=== PATIENT | female | born 1945 | race Caucasian/White ===

== ENCOUNTER 2018-11-22 18:08 | Emergency (ER) | payer BC, OTHER ==
--- OUTSIDE RECORDS SUMMARY | 2018-11-22 18:10 | XMS REPORT ---
:1945 [facility] Organization [facility] Address [address] [place] [address] [address] [place] [address] Care Team Providers Name Role Phone KIM ESTRADA Unavailable Unavailable RUDI MICHELLE Unavailable Unavailable Problems This patient has no known problems. Allergies, Adverse Reactions, Alerts This patient has no known allergies or adverse reactions. Medications This patient has no known medications. Results Test Description Test Time Test Comments Text Results Atomic Results Result Comments Hematology 2018-06-10 12:19:00 Test Item Value Reference Range Comments Hematology (test code=WBCT) 7.3 thou/uL 4.8-10.8 Hematology (test code=RBCT) 4.77 mill/uL 4.20-5.40 Hematology (test code=HGBT) 14.6 g/dL 12.0-16.0 Hematology (test code=HCTT) 43.2 % 36.0-47.0 Hematology (test code=MCV) 90.5 fL 78.0-98.0 Hematology (test code=MCH) 30.6 pg 27.0-31.0 Hematology (test code=MCHC) 33.8 g/dL 32.0-36.0 Hematology (test code=RDW) 11.5 % 11.5-14.5 Hematology (test code=PLTT) 216 thou/uL 130-400 Hematology (test code=MPV) 8.3 fL 7.4-10.4 Hematology (test code=NE) 75 % 42-75 Hematology (test code=BA) 1 % 5-11 Hematology (test code=LY) 14 % 21-51 Hematology (test code=MO) 8 % 0-10 Hematology (test code=EO) 2 % 0-10 Hematology (test code=PCOMMENT) Appears Adequate [id number] 12:16:00 Test Item Value Reference Range Comments Chemistry (test 2.5 ng/mL 0-6.6 code=CKMBM-T) Chemistry (test 0.028 ng/mL < 0.028 code=TROPI-T) Reference Range 0.00 - 0.028 ng/mL Negative 0.029 - 0.29 ng/mL Indeterminate Greater or Equal to 0.3 ng/mL Strongly suggests CT Chemistry - BNP, HgbA1c, [id number] 12:14:00 Test Item Value Reference Range Comments Chemistry - BNP, HgbA1c, PTHi (test code=BNP) 88.1 pg/mL 0-100 [id number] 12:11:00 Test Item Value Reference Range Comments Chemistry (test code=NA-T) 144 mmol/L 136-145 Chemistry (test code=K-T) 4.2 mmol/L 3.5-5.1 Chemistry (test code=CL) 105 mmol/L 98-107 Chemistry (test code=CO2) 25 mmol/L 23-31 Chemistry (test code=ANGP) 18 mmol/L 10-20 Chemistry (test code=BUN) 15 mg/dL 9.8-20.1 Chemistry (test code=CREATT) 0.95 mg/dL 0.6-1.1 Chemistry (test 58 Reference Range for Estimated code=EGFRMDRD) GFR: Greater than 90 mL/min/1.73 m2NOTE:The MDRD equation has not been validated for use with theelderly (over 70 years of age), women, patientswith serious comorbid condition or persons with extremes ofbody size, muscle mass, or nutritional status. Chemistry (test code=GLU-T) 149 mg/dL 83-110 Chemistry (test code=CA) 9.0 mg/dL 7.8-10.44 ANG, REMOVAL OF TUNNELED CVC [id number] 12:06:00Reason for Exam:->ANAL CAFINAL REPORT Procedure: Removal of right chest port History: Chemotherapy completed Anesthesia: 1% lidocaine Conscious sedation: Versed 2 mg, fentanyl 100 mcg, (Administered after informed consent was obtained ) Vital signs were monitored throughout the procedure by a nurse, and remained stable. Physician intra-service time was 15 minutes. Approach: Right chest Technique: After obtaining written informed consent , the right chest wall were prepped and draped with maximal sterile barrier technique . All elements maximal sterile barrier technique was utilized for this procedure, including utilization of sterile scrub solution for skin prep, a large sterile sheet to cover the areas of the patient that were not prepped, and hand hygiene , mask, head covering, and sterile gown for performing radiologist and scrub technologist. An incision was made over the existing scar. Blunt and sharp dissection were required to remove the chest port and the catheter. The subcutaneous pocket was irrigated with antibiotic solution and closed with resorbable suture. The patient toleratedthe procedure well. Estimated blood loss was less than 5 cc. IMPRESSION: Successful, uncomplicated removal of right- sided chest port. Signed: Quincy Leach MDReport Verified Date/Time: 02/13/2018 12:06:33 Reading Location: [facility] Radiology Reading Room CBC W/PLT COUNT & AUTO [id number] 11:13:00 Test Item Value Reference Range Comments WHITE BLOOD CELL COUNT (BEAKER) (test usdn=043) 7.4 K/ L 4.0-10.0 RED BLOOD CELL COUNT (BEAKER) (test cqhy=002) 4.39 M/ L 4.00-5.00 HEMOGLOBIN (BEAKER) (test knuj=371) 13.7 GM/DL 12.0-15.0 HEMATOCRIT (BEAKER) (test istf=519) 40.7 % 36.0-45.0 MEAN CORPUSCULAR VOLUME (BEAKER) (test imhr=520) 92.7 fL 82.0-99.0 MEAN CORPUSCULAR HEMOGLOBIN (BEAKER) (test 31.2 pg 27.0-33.0 cgyh=353) MEAN CORPUSCULAR HEMOGLOBIN CONC (BEAKER) (test 33.7 GM/DL 32.0-36.0 sqyb=990) RED CELL DISTRIBUTION WIDTH (BEAKER) (test 12.6 % 10.3-14.2 lerm=721) PLATELET COUNT (BEAKER) (test bhpg=841) 222 K/CU MM 150-430 MEAN PLATELET VOLUME (BEAKER) (test dpvs=382) 8.0 fL 6.5-10.5 NUCLEATED RED BLOOD CELLS (BEAKER) (test 0 /100 WBC 0-0 egka=684) NEUTROPHILS RELATIVE PERCENT (BEAKER) (test 83 % kggq=429) LYMPHOCYTES RELATIVE PERCENT (BEAKER) (test 10 % pkxi=339) MONOCYTES RELATIVE PERCENT (BEAKER) (test 5 % rzuh=108) EOSINOPHILS RELATIVE PERCENT (BEAKER) (test 3 % sdtf=627) BASOPHILS RELATIVE PERCENT (BEAKER) (test 0 % uctk=575) NEUTROPHILS ABSOLUTE COUNT (BEAKER) (test 6.10 K/ L 1.80-8.00 glmv=206) LYMPHOCYTES ABSOLUTE COUNT (BEAKER) (test 0.70 K/ L 1.48-4.50 jity=620) MONOCYTES ABSOLUTE COUNT (BEAKER) (test 0.30 K/ L 0.00-1.30 zcle=897) EOSINOPHILS ABSOLUTE COUNT (BEAKER) (test 0.20 K/ L 0.00-0.50 qczg=203) BASOPHILS ABSOLUTE COUNT (BEAKER) (test 0.00 K/ L 0.00-0.20 joxh=455) [id number] 09:32:00 Test Item Value Reference Range Comments PROTIME (BEAKER) (test tkow=444) 9.7 seconds 9.3-12.0 INR (BEAKER) (test wxam=655) 0.9 <=5.9 PARTIAL THROMBOPLASTIN TIME (BEAKER) (test 24.8 seconds 23.0-35.0 hnlh=019) RECOMMENDED COUMADIN/WARFARIN INR THERAPY RANGESSTANDARD DOSE: 2.0 - 3.0 Includes: PROPHYLAXIS forvenous thrombosis, systemic embolization; TREATMENT for venous thrombosis and/or pulmonary embolus.HIGH RISK: Target INR is 2.5-3.5 for patients with mechanical heart valves.[id number] 09:59:00 Test Item Value Reference Range Comments PROTIME (BEAKER) (test dchr=115) 10.0 seconds 9.3-12.0 INR (BEAKER) (test uril=431) 0.9 <=5.9 PARTIAL THROMBOPLASTIN TIME (BEAKER) (test 24.5 seconds 23.0-35.0 gxgk=649) RECOMMENDED COUMADIN/WARFARIN INR THERAPY RANGESSTANDARD DOSE: 2.0 - 3.0 Includes: PROPHYLAXIS forvenous thrombosis, systemic embolization; TREATMENT for venous thrombosis and/or pulmonary embolus.HIGH RISK: Target INR is 2.5-3.5 for patients with mechanical heart valves.
--- OUTSIDE RECORDS SUMMARY | 2018-11-22 18:10 | XMS REPORT | Clinical Summary ---
:1945 Author Organization [facility] Address [address] [place] [id number] Care Team Providers Name Role Phone Unavailable Primary Care Provider Unavailable Allergies Active Allergy Reactions Severity Noted Date Comments Codeine Other (See Comments) 01/28/2017 "weird dreams" Cephalexin Hives, Rash Low 01/28/2017 Medications Medication Sig Dispensed Refills Start Date End Date Status fluticasone-salmeterol Inhale 1 puff by 0 Active (ADVAIR) 100-50 mouth via inhaler mcg/dose diskus as needed . inhaler traMADol (ULTRAM) 50 Take 50 mg by 0 Active mg tablet mouth every 6 (six) hours as needed for Pain. albuterol HFA Inhale 1 puff by 0 Active (VENTOLIN HFA) 90 mouth via inhaler mcg/actuation inhaler every 6 (six) hours as needed for Wheezing. amLODIPine (NORVASC) 5 Take 5 mg by mouth 0 Active MG tablet daily. metoprolol (TOPROL-XL) Take 50 mg by 0 Active 50 MG 24 hr tablet mouth daily. valsartan-hydrochlorot Take 1 tablet by 0 Active hiazide (DIOVAN-HCT) mouth daily. 160-12.5 mg per tablet Active Problems Not on file Encounters Date Type Specialty Care Team Description 02/13/2018 Hospital Encounter [facility] Anal carcinoma (HCC) Quincy Padron II, MD 02/07/2018 Outside Orders Central Scheduling [facility] Anal carcinoma (HCC) (Primary Dx) after 11/21/2017 Social History Tobacco Use Types Packs/Day Years Used Date Current Every Day Smoker 0.5 50 Smokeless Tobacco: Former User Quit: 12/25/2016 Alcohol Use Drinks/Week oz/Week Comments Yes occasional-beer Sex Assigned at Date Recorded Not on file Job Start Date Occupation Industry Not on file Not on file Not on file Travel History Travel Start Travel End No recent travel history available. Last Filed Vital Signs Vital Sign Reading Time Taken Blood Pressure 152/74 02/13/2018 11:00 AM CDT Pulse 72 02/13/2018 11:00 AM CDT Temperature 37 C (98.6 F) 02/13/2018 10:32 AM CDT Respiratory Rate 17 02/13/2018 11:00 AM CDT Oxygen Saturation 99% 02/13/2018 11:00 AM CDT Inhaled Oxygen Concentration - - Weight 52.6 kg (116 lb) 02/13/2018 9:00 AM CDT Height 152.4 cm (5') 02/13/2018 9:00 AM CDT Body Mass Index 22.65 02/13/2018 9:00 AM CDT Plan of Treatment Not on file Procedures Procedure Name Priority Date/Time Associated Comments Diagnosis CARDIAC CATH REPORT - 02/15/2018 1:40 SCAN PM CDT IR PORT REMOVAL Routine 02/13/2018 10:41 Anal carcinoma Results for this AM CDT (HCC) procedure are in the results section. CBC W/PLT COUNT & Routine 02/13/2018 9:05 Results for this AUTO DIFFERENTIAL AM CDT procedure are in the results section. PT/APTT Routine 02/13/2018 9:05 Results for this AM CDT procedure are in the results section. CBC W/PLT COUNT & Routine 02/13/2018 9:05 Results for this AUTO DIFFERENTIAL AM CDT procedure are in the results section. after 11/21/2017 Results CARDIAC CATH REPORT - SCAN (02/15/2018 1:40 PM CDT) Narrative Performed At IR Port Removal (02/13/2018 10:41 AM CDT) Narrative Performed At FINAL REPORT [facility] Procedure: Removal of right chest port History: Chemotherapy completed Anesthesia: 1% lidocaine Conscious sedation: Versed 2 mg, fentanyl 100 mcg, (Administered after informed consent was obtained) Vital signs were monitored throughout the procedure [...] patient that were not prepped, and hand hygiene, mask, head covering, and sterile gown for performing radiologist and scrub technologist. An incision was made over the existing scar. Blunt and sharp dissection were required to remove the chest port and the catheter. The subcutaneous pocket was irrigated with antibiotic solution and closed with resorbable suture. The patient tolerated the procedure well. Estimated blood loss was less than 5 cc. IMPRESSION: Successful, uncomplicated removal of right-sided chest port. Signed: Quincy Mardid MD Report Verified Date/Time:02/13/2018 12:06:33 Reading Location: [facility] Radiology Reading Room Procedure Note Interface, External Ris In - 02/13/2018 12:08 PM CDT FINAL REPORT Procedure: Removal of right chest port History: Chemotherapy completed Anesthesia: 1% lidocaine Conscious sedation: Versed 2 mg, fentanyl 100 mcg, (Administered after informed consent was obtained) Vital signs were monitored throughout the procedure [...] patient that were not prepped, and hand hygiene, mask, head covering, and sterile gown for performing radiologist and scrub technologist. An incision was made over the existing scar. Blunt and sharp dissection were required to remove the chest port and the catheter. The subcutaneous pocket was irrigated with antibiotic solution and closed with resorbable suture. The patient tolerated the procedure well. Estimated blood loss was less than 5 cc. IMPRESSION: Successful, uncomplicated removal of right-sided chest port. Signed: Quincy Madrid MD Report Verified Date/Time: 02/13/2018 12:06:33 Reading Location: [facility] Radiology Reading Room Performing Organization Address City/State/Zipcode Phone Number [facility] PT/aPTT (02/13/2018 9:05 AM CDT) Protime 9.7 9.3 - 12.0 seconds [facility] INR 0.9 <=5.9 [facility] PTT 24.8 23.0 - 35.0 seconds [facility] Specimen Blood - Arm, Right Narrative Performed At [facility] RECOMMENDED COUMADIN/WARFARIN INR THERAPY RANGES STANDARD DOSE: 2.0 - 3.0 Includes: PROPHYLAXIS for venous thrombosis, systemic embolization; TREATMENT for venous thrombosis and/or pulmonary embolus. HIGH RISK: Target INR is 2.5-3.5 for patients with mechanical heart valves. Performing Organization Address City/[facility]/Zipcode Phone Number [facility] [address] [place], [place] [phone] CBC with platelet count + automated diff (02/13/2018 9:05 AM CDT) WBC 7.4 4.0 - 10.0 K/L [facility] RBC 4.39 4.00 - 5.00 M/L [facility] Hemoglobin 13.7 12.0 - 15.0 GM/DL [facility] Hematocrit 40.7 36.0 - 45.0 % [facility] MCV 92.7 82.0 - 99.0 fL [facility] MCH 31.2 27.0 - 33.0 pg [facility] MCHC 33.7 32.0 - 36.0 GM/DL [facility] RDW 12.6 10.3 - 14.2 % [facility] Platelets 222 150 - 430 K/CU MM [facility] MPV 8.0 6.5 - 10.5 fL [facility] nRBC 0 0 - 0 /100 WBC [facility] % Neutros 83 % [facility] % Lymphs 10 % [facility] % Monos 5 % [facility] % Eos 3 % [facility] % Baso 0 % [facility] # Neutros 6.10 1.80 - 8.00 K/L [facility] # Lymphs 0.70 (L) 1.48 - 4.50 K/L [facility] # Monos 0.30 0.00 - 1.30 K/L [facility] # Eos 0.20 0.00 - 0.50 K/L [facility] # Baso 0.00 0.00 - 0.20 K/L [facility] Specimen Blood - Arm, Right Performing Organization Address City/State/Zipcode Phone Number [facility] [address] [place] [address] after 11/21/2017 Insurance Payer Benefit Plan / Subscriber ID Type Phone Address Group BLUE CROSS/BLUE BCBS PPO POS EPO xxxxxxxxxxxx PPO [phone] [address] [place] [address] MEDICARE MEDICARE A B xxxxxxxxxx Medicare
[2018-11-22] MEDS ORDERED: MAGNESIUM SULFATE 1 gm IVPB 1 GM/100 ML BAG IV ONE (19:24)
[2018-11-22] MEDS ORDERED: IPRATROPIUM BROM 0.5MG/2.5ML ONE (19:24)
[2018-11-22] MEDS ORDERED: ALBUTEROL 2.5 MG/3 ML NEB SOL ONE (19:24)
[2018-11-22] MEDS ORDERED: METHYLPREDNISOLONE 125 MG INJ ONE (19:24)
--- NOTE | 2018-11-22 19:32 | RAD REPORT ---
EXAM DESCRIPTION: RAD - Chest Single View - 11/22/2018 7:26 pm CLINICAL HISTORY: Cough;SOB Chest pain. COMPARISON: Chest Pa And Lat (2 Views) dated 12/05/2016; Chest Single View dated 09/26/2016; CHEST PA AND LAT 2 VIEW dated 09/17/2013; CHEST SINGLE VIEW dated 10/29/2012 FINDINGS: Portable technique limits examination quality. The lungs are emphysematous but grossly clear. The heart is normal in size. No displaced fractures.Le ft axillary radha dissection clips. IMPRESSION: Prominent COPD.
[2018-11-22 20:03] LABS: Absolute Lymphocytes (CBC) 0.8 K/uL (0.7-4.9); Absolute Monocytes 0.4 K/uL (0.1-1.3); Absolute Neutrophil 2.7 K/uL (1.8-8.0); Basophils % 0.7 % (0-1.3); Eosinophils % 1.7 % (0-4.4); Hematocrit 42.8 % (36.0-45.0); Lymphocytes % 19.6 % (15.3-44.8); MPV 8.4 fL (7.6-11.3); Monocytes % 10.5 % (3.3-12.3); RBC Red Blood Cell Count 4.66 M/uL (3.86-4.86)
[2018-11-22 20:17] LABS: Potassium 3.7 mmol/L (3.5-5.1)
[2018-11-22 20:18] LABS: Albumin 3.7 g/dL (3.4-5.0); Bilirubin Direct 0.1 mg/dL (0-0.2); Bilirubin Total 0.6 mg/dL (0.2-1.0); Magnesium 1.9 mg/dL (1.8-2.4); Protein, Total 7.4 g/dL (6.4-8.2); Troponin (Emerg Dept Use Only) 0.03 ng/mL (0.0-0.045)
[2018-11-22 20:19] LABS: Protime INR 0.96
--- NOTE | 2018-11-22 21:19 | ER ---
Nurse's Notes [facility] Name: Yamileth Connell Age: 73 yrs Sex: Female : 1945 Arrival Date: 11/22/2018 Time: 18:12 Bed 30 Private MD: Adilson Boothe E Diagnosis: Chronic obstructive pulmonary disease with (acute) exacerbation Presentation: 11/22 18:26 Presenting complaint: Patient states: Shortness of breath since yesterday, worse today. jl7 Transition of care: patient was not received from another setting of care. Onset of symptoms was November 21, 2018. Risk Assessment: Do you want to hurt yourself or someone else? Patient reports no desire to harm self or others. Initial Sepsis Screen: Does the patient meet any 2 criteria? No. Patient's initial sepsis screen is negative. Does the patient have a suspected source of infection? No. Patient's initial sepsis screen is negative. Care prior to arrival: "I've been doing nebulizers all day and they just aren't working.". 18:26 Method Of Arrival: Ambulatory [facility] 18:26 Acuity: KARLA 3 jl7 Triage Assessment: 18:29 General: Appears uncomfortable, Behavior is calm, cooperative, appropriate for age. jl7 Pain: Complains of pain in chest- "Sore from coughing.". Respiratory: Reports shortness of breath at rest Onset: The symptoms/episode began/occurred yesterday, the patient has mild shortness of breath. Historical: - Allergies: 18:29 Keflex; jl7 - Home Meds: 18:49 amlodipine 5 mg tab 1 tab once daily [Active]; capecitabine 500 mg Oral tab 3 in the mg2 morning, 2 at night, M-F [Active]; fentanyl 25 mcg/hr Topical pt72 1 patch every 72 hours [Active]; gabapentin 300 mg Oral cap [Active]; metoprolol tartrate 50 mg Oral tab once daily [Active]; [place] 10-325 mg Oral tab 1 tab every 6 hours [Active]; Promethazine Oral [Active]; Tramadol Oral once daily [Active]; valsartan-hydrochlorothiazide 160-12.5 mg Oral tab 1 tab once daily [Active]; Zofran (as hydrochloride) 8 mg Oral tab 1 tab every 8 hours [Active]; - PMHx: 18:29 Cancer, Breast; Diverticulitis; rectal cancer; Hypertension; jl7 - PSHx: 18:29 Mastectomy, Left; rectal- colostomy bag; left knee; Appendectomy; Tonsillectomy; D \\T\\ C; jl7 partial hysterectomy; ankle-left; rectal; - Immunization history:: Adult Immunizations up to date. - Social history:: Smoking status: Patient uses tobacco products, smokes one-half pack cigarettes per day. - Ebola Screening: : No symptoms or risks identified at this time. Screenin:44 Abuse screen: Denies threats or abuse. Denies injuries from another. Nutritional mg2 screening: No deficits noted. Tuberculosis screening: No symptoms or risk factors identified. Fall Risk None identified. Assessment: 18:44 General: Appears in no apparent distress. comfortable, Behavior is calm, cooperative. mg2 Pain: Denies pain. Neuro: Level of Consciousness is awake, alert, obeys commands, Oriented to person, place, time, situation. Cardiovascular: Capillary refill < 3 seconds Patient's skin is warm and dry. Respiratory: Airway is patent Respiratory effort is even, pursed lip, Respiratory pattern is regular, symmetrical, Breath sounds with wheezes bilaterally. in right upper lobe and left upper lobe. Respiratory: Reports cough that is productive, since last week pain with cough. GI: No signs and/or symptoms were reported involving the gastrointestinal system. : No signs and/or symptoms were reported regarding the genitourinary system. EENT: No signs and/or symptoms were reported regarding the EENT system. Derm: Skin is intact, is healthy with good turgor, Skin is pink, warm \\T\\ dry. normal. Musculoskeletal: No signs and/or symptoms reported regarding the musculoskeletal system. 21:24 Cardiovascular: Rhythm is sinus rhythm. mg2 21:25 Reassessment: Patient appears in no apparent distress at this time. Patient and/or mg2 family updated on plan of care and expected duration. Pain level reassessed. Patient is alert, oriented x 3, equal unlabored respirations, skin warm/dry/pink. Vital Signs: 18:29 BP 179 / 91; Pulse 74; Resp 26 S; Temp 100(O); Pulse Ox 95% on R/A; Weight 57.61 kg jl7 (R); Height 4 ft. 11 in. (149.86 cm) (R); Pain 5/10; 18:51 BP 164 / 74; Pulse 68; Resp 28; Temp 99.1(O); Pulse Ox 96% on R/A; Pain 0/10; mg2 20:39 BP 149 / 71; Pulse 86; Resp 25; Pulse Ox 91% on R/A; Pain 0/10; mg2 21:23 BP 138 / 80; Pulse 78; Resp 18; Pulse Ox 93% on R/A; Pain 0/10; mg2 18:29 Body Mass Index 25.65 (57.61 kg, 149.86 cm) jl7 ED Course: 18:12 Patient arrived in ED. mr 18:12 Adilson Boothe MD is Private Physician. mr 18:27 Triage completed. jl7 18:29 Arm band placed on right wrist. jl7 18:32 Florencio Sears PA is PHCP. cp 18:32 Nick Blilings MD is Attending Physician. cp 18:37 Ceasar Baez, GEORGE is Primary Nurse. mg2 18:51 Patient has correct armband on for positive identification. Pulse ox on. NIBP on. Door mg2 closed. Noise minimized. Warm blanket given. 19:05 Paulina Tucker MD is Attending Physician. cp 19:27 XRAY Chest (1 view) In Process Unspecified. EDMS 19:51 No provider procedures requiring assistance completed. Inserted saline lock: 20 gauge mg2 in right antecubital area, using aseptic technique. Blood collected. 21:36 IV discontinued, intact, bleeding controlled, No redness/swelling at site. Pressure mg2 dressing applied. Administered Medications: 19:33 Drug: Albuterol - atroVENT (3:1) (2.5 mg - 0.5 mg) 3 ml Route: Nebulizer; mg2 21:09 Follow up: Response: No adverse reaction; Wheezing diminished mg2 19:50 Drug: SOLU-Medrol 125 mg Route: IVP; Site: right antecubital; mg2 21:09 Follow up: Response: No adverse reaction; Marked relief of symptoms mg2 19:51 Drug: Magnesium Sulfate 1 grams Route: IVPB; Infused Over: 1 hrs; Site: right mg2 antecubital; 21:23 Follow up: Response: No adverse reaction; IV Status: Completed infusion mg2 Outcome: 21:19 Discharge ordered by . cp 21:36 Discharged to home ambulatory, with family. mg2 21:36 Condition: stable 21:36 Discharge instructions given to patient, family, Instructed on discharge instructions, follow up and referral plans. medication usage, Demonstrated understanding of instructions, follow-up care, medications, Prescriptions given X 4. 21:46 Patient left the ED. mg2 Signatures: Dispatcher [employer] CHINORegina Thomas Florencio Sears PA PA cp Leal, Jahala, RN RN jl7 Ceasar Baez RN RN mg2 Corrections: (The following items were deleted from the chart) 21:45 21:23 Pulse 78bpm; Resp 18bpm; Pulse Ox 93% RA; Pain 0/10; mg2 mg2
--- NOTE | 2018-11-22 21:19 | EDPHYS ---
Physician Documentation [facility] Name: Yamileth Connell Age: 73 yrs Sex: Female : 1945 Arrival Date: 11/22/2018 Time: 18:12 Bed 30 Private MD: Adilson Boothe E ED Physician Paulina Tucker HPI: 11/22 19:05 This 73 yrs old Female presents to ER via Ambulatory with complaints of cp Breathing Difficulty. 19:05 The patient has shortness of breath at rest. cp 19:05 Onset: The symptoms/episode began/occurred yesterday, and became worse today. cp 19:05 Duration: The symptoms are continuous, and are steadily getting worse. Associated signs cp and symptoms: Pertinent positives: non-productive cough, fever, Pertinent negatives: chest pain, diaphoresis, hemoptysis, vomiting. Severity of symptoms: in the emergency department the symptoms are unchanged despite home interventions. Historical: - Allergies: 18:29 Keflex; jl7 - Home Meds: 18:49 amlodipine 5 mg tab 1 tab once daily [Active]; capecitabine 500 mg Oral tab 3 in the mg2 morning, 2 at night, M-F [Active]; fentanyl 25 mcg/hr Topical pt72 1 patch every 72 hours [Active]; gabapentin 300 mg Oral cap [Active]; metoprolol tartrate 50 mg Oral tab once daily [Active]; [place] 10-325 mg Oral tab 1 tab every 6 hours [Active]; Promethazine Oral [Active]; Tramadol Oral once daily [Active]; valsartan-hydrochlorothiazide 160-12.5 mg Oral tab 1 tab once daily [Active]; Zofran (as hydrochloride) 8 mg Oral tab 1 tab every 8 hours [Active]; - PMHx: 18:29 Cancer, Breast; Diverticulitis; rectal cancer; Hypertension; jl7 - PSHx: 18:29 Mastectomy, Left; rectal- colostomy bag; left knee; Appendectomy; Tonsillectomy; D \\T\\ C; jl7 partial hysterectomy; ankle-left; rectal; - Immunization history:: Adult Immunizations up to date. - Social history:: Smoking status: Patient uses tobacco products, smokes one-half pack cigarettes per day. - Ebola Screening: : No symptoms or risks identified at this time. ROS: 19:10 Constitutional: Negative for body aches, chills, fever, poor PO intake. cp 19:10 Eyes: Negative for injury, pain, redness, and discharge. cp 19:10 ENT: Negative for drainage from ear(s), ear pain, difficulty swallowing, difficulty handling secretions. 19:10 Respiratory: Positive for cough, "sounds productive", shortness of breath, Negative for wheezing. 19:10 Abdomen/GI: Negative for abdominal pain, nausea, vomiting, and diarrhea, constipation, black/tarry stool, rectal bleeding. 19:10 Skin: Negative for cellulitis, rash. 19:10 Neuro: Negative for altered mental status, headache, weakness. 19:10 All other systems are negative. Exam: 19:12 Constitutional: The patient appears in no acute distress, alert, awake, cp non-diaphoretic, non-toxic, well developed, well nourished. 19:12 Head/Face: Normocephalic, atraumatic. cp 19:12 Eyes: Periorbital structures: appear normal, Conjunctiva: normal, no exudate, no injection, Sclera: no appreciated abnormality, Lids and lashes: appear normal, bilaterally. 19:12 ENT: External ear(s): are unremarkable, Ear canal(s): are normal, clear, TM's: bulging, is not appreciated, bilaterally, dullness, bilaterally, erythema, is not appreciated, bilaterally, Nose: is normal, Mouth: Lips: moist, Oral mucosa: pink and intact, moist, Posterior pharynx: is normal, airway is patent, no erythema, no exudate, Voice: is normal. 19:12 Neck: ROM/movement: is normal, is supple, without pain, no range of motions limitations, no nuchal rigidity. 19:12 Chest/axilla: Inspection: normal, Palpation: is normal, no crepitus, no tenderness. 19:12 Cardiovascular: Rate: normal, Rhythm: regular, Pulses: Pulses are 2+ in right radial artery and left radial artery. Edema: is not appreciated, JVD: is not appreciated. 19:12 Respiratory: the patient does not display signs of respiratory distress, Respirations: normal, no use of accessory muscles, no retractions, no splinting, no tachypnea, labored breathing, is not present, Breath sounds: are clear throughout, no decreased breath sounds, no stridor, no wheezing. 19:12 Abdomen/GI: Inspection: abdomen appears normal, Bowel sounds: active, all quadrants, Palpation: abdomen is soft and non-tender, in all quadrants, rebound tenderness, is not appreciated, voluntary guarding, is not appreciated, involuntary guarding, is not appreciated. 19:12 Back: pain, is absent, ROM is normal. 19:12 Musculoskeletal/extremity: Exam is negative for calf tenderness, decreased range of motion, edema. 19:12 Skin: cellulitis, is not appreciated, no rash present. 19:12 Neuro: Orientation: to person, place \\T\\ time. Mentation: is normal, Cerebellar function: is grossly normal, Motor: moves all fours, strength is normal, Sensation: is normal. 19:40 ECG was reviewed by the Attending Physician. cp Vital Signs: 18:29 BP 179 / 91; Pulse 74; Resp 26 S; Temp 100(O); Pulse Ox 95% on R/A; Weight 57.61 kg 7 (R); Height 4 ft. 11 in. (149.86 cm) (R); Pain 5/10; 18:51 BP 164 / 74; Pulse 68; Resp 28; Temp 99.1(O); Pulse Ox 96% on R/A; Pain 0/10; mg2 20:39 BP 149 / 71; Pulse 86; Resp 25; Pulse Ox 91% on R/A; Pain 0/10; mg2 21:23 BP 138 / 80; Pulse 78; Resp 18; Pulse Ox 93% on R/A; Pain 0/10; mg2 18:29 Body Mass Index 25.65 (57.61 kg, 149.86 cm) 7 MDM: 18:32 Patient medically screened. cp 19:30 Differential diagnosis: Bronchitis CHF exacerbation, Chronic Obstructive Pulmonary cp Disease pneumonia, pulmonary edema, Pulmonary Embolism Sepsis. 21:17 Special discussion: offered admission for continued treatment, but patient requesting cp discharge to home and will return if symptoms worsen. 21:18 Data reviewed: vital signs, nurses notes, lab test result(s), EKG, radiologic studies, cp plain films. 21:18 Test interpretation: by ED physician or midlevel provider: ECG, plain radiologic cp studies. Counseling: I had a detailed discussion with the patient and/or guardian regarding: the historical points, exam findings, and any diagnostic results supporting the discharge/admit diagnosis, lab results, radiology results, the need for outpatient follow up, a family practitioner, to return to the emergency department if symptoms worsen or persist or if there are any questions or concerns that arise at home. Response to treatment: the patient's symptoms have markedly improved after treatment, VSS. Symptoms markedly improved, and as a result, I will discharge patient. 11/22 19:03 Order name: Influenza Screen (a \\T\\ B); Complete Time: 21:13 cp 11/22 19:03 Order name: Basic Metabolic Panel; Complete Time: 21:13 cp 11/22 21:13 Interpretation: Normal except: BUN 21; GFR 71. cp 11/22 19:03 Order name: CBC with Diff; Complete Time: 20:16 cp 11/22 20:16 Interpretation: Normal except: WBC 3.9; MCV 91.8; PLT 143. cp 11/22 19:03 Order name: LFT's; Complete Time: 21:13 cp 11/22 21:14 Interpretation: Normal except: GLOB 3.7; A/G 1.0. cp 11/22 19:03 Order name: Magnesium; Complete Time: 21:13 cp 11/22 19:03 Order name: NT PRO-BNP; Complete Time: 21:13 cp 11/22 19:03 Order name: PT-INR; Complete Time: 21:13 cp 11/22 19:03 Order name: Troponin (emerg Dept Use Only); Complete Time: 21:13 cp 11/22 19:03 Order name: XRAY Chest (1 view); Complete Time: 20:16 cp 11/22 19:03 Order name: Blood Culture Adult (2) cp 11/22 19:03 Order name: Procalcitonin; Complete Time: 21:13 cp 11/22 19:03 Order name: Lactate; Complete Time: 21:13 cp 11/22 19:03 Order name: EKG; Complete Time: 19:04 cp 11/22 19:03 Order name: Cardiac monitoring; Complete Time: 19:33 cp 11/22 19:03 Order name: EKG - Nurse/Tech; Complete Time: 19:33 cp 11/22 19:03 Order name: IV Saline Lock; Complete Time: 19:50 cp 11/22 19:03 Order name: Labs collected and sent; Complete Time: 19:50 cp 11/22 19:03 Order name: O2 Per Protocol; Complete Time: 19:50 cp 11/22 19: Order name: O2 Sat Monitoring; Complete Time: 19:50 cp EC:40 Rate is 67 beats/min. Rhythm is regular. ID interval is normal. QRS interval is normal. cp QT interval is normal. T waves are Inverted in lead aVL. Interpreted by me. Reviewed by me. Administered Medications: 19:33 Drug: Albuterol - atroVENT (3:1) (2.5 mg - 0.5 mg) 3 ml Route: Nebulizer; mg2 21:09 Follow up: Response: No adverse reaction; Wheezing diminished mg2 19:50 Drug: SOLU-Medrol 125 mg Route: IVP; Site: right antecubital; mg2 21: Follow up: Response: No adverse reaction; Marked relief of symptoms mg2 19:51 Drug: Magnesium Sulfate 1 grams Route: IVPB; Infused Over: 1 hrs; Site: right mg2 antecubital; 21:23 Follow up: Response: No adverse reaction; IV Status: Completed infusion mg2 Disposition: 11/23 02:52 Co-signature as Attending Physician, Paulina Tucker MD. ma2 Disposition: 11/22/18 21:19 Discharged to Home. Impression: Chronic obstructive pulmonary disease with (acute) exacerbation. - Condition is Stable. - Discharge Instructions: Chronic Obstructive Pulmonary Disease. - Prescriptions for prednisone 50 mg Oral tablet - take 1 tablet by ORAL route once daily for 5 days; 5 tablet. Albuterol Sulfate 2.5 mg /3 mL (0.083 %) Inhalation Solution for Nebulization - inhale 1 unit by NEBULIZATION route every 8 hours As needed; 1 box. Zithromax Z- Raimundo 250 mg Oral Tablet - take 1 tablet by ORAL route as directed for 5 days Day 1 - take two (2) tablets one time. Day 2, 3, 4 , 5 take one (1) tablet once daily.; 6 tablet. Albuterol Sulfate 90 mcg/actuation - inhale 1-2 puff by INHALATION route every 4-6 hours; 1 Inhaler. - Medication Reconciliation Form, Thank You Letter, Antibiotic Education, Prescription Opioid Use form. - Follow up: Private Physician; When: 1 - 2 days; Reason: Recheck today's complaints. - Problem is an acute exacerbation. - Symptoms have improved. Signatures: Dispatcher [employer] EDMS Florencio Sears PA PA cp Leal, Jahala, RN RN jl7 Paulina Tucker MD MD ma2 Ceasar Baez, RN RN mg2 Corrections: (The following items were deleted from the chart) 11/22 21:46 21:19 11/22/2018 21:19 Discharged to Home. Impression: Chronic obstructive pulmonary mg2 disease with (acute) exacerbation. Condition is Stable. Forms are Medication Reconciliation Form, Thank You Letter, Antibiotic Education, Prescription Opioid Use. Follow up: Private Physician; When: 1 - 2 days; Reason: Recheck today's complaints. Problem is an acute exacerbation. Symptoms have improved. cp
[2018-11-22 21:54] VITALS: TEMP 99.1
[2018-11-22 21:57] VITALS: BP 138/80; O2SAT 93
--- NOTE | 2018-11-23 06:57 | EKG ---
Test Date: 2018-11-22 Test Time: 19:32:20 Manager Concrete: BRUCE MEASUREMENT RESULTS: Intervals: Rate: 67 NE: 140 QRSD: 94 QT: 438 QTc: 462 [place]: P: 85 NE: 140 QRS: 66 T: 89 INTERPRETIVE STATEMENTS: Normal sinus rhythm Normal ECG Compared to ECG 12/05/2016 20:45:11 No significant changes Electronically Signed On 11-23-18 06:56:41 ENDOSCOPY SUPPORT SPECIALIST by Issac Barroso
== END 2018-11-22 21:46 | disposition home or self-care (01) ==
LOC: ER 18:08
DX: J44.1 Chronic obstructive pulmonary disease with (acute) exacerbation (principal); I10 Essential (primary) hypertension; Z85.3 Personal history of malignant neoplasm of breast; Z88.1 Allergy status to other antibiotic agents; Z85.048 Personal history of other malignant neoplasm of rectum, rectosigmoid junction, and anus
CPT/HCPCS: 36415; 71045; 80048; 80076; 83605; 83735; 83880; 84145; 84484; 85025; 85610; 87040; 87804; 93005; 94640; 96365; 96366; 96375; 99285; J2930; J3475

== ENCOUNTER 2018-11-29 13:17 | Observation (INO) | payer BC, OTHER ==
--- OUTSIDE RECORDS SUMMARY | 2018-11-29 13:18 | XMS REPORT | Clinical Summary ---
:1945 Author Organization [facility] Address [address] [place] [id number] Care Team Providers Name Role Phone Unavailable [...] Harrison Anal carcinoma (HCC) (Primary Dx) after 11/28/2017 Social History Tobacco Use Types Packs/Day Years [...] procedure are in the results section. after 11/28/2017 Results CARDIAC CATH REPORT - SCAN (02/15/2018 1:40 PM CDT) Narrative Performed At IR Port Removal (02/13/2018 10:41 AM CDT) Narrative Performed At FINAL REPORT [facility] Procedure: Removal of right chest port [...] port. Signed: Quincy Madrid MD Report Verified Date/Time:02/13/2018 12:06:33 Reading Location: [facility] Radiology Reading Room Procedure Note Interface, [...] Report Verified Date/Time: 02/13/2018 12:06:33 Reading Location: [facility] Radiology Reading Room Performing Organization Address City/State/Zipcode Phone Number [facility] PT/aPTT (02/13/2018 9:05 AM CDT) Protime 9.7 9.3 - 12.0 seconds [facility] INR 0.9 <=5.9 [facility] PTT 24.8 23.0 - 35.0 seconds [facility] Specimen Blood - Arm, Right Narrative Performed At [facility] RECOMMENDED COUMADIN/WARFARIN INR THERAPY RANGES STANDARD DOSE: 2.0 - 3.0 Includes: PROPHYLAXIS for venous thrombosis, systemic embolization; TREATMENT for venous thrombosis and/or pulmonary embolus. HIGH RISK: Target INR is 2.5-3.5 for patients with mechanical heart valves. Performing Organization Address City/[facility]/Zipcode Phone Number [facility] [address] [place], [place] [phone] CBC with platelet count + automated diff (02/13/2018 9:05 AM CDT) WBC 7.4 4.0 - 10.0 K/L [facility] RBC 4.39 4.00 - 5.00 M/L [facility] Hemoglobin 13.7 12.0 - 15.0 GM/DL [facility] Hematocrit 40.7 36.0 - 45.0 % [facility] MCV 92.7 82.0 - 99.0 fL [facility] MCH 31.2 27.0 - 33.0 pg [facility] MCHC 33.7 32.0 - 36.0 GM/DL [facility] RDW 12.6 10.3 - 14.2 % [facility] Platelets 222 150 - 430 K/CU MM [facility] MPV 8.0 6.5 - 10.5 fL [facility] nRBC 0 0 - 0 /[address] [facility] % Neutros 83 % [facility] % Lymphs 10 % [facility] % Monos 5 % [facility] % Eos 3 % [facility] % Baso 0 % [facility] # Neutros 6.10 1.80 - 8.00 K/L [facility] # Lymphs 0.70 (L) 1.48 - 4.50 K/L [facility] # Monos 0.30 0.00 - 1.30 K/L [facility] # Eos 0.20 0.00 - 0.50 K/L [facility] # Baso 0.00 0.00 - 0.20 K/L [facility] Specimen Blood - Arm, Right Performing Organization Address City/State/Zipcode Phone Number [facility] [address] [place] [address] after 11/28/2017 Insurance Payer Benefit Plan / Subscriber ID Type Phone Address Group BLUE CROSS/BLUE BCBS PPO POS EPO xxxxxxxxxxxx PPO [phone] [address] [place] [address] MEDICARE MEDICARE A B xxxxxxxxxx Medicare
--- OUTSIDE RECORDS SUMMARY | 2018-11-29 13:19 | XMS REPORT ---
:1945 Author Organization [facility] Address [address] [place] [address] [address]. [address] [place] [address] Care Team Providers Name Role Phone KIM [...] % 0-10 Hematology (test code=PCOMMENT) Appears Adequate [id number] 12:16:00 Test Item Value Reference Range Comments Chemistry (test 2.5 ng/mL 0-6.6 code=CKMBM-T) Chemistry (test 0.028 ng/mL < 0.028 code=TROPI-T) Reference Range 0.00 - 0.028 ng/mL Negative 0.029 - 0.29 ng/mL Indeterminate Greater or Equal to 0.3 ng/mL Strongly suggests IA Chemistry - BNP, HgbA1c, [id number] 12:14:00 Test Item Value Reference Range Comments Chemistry - BNP, HgbA1c, PTHi (test code=BNP) 88.1 pg/mL 0-100 [id number] 12:11:00 Test Item Value Reference Range Comments [...] mg/dL 7.8-10.44 ANG, REMOVAL OF TUNNELED CVC [id number] 12:06:00Reason for Exam:->ANAL CAFINAL REPORT Procedure: Removal [...] MDReport Verified Date/Time: 02/13/2018 12:06:33 Reading Location: [facility] Radiology Reading Room CBC W/PLT COUNT & AUTO [id number] 11:13:00 Test Item Value Reference Range Comments WHITE BLOOD CELL COUNT (BEAKER) (test wctk=512) 7.4 K/ L 4.0-10.0 RED BLOOD CELL COUNT (BEAKER) (test uuvq=352) 4.39 M/ L 4.00-5.00 HEMOGLOBIN (BEAKER) (test ivwl=234) 13.7 GM/DL 12.0-15.0 HEMATOCRIT (BEAKER) (test xqnq=111) 40.7 % 36.0-45.0 MEAN CORPUSCULAR VOLUME (BEAKER) (test syxy=826) 92.7 fL 82.0-99.0 MEAN CORPUSCULAR HEMOGLOBIN (BEAKER) (test 31.2 pg 27.0-33.0 toja=552) MEAN CORPUSCULAR HEMOGLOBIN CONC (BEAKER) (test 33.7 GM/DL 32.0-36.0 jmga=781) RED CELL DISTRIBUTION WIDTH (BEAKER) (test 12.6 % 10.3-14.2 rryg=616) PLATELET COUNT (BEAKER) (test wber=092) 222 K/CU MM 150-430 MEAN PLATELET VOLUME (BEAKER) (test lmop=422) 8.0 fL 6.5-10.5 NUCLEATED RED BLOOD CELLS (BEAKER) (test 0 /100 WBC 0-0 tswp=977) NEUTROPHILS RELATIVE PERCENT (BEAKER) (test 83 % iglz=114) LYMPHOCYTES RELATIVE PERCENT (BEAKER) (test 10 % yfdq=180) MONOCYTES RELATIVE PERCENT (BEAKER) (test 5 % yzfz=759) EOSINOPHILS RELATIVE PERCENT (BEAKER) (test 3 % udfe=949) BASOPHILS RELATIVE PERCENT (BEAKER) (test 0 % ycfk=692) NEUTROPHILS ABSOLUTE COUNT (BEAKER) (test 6.10 K/ L 1.80-8.00 orew=238) LYMPHOCYTES ABSOLUTE COUNT (BEAKER) (test 0.70 K/ L 1.48-4.50 ubqw=570) MONOCYTES ABSOLUTE COUNT (BEAKER) (test 0.30 K/ L 0.00-1.30 slmj=937) EOSINOPHILS ABSOLUTE COUNT (BEAKER) (test 0.20 K/ L 0.00-0.50 hkyi=955) BASOPHILS ABSOLUTE COUNT (BEAKER) (test 0.00 K/ L 0.00-0.20 hzuo=352) [id number] 09:32:00 Test Item Value Reference Range Comments PROTIME (BEAKER) (test qvly=381) 9.7 seconds 9.3-12.0 INR (BEAKER) (test aeil=888) 0.9 <=5.9 PARTIAL THROMBOPLASTIN TIME (BEAKER) (test 24.8 seconds 23.0-35.0 rjlx=093) RECOMMENDED COUMADIN/WARFARIN INR THERAPY RANGESSTANDARD DOSE: 2.0 - 3.0 Includes: PROPHYLAXIS forvenous thrombosis, systemic embolization; TREATMENT for venous thrombosis and/or pulmonary embolus.HIGH RISK: Target INR is 2.5-3.5 for patients with mechanical heart valves.[id number] 09:59:00 Test Item Value Reference Range Comments PROTIME (BEAKER) (test ddbi=105) 10.0 seconds 9.3-12.0 INR (BEAKER) (test oolr=976) 0.9 <=5.9 PARTIAL THROMBOPLASTIN TIME (BEAKER) (test 24.5 seconds 23.0-35.0 hcvp=296) RECOMMENDED COUMADIN/WARFARIN INR THERAPY RANGESSTANDARD DOSE: 2.0 - 3.0 Includes: PROPHYLAXIS forvenous thrombosis, systemic embolization; TREATMENT for venous thrombosis and/or pulmonary embolus.HIGH RISK: Target INR is 2.5-3.5 for patients with mechanical heart valves.
--- NOTE | 2018-11-29 13:59 | EKG ---
Test Date: 2018-11-29 Test Time: 13:50:23 Geotechnical Engineer: BEV MEASUREMENT RESULTS: Intervals: Rate: 84 HI: 122 QRSD: 94 QT: 366 QTc: 432 [place]: P: 91 HI: 122 QRS: 81 T: 98 INTERPRETIVE STATEMENTS: Normal sinus rhythm with sinus arrhythmia Nonspecific ST abnormality Abnormal ECG Compared to ECG 11/22/2018 19:32:20 ST (T wave) deviation now present Electronically Signed On 11-29-18 13:58:41 DITCHER by Issac Barroso
[2018-11-29] MEDS ORDERED: LEVALBUTEROL 1.25 MG/3 ML NEB ONE (14:17)
[2018-11-29] MEDS ORDERED: METHYLPREDNISOLONE 125 MG INJ ONE (14:17)
[2018-11-29] MEDS ORDERED: MAGNESIUM SULFATE 1 gm IVPB 1 GM/100 ML BAG IV ONE (14:18)
[2018-11-29 14:27] LABS: Absolute Lymphocytes (CBC) 1.2 K/uL (0.7-4.9); Absolute Monocytes 0.5 K/uL (0.1-1.3); Absolute Neutrophil 7.2 K/uL (1.8-8.0); Basophils % 0.4 % (0-1.3); Eosinophils % 1.4 % (0-4.4); Hematocrit 43.7 % (36.0-45.0); Lymphocytes % 12.9 % (15.3-44.8); MPV 8.6 fL (7.6-11.3); Monocytes % 5.9 % (3.3-12.3)
[2018-11-29 14:35] LABS: Potassium 3.6 mmol/L (3.5-5.1); Troponin (Emerg Dept Use Only) 0.03 ng/mL (0.0-0.045)
--- NOTE | 2018-11-29 15:08 | RAD REPORT ---
EXAM DESCRIPTION: RAD - Chest Single View - 11/29/2018 2:48 pm CLINICAL HISTORY: COUGH Chest pain. COMPARISON: Chest Single View dated 11/22/2018; Chest Pa And Lat (2 Views) dated 12/05/2016; Chest Sing le View dated 09/26/2016; CHEST PA AND LAT 2 VIEW dated 09/17/2013 FINDINGS: Portable technique limits examination quality. The lungs are emphysematous but grossly clear. The heart is normal in size. No displaced fractures.Le ft axillary radha dissection clips. IMPRESSION: Prominent COPD.
--- NOTE | 2018-11-29 15:09 | EDPHYS ---
Physician Documentation [facility] Name: Yamileth Connell Age: 73 yrs Sex: Female : 1945 Arrival Date: 11/29/2018 Time: 13:19 Bed 2 Private MD: Adilson Boothe E ED Physician Nick Billings HPI: 11/29 13:45 This 73 yrs old Female presents to ER via Ambulatory with complaints of rn Breathing Difficulty. 13:45 The patient has shortness of breath at rest, with light activity. Onset: The rn symptoms/episode began/occurred 1 week(s) ago. Duration: The symptoms are continuous. The patient's shortness of breath is aggravated by exertion. Associated signs and symptoms: Pertinent positives: productive cough, Pertinent negatives: fever, hemoptysis, loss of consciousness. Severity of symptoms: At their worst the symptoms were moderate in the emergency department the symptoms are unchanged. The patient has experienced similar episodes in the past. The patient has been recently seen at the [facility] Emergency Department. Reports worse, finished steroids and still using breathing treatments every hour or 2. No fever. NO hemoptysis. . Historical: - Allergies: 13:27 Keflex; hb - Home Meds: 13:29 amlodipine 5 mg tab 1 tab once daily [Active]; capecitabine 500 mg Oral tab 3 in the hb morning, 2 at night, M-F [Active]; fentanyl 25 mcg/hr Topical pt72 1 patch every 72 hours [Active]; gabapentin 300 mg Oral cap [Active]; metoprolol tartrate 50 mg Oral tab once daily [Active]; [place] 10-325 mg Oral tab 1 tab every 6 hours [Active]; Promethazine Oral [Active]; Tramadol Oral once daily [Active]; valsartan-hydrochlorothiazide 160-12.5 mg Oral tab 1 tab once daily [Active]; Zofran (as hydrochloride) 8 mg Oral tab 1 tab every 8 hours [Active]; - PMHx: 13:29 Cancer, Breast; Diverticulitis; Hypertension; rectal cancer; COPD; hb - PSHx: 13:29 Mastectomy, Left; rectal- colostomy bag; left knee; Appendectomy; Tonsillectomy; D \T\ C; hb partial hysterectomy; ankle-left; rectal; - Immunization history:: Adult Immunizations up to date. - Social history:: Smoking status: Patient/guardian denies using tobacco. - Ebola Screening: : No symptoms or risks identified at this time. - Family history:: not pertinent. - Hospitalizations: : No recent hospitalization is reported. ROS: 13:45 Constitutional: Negative for fever, chills, and weight loss, Eyes: Negative for injury, rn pain, redness, and discharge, Neck: Negative for injury, pain, and swelling, Cardiovascular: Negative for chest pain, palpitations, and edema, Respiratory: + cough and wheezing Abdomen/GI: Negative for abdominal pain, nausea, vomiting, diarrhea, and constipation, MS/Extremity: Negative for injury and deformity, Skin: Negative for injury, rash, and discoloration, Neuro: Negative for headache, weakness, numbness, tingling, and seizure. Exam: 13:45 Constitutional: This is a well developed, well nourished patient who is awake, alert, rn and in no acute distress. Head/Face: Normocephalic, atraumatic. Eyes: Pupils equal round and reactive to light, extra-ocular motions intact. Lids and lashes normal. Conjunctiva and sclera are non-icteric and not injected. Cornea within normal limits. Periorbital areas with no swelling, redness, or edema. ENT: dry MM, no stridor Cardiovascular: Regular rate and rhythm with a normal S1 and S2. No gallops, murmurs, or rubs. Normal PMI, no JVD. No pulse deficits. Respiratory: + moderate tachypnea with coarse bialteral breath sounds and wheezing Abdomen/GI: soft, non-tender MS/ Extremity: Pulses equal, no cyanosis. Neurovascular intact. Full, normal range of motion. Equal circumference. Neuro: Awake and alert, GCS 15, oriented to person, place, time, and situation. Cranial nerves II-XII grossly intact. Motor strength 5/5 in all extremities. Sensory grossly intact. Cerebellar exam normal. Vital Signs: 13:25 BP 180 / 99; Pulse 97; Resp 28; Temp 97.8; Pulse Ox 96% ; Pain 0/10; hb 15:09 BP 164 / 90; Pulse 94; Resp 24; Pulse Ox 93% on R/A; Pain 0/10; sg 17:27 BP 155 / 89; Pulse 89; Resp 22; Temp 97.7; Pulse Ox 96% on R/A; Pain 0/10; sg MDM: 13:36 Patient medically screened. rn 15:05 Differential diagnosis: Chronic Obstructive Pulmonary Disease Myocardial Infarction rn pneumonia, Pneumothorax pulmonary edema. Data reviewed: vital signs, nurses notes, lab test result(s), radiologic studies, plain films. Counseling: I had a detailed discussion with the patient and/or guardian regarding: the historical points, exam findings, and any diagnostic results supporting the discharge/admit diagnosis, lab results, radiology results, the need for further work-up and treatment in the hospital. Response to treatment: the patient's symptoms have mildly improved after treatment, and as a result, I will admit patient. Admission orders: after a detailed discussion of the patient's condition and case, the admit orders are written by me. ED course: Pt with mild improvement, 2nd visit in last week, still tachypneic and wheezing, will admit to [facility] for further care. . 11/29 13:45 Order name: Blood Culture Adult (2) rn 11/29 13:45 Order name: BMP; Complete Time: 14:41 rn 11/29 13:45 Order name: CBC with Diff; Complete Time: 14:41 rn 11/29 13:45 Order name: NT PRO-BNP; Complete Time: 14:41 rn 11/29 13:45 Order name: Troponin (emerg Dept Use Only); Complete Time: 14:41 rn 11/29 15:33 Order name: CBC with Automated Diff EDMS 11/29 15:33 Order name: CBC with Automated Diff EDMS 11/29 15:33 Order name: CBC with Automated Diff EDMS 11/29 15:33 Order name: CBC with Automated Diff EDMS 11/29 15:33 Order name: Comprehensive Metabolic Panel EDMS 11/29 15:33 Order name: Comprehensive Metabolic Panel EDMS 11/29 15:33 Order name: Comprehensive Metabolic Panel EDMS 11/29 15:33 Order name: Comprehensive Metabolic Panel EDMS 11/29 16:29 Order name: Urine Dipstick--Ancillary (enter results) em1 11/29 13:44 Order name: IV Start; Complete Time: 14:00 rn 11/29 13:45 Order name: XRAY CXR (1 view); Complete Time: 15:18 rn 11/29 13:45 Order name: EKG; Complete Time: 13:45 rn 11/29 13:45 Order name: Cardiac monitoring; Complete Time: 14:00 rn 11/29 13:45 Order name: Labs collected and sent; Complete Time: 14:00 rn 11/29 13:45 Order name: O2 Per Protocol; Complete Time: 14:00 rn 11/29 13:45 Order name: O2 Sat Monitoring; Complete Time: 14:00 rn 11/29 15:33 Order name: Heart Healthy EDMS 11/29 15:34 Order name: Chest Pa And Lat (2 Views) EDMS 11/29 15:34 Order name: Chest Pa And Lat (2 Views) EDMS 11/29 17:14 Order name: Urine Dipstick-Ancillary EDMS Administered Medications: 14:10 Drug: Magnesium Sulfate 1 grams Route: IVPB; Infused Over: 1 hrs; Site: right sg antecubital; 15:15 Follow up: Response: No adverse reaction; IV Status: Completed infusion sg 14:15 Drug: SOLU-Medrol 125 mg Route: IVP; Site: right antecubital; sg 14:36 Follow up: Response: No adverse reaction sg 14:15 Drug: Xopenex (3) 1.25 mg Route: Inhalation; sg 14:37 Follow up: Response: No adverse reaction; Marked relief of symptoms sg Disposition: 11/29/18 15:09 Hospitalization ordered by [facility] for Inpatient Admission. Preliminary diagnosis are Chronic obstructive pulmonary disease, unspecified, Dyspnea, unspecified. - Bed requested for Telemetry/MedSurg (Inpatient). - Status is Inpatient Admission. sg - Condition is Stable. - Problem is new. - Symptoms have improved. UTI on Admission? No Signatures: Dispatcher [employer] [facility] Jade Estrella RN RN dw Gay, Steven, RN RN sg Nick Billings MD MD rn Baxter, Heather, RN RN Corrections: (The following items were deleted from the chart) 15:55 15:09 Hospitalization Ordered by [facility] Truong MD for Inpatient Admission. Preliminary diagnosis is Chronic obstructive pulmonary disease, unspecified; Dyspnea, unspecified. Bed requested for Telemetry/MedSurg (Inpatient). Status is Inpatient Admission. Condition is Stable. Problem is new. Symptoms have improved. UTI on Admission? No. rn 17:32 15:55 11/29/2018 15:09 Hospitalization Ordered by [facility]oya Truong MD for Inpatient sg Admission. Preliminary diagnosis is Chronic obstructive pulmonary disease, unspecified; Dyspnea, unspecified. Bed requested for Telemetry/MedSurg (Inpatient). Status is Inpatient Admission. Condition is Stable. Problem is new. Symptoms have improved. UTI on Admission? No. dw 17:35 17:32 11/29/2018 15:09 Hospitalization Ordered by [facility]oya Truong MD for Inpatient sg Admission. Preliminary diagnosis is Chronic obstructive pulmonary disease, unspecified; Dyspnea, unspecified. Bed requested for Telemetry/MedSurg (Inpatient). Status is Inpatient Admission. Condition is Stable. Problem is new. Symptoms have improved. UTI on Admission? No. sg
--- NOTE | 2018-11-29 15:09 | ER ---
Nurse's Notes [facility] Name: Yamileth Connell Age: 73 yrs Sex: Female : 1945 Arrival Date: 11/29/2018 Time: 13:19 Bed 2 Private MD: Adilson Boothe E Diagnosis: Chronic obstructive pulmonary disease, unspecified;Dyspnea, unspecified Presentation: 11/29 13:26 Presenting complaint: Patient states: Worsening SOB x 1 week. Denies pain. Transition hb of care: patient was not received from another setting of care. Onset of symptoms was November 22, 2018. Risk Assessment: Do you want to hurt yourself or someone else? Patient reports no desire to harm self or others. Care prior to arrival: None. 13:26 Method Of Arrival: Ambulatory hb 13:26 Acuity: KARLA 2 hb 13:55 Initial Sepsis Screen: Does the patient meet any 2 criteria? RR > 20 per min. HR > 90 sg bpm. Does the patient have a suspected source of infection? Yes: Productive cough/pneumonia. Triage Assessment: 13:55 General: Behavior is calm, cooperative, appropriate for age. Respiratory: Reports sg shortness of breath cough that is Onset: The symptoms/episode began/occurred gradually, the patient has mild shortness of breath. Historical: - Allergies: 13:27 Keflex; hb - Home Meds: 13:29 amlodipine 5 mg tab 1 tab once daily [Active]; capecitabine 500 mg Oral tab 3 in the hb morning, 2 at night, M-F [Active]; fentanyl 25 mcg/hr Topical pt72 1 patch every 72 hours [Active]; gabapentin 300 mg Oral cap [Active]; metoprolol tartrate 50 mg Oral tab once daily [Active]; [place] 10-325 mg Oral tab 1 tab every 6 hours [Active]; Promethazine Oral [Active]; Tramadol Oral once daily [Active]; valsartan-hydrochlorothiazide 160-12.5 mg Oral tab 1 tab once daily [Active]; Zofran (as hydrochloride) 8 mg Oral tab 1 tab every 8 hours [Active]; - PMHx: 13:29 Cancer, Breast; Diverticulitis; Hypertension; rectal cancer; COPD; hb - PSHx: 13:29 Mastectomy, Left; rectal- colostomy bag; left knee; Appendectomy; Tonsillectomy; D \T\ C; hb partial hysterectomy; ankle-left; rectal; - Immunization history:: Adult Immunizations up to date. - Social history:: Smoking status: Patient/guardian denies using tobacco. - Ebola Screening: : No symptoms or risks identified at this time. - Family history:: not pertinent. - Hospitalizations: : No recent hospitalization is reported. Screenin:50 Abuse screen: Denies threats or abuse. Denies injuries from another. Nutritional sg screening: No deficits noted. Tuberculosis screening: No symptoms or risk factors identified. Never had TB. Fall Risk None identified. Assessment: 13:50 General: Appears in no apparent distress. well groomed, well developed, well nourished, sg Behavior is calm, cooperative, appropriate for age. Pain: Denies pain. Neuro: Level of Consciousness is awake, alert, obeys commands, Oriented to person, place, time, situation, Metal Machine Operator are equal bilaterally Gait is steady, Speech is normal. Cardiovascular: Capillary refill is brisk in bilateral fingers Patient's skin is warm and dry. Chest pain is denied. Respiratory: Airway is patent Respiratory effort is even, labored, shallow, Respiratory pattern is regular, symmetrical, Breath sounds with wheezes. GI: No signs and/or symptoms were reported involving the gastrointestinal system. Colostomy site is clean and dry. Ostomy appliance is intact. : No signs and/or symptoms were reported regarding the genitourinary system. EENT: No signs and/or symptoms were reported regarding the EENT system. Derm: Skin is pink, warm \T\ dry. Musculoskeletal: No signs and/or symptoms reported regarding the musculoskeletal system. 14:53 Reassessment: Patient appears in no apparent distress at this time. Patient and/or sg family updated on plan of care and expected duration. Pain level reassessed. Patient is alert, oriented x 3, equal unlabored respirations, skin warm/dry/pink. at bedside evaluating pt at this time, updated on POC and the need for admission, pt reports understanding, awaiting admission orders at this time. 14:55 Reassessment: EKG at bedside at this time. sg 16:50 Reassessment: Patient appears in no apparent distress at this time. Patient and/or sg family updated on plan of care and expected duration. Pain level reassessed. Patient is alert, oriented x 3, equal unlabored respirations, skin warm/dry/pink. Patient states feeling better. 17:00 Reassessment: Reassessment: attempt to call report, instructed nurse unavailable and to sg please call back, pt updated and stated understanding, will try to call report again to receiving nurse for 425. 17:30 Reassessment: Patient appears in no apparent distress at this time. Patient and/or sg family updated on plan of care and expected duration. Pain level reassessed. Patient is alert, oriented x 3, equal unlabored respirations, skin warm/dry/pink. pt updated report has been called, will be admitted to room 425, pt stated understanding Patient denies pain at this time. Patient states feeling better. Vital Signs: 13:25 BP 180 / 99; Pulse 97; Resp 28; Temp 97.8; Pulse Ox 96% ; Pain 0/10; hb 15:09 BP 164 / 90; Pulse 94; Resp 24; Pulse Ox 93% on R/A; Pain 0/10; sg 17:27 BP 155 / 89; Pulse 89; Resp 22; Temp 97.7; Pulse Ox 96% on R/A; Pain 0/10; sg ED Course: 13:19 Patient arrived in ED. mr 13:20 Adilson Boothe MD is Private Physician. mr 13:27 Triage completed. hb 13:27 Arm band placed on right wrist. hb 13:36 Nick Billings MD is Attending Physician. rn 13:50 First set of blood cultures drawn by co. jb1 13:55 No provider procedures requiring assistance completed. sg 13:59 EKG done, by research instrumentation technician. reviewed by Nick Billings MD. tc 14:05 Second set of blood cultures drawn by co. jb1 14:09 Initial lab(s) drawn, by co, sent to lab. Inserted saline lock: 20 gauge in right jb1 antecubital area, using aseptic technique. Blood collected. 14:10 Patient has correct armband on for positive identification. Bed in low position. Call sg light in reach. Side rails up X2. construction mgr on. Pulse ox on. NIBP on. curtain closed for privacy Warm blanket given. Head of bed elevated. 14:23 Ole Gottlieb, RN is Primary Nurse. sg 14:45 X-ray completed. Portable x-ray completed in exam room. Patient tolerated procedure mh1 well. 14:48 XRAY CXR (1 view) In Process Unspecified. EDMS 15:08 Adilson Boothe MD is Hospitalizing Provider. rn 15:08 Zoya Truong MD is Hospitalizing Provider. rn 17:30 Patient admitted, IV remains in place. intact, No redness/swelling at site. sg Administered Medications: 14:10 Drug: Magnesium Sulfate 1 grams Route: IVPB; Infused Over: 1 hrs; Site: right sg antecubital; 15:15 Follow up: Response: No adverse reaction; IV Status: Completed infusion sg 14:15 Drug: SOLU-Medrol 125 mg Route: IVP; Site: right antecubital; sg 14:36 Follow up: Response: No adverse reaction sg 14:15 Drug: Xopenex (3) 1.25 mg Route: Inhalation; sg 14:37 Follow up: Response: No adverse reaction; Marked relief of symptoms sg Outcome: 15:09 Decision to Hospitalize by Provider. rn 17:25 Admitted to Med/surg accompanied by tech, via wheelchair, room 425, with oxygen, with sg chart, Report called to Bettye VAZQUEZ 17:25 Condition: stable 17:25 Instructed on follow up and referral plans. the need for admit, safety practices, Demonstrated understanding of instructions. 17:35 Patient left the ED. sg Signatures: Dispatcher [employer] Gm Cortes 1 Ole Gottlieb RN RN sg Rivera, Mary mr Pollard Rola 1 Nick Billings MD MD rn Callis, Tiffany, zinc plate cutter EKG [facility] Talisha Olsen RN RN Corrections: (The following items were deleted from the chart) 17:46 17:00 Reassessment: sg sg
[2018-11-29] MEDS ORDERED: ACETAMINOPHEN 500 MG TAB PO PRN (15:31)
[2018-11-29] MEDS ORDERED: ONDANSETRON 4 MG/2 ML VIAL IV PRN (15:31)
[2018-11-29 17:13] LABS: Urine Blood NEGATIVE (NEG); Urine Glucose NEGATIVE (NEG); Urine Protein NEGATIVE (NEG); Urine pH 6.5 (5.0-7.0)
[2018-11-29] MEDS ORDERED: POTASSIUM 25 MEQ EFFERV TAB PO ONE (18:30)
--- NOTE | 2018-11-29 18:31 | P.HP ---
Certification for Inpatient Patient admitted to: Observation With expected LOS: <2 Midnights Patient will require the following post-hospital care: None Practitioner: I am a practitioner with admitting privileges, knowledge of patient current condition, hospital course, and medical plan of care. Services: Services provided to patient in accordance with Admission requirements found in Title 42 Section 412.3 of the Code of Federal Regulations Patient History Date of Service: 11/29/18 Primary Care Provider: MD douglass Reason for admission: COPD exacerbation History of Present Illness: 73 y/o with pmhx of HTN, Rectal CA s/p Resection, Breast CA s/p Mastectomy, COPD presents to the ER with 1 week of SOB and cough. Was seen in the ER on last Tuesday and was DC with abx and steroids. No improvement and thus decided to come back. Using Inhalers regularly at the house, No Oxygen requirement and refused it in the past. Current everyday smoker and has been smoking 2 to 3 cig a day. Denies fever, chills, N/V and CP. No other complains to offer. All her Doctors are in the [facility]. Had PET scan 2 months ago negative for mets and worsening. Allergies cephalexin [From Keflex] Allergy (Intermediate, Verified 02/27/16 02:01) Hives/Rash Home Medications: Amlodipine [Norvasc*] 5 mg PO DAILY 09/27/16 Hydrocodone 10/APAP 325 [[place] 10/325*] 1 tab PO Q6HP PRN 09/27/16 Metoprolol Tartrate [Lopressor*] 50 mg PO DAILY 09/27/16 Valsartan/Hydrochlorothiazide [Valsartan-Hctz 160-12.5 mg Tab] 1 tab PO DAILY Albuterol Sulfate [Albuterol Sulfate 0.083% Neb Soln] 2.5 mg IH Q4H PRN #1 ml Fluticasone/Salmeterol [Advair 100/50 Diskus*] 1 puff IH BID 12/06/16 Tiotropium [place] [Spiriva] 1 puff IH DAILY 12/06/16 Tramadol HCl [Ultram] 1 tab PO DAILYPRN PRN 12/06/16 predniSONE [Deltasone*] 10 mg PO SEECOM #21 tab 12/06/16 - Past Medical/Surgical History Has patient received pneumonia vaccine in the past: No Diabetic: No -: Rectal cancer -: Breast cancer -: Hypertension -: COPD -: L Masectoctomy 06/2015 -: appendectomy -: partial hysteroctomy -: tonsillectomy - Family History Father -: Cancer Mother -: Cancer - Social History Smoking Status: Current some day smoker Counseled patient to stop smoking for: more than 10 minutes Smoking therapy provided: Yes Patient receptive to therapy: Yes Alcohol use: No CD- Drugs: No Caffeine use: Yes Place of Residence: Home Review of Systems 10-point ROS is otherwise unremarkable Physical Examination - Vital Signs Temperature: 97.7 F Blood Pressure: 155/89 Pulse: 89 Respirations: 22 Pulse Ox (%): 97 - Physical Exam General: Alert, Oriented x3, Cachectic, Acute distress HEENT: Atraumatic, PERRLA, Mucous membr. moist/pink, EOMI, Sclerae nonicteric Neck: Supple, 2+ carotid pulse no bruit, No LAD, Without JVD or thyroid abnormality Respiratory: Normal air movement, Expiratory wheezes, Inspiratory wheezes Cardiovascular: Regular rate/rhythm, Normal S1 S2 Gastrointestinal: Normal bowel sounds, No tenderness, Other (Colostomy Bag in place) Musculoskeletal: No tenderness Integumentary: No rashes Neurological: Normal gait, Normal speech, Normal strength at 5/5 x4 extr, Normal tone, Normal affect Lymphatics: No axilla or inguinal lymphadenopathy - Studies Laboratory Data (last 24 hrs) 11/29/18 14:05: WBC 9.0 D, Hgb 15.1 H, Hct 43.7, Plt Count 219 D 11/29/18 14:05: Sodium 140, Potassium 3.6, BUN 26 H, Creatinine 0.92, Glucose 95 Assessment and Plan - Problems (Diagnosis) (1) COPD (chronic obstructive pulmonary disease) Onset Date: 09/27/16 Current Visit: No Status: Acute Plan: COPD with Acute Exacerbation -Layo Reeder and LYNN for now -Will get Chest CT to r.o any acute abnormality -Refused Pulm Consult here Qualifiers: COPD type: COPD with acute exacerbation (2) Breast CA Current Visit: Yes Status: Chronic Plan: s/p mastectomy. -Cancer free for 1 year -F.u with MD [facility] -Recent PET scan negative for METS per patient Qualifiers: Breast location: unspecified site of breast (3) Rectal cancer Onset Date: 09/27/16 Current Visit: No Status: Acute Plan: S/p Colon Resection with Colostomy bag now -Cancer free for 1 year -F/U with [facility] (4) HTN (hypertension) Onset Date: 12/06/16 Current Visit: No Status: Chronic Plan: Restart Home medication Qualifiers: Hypertension type: essential hypertension Discharge Plan: Home - Advance Directives Does patient have a Living Will: Yes Does patient have a Durable POA for Healthcare: Yes - Code Status/Comfort Care Code Status Assessed: Yes Critical Care: No
--- NOTE | 2018-11-29 19:07 | RAD REPORT ---
EXAM DESCRIPTION: CT - Thorax Wo Con CLINICAL HISTORY: Chest pain Worsening COPD COMPARISON: CTANGIO CHEST FOR PE dated 10/21/2012; Chest Single View dated 11/29/2018 FINDINGS: Prominent diffuse COPD is identified. No focal infiltrate typical of pneumonia seen. No pl eural thickening or pleural effusion. No pneumothorax. Left mastectomy noted. No axillary, mediastinal or hilar adenopathy. No concerning bony finding. Prominent cyst is present in the liver, unchanged. Partially imaged fulln ess is seen in the left adrenal gland, incompletely assessed. All CT scans are performed using dose optimization technique as appropriate and may include automated exposure control or mA/KV adjustment according to patient size. IMPRESSION: Prominent COPD is noted.
[2018-11-29] MEDS: NICOTINE 14 MG/PAT TD SCH (19:12)
[2018-11-29] MEDS: IPRATROPIUM BROM 0.5MG/2.5ML NEB SCH (20:00)
[2018-11-29] MEDS: ALBUTEROL 2.5 MG/3 ML NEB SOL NEB SCH (20:00)
[2018-11-29] MEDS: predniSONE 20 MG TAB PO SCH (21:35)
[2018-11-30] MEDS: ALBUTEROL 2.5 MG/3 ML NEB SOL NEB SCH ×2 (01:48→07:55)
[2018-11-30] MEDS: IPRATROPIUM BROM 0.5MG/2.5ML NEB SCH ×2 (01:48→07:55)
[2018-11-30 04:27] LABS: Absolute Lymphocytes (CBC) 0.6 K/uL (0.7-4.9); Absolute Monocytes 0.1 K/uL (0.1-1.3); Absolute Neutrophil 6.8 K/uL (1.8-8.0); Basophils % 0.1 % (0-1.3); Lymphocytes % 8.4 % (15.3-44.8); MPV 8.6 fL (7.6-11.3); Monocytes % 1.8 % (3.3-12.3)
[2018-11-30 04:36] LABS: Albumin 3.1 g/dL (3.4-5.0); Bilirubin Total 0.7 mg/dL (0.2-1.0); Magnesium 2.2 mg/dL (1.8-2.4); Potassium 4.1 mmol/L (3.5-5.1); Protein, Total 6.3 g/dL (6.4-8.2)
[2018-11-30 05:19] LABS: Blood Morphology Comment NOT SEEN (NOT SEEN); Platelet Estimate ADEQ
--- NOTE | 2018-11-30 07:04 | RAD REPORT ---
EXAM DESCRIPTION: RAD - Chest Pa And Lat (2 Views) - 11/30/2018 6:56 am CLINICAL HISTORY: Shortness of breath, COPD exacerbation COMPARISON: November 29 TECHNIQUE: PA and lateral views of the chest were obtained. FINDINGS: The lungs are extensively fibrotic. Hilar fullness remains. No new mass or consolidation i dentifiable. Small granulomas are noted. Heart size is normal and central vasculature is within nor mal limits. No pleural effusion or pneumothorax seen. No acute bony finding noted. No aortic abnor mality. Left mastectomy changes noted. IMPRESSION: Prominent fibrotic lung pattern matching the comparison. No new or progressive finding i dentifiable.
[2018-11-30] MEDS: predniSONE 20 MG TAB PO SCH (08:05)
[2018-11-30] MEDS: NICOTINE 14 MG/PAT TD SCH (08:06)
[2018-11-30] MEDS ORDERED: MONTELUKAST 10 MG TAB PO SCH (09:00)
[2018-11-30 09:23] VITALS: O2SAT 96
[2018-11-30 09:33] VITALS: BP 173/84; TEMP 97.3
--- NOTE | 2018-11-30 12:00 | P.DS ---
Admission Date: 11/29/18 Discharge Date: 11/30/18 Primary Care Provider: MD douglass Disposition: ROUTINE DISCHARGE Discharge Condition: GOOD Reason for Admission: COPD exacerbation - Problems (1) COPD (chronic obstructive pulmonary disease) Onset Date: 09/27/16 Status: Acute Qualifiers: COPD type: COPD with acute exacerbation (2) Breast CA Onset Date: 11/30/18 Status: Chronic Qualifiers: Breast location: unspecified site of breast (3) Rectal cancer Onset Date: 09/27/16 Status: Acute (4) HTN (hypertension) Onset Date: 12/06/16 Status: Chronic Qualifiers: Hypertension type: essential hypertension Brief History of Present Illness: 73 y/o with pmhx of HTN, Rectal CA s/p Resection, Breast CA s/p Mastectomy, COPD presents to the ER with 1 week of SOB and cough. Was seen in the ER on last Tuesday and was DC with abx and steroids. No improvement and thus decided to come back. Using Inhalers regularly at the house, No Oxygen requirement and refused it in the past. Current everyday smoker and has been smoking 2 to 3 cig a day. Denies fever, chills, N/V and CP. No other complains to offer. All her Doctors are in the [facility]. Had PET scan 2 months ago negative for mets and worsening. Hospital Course: Overall during the hospital stay patient remained stable The patient was admitted to the hospital for COPD exacerbation. Was started on duo nebs q.6 hr steroids along with oxygen. Patient was able to be weaned off of oxygen completely. Patient is a very noncompliant patient with her inhalers. Currently does not take any maintenance medication and is a chronic smoker. Patient was educated extensively on the need to stop smoking and start using Symbicort or Advair to help control her COPD. Patient had a CT scan done here in the hospital which was within normal limits. Patient was discharged home when she was saturating well and wheezing had resolved. Patient demonstrated understanding. Initially patient was mad that she was being discharged home as she did not feel safe to go home. However patient was educated extensively on the need to continuing care with her maintenance medication and not smoke at the house along with using nebulizers if she gets short of breath. Patient then demonstrated understanding and was discharged home under stable condition was asked to follow up with primary care provider in about 1-2 days post discharge. Vital Signs/Physical Exam: Temp Pulse Resp BP Pulse Ox 97.3 F 73 20 173/84 H 96 11/30/18 08:00 11/30/18 08:00 11/30/18 08:00 11/30/18 08:00 11/30/18 08:00 General: Alert, In no apparent distress HEENT: Atraumatic, PERRLA, EOMI Neck: Supple, JVD not distended Respiratory: Normal air movement, Expiratory wheezes, Inspiratory wheezes Cardiovascular: Regular rate/rhythm, Normal S1 S2 Gastrointestinal: Normal bowel sounds, No tenderness Musculoskeletal: No tenderness Integumentary: No rashes Neurological: Normal speech, Normal tone, Normal affect Lymphatics: No axilla or inguinal lymphadenopathy Laboratory Data at Discharge: WBC 7.6 K/uL (4.3-10.9) D 11/30/18 03:38 Hgb 13.8 g/dL (12.0-15.0) 11/30/18 03:38 Hct 41.0 % (36.0-45.0) 11/30/18 03:38 Plt Count 194 K/uL (152-406) 11/30/18 03:38 Sodium 141 mmol/L (136-145) 11/30/18 03:38 Potassium 4.1 mmol/L (3.5-5.1) 11/30/18 03:38 BUN 24 mg/dL (7-18) H 11/30/18 03:38 Creatinine 0.88 mg/dL (0.55-1.3) 11/30/18 03:38 Glucose 166 mg/dL (74-106) H 11/30/18 03:38 Magnesium 2.2 mg/dL (1.8-2.4) 11/30/18 03:38 Total Bilirubin 0.7 mg/dL (0.2-1.0) 11/30/18 03:38 AST 9 U/L (15-37) L 11/30/18 03:38 ALT 24 U/L (12-78) 11/30/18 03:38 Alkaline Phosphatase 102 U/L (45-117) 11/30/18 03:38 Home Medications: Amlodipine [Norvasc*] 1 tab PO DAILY 11/29/18 Metoprolol Tartrate 50 mg PO DAILY 11/29/18 Valsartan/Hydrochlorothiazide [Valsartan-Hctz 160-12.5 mg Tab] 1 tab PO DAILY Budesonide/Formoterol Fumarate [Symbicort 80-4.5 Mcg Inhaler] 1 puff IH BID #1 hfa.aer.ad 11/30/18 Tramadol HCl [Ultram] 50 mg PO DAILY 11/30/18 predniSONE [Prednisone*] 20 mg PO BID #20 tab 11/30/18 New Medications: Budesonide/Formoterol Fumarate [Symbicort 80-4.5 Mcg Inhaler] 1 puff IH BID #1 hfa.aer.ad predniSONE [Prednisone*] 20 mg PO BID #20 tab Patient Discharge Instructions: PLease f.u with PCP and Pulmonology in 1 to 2 week post discharge. New medication. Symbicort 1 puff BID. Stop smoking Diet: Regular Activity: Ad lola Followup: Michael Quintanilla MD [ACTIVE - CAN ADMIT] - 1-2 Weeks (call to schedule an appointment)
== END 2018-11-30 11:29 | disposition home or self-care (01) ==
LOC: ER 13:17 → ERHOLD 15:30 → 4TH 17:29
PROVIDERS: ADMIT Family Medicine; ATTEND Family Medicine
DX: J44.1 Chronic obstructive pulmonary disease with (acute) exacerbation (principal); I10 Essential (primary) hypertension; Z85.048 Personal history of other malignant neoplasm of rectum, rectosigmoid junction, and anus; Z85.3 Personal history of malignant neoplasm of breast; F17.210 Nicotine dependence, cigarettes, uncomplicated; Z93.3 Colostomy status; Z91.14 Patient's other noncompliance with medication regimen
CPT/HCPCS: 36415; 71045; 71046; 71250; 80048; 80053; 81003; 83735; 83880; 84484; 85025; 87040; 93005; 94640; 96365; 96375; 99285; G0378; J2930; J3475; J7512

== ENCOUNTER 2020-01-23 00:23 | Inpatient (IN) | payer BC, OTHER ==
--- OUTSIDE RECORDS SUMMARY | 2020-01-23 00:26 | XMS REPORT ---
:1945 [facility] Address [address] [place] [address] [address] [place] [address] Care Team Providers Name Role Phone KIM [...] % 0-10 Hematology (test code=PCOMMENT) Appears Adequate [id number] 12:16:00 Test Item Value Reference Range Comments Chemistry (test 2.5 ng/mL 0-6.6 code=CKMBM-T) Chemistry (test 0.028 ng/mL < 0.028 code=TROPI-T) Reference Range 0.00 - 0.028 ng/mL Negative 0.029 - 0.29 ng/mL Indeterminate Greater or Equal to 0.3 ng/mL Strongly suggests IA Chemistry - BNP, HgbA1c, [id number] 12:14:00 Test Item Value Reference Range Comments Chemistry - BNP, HgbA1c, PTHi (test code=BNP) 88.1 pg/mL 0-100 [id number] 12:11:00 Test Item Value Reference Range Comments [...] mg/dL 7.8-10.44 ANG, REMOVAL OF TUNNELED CVC [id number] 12:06:00Reason for Exam:->ANAL CAFINAL REPORT Procedure: Removal [...] Reading Room CBC W/PLT COUNT & AUTO [id number] 11:13:00 Test Item Value Reference Range Comments WHITE BLOOD CELL COUNT (BEAKER) (test ypps=468) 7.4 K/ L 4.0-10.0 RED BLOOD CELL COUNT (BEAKER) (test gcda=771) 4.39 M/ L 4.00-5.00 HEMOGLOBIN (BEAKER) (test moxs=856) 13.7 GM/DL 12.0-15.0 HEMATOCRIT (BEAKER) (test exxf=011) 40.7 % 36.0-45.0 MEAN CORPUSCULAR VOLUME (BEAKER) (test wjxi=719) 92.7 fL 82.0-99.0 MEAN CORPUSCULAR HEMOGLOBIN (BEAKER) (test 31.2 pg 27.0-33.0 pecj=389) MEAN CORPUSCULAR HEMOGLOBIN CONC (BEAKER) (test 33.7 GM/DL 32.0-36.0 xkiw=265) RED CELL DISTRIBUTION WIDTH (BEAKER) (test 12.6 % 10.3-14.2 gtch=257) PLATELET COUNT (BEAKER) (test tdof=291) 222 K/CU MM 150-430 MEAN PLATELET VOLUME (BEAKER) (test nqja=677) 8.0 fL 6.5-10.5 NUCLEATED RED BLOOD CELLS (BEAKER) (test 0 /100 WBC 0-0 miem=299) NEUTROPHILS RELATIVE PERCENT (BEAKER) (test 83 % tvka=527) LYMPHOCYTES RELATIVE PERCENT (BEAKER) (test 10 % pjdg=449) MONOCYTES RELATIVE PERCENT (BEAKER) (test 5 % sarp=369) EOSINOPHILS RELATIVE PERCENT (BEAKER) (test 3 % laht=800) BASOPHILS RELATIVE PERCENT (BEAKER) (test 0 % tilr=181) NEUTROPHILS ABSOLUTE COUNT (BEAKER) (test 6.10 K/ L 1.80-8.00 cmhp=602) LYMPHOCYTES ABSOLUTE COUNT (BEAKER) (test 0.70 K/ L 1.48-4.50 wpcn=949) MONOCYTES ABSOLUTE COUNT (BEAKER) (test 0.30 K/ L 0.00-1.30 eesm=192) EOSINOPHILS ABSOLUTE COUNT (BEAKER) (test 0.20 K/ L 0.00-0.50 rumb=615) BASOPHILS ABSOLUTE COUNT (BEAKER) (test 0.00 K/ L 0.00-0.20 ikuj=158) [id number] 09:32:00 Test Item Value Reference Range Comments PROTIME (BEAKER) (test ewhz=985) 9.7 seconds 9.3-12.0 INR (BEAKER) (test hxtp=107) 0.9 <=5.9 PARTIAL THROMBOPLASTIN TIME (BEAKER) (test 24.8 seconds 23.0-35.0 nijb=716) RECOMMENDED COUMADIN/WARFARIN INR THERAPY RANGESSTANDARD DOSE: 2.0 - 3.0 Includes: PROPHYLAXIS forvenous thrombosis, systemic embolization; TREATMENT for venous thrombosis and/or pulmonary embolus.HIGH RISK: Target INR is 2.5-3.5 for patients with mechanical heart valves.[id number] 09:59:00 Test Item Value Reference Range Comments PROTIME (BEAKER) (test qxta=413) 10.0 seconds 9.3-12.0 INR (BEAKER) (test gkqu=659) 0.9 <=5.9 PARTIAL THROMBOPLASTIN TIME (BEAKER) (test 24.5 seconds 23.0-35.0 adgw=263) RECOMMENDED COUMADIN/WARFARIN INR THERAPY RANGESSTANDARD DOSE: 2.0 - 3.0 Includes: PROPHYLAXIS forvenous thrombosis, systemic embolization; TREATMENT for venous thrombosis and/or pulmonary embolus.HIGH RISK: Target INR is 2.5-3.5 for patients with mechanical heart valves.
[2020-01-23] MEDS ORDERED: IPRATROPIUM BROM 0.5MG/2.5ML ONE (00:44)
[2020-01-23] MEDS ORDERED: ALBUTEROL 2.5 MG/3 ML NEB SOL ONE (00:45)
[2020-01-23] MEDS ORDERED: METHYLPREDNISOLONE 125 MG INJ ONE (00:48)
[2020-01-23 01:15] LABS: Absolute Lymphocytes (CBC) 0.8 K/uL (0.7-4.9); Basophils % 0.3 % (0-1.3); Hematocrit 43.8 % (36.0-45.0); Lymphocytes % 7.2 % (15.3-44.8); MPV 9.1 fL (7.6-11.3); RBC Red Blood Cell Count 4.86 M/uL (3.86-4.86)
[2020-01-23 01:18] LABS: Protime INR 0.91
[2020-01-23 01:28] LABS: Albumin 3.3 g/dL (3.4-5.0); Bilirubin Direct 0.2 mg/dL (0-0.2); Bilirubin Total 0.7 mg/dL (0.2-1.0); CKMB Creatine Kinase MB 3.3 ng/mL (0.3-3.6); Magnesium 1.7 mg/dL (1.8-2.4); Potassium 3.4 mmol/L (3.5-5.1); Protein, Total 7.6 g/dL (6.4-8.2); Troponin (Emerg Dept Use Only) 0.03 ng/mL (0.0-0.045)
[2020-01-23 01:56] LABS: Blood Morphology Comment NOT SEEN (NOT SEEN); Platelet Estimate ADEQ
--- NOTE | 2020-01-23 02:08 | ER ---
Nurse's Notes [facility] Name: Yamileth Connell Age: 74 yrs Sex: Female : 1945 Arrival Date: 01/23/2020 Time: 00:24 Bed 5 Private MD: Diagnosis: Chronic obstructive pulmonary disease with (acute) exacerbation Presentation: 01/22 00:42 Chief complaint: Patient states: she is having worsening shortness of breath she was bb seen at [place] Tuesday and started on a Zpak but symptoms are getting worse. Coronavirus screen: The patient has NOT traveled to a country currently being monitored by the [facility] within the last 14 days. Proceed with normal triage procedures. Ebola Screen: No symptoms or risks identified at this time. Initial Sepsis Screen: Does the patient meet any 2 criteria? RR > 20 per min. HR > 90 bpm. Yes Does the patient have a suspected source of infection? Yes: Productive cough/pneumonia. Risk Assessment: Do you want to hurt yourself or someone else? Patient reports no desire to harm self or others. Onset of symptoms was January 23, 2020. 00:42 Method Of Arrival: Ambulatory bb 00:42 Acuity: KARLA 2 bb Historical: - Allergies: 00:50 Keflex; bb - Home Meds: 00:50 valsartan-hydrochlorothiazide 160-12.5 mg Oral tab 1 tab once daily [Active]; trelegy bb [Active]; - PMHx: 00:50 Cancer, Breast; COPD; Diverticulitis; Hypertension; rectal cancer; bb - PSHx: 00:50 left mastectomy; Colostomy; Cholecystectomy; Appendectomy; Tonsillectomy; bb - Immunization history:: Adult Immunizations up to date. - Social history:: Smoking status: Patient reports the use of cigarette tobacco products, denies chronic smoking, but will smoke occasionally. Screenin:39 Abuse screen: Denies threats or abuse. Nutritional screening: No deficits noted. ea Tuberculosis screening: No symptoms or risk factors identified. Fall Risk None identified. Assessment: 00:45 General: Appears uncomfortable, Behavior is calm, cooperative, appropriate for age. ea Pain: Denies pain. Neuro: Level of Consciousness is awake, alert, obeys commands, Oriented to person, place, time. Cardiovascular: Patient's skin is warm and dry. Respiratory: Airway is patent Respiratory effort is even, labored, Respiratory pattern is symmetrical, tachypnea Breath sounds are diminished. Derm: Skin is pink, warm \T\ dry. 01:45 Reassessment: Patient and/or family updated on plan of care and expected duration. Pain ea level reassessed. Pt reports symptoms improved after breathing treatment. 03:11 Reassessment: Patient and/or family updated on plan of care and expected duration. Pain ea level reassessed. Pt updated on need for admit, verbalized the understanding of instruction. 04:05 Reassessment: Patient and/or family updated on plan of care and expected duration. Pain ea level reassessed. Pt alert and oriented x 3. Respirations even and unlabored. Pt reports she is feeling better. 04:26 Reassessment: Patient and/or family updated on plan of care and expected duration. Pain ea level reassessed. Pt admitted to second floor, pt left ED via wheelchair per nurse. Pt tolerating well. Vital Signs: 00:42 BP 195 / 103; Pulse 98; Resp 24 S; Temp 99.5(O); Pulse Ox 90% on R/A; Weight 61.69 kg bb (R); Height 5 ft. 0 in. (152.40 cm) (R); Pain 0/10; 03:10 BP 185 / 78; Pulse 85; Resp 18; Pulse Ox 92% on 2 lpm NC; ea 03:58 BP 148 / 69; Pulse 80; Resp 22; Pulse Ox 94% on 2 lpm NC; ea 00:42 Body Mass Index 26.56 (61.69 kg, 152.40 cm) ED Course: 00:24 Patient arrived in ED. ds1 00:26 Florencio Sears PA is PHCP. cp 00:26 Parth Sharp MD is Attending Physician. cp 00:40 Tara Ro RN is Primary Nurse. ea 00:43 Inserted saline lock: 20 gauge in right antecubital area, using aseptic technique. ea Blood collected. 00:44 Triage completed. bb 00:45 Patient has correct armband on for positive identification. Bed in low position. Call ea light in reach. Side rails up X2. 00:45 Initial lab(s) drawn, by me, sent to lab. ea 00:50 Arm band placed on Patient placed in an exam room, on a stretcher, on weir fisherman, bb on pulse oximetry. 01:35 XRAY CXR (1 view) In Process Unspecified. EDMS 02:06 Paulina Zepeda MD is Hospitalizing Provider. tw4 03:11 No provider procedures requiring assistance completed. Patient admitted, IV remains in ea place. Administered Medications: 00:57 Drug: SOLU-Medrol 125 mg Route: IVP; Site: right antecubital; ea 02:08 Follow up: Response: No adverse reaction ea 00:58 Drug: DuoNeb (3:1) (2.5 mg - 0.5 mg) 3 ml Route: Nebulizer; ea 02:08 Follow up: Response: No adverse reaction ea 03:01 Drug: AZITHromycin 500 mg Route: IVPB; Infused Over: 1 hrs; Site: right antecubital; ea Outcome: 02:08 Decision to Hospitalize by Provider. tw4 03:11 Instructed on the need for admit, Demonstrated understanding of instructions. ea 04:25 Admitted to Med/surg accompanied by nurse, room 210, with chart, Report called to john Alberto RN 04:25 Condition: stable 04:28 Patient left the ED. ea Signatures: Dispatcher [employer] EDFL Lissy Blanco ds1 Petra Moore, RN RN Florencio Devi PA PA cp Antunez, Elena RN RN Parth Marinelli MD MD tw4
--- NOTE | 2020-01-23 02:09 | EDPHYS ---
Physician Documentation [facility] Name: Yamileth Connell Age: 74 yrs Sex: Female : 1945 Arrival Date: 01/23/2020 Time: 00:24 Bed 5 Private MD: ED Physician Parth Sharp HPI: 01/22 02:08 This 74 yrs old Female presents to ER via Ambulatory with complaints of tw4 Shortness Of Breath. 02:08 The patient has shortness of breath at rest. Onset: The symptoms/episode began/occurred tw4 today. Duration: The symptoms are continuous, and are steadily getting worse. The patient's shortness of breath is aggravated by exertion, is alleviated by nothing. Associated signs and symptoms: The patient has no apparent associated signs or symptoms. Severity of symptoms: At their worst the symptoms were moderate in the emergency department the symptoms are unchanged. The patient has not experienced similar symptoms in the past. Historical: - Allergies: 00:50 Keflex; bb - Home Meds: 00:50 valsartan-hydrochlorothiazide 160-12.5 mg Oral tab 1 tab once daily [Active]; trelegy bb [Active]; - PMHx: 00:50 Cancer, Breast; COPD; Diverticulitis; Hypertension; rectal cancer; bb - PSHx: 00:50 left mastectomy; Colostomy; Cholecystectomy; Appendectomy; Tonsillectomy; bb - Immunization history:: Adult Immunizations up to date. - Social history:: Smoking status: Patient reports the use of cigarette tobacco products, denies chronic smoking, but will smoke occasionally. ROS: 02:08 Constitutional: Negative for fever, chills, and weight loss, Eyes: Negative for injury, tw4 pain, redness, and discharge, Cardiovascular: Negative for chest pain, palpitations, and edema, Abdomen/GI: Negative for abdominal pain, nausea, vomiting, diarrhea, and constipation, Back: Negative for injury and pain, MS/Extremity: Negative for injury and deformity, Skin: Negative for injury, rash, and discoloration, Neuro: Negative for headache, weakness, numbness, tingling, and seizure. 02:08 Respiratory: Positive for Exam: 02:08 Constitutional: This is a well developed, well nourished patient who is awake, alert, tw4 and in no acute distress. Head/Face: Normocephalic, atraumatic. Chest/axilla: Normal chest wall appearance and motion. Nontender with no deformity. No lesions are appreciated. Cardiovascular: Regular rate and rhythm with a normal S1 and S2. No gallops, murmurs, or rubs. Normal PMI, no JVD. No pulse deficits. Abdomen/GI: Soft, non-tender, with normal bowel sounds. No distension or tympany. No guarding or rebound. No evidence of tenderness throughout. Back: No spinal tenderness. No costovertebral tenderness. Full range of motion. MS/ Extremity: Pulses equal, no cyanosis. Neurovascular intact. Full, normal range of motion. Neuro: Awake and alert, GCS 15, oriented to person, place, time, and situation. Cranial nerves II-XII grossly intact. Motor strength 5/5 in all extremities. Sensory grossly intact. Cerebellar exam normal. Normal gait. 02:08 Respiratory: moderate respiratory distress is noted, Respirations: accessory muscle usage, pursed lip breathing, that is mild, Breath sounds: wheezing: Vital Signs: 00:42 BP 195 / 103; Pulse 98; Resp 24 S; Temp 99.5(O); Pulse Ox 90% on R/A; Weight 61.69 kg bb (R); Height 5 ft. 0 in. (152.40 cm) (R); Pain 0/10; 03:10 BP 185 / 78; Pulse 85; Resp 18; Pulse Ox 92% on 2 lpm NC; ea 03:58 BP 148 / 69; Pulse 80; Resp 22; Pulse Ox 94% on 2 lpm NC; ea 00:42 Body Mass Index 26.56 (61.69 kg, 152.40 cm) bb MDM: 00:39 Patient medically screened. tw4 02:08 Differential diagnosis: pneumonia, reactive airway disease. Antibiotic administration: tw4 Rocephin and Zithromax given. Data reviewed: vital signs, nurses notes. Counseling: I had a detailed discussion with the patient and/or guardian regarding: the historical points, exam findings, and any diagnostic results supporting the discharge/admit diagnosis. 01/22 00:40 Order name: Blood Culture Adult (2) tw4 01/22 00:40 Order name: BMP 4 01/22 00:40 Order name: CBC with Diff 4 01/22 00:40 Order name: Ckmb; Complete Time: 02:01 01/22 00:40 Order name: CPK; Complete Time: 02:01 01/22 00:40 Order name: Hepatic Function; Complete Time: 02:01 01/22 02:01 Interpretation: Normal except: ALK 118; GLOB 4.3; ALB 3.3; A/G 0.8. 01/22 00:40 Order name: Lipase; Complete Time: 02:01 01/22 00:40 Order name: Magnesium; Complete Time: 02:01 01/22 02:01 Interpretation: Within normal limits: MG 1.7. 01/22 00:40 Order name: NT PRO-BNP; Complete Time: 02:01/22 02:01 Interpretation: Abnormal: NT PRO-BNP 319. 01/22 00:40 Order name: PT-INR; Complete Time: 02:01 01/22 00:40 Order name: Ptt, Activated; Complete Time: 02:01 01/22 00:40 Order name: Troponin (emerg Dept Use Only); Complete Time: 02:01 01/22 00:41 Order name: Blood Culture EDTX 01/22 00:41 Order name: Basic Metabolic Panel; Complete Time: 02:01 [facility] 01/22 00:40 Order name: XRAY CXR (1 view) 01/22 00:40 Order name: EKG; Complete Time: 00:41 01/22 00:41 Order name: CBC with Automated Diff; Complete Time: 02:01 [facility] 01/22 01:22 Order name: Manual Differential; Complete Time: 02:01 [facility] 01/22 02:23 Order name: CONS Physician Consult [facility]TX 01/22 02:23 Order name: Basic Metabolic Panel [facility] 01/22 02:24 Order name: CBC with Automated Diff [facility] 01/22 02:24 Order name: Magnesium [facility] 01/22 02:24 Order name: Urinalysis [facility] 01/22 02:24 Order name: NT PRO-BNP [facility]TX 01/22 02:24 Order name: NT PRO-BNP [facility]TX 01/22 02:24 Order name: Troponin I [facility]TX 01/22 02:24 Order name: Troponin I [facility]TX 03/11 00:40 Order name: Cardiac monitoring; Complete Time: 00:55 01/22 00:40 Order name: EKG - Nurse/Tech; Complete Time: 00:55 01/22 00:40 Order name: IV Saline Lock; Complete Time: 00:55 01/22 00:40 Order name: Labs collected and sent; Complete Time: 00:55 01/22 00:40 Order name: O2 Per Protocol; Complete Time: 00:56 01/22 00:40 Order name: O2 Sat Monitoring; Complete Time: 00:56 01/22 02:23 Order name: Heart Healthy EDTX EC:20 Rate is 76 beats/min. Rhythm is regular, Sinus arrythmia. QRS [place] is Normal. IA tw4 interval is normal. QRS interval is normal. QT interval is normal. No Q waves. T waves are Normal. No ST changes noted. Clinical impression: Normal ECG and Sinus arrythmia. Interpreted by me. Reviewed by me. Administered Medications: 00:57 Drug: SOLU-Medrol 125 mg Route: IVP; Site: right antecubital; ea 02:08 Follow up: Response: No adverse reaction ea 00:58 Drug: DuoNeb (3:1) (2.5 mg - 0.5 mg) 3 ml Route: Nebulizer; ea 02:08 Follow up: Response: No adverse reaction ea 03:01 Drug: AZITHromycin 500 mg Route: IVPB; Infused Over: 1 hrs; Site: right antecubital; ea Disposition: 01/23/20 02:08 Hospitalization ordered by Paulina Zepeda for Inpatient Admission. Preliminary diagnosis is Chronic obstructive pulmonary disease with (acute) exacerbation. - Bed requested for Telemetry/MedSurg (Inpatient). - Status is Inpatient Admission. ea - Condition is Stable. - Problem is new. - Symptoms have improved. Signatures: Dispatcher [employer] EDTX Jade Estrella RN RN dw Ballard, Brenda, RN RN bb Antunez, Elena, RN RN ea Wadley, Terrence, MD MD tw4 Corrections: (The following items were deleted from the chart) 02:01 02:01 Within normal limits: NT PRO-BNP 319. tw4 tw4 02:45 02:08 Hospitalization Ordered by Paulina Zepeda MD for Inpatient Admission. Preliminary dw diagnosis is Chronic obstructive pulmonary disease with (acute) exacerbation. Bed requested for Telemetry/MedSurg (Inpatient). Status is Inpatient Admission. Condition is Stable. Problem is new. Symptoms have improved. tw4 04:28 02:45 01/23/2020 02:08 Hospitalization Ordered by Paulina Zepeda MD for Inpatient ea Admission. Preliminary diagnosis is Chronic obstructive pulmonary disease with (acute) exacerbation. Bed requested for Telemetry/MedSurg (Inpatient). Status is Inpatient Admission. Condition is Stable. Problem is new. Symptoms have improved. dw
[2020-01-23] MEDS ORDERED: ONDANSETRON 4 MG/2 ML VIAL IV PRN (02:16)
[2020-01-23] MEDS ORDERED: ACETAMINOPHEN 500 MG TAB PO PRN (02:16)
[2020-01-23] MEDS ORDERED: NA CHLORIDE 0.9% 250 ML ONE (02:43)
[2020-01-23] MEDS ORDERED: AZITHROMYCIN 500 MG INJ IVPB ONE (02:43)
[2020-01-23] MEDS ORDERED: NA CHLORIDE 0.9% 1,000 ML IV SCH ×2 (03:00→07:00)
[2020-01-23] MEDS: Levofloxacin 750mg IV 750 MG/150 ML BAG IV SCH (04:47)
[2020-01-23] MEDS: METHYLPREDNISOLONE 125 MG INJ IV SCH ×4 (05:17→23:14)
[2020-01-23 05:57] VITALS: BMI 26.5
[2020-01-23 06:14] LABS: Absolute Lymphocytes (CBC) 0.3 K/uL (0.7-4.9); Basophils % 0.2 % (0-1.3); Hematocrit 40.9 % (36.0-45.0); MPV 8.8 fL (7.6-11.3); RBC Red Blood Cell Count 4.46 M/uL (3.86-4.86)
[2020-01-23 06:43] LABS: Magnesium 1.6 mg/dL (1.8-2.4); Potassium 3.2 mmol/L (3.5-5.1); Troponin I 0.03 ng/mL (0.0-0.045)
--- NOTE | 2020-01-23 07:06 | P.HP ---
Certification for Inpatient Patient admitted to: Inpatient With expected LOS: >2 Midnights Patient will require the following post-hospital care: None Practitioner: I am a practitioner with admitting privileges, knowledge of patient current condition, hospital course, and medical plan of care. Services: Services provided to patient in accordance with Admission requirements found in Title 42 Section 412.3 of the Code of Federal Regulations Patient History Date of Service: 01/23/20 Reason for admission: Shortness of breath History of Present Illness: Patient is a 74-year-old female came into the hospital with difficulty breathing. Patient has a long history of COPD as well as a history of breast cancer and rectal cancer status post colostomy. She is trying very hard but quit smoking completely, but unfortunately she is not able 2. She is down of 4- 5 cigarettes daily. She does work at [employer] and she does a lot a walking around dated day. Over the last 24 hr she has had more respiratory distress. Her grandson who has stayed with her was not feeling well either and she believe she may have picked up a virus from him. She has been taking numerous breathing treatments as well as using her inhalers but with little success of her breathing improving. So she decided to come into the hospital for further evaluation. She has been in the hospital on prior occasions and she feels that she has been rushed out of the hospital. She has had a pneumonia that occurred before her discharge-she did not want to leave but had been told by the doctor she was okay to go home. She got worse prior to going home and she ended up having a diagnosis of pneumonia. She does state that she has not had the best experiences at our facility. Allergies cephalexin [From Keflex] Allergy (Intermediate, Verified 01/23/20 05:01) Hives/Rash Home Medications: Albuterol Sulfate [Albuterol Sulfate 0.083% Neb Soln] 2.5 mg IH Q6HP PRN Azithromycin Tab [Zithromax*] 250 mg PO DAILY 01/23/20 Budesonide/Formoterol Fumarate [Symbicort 160-4.5 Mcg Inhaler] 1 puff IH BEDTIME 01/23/20 Fluticasone/Umeclidin/Vilanter [Trelegy Ellipta 100-62.5-25] 1 puff IH DAILY 10/03 Tramadol HCl [Ultram] 50 mg PO DAILY PRN 01/23/20 Valsartan/Hydrochlorothiazide [Valsartan-Hctz 320-25 mg Tab] 1 each PO DAILY 10/03 - Past Medical/Surgical History Has patient received pneumonia vaccine in the past: Yes Diabetic: No -: Rectal cancer -: Breast cancer -: COPD -: Hypertension -: COPD -: L Masectoctomy 06/2015 -: appendectomy -: partial hysteroctomy -: tonsillectomy - Family History Father Medical History: Cancer Mother Medical History: Cancer - Social History Smoking Status: Light Tobacco smoker (1-9 cigarettes/day) Alcohol use: No CD- Drugs: Yes Caffeine use: No Place of Residence: Home Review of Systems 10-point ROS is otherwise unremarkable Physical Examination - Vital Signs Temperature: 98.1 F Blood Pressure: 161/74 Pulse: 83 Respirations: 18 Pulse Ox (%): 95 - Physical Exam General: Alert, In no apparent distress, Oriented x3 HEENT: Atraumatic, PERRLA, Mucous membr. moist/pink, EOMI, Sclerae nonicteric Neck: Supple, 2+ carotid pulse no bruit, No LAD, Without JVD or thyroid abnormality Respiratory: Diminished, Expiratory wheezes Cardiovascular: Regular rate/rhythm, Normal S1 S2, Systolic murmur Gastrointestinal: Normal bowel sounds, Soft and benign, Non-distended, No tenderness, Other (History of colostomy placement) Musculoskeletal: No clubbing, No swelling, No tenderness Integumentary: No rashes Neurological: Normal gait, Normal speech, Normal tone, Sensation intact, Cranial nerves 3-12 intact, Normal affect, Abnormal strength Lymphatics: No axilla or inguinal lymphadenopathy - Studies Laboratory Data (last 24 hrs) 01/23/20 00:49: PT 10.8, INR 0.91, APTT 29.4 01/23/20 00:49: WBC 11.8 H, Hgb 14.9, Hct 43.8, Plt Count 188 01/23/20 00:49: Sodium 139, Potassium 3.4 L, BUN 17, Creatinine 0.86, Glucose 111 H, Magnesium 1.7 L D, Total Bilirubin 0.7, AST 19, ALT 27, Alkaline Phosphatase 118 H, Lipase 91 Assessment & Plan - Problems (Diagnosis) (1) Acute exacerbation of chronic obstructive pulmonary disease Current Visit: Yes Status: Acute (2) History of colostomy Current Visit: Yes Status: Acute (3) Rectal cancer Onset Date: 09/27/16 Current Visit: No Status: Acute (4) Breast CA Onset Date: 11/30/18 Current Visit: No Status: Chronic - Plan Plan: 1. Continue with albuterol and Atrovent nebs 2. Continue with IV steroids 3. Continue with IV antibiotic therapy 4. Repeat chest x-ray or may need further imaging with a CT scan 5. Room air O2 sats 6. Repeat chest x-ray in the morning 7. Echocardiogram to assess cardiac functioning as BNP level is elevated 8. GI and DVT prophylaxis Discharge Plan: Home Plan to discharge in: Greater than 2 days - Advance Directives Does patient have a Living Will: Yes Does patient have a Durable POA for Healthcare: Yes - Code Status/Comfort Care Code Status Assessed: Yes Code Status: Full Code Critical Care: No Time Spent Managing PTS Care (In Minutes): 40
[2020-01-23] MEDS ORDERED: POTASSIUM CL SA 10 MEQ TAB PO ONE (07:45)
[2020-01-23] MEDS: ALBUTEROL 2.5 MG/3 ML NEB SOL NEB SCH ×3 (07:52→20:30)
[2020-01-23] MEDS: IPRATROPIUM BROM 0.5MG/2.5ML NEB SCH ×3 (07:52→20:30)
--- NOTE | 2020-01-23 08:31 | RAD REPORT ---
EXAM DESCRIPTION: RAD - Chest Single View - 01/23/2020 1:35 am CLINICAL HISTORY: SOB Chest pain. COMPARISON: Chest Pa And Lat (2 Views) dated 11/30/2018; Chest Single View dated 11/29/2018; Chest Sin gle View dated 11/22/2018; Chest Pa And Lat (2 Views) dated 12/05/2016 FINDINGS: Portable technique limits examination quality. Prominent fibro emphysematous changes are seen. No focal infiltrate detected. The heart is normal in size. No displaced fractures. IMPRESSION: Prominent fibro emphysematous changes.
[2020-01-23] MEDS: ALPRAZOLAM 0.25 MG TABLET PO PRN ×2 (08:40→23:11)
[2020-01-23] MEDS: VALSARTAN 160 MG TAB PO SCH (08:42)
[2020-01-23] MEDS: ENOXAPARIN 40 MG/0.4 ML SQ SCH (08:42)
[2020-01-23] MEDS: hydroCHLOROthiazide 25 MG TAB PO SCH (08:42)
[2020-01-23] MEDS: guaiFENesin 100 MG/5 ML UCUP PO PRN ×2 (08:43→21:27)
[2020-01-23] MEDS ORDERED: HYDROCHLOROTHIAZIDE PO SCH (09:00)
[2020-01-23] MEDS ORDERED: MAGNESIUM SULFATE 1 gm IVPB 1 GM/100 ML BAG IV ONE (09:00)
[2020-01-23] MEDS ORDERED: VALSARTAN PO SCH (09:00)
--- NOTE | 2020-01-23 09:26 | EKG ---
Test Date: 2020-01-23 Test Time: 00:52:12 Optical Instrument Inspector: SWG MEASUREMENT RESULTS: Intervals: Rate: 76 OK: 132 QRSD: 94 QT: 406 QTc: 456 [place]: P: 80 OK: 132 QRS: 75 T: 85 INTERPRETIVE STATEMENTS: Normal sinus rhythm with sinus arrhythmia Normal ECG Compared to ECG 11/29/2018 13:50:23 ST (T wave) deviation no longer present Electronically Signed On 01-23-20 09:25:13 CDT by Issac Barroso
[2020-01-23 10:12] LABS: Urine Blood NEGATIVE (NEG); Urine Glucose NEGATIVE (NEG); Urine Protein NEGATIVE (NEG); Urine pH 5.5 (5.0-7.0)
--- NOTE | 2020-01-23 11:28 | ECHO ---
HEIGHT: 5 ft 0 in WEIGHT: 136 lb 0.051 oz DATE OF STUDY: 01/23/[address]: Paulina Zepeda MD 2-DIMENSIONAL: YES M.MODE: YES DOPPLER: YES COLOR FLOW: YES TDS: PORTABLE: DEFINITY: BUBBLE STUDY: DIAGNOSIS: CONGESTIVE HEART FAILURE CARDIAC HISTORY: CATHERIZATION: SURGERY: PROSTHETIC VALVE: PACEMAKER: MEASUREMENTS (cm) DIASTOLIC (NORMALS) SYSTOLIC (NORMALS) IVSd 1.1 (0.6-1.2) LA Diam 3.1 (1.9-4.0) LVEF 60% LVIDd 3.6 (3.5-5.7) LVIDs 2.5 (2.0-3.5) %FS 31% LVPWd 1.0 (0.6-1.2) Ao Diam 2.4 (2.0-3.7) 2 DIMENSIONAL ASSESSMENT: RIGHT ATRIUM: NORMAL LEFT ATRIUM: NORMAL RIGHT VENTRICLE: NORMAL LEFT VENTRICLE: NORMAL TRICUSPID VALVE: NORMAL MITRAL VALVE: MITRAL ANNULAR CALCIFICATION PULMONIC VALVE: NORMAL AORTIC VALVE: NORMAL PERICARDIAL EFFUSION: NONE AORTIC ROOT: NORMAL LEFT VENTRICULAR WALL MOTION: NORMAL DOPPLER/COLOR FLOW: IMPAIRED LEFT VENTRICULAR RELAXATION. TRACE MITRAL REGURGITATION. COMMENTS: NORMAL LEFT VENTRICULAR EJECTION FRACTION. MITRAL ANNULAR CALCIFICATION. IMPAIRED LEFT VENTRICULAR RELAXATION. MILD MITRAL REGURGITATION. TECHNOLOGIST: HUI MAGALLANES
--- NOTE | 2020-01-23 12:03 | P.PN ---
Subjective Date of Service: 01/23/20 Chief Complaint: Shortness of breath Patient states she feels much better today. She states the shortness of breath have improved and she is coughing minimally. Physical Examination - Vital Signs Temperature: 97.9 F Blood Pressure: 157/77 Pulse: 80 Respirations: 20 Pulse Ox (%): 98 - Physical Exam General: Alert, In no apparent distress, Oriented x3 HEENT: Mucous membr. moist/pink, Sclerae nonicteric Neck: Supple, JVD not distended Respiratory: Clear to auscultation bilaterally, Diminished Cardiovascular: No edema, Regular rate/rhythm, Normal S1 S2 Capillary refill: <2 Seconds Gastrointestinal: Normal bowel sounds, Soft and benign, Non-distended, No tenderness Musculoskeletal: No swelling, No erythema Integumentary: No erythema Neurological: Normal speech, Normal strength at 5/5 x4 extr - Studies Laboratory Data (last 24 hrs) 01/23/20 00:49: PT 10.8, INR 0.91, APTT 29.4 01/23/20 00:49: WBC 11.8 H, Hgb 14.9, Hct 43.8, Plt Count 188 01/23/20 00:49: Sodium 139, Potassium 3.4 L, BUN 17, Creatinine 0.86, Glucose 111 H, Magnesium 1.7 L D, Total Bilirubin 0.7, AST 19, ALT 27, Alkaline Phosphatase 118 H, Lipase 91 Assessment And Plan - Current Problems (Diagnosis) (1) Acute exacerbation of chronic obstructive pulmonary disease Current Visit: Yes Status: Acute Comment: Clinically improved. No evidence of pneumonia on the chest x-ray. (2) History of colostomy Current Visit: Yes Status: Chronic (3) Rectal cancer Onset Date: 09/27/16 Current Visit: No Status: Chronic - Plan Continue bronchodilators Continue antibiotics Obtain chest CT Echocardiogram reviewed and unremarkable.
--- NOTE | 2020-01-23 13:21 | RAD REPORT ---
EXAM DESCRIPTION: CT - Chest Angio - 01/23/2020 1:13 pm CLINICAL HISTORY: Chest pain. Dyspnea, pulm fibrosis, rule out pneumonia. COMPARISON: Thorax Wo Con dated 11/29/2018; CT ABD PELVIS W CONTRAST dated 12/22/2015 TECHNIQUE: CT angiogram of the pulmonary arteries was performed with MIP. All CT scans are performed using dose optimization technique as appropriate and may include automated exposure control or mA/KV adjustment according to patient size. FINDINGS: No evidence of pulmonary thromboembolism. No acute aortic finding demonstrated. Advanced COPD is present. No focal infiltrate to suggest pneumonia. No significant pericardial or pleural fluid. No concerning bony finding. Benign liver cysts are present. 2.6 cm left adrenal mass, unchanged. IMPRESSION: No evidence of pulmonary thromboembolism. Advanced COPD. No focal infiltrate to indicate pneumonia.
[2020-01-23 13:26] LABS: Urine Appearance CLEAR; Urine Bilirubin NEGATIVE (NEG); Urine Blood NEGATIVE (NEG); Urine Color YELLOW; Urine Glucose 1+ (NEG); Urine Protein NEGATIVE (NEG); Urine Specific Gravity 1.015 (1.005-1.030); Urine Urobilinogen 0.2 mg/dL (0.2-1.0)
[2020-01-23 13:30] LABS: Urine Microscopic Reflex NO UMIC
[2020-01-23] MEDS: TRAMADOL HCL 50 MG TAB PO PRN (19:12)
[2020-01-23] MEDS: HYDROCODONE/APAP 10/325 TAB PO PRN (21:26)
[2020-01-24] MEDS: IPRATROPIUM BROM 0.5MG/2.5ML NEB SCH ×4 (02:30→19:55)
[2020-01-24] MEDS: ALBUTEROL 2.5 MG/3 ML NEB SOL NEB SCH ×4 (02:30→19:55)
[2020-01-24 04:42] LABS: Magnesium 1.9 mg/dL (1.8-2.4); Phosphorus 2.6 mg/dL (2.5-4.9); Potassium 3.4 mmol/L (3.5-5.1)
[2020-01-24] MEDS: METHYLPREDNISOLONE 125 MG INJ IV SCH ×4 (06:40→23:54)
[2020-01-24] MEDS: hydroCHLOROthiazide 25 MG TAB PO SCH (08:24)
[2020-01-24] MEDS: VALSARTAN 160 MG TAB PO SCH (08:25)
[2020-01-24] MEDS: ENOXAPARIN 40 MG/0.4 ML SQ SCH (08:26)
[2020-01-24] MEDS ORDERED: POTASSIUM CL SA 10 MEQ TAB PO ONE (09:00)
--- NOTE | 2020-01-24 12:36 | P.PN ---
Subjective Date of Service: 01/24/20 Chief Complaint: Shortness of breath Patient states she is doing much better today. She states the shortness of breath have improved and she is coughing minimally. She does report dyspnea on exertion. She has been afebrile. She reports constipation. Physical Examination - Vital Signs Temperature: 97 F Blood Pressure: 134/70 Pulse: 65 Respirations: 20 Pulse Ox (%): 96 - Physical Exam General: Alert, In no apparent distress, Oriented x3 HEENT: Mucous membr. moist/pink, Sclerae nonicteric Neck: Supple, JVD not distended Respiratory: Clear to auscultation bilaterally, Diminished Cardiovascular: No edema, Regular rate/rhythm, Normal S1 S2 Gastrointestinal: Normal bowel sounds, Soft and benign, Non-distended, No tenderness, Other (Colostomy-no output today.) Musculoskeletal: No swelling, No erythema Integumentary: No rashes Neurological: Normal speech, Normal strength at 5/5 x4 extr Assessment And Plan - Current Problems (Diagnosis) (1) Acute exacerbation of chronic obstructive pulmonary disease Current Visit: Yes Status: Acute Comment: Clinically improved. No evidence of pneumonia on the chest x-ray. (2) History of colostomy Current Visit: Yes Status: Chronic (3) Rectal cancer Onset Date: 09/27/16 Current Visit: No Status: Chronic - Plan Continue bronchodilators. Transitioned IV steroids to p.o. prednisone. Transition to oral antibiotics. CTA thorax was also reviewed and reporting advanced COPD. No PE or infiltrate Echocardiogram reviewed and unremarkable. Home oxygen qualification test today. Senna and MiraLax for constipation.
[2020-01-24] MEDS: SENOSIDES 8.6 MG TAB PO SCH ×2 (13:08→21:12)
[2020-01-24] MEDS: POLYETHYL GLY 3350 17 GM/DOSE PO SCH (13:08)
[2020-01-24] MEDS: HYDROCODONE/APAP 10/325 TAB PO PRN (21:12)
[2020-01-24] MEDS: guaiFENesin 100 MG/5 ML UCUP PO PRN (21:15)
[2020-01-24] MEDS: ALPRAZOLAM 0.25 MG TABLET PO PRN (22:59)
[2020-01-25] MEDS: IPRATROPIUM BROM 0.5MG/2.5ML NEB SCH ×4 (02:00→20:27)
[2020-01-25] MEDS: ALBUTEROL 2.5 MG/3 ML NEB SOL NEB SCH ×4 (02:00→20:27)
[2020-01-25] MEDS: Levofloxacin 750mg IV 750 MG/150 ML BAG IV SCH (02:45)
[2020-01-25] MEDS: METHYLPREDNISOLONE 125 MG INJ IV SCH ×3 (05:48→17:40)
[2020-01-25 07:21] LABS: Potassium 4.3 mmol/L (3.5-5.1)
[2020-01-25] MEDS: SENOSIDES 8.6 MG TAB PO SCH ×2 (09:00→20:38)
[2020-01-25] MEDS: TRAMADOL HCL 50 MG TAB PO PRN (10:01)
[2020-01-25] MEDS: POLYETHYL GLY 3350 17 GM/DOSE PO SCH (10:01)
[2020-01-25] MEDS: hydroCHLOROthiazide 25 MG TAB PO SCH (10:02)
[2020-01-25] MEDS: VALSARTAN 160 MG TAB PO SCH (10:02)
[2020-01-25] MEDS: ENOXAPARIN 40 MG/0.4 ML SQ SCH (10:02)
--- NOTE | 2020-01-25 11:49 | P.PN ---
Subjective Date of Service: 01/25/20 Chief Complaint: Shortness of breath Patient states she continues to feel better. She reports she has been able to ambulate with oxygen. She reports intermittent dyspnea. Physical Examination - Vital Signs Temperature: 98.0 F Blood Pressure: 158/80 Pulse: 93 Respirations: 21 Pulse Ox (%): 93 - Physical Exam General: Alert, In no apparent distress, Oriented x3 HEENT: Mucous membr. moist/pink, Sclerae nonicteric Neck: JVD not distended Respiratory: Clear to auscultation bilaterally, Normal air movement Cardiovascular: No edema Gastrointestinal: Normal bowel sounds, Soft and benign, No tenderness Musculoskeletal: No swelling Neurological: Normal speech, Normal strength at 5/5 x4 extr Assessment And Plan - Current Problems (Diagnosis) (1) Acute exacerbation of chronic obstructive pulmonary disease Current Visit: Yes Status: Acute Comment: Clinically improved. No evidence of pneumonia on the chest x-ray. (2) History of colostomy Current Visit: Yes Status: Chronic (3) Rectal cancer Onset Date: 09/27/16 Current Visit: No Status: Chronic - Plan Continue bronchodilators. On p.o. prednisone and oral antibiotic CTA thorax was also reviewed and reporting advanced COPD. No PE or infiltrate Echocardiogram reviewed and unremarkable. Home oxygen qualification. Senna and MiraLax for constipation. Clinically stable for discharge.
--- NOTE | 2020-01-25 12:04 | P.DS ---
Admission Date: 01/23/20 Discharge Date: 01/26/20 Disposition: ROUTINE DISCHARGE Discharge Condition: GOOD Reason for Admission: Shortness of breath Consultations: None Procedures: None - Problems (1) Acute exacerbation of chronic obstructive pulmonary disease Current Visit: Yes Status: Acute Comment: Clinically improved. No evidence of pneumonia on the chest x-ray. (2) History of colostomy Current Visit: Yes Status: Chronic (3) Rectal cancer Onset Date: 09/27/16 Current Visit: No Status: Chronic Brief History of Present Illness: 74-year-old woman with a history of COPD, breast cancer and rectal cancer status post rectal surgery and colostomy present to the ED with a complaint of progressive shortness of breath. Symptoms peceded by upper respiratory symptoms. Patient stated she used her nebulizers and inhalers without improvement and therefore presented to the ED. Her chest x-ray in the ED did not show any acute disease. Patient was requiring oxygen in the ED and wheezing. She was admitted for further management of COPD exacerbation. Hospital Course: Patient admitted to the medical floor and aggressively treated with IV steroids , scheduled bronchodilators, antibiotics. CTA thorax was performed which was negative for pulmonary embolism and negative for infiltrate. Her respiratory condition gradually improved to baseline with treatment. Patient is considered clinically stable for discharge. Home oxygen quantification was done patient desaturated to 88% with ambulation. She does qualify for home oxygen. Vital Signs/Physical Exam: Temp Pulse Resp BP Pulse Ox 98.0 F 93 H 21 H 158/80 H 93 01/25/20 11:49 01/25/20 11:49 01/25/20 11:49 01/25/20 11:49 01/25/20 11:49 General: Alert, In no apparent distress, Oriented x3 HEENT: Mucous membr. moist/pink, Sclerae nonicteric Neck: Supple, JVD not distended Respiratory: Clear to auscultation bilaterally, Diminished Cardiovascular: No edema, Regular rate/rhythm, Normal S1 S2 Gastrointestinal: Normal bowel sounds, Soft and benign, No tenderness Musculoskeletal: No swelling, No erythema Integumentary: No rashes Neurological: Normal speech, Normal strength at 5/5 x4 extr Laboratory Data at Discharge: WBC 10.6 K/uL (4.3-10.9) 01/23/20 05:57 Hgb 13.8 g/dL (12.0-15.0) 01/23/20 05:57 Hct 40.9 % (36.0-45.0) 01/23/20 05:57 Plt Count 158 K/uL (152-406) 01/23/20 05:57 PT 10.8 SECONDS (9.5-12.5) 03 00:49 INR 0.91 03 00:49 APTT 29.4 SECONDS (24.3-36.9) 01/23/20 00:49 Sodium 139 mmol/L (136-145) 01/25/20 06:54 Potassium 4.3 mmol/L (3.5-5.1) 01/25/20 06:54 BUN 26 mg/dL (7-18) H 01/25/20 06:54 Creatinine 1.00 mg/dL (0.55-1.3) 01/25/20 06:54 Glucose 172 mg/dL (74-106) H 01/25/20 06:54 Phosphorus 2.6 mg/dL (2.5-4.9) 01/24/20 04:11 Magnesium 1.9 mg/dL (1.8-2.4) 01/24/20 04:11 Total Bilirubin 0.7 mg/dL (0.2-1.0) 01/23/20 00:49 AST 19 U/L (15-37) 01/23/20 00:49 ALT 27 U/L (12-78) 01/23/20 00:49 Alkaline Phosphatase 118 U/L (45-117) H 01/23/20 00:49 Troponin I 0.03 ng/mL (0.0-0.045) 01/23/20 05:57 Lipase 91 U/L (73-393) 01/23/20 00:49 Home Medications: Albuterol Sulfate [Albuterol Sulfate 0.083% Neb Soln] 2.5 mg IH Q6HP PRN Fluticasone/Umeclidin/Vilanter [Trelegy Ellipta 100-62.5-25] 1 puff IH DAILY 10/03 Tramadol HCl [Ultram] 50 mg PO DAILY PRN 01/23/20 Valsartan/Hydrochlorothiazide [Valsartan-Hctz 320-25 mg Tab] 1 each PO DAILY 10/03 Polyethyl Gly 3350 [Glycolax*] 17 gm PO DAILY #30 udbot 01/25/20 Senosides [Senokot*] 17.2 mg PO BID #120 tab 01/25/20 guaiFENesin [Robitussin 100MG/5ML*] 5 ml PO Q6H PRN #1 bottle 01/25/20 predniSONE [Deltasone*] 10 mg PO DAILY #30 tab 01/25/20 New Medications: guaiFENesin [Robitussin 100MG/5ML*] 5 ml PO Q6H PRN #1 bottle PRN Reason: Cough Polyethyl Gly 3350 [Glycolax*] 17 gm PO DAILY #30 udbot predniSONE [Deltasone*] 10 mg PO DAILY #30 tab Senosides [Senokot*] 17.2 mg PO BID #120 tab Patient Discharge Instructions: Follow up PCP. Diet: AHA Activity: Ad lola Time spent managing pt's care (in minutes): 43
[2020-01-25] MEDS: HYDROCODONE/APAP 10/325 TAB PO PRN ×2 (13:06→20:39)
[2020-01-25] MEDS: guaiFENesin 100 MG/5 ML UCUP PO PRN (20:40)
[2020-01-25] MEDS: ALPRAZOLAM 0.25 MG TABLET PO PRN (22:28)
[2020-01-26] MEDS: METHYLPREDNISOLONE 125 MG INJ IV SCH ×3 (00:03→12:10)
[2020-01-26] MEDS: IPRATROPIUM BROM 0.5MG/2.5ML NEB SCH ×2 (01:45→07:45)
[2020-01-26] MEDS: ALBUTEROL 2.5 MG/3 ML NEB SOL NEB SCH ×2 (01:45→07:45)
[2020-01-26 03:17] VITALS: O2SAT 94
[2020-01-26] MEDS: VALSARTAN 160 MG TAB PO SCH (09:27)
[2020-01-26] MEDS: hydroCHLOROthiazide 25 MG TAB PO SCH (09:27)
[2020-01-26] MEDS: POLYETHYL GLY 3350 17 GM/DOSE PO SCH (09:28)
[2020-01-26] MEDS: SENOSIDES 8.6 MG TAB PO SCH (09:28)
[2020-01-26] MEDS: ENOXAPARIN 40 MG/0.4 ML SQ SCH (09:28)
[2020-01-26 13:13] VITALS: BP 172/89; TEMP 97.8
== END 2020-01-26 14:59 | disposition home or self-care (01) | DRG 192 ==
LOC: ER 00:23 → ERHOLD 02:26 → 2ND 04:17
PROVIDERS: ADMIT Hospitalist; ATTEND Hospitalist
DX: J44.1 Chronic obstructive pulmonary disease with (acute) exacerbation (principal); I10 Essential (primary) hypertension; F17.210 Nicotine dependence, cigarettes, uncomplicated; Z85.3 Personal history of malignant neoplasm of breast; Z85.048 Personal history of other malignant neoplasm of rectum, rectosigmoid junction, and anus; Z93.3 Colostomy status
CPT/HCPCS: 36415; 71045; 71275; 80048; 80076; 81003; 82550; 82553; 83690; 83735; 83880; 84100; 84132; 84484; 85025; 85610; 85730; 87040; 93005; 93306; 94640; 96374; 96375; 99285; J0456; J1650; J2930; J3475; J7030; Q9967

== ENCOUNTER 2020-06-04 00:51 | Inpatient (IN) | payer BC ==
--- OUTSIDE RECORDS SUMMARY | 2020-06-04 00:54 | XMS REPORT | Clinical Summary ---
:[address] [facility] Address [address] [place] [id number] Care Team Providers Name Role Phone Unavailable [...] per tablet Active Problems Not on file Social History Tobacco Use Types Packs/Day Years Used Date Current Every Day Smoker 0.5 50 Smokeless Tobacco: Former User Q uit: 12/25/2016 Alcohol Use Drinks/Week oz/Week Comments Yes occasional-beer Sex Assigned at Date Recorded Not on file Job Start Date Occupation Industry Not on file Not on file Not on file Travel History Travel Start Travel End No recent travel history available. Last Filed Vital Signs Not on file Plan of Treatment Not on file Results Not on fileafter 06/04/2019 Insurance Payer Benefit Plan / Subscriber ID Type Phone Address Group BLUE [employer]UE [employer]BS PPO POS EPO xxxxxxxxxxxx PPO [phone] [address] [place] [address] MEDICARE MEDICARE A B xxxxxxxxxx Medicare
--- OUTSIDE RECORDS SUMMARY | 2020-06-04 00:56 | XMS REPORT | Continuity of Care Document ---
:1945 Author Organization [facility] t Address [address] [place] [address] Care Team Providers Name Role Phone HUNTER Primary Care Physician Unavailable HARMONY Attending Clinician Unavailable HUNTER Attending Clinician Unavailable Katharine VAZQUEZ, B Attending Clinician Unavailable Stacey VAZQUEZ Attending Clinician Unavailable Jayy VERA Attending Clinician Modesto HOPKINS Attending Clinician Hunter RIDER Attending Clinician Carly VAZQUEZ, L Attending Clinician Unavailable Ovidio Attending Clinician Unavailable Terrence Aden Attending Clinician Hernan RIDER Attending Clinician Alexi VERA Attending Clinician Tommy VAZQUEZ, D Attending Clinician Unavailable Juliane VERA Attending Clinician Gm RODRIGUEZ Attending Clinician Tramaine VAZQUEZ, A Attending Clinician Drake VERA Attending Clinician Ez Attending Clinician Unavailable Harmony RIDER Attending Clinician SEAN Attending Clinician Unavailable ADAN HARRISON Attending Clinician Unavailable MARICRUZ LEACH Admitting Clinician Unavailable ADAN HARRISON Admitting Clinician Unavailable Payers Payer Name Policy Type Policy Number Effective Date Expiration Date [employer] [place] [id number] 2020 00:00:00 Problems Condition Condition Condition Status Onset Resolution Last Treating Co mments Source Name Details Category Date Date Treatment Clinician Date Lymphedema Lymphedema Disease Active M D of upper of upper 5-25 Joe o limb limb 00:00: n 00 Diarrhea Diarrhea Disease Active 7-13 Anderso 00:00: n 00 Dehydratio Dehydratio Disease Active M D n n 7-13 Anderso 00:00: n 00 Parastomal Parastomal Disease Active M D hernia hernia 5-11 Anderso 00:00: n 00 Attention Attention Disease Active MD to to 3-14 Anderso colostomy colostomy 00:00: n 00 Follow up Follow up Disease Active examinatio examinatio 1-23 An derso n after n after 00:00: n combined combined 00 treatment treatment Personal Personal Disease Active history of history of 7-19 An derso tobacco tobacco 00:00: n use use 00 Diverticul Diverticul Disease Active M D ar disease ar disease -26 An derso of colon of colon 00:00: n 00 Nicotine Nicotine Disease Active dependence dependence 4-26 An derso 00:00: n 00 Rectal Rectal Disease Active Overview: cancer cancer 1-14 Excised Anderso 00:00: via n 00 transanal excision Malignant Malignant Disease Active 2014-11 neoplasm neoplasm 2-14 Joe o of of 00:00: n overlappin overlappin 00 g sites of g sites of left left female female breast breast Metastatic Metastatic Disease Active M D cancer to cancer to 1-26 Ganga rso axillary axillary 00:00: n lymph lymph 00 nodes nodes 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 00:00: n cancer cancer 00 Chronic Chronic Disease Active obstructiv obstructiv An derso e e n pulmonary pulmonary disease disease Hypertensi Hypertensi Disease Active M D on on Anderso n Allergies, Adverse Reactions, Alerts Allergy Allergy Status Severity Reaction(s) Onset Inactive Treating Comm ents Source Name Type Date Date Clinician Codeine Drug Active Other (See "[facility]ird [facility]) 01-28 dreams" [facility] Center Cephalex Propensi Active Hives, Rash [facility] reaction [facility] Center s CODEINE DRUG Active Med Other 2015-[address] Anderso 00:00: n 00 CODEINE DRUG Active Med Other 2015-[address] Anderso 00:00: n 00 Family History Family Member Diagnosis Comments Start Date Stop Date Source Natural father Esophageal cancer MD [facility] Maternal aunt Breast cancer All son Social History Social Habit Start Date Stop Date Quantity Comments Source Sex Assigned At F MD Diaz on Exposure to Not sure MD [facility] SARS-CoV-2 (event) Cigarettes smoked 2020-05-27 2020-05-27 MD Ganga medley current (pack per 00:00:00 00:00:00 day) - Reported Cigarette 2020-05-27 2020-05-27 MD [facility] pack-years 00:00:00 00:00:00 Tobacco use and 2020-05-27 2020-05-27 Never used MD Diaz on exposure 00:00:00 00:00:00 Alcohol intake 2020-05-27 2020-05-27 Current drinker of MD [facility] 00:00:00 00:00:00 alcohol (finding) History of tobacco 1959-12-07 2020-04-01 Current smoker MD [facility] use 00:00:00 00:00:00 Alcohol Comment 2016-02-24 2016-02-24 occasional beer MD Eboni mir 00:00:00 00:00:00 Smoking Status Start Date Stop Date Source Former smoker 2020-05-27 00:00:00 2020-05-27 00:00:00 MD Carrizales son Current every day 2018-02-13 00:00:[address] [facility] Medications Ordered Filled Start Stop Current Ordering Indication Dosage Frequency Signature Comments Components Source Medication Medication Date Date Medication? Clinician (SIG) Name Name buPROPion Yes Nicotine 300mg Take 1 M D (WELLBUTRIN 7-15 dependence tablet Anderso XL) 300 mg 00:00: (300 mg) n 24 hr 00 by mouth tablet every morning. NICORETTE 4 2020-0 Yes Nicotine 4mg Chew and MD mg gum -26 dependence park 1 All so cinnamon 00:00: Piece (4 n surge 00 mg) by mouth every 2 (two) hours as needed (smoking). Avoid acidic beverages 5 min before, during & after buPROPion 2020-0 2020- No Nicotine 300mg Take 1 MD (WELLBUTRIN 6-26 07-15 dependence tablet Anderso XL) 300 mg 00:00: 00:00 (300 mg) n 24 hr 00 :00 by mouth tablet every morning. fluticasone 2020-0 Yes 1{puff} Inhale 1 MD -umeclidin- 6-15 puff by All so vilanter 14:36: mouth n (TRELEGY 37 every ELLIPTA) morning. 100-62.5-25 mcg dsdv budesonide- 2020-0 Yes 1{puff} Inhale 1 MD formoterol 6-15 puff by Joe o (SYMBICORT) 14:36: mouth n 160-4.5 37 every mcg/actuati evening. on inhaler polyethylen 2019-0 Yes 17g Take 17 g M D e glycol 6-15 by mouth Anderso (MIRALAX) 14:36: daily. n 17 g packet 37 fluticasone 2020-0 Yes 1{puff} Inhale 1 MD propionate- 6-15 puff by All so salmeterol 14:36: mouth. n (ADVAIR) 37 100 mcg-50 mcg/inhalat ion diskus inhaler buPROPion 2020-0 2020- No Nicotine 300mg Take 1 MD (WELLBUTRIN -04 05-26 dependence tablet Anderso XL) 300 mg 00:00: 20:21 (300 mg) n 24 hr 00 :27 by mouth tablet every morning. NICORETTE 4 2020-0 2020- No Nicotine 4mg Chew and MD mg gum 04-03- dependence park 1 Agnga rso cinnamon 00:00: 20:21 Piece (4 n surge 00 :27 mg) by mouth every 2 (two) hours as needed (smoking). Avoid acidic beverages 5 minutes before, during & after buPROPion 2020-0 2020- No Nicotine 150mg Take 1 MD (WELLBUTRIN 4-30 07-15 dependence tablet Anderso XL) 150 mg 00:00: 00:00 (150 mg) n 24 hr 00 :00 by mouth tablet every morning. buPROPion No Nicotine 300mg Take 1 MD (WELLBUTRIN 30 -21 dependence tablet Anderso XL) 300 mg 00:00: 21:45 (300 mg) n 24 hr 00 :20 by mouth tablet every morning after finishing the first bottle (150 mg bottle) NICORETTE 4 2019- No Nicotine 4mg Chew and MD mg gum 30 -21 dependence park 1 Ganga rso cinnamon 00:00: 21:45 piece (4 n surge 00 :20 mg) by mouth every 2 (two) hours as needed for smoking. Avoid acidic beverages 5 minutes before, during and after. nicotine 2018-11 No 4mg Chew and MD polacrilex 2-17 12-17 park 4 mg And erso (NICORETTE) 19:12: 00:00 by mouth n 4 MG gum 22 :00 every 2 (two) hours as needed. carvedilol 2018- No 12.5mg Take 12.5 MD (COREG) 6-19 12-17 mg by Anderso 12.5 mg 00:00: 00:00 mouth n tablet 00 :00 twice daily. fluticasone Yes 1{puff} Inhale [address] -salmeterol 3-30 puff by [facility] - (ADVAIR) 11:08: mouth via Medi gian 100-50 08 inhaler as Center mcg/dose needed . diskus inhaler albuterol Yes 1{puff} Inhale [address] HFA 3-24 puff by [facility] - (VENTOLIN 14:06: mouth via Med ical HFA) 90 01 inhaler Center mcg/actuati every 6 on inhaler (six) hours as needed for Wheezing. amLODIPine Yes 5mg QD Take [address] (NORVASC) 5 3-24 by mouth Luke s - MG tablet 14:06: daily. Medica l 01 Center metoprolol Yes 50mg QD Take [address] (TOPROL-XL) 3-24 by mouth Luke s - 50 MG 24 hr 14:06: daily. Medi gian tablet 01 Center valsartan-h Yes 1{tbl} QD Take [address] ydrochlorot 3-24 tablet by [facility] - hiazide 14:06: mouth Medical (DIOVAN-HCT 01 daily. Center ) 160-12.5 mg per tablet traMADol Yes 50mg Take [address] (ULTRAM) 50 3-17 by mouth Luke s - mg tablet 09:00: every 6 Medic al 04 (six) Center hours as needed for Pain. traMADol Yes Cancer of 100mg Take 2 M D (ULTRAM) 50 2-23 overlapping tablets Anderso mg tablet 00:00: sites of (100 mg) n 00 anus by mouth every 6 (six) hours as needed for moderate pain. valsartan-h Yes 1{tbl} Take 1 MD ydrochlorot 1-27 tablet by And erso hiazide 00:00: mouth n (DIOVAN-HCT 00 every ) 160 morning. mg-12.5 mg Blood per tablet pressure; last dose 05/26/15 ALBUTEROL 2019- No 1{puff} Inhale 1 MD SULFATE 1-27 12-17 puff by Anderso INHALATION 00:00: 00:00 mouth as n 00 :00 needed. Reported on 03/15/2017 Vital Signs Vital Name Observation Time Observation Value Comments Source Body weight 2020-04-17 17:06:00 61.6 kg MD All dewitt BMI 2020-04-17 17:06:00 26.66 kg/m2 MD All dewitt Systolic blood pressure 2020-04-03 18:30:00 170 mm[Hg] MD [facility] Diastolic blood pressure 2020-04-03 18:30:00 100 mm[Hg] MD [facility] Body temperature 2020-04-03 18:30:00 36.78 Nikki MD Eboni mir Oxygen saturation in 2020-04-03 18:30:00 96 /min MD [facility] Arterial blood by Pulse oximetry Heart rate 2020-04-03 18:00:00 63 /min MD All dewitt Respiratory rate 2020-04-03 18:00:00 16 /min MD Eboni mir Procedures Procedure Date / Time Performed Performing Clinician Sourc e PETCT SUBSEQUENT TREATMENT 2020-04-17 18:35:02 Rudi Harrison STRATEGY IR CHEST XRAY 1 VIEW 2020-04-04 14:04:49 Judy Miramontes MD rson IR CHEST XRAY 1 VIEW 2020-04-03 17:44:37 Judy Miramontes MD rsdigna SURGICAL BIOPSY HISTORIC 2020-04-03 17:00:00 Conversion, Robina [facility] DEEP FNA HISTORIC 2020-04-03 17:00:00 Conversion, Pathology MD Eboni stuartrson IR CHEST XRAY 1 VIEW 2020-04-03 15:32:54 Judy Miramontes MD rson IR CHEST XRAY 1 VIEW 2020-04-03 14:36:48 Judy Miramontes MD IR CT GUIDED BIOPSY 2020-04-03 14:18:48 Bettye Truong MD LUNG/MEDIASTINAL AF[employer] INTERVENTIONAL RADIOLOGY 2020-04-03 14:00:00 Ramirez Becerra MD W/ SMEAR HC CULTURE, ANAEROB 2020-04-03 14:00:00 Ramirez Becerra MD FUNGUS INTERVENTIONAL RAD 2020-04-03 14:00:00 Ramirez Becerra MD CULTURE W/ GRAM STAIN INTERVENTIONAL RADIOLOGY 2020-04-03 14:00:00 Ramirez Becerra MD CULTURE W/GRAM STAIN PATHOLOGY BIOPSY SPECIMEN 2020-04-03 13:24:42 Bettye Truong MD INTERPRETATION PROTHROMBIN TIME 2020-04-03 11:23:00 Cristina Truong MD CYTOPATHOLOGY IMAGE-GUIDED 2020-04-03 00:00:00 Ramirez Becerra FNA INTERPRETATION HC COVID19 AUTOMATED PCR 2020-04-02 14:10:[address] CHEST ABDOMEN PELVIS W 2020-03-24 15:02:00 Jessie Worrell MD CONTRAST COMPLETE BLOOD COUNT W/ 2020-03-24 13:51:00 Jessie Worrell MDon DIFFERENTIAL COMPREHENSIVE METABOLIC PANEL 2020-03-24 13:51:00 Jessie Worrell MD CARCINOEMBRYONIC ANTIGEN 2020-03-24 13:51:00 Jsesie Worrell MD Results CBC 2020-03-24 13:51:00 Jessie Worrell MD MANUAL DIFFERENTIAL 2020-03-24 13:51:00 Jessie Worrell MD GLUCOSE LEVEL 2020-03-24 13:51:00 Jessie Worrell MD BLOOD UREA NITROGEN 2020-03-24 13:51:00 Jessie Worrell MD All son ELECTROLYTE PANEL 2020-03-24 13:51:00 Jessie Worrell MD SERUM CREATININE 2020-03-24 13:51:00 Jessie Worrell MD .GLOMERULAR FILTRATION RATE 2020-03-24 13:51:00 Jessie Worrell MD CALCIUM LEVEL TOTAL 2020-03-24 13:51:00 Jessie Worrell MD All [facility] ALBUMIN LEVEL 2020-03-24 13:51:00 Jessie Worrell MD ALKALINE PHOSPHATASE 2020-03-24 13:51:00 Jessie Worrell MD Ganga rson ALANINE AMINOTRANSFERASE 2020-03-24 13:51:00 Jessie Worrell MD ASPARTATE AMINOTRANSFERASE 2020-03-24 13:51:00 Jessie Worrell TOTAL PROTEIN 2020-03-24 13:51:00 Jessie Worrell MD FRACTIONATED BILIRUBIN 2020-03-24 13:51:00 Jessie Worrell MD An derson POC CREATININE 2020-03-24 13:51:00 Provider, Ariel camilo MAMMO DIGITAL DIAGNOSTIC 2020-03-24 13:30:29 Jessie Worrell MD RIGHT W CHAVA CARCINOEMBRYONIC ANTIGEN 2019-10-30 18:45:23 Bhavna Hope MD COMPLETE BLOOD COUNT W/ 2019-10-30 18:45:23 Hunter, Rudi Lyn nderson DIFFERENTIAL COMPREHENSIVE METABOLIC PANEL 2019-10-30 18:45:23 Rudi Harrison MD MAGNESIUM LEVEL 2019-10-30 18:45:23 Rudi Harrison MD Results CBC 2019-10-30 18:45:23 Rudi Harrison MD MANUAL DIFFERENTIAL 2019-10-30 18:45:23 Hunter, Rudi RIDER All [facility] GLUCOSE LEVEL 2019-10-30 18:45:23 Rudi Harrison MD BLOOD UREA NITROGEN 2019-10-30 18:45:23 Tu, Rudi RIDER All son ELECTROLYTE PANEL 2019-10-30 18:45:23 Rudi Harrison MD SERUM CREATININE 2019-10-30 18:45:23 Rudi Harrison MD .GLOMERULAR FILTRATION RATE 2019-10-30 18:45:23 Rudi Harrison MD CALCIUM LEVEL TOTAL 2019-10-30 18:45:23 , Rudi RIDER All dewitt ALBUMIN LEVEL 2019-10-30 18:45:23 , Rudi [facility] ALKALINE PHOSPHATASE 2019-10-30 18:45:23 , Rudi Bansalmarlena medley ALANINE AMINOTRANSFERASE 2019-10-30 18:45:23 Tu, Rudi [facility] ASPARTATE AMINOTRANSFERASE 2019-10-30 18:45:23 Tu, Rudi [facility] TOTAL PROTEIN 2019-10-30 18:45:23 Tu, Rudi [facility] FRACTIONATED BILIRUBIN 2019-10-30 18:45:23 , Rudi Mackay derson CARCINOEMBRYONIC ANTIGEN 2019-06-12 14:53:00 Bhavna Hope MD Encounters Start End Encounter Admission Attending Care Care Encounter Source Date/Time Date/Time Type Type Clinicians Facility Department ID 2020-05-12 Outpatient MDA MDA [id number] 15:16:18 Anderso n 2020-07-31 2020-07-31 [facility] [id number] 00:00:00 00:00:00 YAZMIN Joe o n 2020-07-31 2020-07-31 Outpatient RUDI DE OLIVEIRA MDA MDA [id number] 00:00:00 00:00:00 Joe o n 2020-05-23 2020-05-23 Outpatient RUDI DE OLIVEIRA MDA MDA [id number] 00:00:00 00:00:00 Joe o n 2020-05-09 2020-05-09 Outpatient RUDI DE OLIVEIRA MDA MDA [id number] 15:29:12 15:29:12 Joe o n Results Test Description Test Time Test Comments Results Result Comments Source AFB Culture IR w/Smr 2020-05-31 02:06:18 Test Item Value Reference Range Interpretation Comme nts Final Report (test code = 8488) No acid fast bacteria isolated at 8 weeks. Path Review - AFB (test code = 8477) Partial antibioti c treatment can render AFB culture negative. AFB culture has sensitivity of 90%.The results have been reviewed and electronically signed by Pathologist:MAME CARVALHO MD #[id number] Acid Fast Stain Divya (test code = No Acid Fast Bacilli seen in di rect smear 39608-6) Acid Fast Stain Felipe (test code = No Acid Fast Bacilli seen i n direct smear 6655-5) NIYAH (test code = NIYAH) on label Lung-R MD StallingsFungus Culture IR w/[id number] 02:09:31 Test Item Value Reference Range Interpretation Comments Final Report (test No fungus isolated at 4 code = 8488) weeks. Path Review - Fungus Culture yield may be (test code = 8479) affected by sample quality, prior treatment, and transportation conditions.The results have been reviewed and electronically signed by Pathologist:MAME CARVALHO MD #[id number] Calcofluor Stain No Fungi seen in direct (test code = 6472-5) smearTest performed by fluorescent stain methodology. NIYAH (test code = NIYAH) on label Lung-RCultures are held for 4 weeks before finalization. MD StallingsPETCVasu Subsequent Treatment [id number] 19:11:53There has been a decrease in size of a mass-like opacity in the right lower lobe and nodular opacities in the left lower lobe most consistent with a resolving infectious- inflammatory etiology. Follow-up CT in 3 months could be useful to confirm complete resolution and the absence of malignancy. There are no radha or distant metastases. Interface, Radiology Results In - 04/17/2020 2:14 PM CDTFULL RE SULT:Examination: FDG PET/CT, 04/17/2020 1:35 PMClinical History: Lung mass [R91.8 (ICD-10-CM)]. History of rectal malignancy.Indication: To determine initial treatment strategy. Staging.Comparison: CT of the chest, abdomen and pelvis 03/24/2020.Technique: Following intravenous administration of 8.9 mCi F-18 fluorodeoxyglucose (FDG), a CT attenuation corrected PET scan was obtained from the upper aspect of the skull to the thighs. Findings: 1. A focal mass-like opacity in the right lower lobe on CT of 03/24/2020 has decreased in size and now has a maximal dimension of 1.5-2 cm (previously 3.5 cm) andis not FDG avid. Biopsy on 04/03/2018 revealed fragments of lung parenchyma with non-specific inflammation change and no tumor present. In addition, previously visualized small focal irregular opacities in the left lower lobe have decreased in size. 2. There are no discrete nodules suspicious for metastases. There is a diffusely calcified benign left lower lobe nodule. The lungs are emphysematous.3. There are no enlarged or FDG avid lymph nodes.4. FDG uptake in the liver and spleen is physiologic. There are small punctate calcifications in the liver and spleen consistent with sequelae of prior infection. There is a low-attenuation hepatic lesion consistent with a cyst.5. 3 cm low attenuation left adrenal nodule is unchanged in size and is not FDG avid and is consistent with an adenoma. The right adrenal is normal.6. There is a left colostomy.7. There is a 2.7 cm left ovarian cyst that is unchanged in size. The uterus has been resected.8. There are postsurgical changes consistent with a left mastectomy. There are no PET/CT findings of local recurrence of malignancy within the chest wall and there are no enlarged or FDG avid axillary lymph nodes. There is a right breast prosthesis.9. There is asmall hiatal hernia and there is increased FDG uptake in the esophagus (SUV max 4.5) consistent withesophagitis.10. There is a 2 cm low- attenuation nodule adjacent to the T10 vertebral body (image 192) patchy areas unchanged in size since 12/04/2016, is not FDG avid and is most consistent with a neurogenic neoplasm such as a neurofibroma.IMPRESSION:There has been a decrease in size of a mass-like opacity in the right lower lobe and nodular opacities in the left lower lobe most consistent with a resolving infectious-inflammatory etiology. Follow-up CT in 3 months could be useful to confirm complete r esolution and the absence of malignancy. There are no radha or distant metastases.MD [facility]An[facility]bic [facility] Interventional [id number] 00:46:50 Test Item Value Reference Range Interpretation Comments Final Report (test No growth code = 8488) Path Review - The results have been Anaerobe (test code reviewed and = 8478) electronically signed by Pathologist:MAME CARVALHO MD #[id number] NIYAH (test code = on label Lung-R NIYAH) MD StallingsInterventional Radiology Culture w/Gram [id number] 20:16:29 Test Item Value Reference Range Interpretation Comments Final Report (test No growth code = 8488) Path Review (test The results have been code = 8492) reviewed and electronically signed by Pathologist:Ange Thapa MD, PhD #[id number] Gram Stain Report No WBC's seen.No organisms (test code = seen. 6664-7) NIYAH (test code = on label Lung-R NIYAH) ChandrakantTRI CHEST XRAY 1 [id number] 19:28:06Date of Procedure: 04/04/20 Attending Physician: Soto Tinajero Process Supervisor: Genet Pre Procedure Diagnosis: Right lung mass with post biopsy small right pneumothorax. Post Procedure Diagnosis: Unchanged Indication: Evaluate stability of post-biopsy pneumothorax. Title of Procedure:Follow-up Chest X-Ray. A single inspiratory chest radiograph was obtained and compared to the prior exam. It demonstrated no change of the previously noted right pneumothorax. The remainder of the chest is stable. Disposition: Home Plan: No further follow-up with IR required. The patient was discharged home in stable condition. Impression: Stable right apical pneumothorax. I certify my physical presence at the time of the procedure. I personally reviewed the image(s) and the resident's /fellow's interpretation and agree with the written report.MD Henning CT GUIDED BIOPSY LUNG/[id number] 19:08:12Date of Procedure: 04/03/20 Attending Physician: Ramirez Becerra Process Supervisor: Judy Miramontes Pre Procedure Diagnosis: Malignant neoplasm of rectum Post Procedure Diagnosis: Unchanged Indication: Evaluate for metastasis Protocol Number: N/A Title of Procedure:Percutaneous CT-Guided Biopsy Operative Findings: 1. Percutaneous image-guided biopsy of 2.6 cm right lower lobe lung lesion.2. Pneumothorax noted on follow-up chest x-rays: Conservative management Consent: The procedure, risks, indications andalternatives were explained. All questions were answered and informed consent was obtained. I have reviewed the history and physical dictated by the mid-level practitioner/fellow. Sedation/Anesthesia: Moderate sedation for pain control and anxiety was administered by a dedicated nurse under my supervision. There was continuous monitoring of oxygen saturation, heart rate and intermittent monitoring of blood pressure during the procedure. Medication given was midazolam and fentanyl. I was present for the administration of the medications indicated above.Procedure Events Event Event Time Sedation Start 04/03/2020 8:20 AM Sedation End 04/03/2020 9:10 AM Procedure in Detail: A time out was performed prior to the start of the procedure and the correct patient, procedure, presence of consent,site, and side were confirmed with all members of the team. With the patient in the prone position, the skin overlying the area of interest was prepped and draped in the usual sterile fashion. Lidocaine 1% was used for local anesthesia. Using a posterior approach under CT image-guidance, a 19 gauge needle was advanced down to the lesion in the right lung. An image was obtained and [facility]. Samples were obtained for evaluation. Sampling: Cytology: A 22 gauge needle was usedto obtain sample(s) for cytologic assessment. Total number of samples: 3 Core Biopsy: A 20 gauge needle used to obtain samples for surgical pathology evaluation. Total number of samples: 3 Biosentry: A Biosentry device was deployed at the conclusion of the procedure. Post-biopsy radiographs:1. The initial follow-up chest radiograph demonstrates: Small pneumothorax.2. A subsequent follow-upchest radiograph was obtained at 1 and 3 hours and demonstrates: Small stable pneumothorax. Specimens Disposition: Diagnostic Biopsy: The biopsy samples were submitted to pathology. Microbiologysamples: Additional samples were obtained and submitted for microbiologic evaluation. Additional Comments: None Estimated Blood Loss: Minimal Immediate Complications: Pneumothorax Disposition: PACU Plan: Follow-up chest radiograph on 04/04/2020. I certify my physical presence at the time of the procedure. I personally reviewed the image(s) and the resident's / fellow's interpretation and agree with the written report.MD StallingsProthrombin Time with [id number] 11:54:54 Test Item Value Reference Range Interpretation Comments PT (test code = 5902-2) 12.1 12.0- 14.3 second(s) INR (test code = 6301-6) 0.92 0.90-1.10 MD StallingsCOVID-19 (SARS-CoV-2) PCR-Asymptomatic [id number] 04:50:11 Test Item Value Reference Range Interpretation Comments COVID19 (SARS Not Detected Not Detected This test is a CoV-2) Result qualitative (test code = reverse-transcr iptase 10968) polymerase mirta n reaction (RT-PC R) developed for t he [employer] KAT 680 0 system and inte nded for the detecti on of SARS CoV-2 RNA in human nasophary ngeal specimens from patients who me et COVID-19 clinic al and/or epidemiological criteria. This assay has been approv ed by the FDA for use only under Emergency Use Authorization ( EUA) in laboratories that have been CLIA-certified to perform moderate-comple xity and high-comple xity tests. The performance characteristics of this assay were verified by the Microbiology Laboratory at [facility]. Results must be interpreted within the context of all relevant clinic al and laboratory find ings and should not form the sole basis for a diagnosis or treatment decision.Rn Oncology al controls are in cluded to assess for possible amplification inhibitors. If inhibition is detected, testi ng is repeated and if inhibition is confirmed the specimen is res ulted as "Invalid". "Inconclusive" results are due to partial amplifi cation of SARS-CoV-2 targets. When t his occurs, results are confirmed by re peat testing before issuing an "Inconclusive" result. When a n "Invalid" or "Inconclusive" results occur, it is recommended to wait a minimum of 3 da ys before submitti ng a new specimen fo r testing if clin ically indicated. COVID19 SARS REBAR WORKER Swab Source (test code = 42441) COVID19 SARS Pre-Out of OR Indication (test Procedure code = 10001) MD StallingsCT Chest Abdomen Pelvis with [id number] 21:17:30 1. New spiculated pulmonary mass in the right lower lobe is suspicious for primary malignancy versus metastasis. New spiculated pulmonary nodules in the left lower lobe are also suspicious. 2. Left ovarian cyst measuring 2.7 cm. Recommend further evaluation with pelvic ultrasound.3. Postsurgical changes related to APR without evidence of tumor recurrence. I personally reviewed these image(s) along with the resident's/fellow's interpretations, certify that if a procedure was performed I was physically present, and agree with the final report.Interface, Radiology Results In - 03/24/2020 4:19 PMCDTFULL RESULT:Examination: CT CHEST ABDOMEN PELVIS W CONTRAST, 03/24/2020 10:02 AMClinical History: 74-year-old female with history of rectal cancer.Indication: to assess for any recurrence or metastatic diseaseComparison: CT chest abdomen pelvis dating back to 12/04/2016.Technique: CT of the chest, abdomen, and pelvis was performed with intravenous contrast.Findings: CHEST: Lines and tubes: None.Lungs/airways: There is a new spiculated mass in the right right lower lobe measuring 4.4 x 2.0 cm (series 8, image 246). There are also couple of new spiculated nodules in the left lower lobe measuring 5 mm and 7 mm, respectively (series 8, image 262, 271). A 1.5 cm subpleural nodule in the left lower lobe is also present (series 8, image 289). Confluent pulmonary emphysema is present. There is stable biapical parenchymal scarring. Linear scarring in the lower lobes is also present. Small bilateral calcified granulomas are unchanged (series 8, image 131, 274).Pleura: No pleural effusion or pneumothorax is identified.Heart/mediastinum: The heart is normal in size. There is no pericardial effusion. Right coronary artery calcifications are present.Vasculature: The main pulmonary artery is normal caliber. There is atherosclerotic calcification involving the major branch vessels and the thoracic aorta.Lymph nodes: There are no enlarged supraclavicular, mediastinal, hilar, or axillary lymph nodes. Calcified left hilar lymph nodes are redemonstrated.Low neck: The thyroid gland is unremarkable.Bones and soft tissues: Left total mastectomy changes are noted. A right breast prosthesis is in place. Surgical clips in the left axilla related to prior radha dissection are present.ABDOMEN AND PELVIS: Liver: Stable benign cystic lesions in the left hepatic lobe. There are no suspicious liver lesions. There isstable mild biliary duct dilatation, likely sequelae of cholecystectomy.Gallbladder: Surgically absent.Spleen: Unremarkable.Pancreas:Unremarkable.Adrenal glands:Relatively stable 2.7 cm left adrenal adenoma. The right adrenal gland is normal.Kidneys:Bilateral chronic renal cortical scarring is noted. A 1.4 cm exophytic cortical cyst in the interpolar region of the left kidney is stable. A proteinaceous/hemorrhagic cyst in the superior pole the left kidney measures 1.2 cm (series 3, image 175). Additional punctate hypodensities in both kidneys are too small to characterize. Punctate renal cortical calcifications are also unchanged. There is no hydronephrosis.Bowel: There are postsurgical changes rel ated to APR with VRAM flap reconstruction. A left-sided colostomy is present. There is no bowel obstruction.A small hiatal hernia is present. The appendix is surgically absent. Peritoneum: No free air or fluid.Bladder: A small bladder diverticulum is again noted in the right anterolateral bladder wall.Reproductive Organs: The uterus is surgically absent. There is a 2.7 cm cyst in the left ovary (series 3, image 246). The right ovary is unremarkable.Lymph nodes: There are no enlarged lymph nodes in the abdomen or pelvis.Vasculature: There is circumferential atherosclerotic calcification of the infrarenal abdominal aorta.Bones and soft tissues: Age-related degenerative changes in the imaged osseous structures are noted. There are no destructive bone lesions. Lateral thoracic meningoceles at the T9-T10 are noted.There is a small fat-containing supraumbilical hernia with defect measuring 1.1 cm (series 3, image 27). Postsurgical changes related to prior ventral hernia repair are noted.IMPRESSION:1. New spiculated pulmonary mass in the right lower lobe is suspicious for primary malignancy versus metastasis. New spiculated pulmonary nodules in the left lower lobe are also suspicious. 2. Left ovarian cyst measuring 2.7 cm. Recommend further evaluation with pelvic ultrasound.3. Postsurgical changes related to APR without evidence of tumor recurrence.I personally reviewed these image(s) along with the resident's/fellow's interpretations, certify that if a procedure was performed I was physically present, and agree with the final report.[facility] Right with [id number] 13:42:13No evidence of malignancy. Routine follow-up mammogram in 1 year is recommended. 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 MAMMO DIGITAL DIAGNOSTIC RIGHT W TOMODigital Mammogram evaluated with Computer Aided Detection (CAD). COMPARISON:Prior [facility] performed at [facility] on12/10/2014, 03/09/2016, 03/15/2017, 03/14/2018 and 03/20/2019 were reviewed. FINDINGS:There are scattered areas of fibroglandular density. There is a retro-pectoral saline implant in the right breast. No dominant mass, distortion, or suspicious calcifications are identified. Tomosynthesis performed in CC and MLO projections. IMPRESSION:No evidence of malignancy. Routine follow-up mammogram in 1 year is recommended. BI-RADS Category 1:NegativeHon[facility] [id number] 12:19:00 Test Item Value Reference Range Interpretation Comments Hematology (test code = 7.3 thou/uL 4.8-10.8 N WBCT) Hematology (test code = 4.77 mill/uL 4.20-5.40 N RBCT) Hematology (test code = 14.6 g/dL 12.0-16.0 N HGBT) Hematology (test code = 43.2 % 36.0-47.0 N HCTT) Hematology (test code = MCV) 90.5 fL 78.0-98.0 N Hematology (test code = MCH) 30.6 pg 27.0-31.0 N Hematology (test code = 33.8 g/dL 32.0-36.0 N MCHC) Hematology (test code = RDW) 11.5 % 11.5-14.5 N Hematology (test code = 216 thou/uL 130-400 N PLTT) Hematology (test code = MPV) 8.3 fL 7.4-10.4 N Hematology (test code = NE) 75 % 42-75 N Hematology (test code = BA) 1 % 5-11 L Hematology (test code = LY) 14 % 21-51 L Hematology (test code = MO) 8 % 0-10 N Hematology (test code = EO) 2 % 0-10 N Hematology (test code = Appears Adequate PCOMMENT) [id number] 12:16:00 Test Item Value Reference Range Interpretation Comments Chemistry (test 2.5 ng/mL 0-6.6 N code = CKMBM-T) Chemistry (test 0.028 ng/mL < 0.028 code = TROPI-T) Reference Ra nge 0.0 0 - 0.028 ng/mL Negative 0.0 29 - 0.29 ng/mL Indeterminate Greater or Equal to 0.3 ng/mL Strongly sugge sts [place] Chemistry - BNP, HgbA1c, [id number] 12:14:00 Test Item Value Reference Range Interpretation Comments Chemistry - BNP, HgbA1c, PTHi 88.1 pg/mL 0-100 N (test code = BNP) [id number] 12:11:00 Test Item Value Reference Range Interpretation Comments Chemistry (test code 144 mmol/L 136-145 N = NA-T) Chemistry (test code 4.2 mmol/L 3.5-5.1 N = K-T) Chemistry (test code 105 mmol/L 98-107 N = CL) Chemistry (test code 25 mmol/L 23-31 N = CO2) Chemistry (test code 18 mmol/L 10-20 N = ANGP) Chemistry (test code 15 mg/dL 9.8-20.1 N = BUN) Chemistry (test code 0.95 mg/dL 0.6-1.1 N = CREATT) Chemistry (test code 58 Referen ce Range for = EGFRMDRD) Estimated GFR: Great er than 90 mL/min/1.73 m2NOTE:The MDRD equation has no t been validated for u se with theelderly (ove r 70 years of age), women, patientswith se rious comorbid condit ion or persons with ex tremes ofbody size, mu scle mass, or nutrit ional status. Chemistry (test code 149 mg/dL 83-110 H = GLU-T) Chemistry (test code 9.0 mg/dL 7.8-10.44 N = CA) ANG, REMOVAL OF TUNNELED CVC [id number] 12:06:00Reason for Exam:->ANAL CAFINAL REPORT Procedure: Removal [...] uncomplicated removal of right-sided chest port. Signed: Dmitriy Leacheport Verified Date/Time: 02/13/2018 12:06:3 3 Reading Location: [facility] Radiology Reading Room CBC W/PLT COUNT & AUTO DIFFERENTIAL 2018-02-13 11:13:00 Test Item Value Reference Range Interpretation Comments WHITE BLOOD CELL COUNT (BEAKER) 7.4 K/ L 4.0-10.0 (test code = 775) RED BLOOD CELL COUNT (BEAKER) 4.39 M/ L 4.00-5.00 (test code = 761) HEMOGLOBIN (BEAKER) (test code = 13.7 GM/DL 12.0-15.0 410) HEMATOCRIT (BEAKER) (test code = 40.7 % 36.0-45.0 411) MEAN CORPUSCULAR VOLUME (BEAKER) 92.7 fL 82.0-99.0 (test code = 753) MEAN CORPUSCULAR HEMOGLOBIN 31.2 pg 27.0-33.0 (BEAKER) (test code = 751) MEAN CORPUSCULAR HEMOGLOBIN CONC 33.7 GM/DL 32.0-36.0 (BEAKER) (test code = 752) RED CELL DISTRIBUTION WIDTH 12.6 % 10.3-14.2 (BEAKER) (test code = 412) PLATELET COUNT (BEAKER) (test 222 K/CU MM 150-430 code = 756) MEAN PLATELET VOLUME (BEAKER) 8.0 fL 6.5-10.5 (test code = 754) NUCLEATED RED BLOOD CELLS 0 /100 WBC 0-0 (BEAKER) (test code = 413) NEUTROPHILS RELATIVE PERCENT 83 % (BEAKER) (test code = 429) LYMPHOCYTES RELATIVE PERCENT 10 % (BEAKER) (test code = 430) MONOCYTES RELATIVE PERCENT 5 % (BEAKER) (test code = 431) EOSINOPHILS RELATIVE PERCENT 3 % (BEAKER) (test code = 432) BASOPHILS RELATIVE PERCENT 0 % (BEAKER) (test code = 437) NEUTROPHILS ABSOLUTE COUNT 6.10 K/ L 1.80-8.00 (BEAKER) (test code = 670) LYMPHOCYTES ABSOLUTE COUNT 0.70 K/ L 1.48-4.50 L (BEAKER) (test code = 414) MONOCYTES ABSOLUTE COUNT (BEAKER) 0.30 K/ L 0.00-1.30 (test code = 415) EOSINOPHILS ABSOLUTE COUNT 0.20 K/ L 0.00-0.50 (BEAKER) (test code = 416) BASOPHILS ABSOLUTE COUNT (BEAKER) 0.00 K/ L 0.00-0.20 (test code = 417) [id number] 09:32:00 Test Item Value Reference Range Interpretation Comments PROTIME (BEAKER) (test code = 9.7 seconds 9.3-12.0 759) INR (BEAKER) (test code = 370) 0.9 <=5.9 PARTIAL THROMBOPLASTIN TIME 24.8 seconds 23.0-35.0 (BEAKER) (test code = 760) RECOMMENDED COUMADIN/WARFARIN INR THERAPY RANGESSTANDARD DOSE: 2.0 - 3.0 Includes: PROPHYLAXIS forvenous thrombosis, systemic embolization; TREATMENT for venous thrombosis and/or pulmonary embolus.HIGH RISK: Target INR is 2.5-3.5 for patients with mechanical heart valves.[id number] 09:59:00 Test Item Value Reference Range Interpretation Comments PROTIME (BEAKER) (test code = 10.0 seconds 9.3-12.0 759) INR (BEAKER) (test code = 370) 0.9 <=5.9 PARTIAL THROMBOPLASTIN TIME 24.5 seconds 23.0-35.0 (BEAKER) (test code = 760) RECOMMENDED COUMADIN/WARFARIN INR THERAPY RANGESSTANDARD DOSE: 2.0 - 3.0 Includes: PROPHYLAXIS forvenous thrombosis, systemic embolization; TREATMENT for venous thrombosis and/or pulmonary embolus.HIGH RISK: Target INR is 2.5-3.5 for patients with mechanical heart valves.
[2020-06-04] MEDS ORDERED: ONDANSETRON 4 MG/2 ML VIAL ONE ×2 (01:33→14:02)
[2020-06-04] MEDS ORDERED: NA CHLORIDE 0.9% 1,000 ML ONE (01:33)
[2020-06-04] MEDS ORDERED: MORPHINE 4 MG/ML SYR ONE (01:33)
[2020-06-04] MEDS ORDERED: MEPERIDINE HCL 50 MG/ML ONE ×2 (02:12→04:06)
--- NOTE | 2020-06-04 05:03 | ER ---
Nurse's Notes [facility] Name: Yamileth Connell Age: 74 yrs Sex: Female : 1945 Arrival Date: 06/04/2020 Time: 00:53 Bed 16 Private MD: Diagnosis: Fracture right distal femoral metadiaphysis. Fracture right lateral femoral condyle Presentation: 06/04 01:15 Chief complaint: Patient states: Patient states she was at work at [employer] and tripped, lp1 falling onto right knee; States pain to right knee, swelling, unable to bear weight. Coronavirus screen: Proceed with normal triage. Ebola Screen: No symptoms or risks identified at this time. Initial Sepsis Screen: Does the patient meet any 2 criteria? No. Patient's initial sepsis screen is negative. Does the patient have a suspected source of infection? No. Patient's initial sepsis screen is negative. Risk Assessment: Do you want to hurt yourself or someone else? Patient reports no desire to harm self or others. Onset of symptoms was June 04, 2020. 01:15 Method Of Arrival: Wheelchair lp1 01:15 Acuity: KARLA 3 lp1 Historical: - Allergies: 01:18 Keflex; lp1 - Home Meds: 01:18 amlodipine 5 mg tab 1 tab once daily [Active]; capecitabine 500 mg Oral tab 3 in the lp1 morning, 2 at night, M-F [Active]; fentanyl 25 mcg/hr Topical pt72 1 patch every 72 hours [Active]; gabapentin 300 mg Oral cap [Active]; metoprolol tartrate 50 mg Oral tab once daily [Active]; Mccormick 10-325 mg Oral tab 1 tab every 6 hours [Active]; Promethazine Oral [Active]; Tramadol Oral once daily [Active]; trelegy [Active]; valsartan-hydrochlorothiazide 160-12.5 mg Oral tab 1 tab once daily [Active]; Zofran (as hydrochloride) 8 mg Oral tab 1 tab every 8 hours [Active]; - PMHx: 01:18 Cancer, Breast; COPD; Diverticulitis; Hypertension; rectal cancer; lp1 - PSHx: 01:18 Colostomy; partial colon removal; Knee surgery; Cholecystectomy; lp1 - Immunization history:: Adult Immunizations up to date. - Social history:: Smoking status: Patient reports the use of cigarette tobacco products, denies chronic smoking, but will smoke occasionally. Screenin:18 Abuse screen: Denies threats or abuse. Denies injuries from another. Nutritional lp1 screening: No deficits noted. Tuberculosis screening: No symptoms or risk factors identified. 01:55 Fall Risk Gait- Impaired (20 pts.). mt2 Assessment: 01:20 Neuro: No deficits noted. Cardiovascular: No deficits noted. Respiratory: No deficits mt2 noted. GI: No deficits noted. : No deficits noted. EENT: No deficits noted. Derm: No deficits noted. Musculoskeletal: Swelling present in right leg Reports pain in right leg. 01:27 Reassessment: Patient and/or family updated on plan of care and expected duration. Pain mt2 level reassessed. General: Appears uncomfortable, Behavior is cooperative. Pain: Complains of pain in lateral aspect of right knee Pain currently is 10 out of 10 on a pain scale. Quality of pain is described as aching. 02:26 Reassessment: Patient and/or family updated on plan of care and expected duration. Pain mt2 level reassessed. Pain: Complains of pain in lateral aspect of right knee and lateral aspect of right calf Pain currently is 8 out of 10 on a pain scale. 03:29 Reassessment: Patient and/or family updated on plan of care and expected duration. Pain mt2 level reassessed. General: Appears uncomfortable, Behavior is cooperative. Pain: Complains of pain in right leg Pain currently is 10 out of 10 on a pain scale. 04:22 Reassessment: Patient and/or family updated on plan of care and expected duration. Pain mt2 level reassessed. General: Appears uncomfortable, Behavior is cooperative. Pain: Complains of pain in right leg Pain currently is 10 out of 10 on a pain scale. Current management is with demerol. 05:00 Reassessment: Patient and/or family updated on plan of care and expected duration. Pain mt2 level reassessed. General: Appears uncomfortable, Behavior is cooperative. Pain: Complains of pain in right leg Pain currently is 10 out of 10 on a pain scale. 06:23 Reassessment: Patient and/or family updated on plan of care and expected duration. Pain mt2 level reassessed. Patient states symptoms have improved. General: Appears comfortable, Behavior is cooperative. Pain: Complains of pain in right leg Pain currently is 4 out of 10 on a pain scale. Vital Signs: 01:15 BP 183 / 89; Pulse 68; Resp 18; Pulse Ox 99% on R/A; Weight 63.5 kg (R); Height 4 ft. lp1 11 in. (149.86 cm); Pain 10/10; 01:55 BP 183 / 89; Pulse 86; Resp 16; Pulse Ox 95% on R/A; Pain 10/10; mt2 02:26 BP 153 / 90; Pulse 91; Pulse Ox 95% on R/A; Pain 8/10; mt2 03:00 BP 152 / 87; Pulse 81; Resp 19; Pulse Ox 92% on R/A; Pain 10/10; mt2 04:23 BP 152 / 88; Pulse 93; Resp 17; Pulse Ox 93% on 2 lpm NC; Pain 10/10; mt2 05:00 BP 152 / 87; Pulse 91; Resp 19; Temp 98.0(O); Pulse Ox 95% on 2 lpm NC; Pain 10/10; mt2 06:25 BP 142 / 79; Pulse 88; Resp 16; Pulse Ox 95% on 2 lpm NC; Pain 4/10; mt2 07:06 BP 160 / 86; Pulse 85; Resp 17; Pulse Ox 97% on 2 lpm NC; jr10 01:15 Body Mass Index 28.28 (63.50 kg, 149.86 cm) lp1 ED Course: 00:53 Patient arrived in ED. cf2 00:58 Rafael Hughes MD is Attending Physician. pkl 01:16 Triage completed. lp1 01:16 Arm band placed on. lp1 01:22 Inserted saline lock: 20 gauge in right antecubital area, using aseptic technique. jd3 01:25 Mariam Eubanks, GEORGE is Primary Nurse. mt2 01:54 Knee Right 2 View XRAY In Process Unspecified. EDMS 01:55 Patient has correct armband on for positive identification. Bed in low position. Call mt2 light in reach. Side rails up X2. 02:44 Knee Right Wo Cont In Process Unspecified. EDMS 04:59 Natan Amaro is Hospitalizing Provider. pkl 05:25 XRAY CXR (1 view) In Process Unspecified. EDMS 06:03 Type And Screen Sent. mt2 06:25 Napoles cath inserted, using sterile technique, 16 Fr., by ut, balloon inflated, to mt2 gravity drainage, urine specimen collected. 08:02 Patient admitted, IV remains in place. intact, No redness/swelling at site. jr10 Administered Medications: 01:28 Drug: NS 0.9% 1000 ml Route: IV; Rate: 125 ml/hr; Site: right antecubital; jd3 05:17 Follow up: IV Status: Completed infusion; IV Intake: 400ml mt2 01:32 Drug: morphine 4 mg Route: IVP; Site: right antecubital; jd3 02:09 Follow up: Response: No adverse reaction; Pain is unchanged, physician notified mt2 01:32 Drug: Zofran (Ondansetron) 4 mg Route: IVP; Site: right antecubital; jd3 02:09 Follow up: Response: No adverse reaction mt2 02:08 Drug: Demerol 50 mg Route: IVP; Site: right antecubital; mt2 02:30 Follow up: Response: No adverse reaction; Pain is decreased mt2 03:57 Drug: Demerol 50 mg Route: IVP; Site: right antecubital; mt2 04:22 Follow up: Response: No adverse reaction; Pain is decreased mt2 05:53 Drug: NS 0.9% 1000 ml Route: IV; Rate: 100 ml/hr; Site: right antecubital; mt2 06:02 Drug: Dilaudid 0.5 mg Route: IVP; Site: right antecubital; mt2 06:21 Follow up: Response: No adverse reaction; Pain is decreased mt2 Intake: 05:17 IV: 400ml; Total: 400ml. mt2 Outcome: 05:02 Decision to Hospitalize by Provider. pkyemi 08:01 Admitted to Med/surg accompanied by tech, via stretcher, room 213, with chart, Report jr10 called to GEORGE Alonso 08:01 Condition: good 08:01 Instructed on the need for admit. 08:03 Patient left the ED. jr10 Signatures: Dispatcher [employer] EDMS Rafael Hughes MD MD pkl Jayne Okeefe RN RN lp1 Terrell Diaz RN RN jd3 Wu Villagomez cf2 Mariam Eubanks RN RN mt2 Joy Loco RN RN jr10 Corrections: (The following items were deleted from the chart) 08:03 08:01 Admitted to Med/surg accompanied by tech, via stretcher, room 216, with iván, 10 Report called to GEORGE Alonso jr10
--- NOTE | 2020-06-04 05:03 | EDPHYS ---
Physician Documentation [facility] Name: Yamileth Connell Age: 74 yrs Sex: Female : 1945 Arrival Date: 06/04/2020 Time: 00:53 Bed 16 Private MD: ED Physician Rafael Hughes HPI: 06/04 01:17 This 74 yrs old Female presents to ER via Wheelchair with complaints of Fall pkl Injury, Knee Pain, Knee Injury. 01:18 The patient presents with an injury. The complaints affect the right knee. Context: pkl resulted from the patient falling. Onset: The symptoms/episode began/occurred just prior to arrival. Associated signs and symptoms: The patient has no apparent associated signs or symptoms. Historical: - Allergies: :18 Keflex; lp1 - Home Meds: 01:18 amlodipine 5 mg tab 1 tab once daily [Active]; capecitabine 500 mg Oral tab 3 in the lp1 morning, 2 at night, M-F [Active]; fentanyl 25 mcg/hr Topical pt72 1 patch every 72 hours [Active]; gabapentin 300 mg Oral cap [Active]; metoprolol tartrate 50 mg Oral tab once daily [Active]; Tribune 10-325 mg Oral tab 1 tab every 6 hours [Active]; Promethazine Oral [Active]; Tramadol Oral once daily [Active]; trelegy [Active]; valsartan-hydrochlorothiazide 160-12.5 mg Oral tab 1 tab once daily [Active]; Zofran (as hydrochloride) 8 mg Oral tab 1 tab every 8 hours [Active]; - PMHx: 01:18 Cancer, Breast; COPD; Diverticulitis; Hypertension; rectal cancer; lp1 - PSHx: 01:18 Colostomy; partial colon removal; Knee surgery; Cholecystectomy; lp1 - Immunization history:: Adult Immunizations up to date. - Social history:: Smoking status: Patient reports the use of cigarette tobacco products, denies chronic smoking, but will smoke occasionally. ROS: 01:18 Eyes: Negative for injury, pain, redness, and discharge, ENT: Negative for injury, pkl pain, and discharge, Neck: Negative for injury, pain, and swelling, Cardiovascular: Negative for chest pain, palpitations, and edema, Respiratory: Negative for shortness of breath, cough, wheezing, and pleuritic chest pain, Abdomen/GI: Negative for abdominal pain, nausea, vomiting, diarrhea, and constipation, Back: Negative for injury and pain, : Negative for injury, bleeding, discharge, and swelling, Skin: Negative for injury, rash, and discoloration, Neuro: Negative for headache, weakness, numbness, tingling, and seizure. 01:18 MS/extremity: Positive for injury or acute deformity, pain, of the right knee. Exam: 01:20 Head/Face: Normocephalic, atraumatic. Eyes: Pupils equal round and reactive to light, pkl extra-ocular motions intact. Lids and lashes normal. Conjunctiva and sclera are non-icteric and not injected. Cornea within normal limits. Periorbital areas with no swelling, redness, or edema. ENT: Nares patent. No nasal discharge, no septal abnormalities noted. Tympanic membranes are normal and external auditory canals are clear. Oropharynx with no redness, swelling, or masses, exudates, or evidence of obstruction, uvula midline. Mucous membranes moist. Neck: Trachea midline, no thyromegaly or masses palpated, and no cervical lymphadenopathy. Supple, full range of motion without nuchal rigidity, or vertebral point tenderness. No Meningismus. Chest/axilla: Normal chest wall appearance and motion. Nontender with no deformity. No lesions are appreciated. Cardiovascular: Regular rate and rhythm with a normal S1 and S2. No gallops, murmurs, or rubs. Normal PMI, no JVD. No pulse deficits. Respiratory: Lungs have equal breath sounds bilaterally, clear to auscultation and percussion. No rales, rhonchi or wheezes noted. No increased work of breathing, no retractions or nasal flaring. Abdomen/GI: Soft, non-tender, with normal bowel sounds. No distension or tympany. No guarding or rebound. No evidence of tenderness throughout. Back: No spinal tenderness. No costovertebral tenderness. Full range of motion. Skin: Warm, dry with normal turgor. Normal color with no rashes, no lesions, and no evidence of cellulitis. Neuro: Awake and alert, GCS 15, oriented to person, place, time, and situation. Cranial nerves II-XII grossly intact. Motor strength 5/5 in all extremities. Sensory grossly intact. Cerebellar exam normal. Normal gait. 01:20 Musculoskeletal/extremity: Extremities: grossly normal except: noted in the right knee: decreased ROM, pain, tenderness. Vital Signs: 01:15 BP 183 / 89; Pulse 68; Resp 18; Pulse Ox 99% on R/A; Weight 63.5 kg (R); Height 4 ft. lp1 11 in. (149.86 cm); Pain 10/10; 01:55 BP 183 / 89; Pulse 86; Resp 16; Pulse Ox 95% on R/A; Pain 10/10; mt2 02:26 BP 153 / 90; Pulse 91; Pulse Ox 95% on R/A; Pain 8/10; mt2 03:00 BP 152 / 87; Pulse 81; Resp 19; Pulse Ox 92% on R/A; Pain 10/10; mt2 04:23 BP 152 / 88; Pulse 93; Resp 17; Pulse Ox 93% on 2 lpm NC; Pain 10/10; mt2 05:00 BP 152 / 87; Pulse 91; Resp 19; Temp 98.0(O); Pulse Ox 95% on 2 lpm NC; Pain 10/10; mt2 06:25 BP 142 / 79; Pulse 88; Resp 16; Pulse Ox 95% on 2 lpm NC; Pain 4/10; mt2 07:06 BP 160 / 86; Pulse 85; Resp 17; Pulse Ox 97% on 2 lpm NC; jr10 01:15 Body Mass Index 28.28 (63.50 kg, 149.86 cm) lp1 MDM: 00:58 Patient medically screened. pkl 04:58 Data reviewed: vital signs, nurses notes, lab test result(s), EKG, radiologic studies, pkl CT scan, plain films. ED course: Talked to Dr. Covarrubias, admit to Hospitalist. 06/04 04:53 Order name: CBC with Diff pkl 06/04 04:53 Order name: Chem 7 pkl 06/04 04:53 Order name: LFT's pkl 06/04 04:53 Order name: Type And Screen pkl 06/04 04:53 Order name: UA pkl 06/04 04:54 Order name: PT-INR pkl 06/04 01:12 Order name: Knee Right 2 View XRAY pkl 06/04 01:47 Order name: Knee Right Wo Cont EDMS 06/04 04:53 Order name: XRAY CXR (1 view) pkl 06/04 01:12 Order name: Saline Lock; Complete Time: 01:22 pkl 06/04 04:53 Order name: EKG; Complete Time: 04:54 pkl 06/04 04:54 Order name: Knee Immobilizer; Complete Time: 05:52 pkl 06/04 06:33 Order name: Napoles; Complete Time: 06:33 mt2 06/04 06:41 Order name: CONS Physician Consult EDMT Administered Medications: 01:28 Drug: NS 0.9% 1000 ml Route: IV; Rate: 125 ml/hr; Site: right antecubital; jd3 05:17 Follow up: IV Status: Completed infusion; IV Intake: 400ml mt2 01:32 Drug: morphine 4 mg Route: IVP; Site: right antecubital; jd3 02:09 Follow up: Response: No adverse reaction; Pain is unchanged, physician notified mt2 01:32 Drug: Zofran (Ondansetron) 4 mg Route: IVP; Site: right antecubital; jd3 02:09 Follow up: Response: No adverse reaction mt2 02:08 Drug: Demerol 50 mg Route: IVP; Site: right antecubital; mt2 02:30 Follow up: Response: No adverse reaction; Pain is decreased mt2 03:57 Drug: Demerol 50 mg Route: IVP; Site: right antecubital; mt2 04:22 Follow up: Response: No adverse reaction; Pain is decreased mt2 05:53 Drug: NS 0.9% 1000 ml Route: IV; Rate: 100 ml/hr; Site: right antecubital; mt2 06:02 Drug: Dilaudid 0.5 mg Route: IVP; Site: right antecubital; mt2 06:21 Follow up: Response: No adverse reaction; Pain is decreased mt2 Disposition: 06/04/20 05:02 Hospitalization ordered by Natan Amaro for Inpatient Admission. Preliminary diagnosis is Fracture right distal femoral metadiaphysis. Fracture right lateral femoral condyle. - Bed requested for Telemetry/MedSurg (Inpatient). - Status is Inpatient Admission. jr10 - Condition is Stable. - Problem is new. - Symptoms are unchanged. Signatures: [facility] Rola Davis RN RN mw Rafael Hughes MD MD pkl Jayne Okeefe RN RN lp1 Terrell Diaz, RN RN jd3 Mariam Eubanks, RN RN mt2 Joy Loco RN RN jr10 Corrections: (The following items were deleted from the chart) 05:40 05:02 Hospitalization Ordered by Natan Amaro for Inpatient Admission. Preliminary mw diagnosis is Fracture right distal femoral metadiaphysis. Fracture right lateral femoral condyle. Bed requested for Telemetry/MedSurg (Inpatient). Status is Inpatient Admission. Condition is Stable. Problem is new. Symptoms are unchanged. pk 08:03 05:40 06/04/2020 05:02 Hospitalization Ordered by Natan Amaro for Inpatient jr10 Admission. Preliminary diagnosis is Fracture right distal femoral metadiaphysis. Fracture right lateral femoral condyle. Bed requested for Telemetry/MedSurg (Inpatient). Status is Inpatient Admission. Condition is Stable. Problem is new. Symptoms are unchanged.
[2020-06-04 05:26] LABS: Absolute Lymphocytes (CBC) 0.9 K/uL (0.7-4.9); Basophils % 0.8 % (0-1.3); Hematocrit 39.8 % (36.0-45.0); Lymphocytes % 14.2 % (15.3-44.8); MPV 8.9 fL (7.6-11.3); RBC Red Blood Cell Count 4.28 M/uL (3.86-4.86)
[2020-06-04 05:30] LABS: Protime INR 0.91
[2020-06-04 05:41] LABS: Albumin 3.5 g/dL (3.4-5.0); Bilirubin Direct 0.1 mg/dL (0-0.2); Bilirubin Total 0.6 mg/dL (0.2-1.0); Potassium 3.7 mmol/L (3.5-5.1); Protein, Total 6.8 g/dL (6.4-8.2)
[2020-06-04] MEDS ORDERED: HYDROMORPHONE HCL 0.5 MG/0.5 ML INJ ONE (06:04)
--- NOTE | 2020-06-04 06:58 | P.HP ---
Certification for Inpatient Patient admitted to: Inpatient With expected LOS: >2 Midnights Practitioner: I am a practitioner with admitting privileges, knowledge of patient current condition, hospital course, and medical plan of care. Services: Services provided to patient in accordance with Admission requirements found in Title 42 Section 412.3 of the Code of Federal Regulations Patient History Date of Service: 06/04/20 Reason for admission: Fall History of Present Illness: 74-year-old woman with a history of COPD, hypertension, breast cancer and colon cancer status post colostomy had a fall at work at [employer]. Patient could not get up and walk. Here in the ED, x-ray anc CT of the right leg reports distal femoral fracture involving the supracondyle. Orthopedic surgeon Dr. Covarrubias was contacted by the ED physician who recommended hospitalization for him to evaluate. Patient denies any dizziness or lightheadedness preceding the fall. Allergies cephalexin [From Keflex] Allergy (Intermediate, Verified 01/23/20 05:01) Hives/Rash Home Medications: Albuterol Sulfate [Albuterol Sulfate 0.083% Neb Soln] 2.5 mg IH Q6HP PRN 01/23/20 Fluticasone/Umeclidin/Vilanter [Trelegy Ellipta 100-62.5-25] 1 puff IH DAILY 01/23/20 Tramadol HCl [Ultram] 50 mg PO DAILY PRN 01/23/20 Valsartan/Hydrochlorothiazide [Valsartan-Hctz 320-25 mg Tab] 1 each PO DAILY 01/23/20 Polyethyl Gly 3350 [Glycolax*] 17 gm PO DAILY #30 udbot 01/25/20 Senosides [Senokot*] 17.2 mg PO BID #120 tab 01/25/20 guaiFENesin [Robitussin 100MG/5ML*] 5 ml PO Q6H PRN #1 bottle 01/25/20 predniSONE [Deltasone*] 10 mg PO DAILY #30 tab 01/25/20 - Past Medical/Surgical History Diabetic: No -: Rectal cancer -: Breast cancer -: COPD -: Hypertension -: COPD -: L Masectoctomy 06/2015 -: appendectomy -: partial hysteroctomy -: tonsillectomy - Family History Father -: Cancer Mother -: Cancer - Social History Alcohol use: No CD- Drugs: Yes Caffeine use: No Review of Systems Other: Except as documented, all other systems reviewed and negative. Physical Examination - Physical Exam General: Alert, In no apparent distress, Oriented x3 HEENT: Mucous membr. moist/pink, Sclerae nonicteric Neck: Supple, JVD not distended Respiratory: Clear to auscultation bilaterally, Normal air movement Cardiovascular: No edema, Regular rate/rhythm, Normal S1 S2 Capillary refill: <2 Seconds Gastrointestinal: Normal bowel sounds, Soft and benign, No tenderness, Other (C olostomy) Musculoskeletal: No swelling, No erythema Integumentary: No rashes, No erythema Neurological: Other (Unable to assess how in the right lower extremity, otherwise nonfocal.) - Studies Laboratory Data (last 24 hrs) 06/04/20 04:45: PT 10.7, INR 0.91 06/04/20 04:45: Sodium 141, Potassium 3.7, BUN 39 H, Creatinine 1.14, Glucose 114 H, Total Bilirubin 0.6, AST 16, ALT 25, Alkaline Phosphatase 92 06/04/20 04:45: WBC 6.5, Hgb 13.7, Hct 39.8, Plt Count 215 Assessment and Plan - Problems (Diagnosis) (1) Fall Current Visit: Yes Status: Acute (2) Femur fracture, right Current Visit: Yes Status: Acute (3) COPD (chronic obstructive pulmonary disease) Onset Date: 09/27/16 Current Visit: No Status: Acute Qualifiers: COPD type: COPD with acute exacerbation (4) History of colostomy Current Visit: No Status: Chronic - Plan Admit to the medical floor. Pain management with IV hydromorphone Napoles catheter Consult to orthopedic surgeon. Bronchodilators p.r.n. for COPD - Advance Directives Does patient have a Living Will: Yes Does patient have a Durable POA for Healthcare: Yes
[2020-06-04 08:25] LABS: Blood Morphology Comment NOT SEEN (NOT SEEN); Platelet Estimate ADEQ
--- NOTE | 2020-06-04 08:26 | RAD REPORT ---
EXAM DESCRIPTION: RAD - Chest Single View - 06/04/2020 5:25 am CLINICAL HISTORY: for surgery Chest pain. COMPARISON: Chest Single View dated 01/23/2020; Chest Pa And Lat (2 Views) dated 11/30/2018; Chest Sin gle View dated 11/29/2018; Chest Single View dated 11/22/2018 FINDINGS: Portable technique limits examination quality. The lungs are emphysematous but grossly clear. The heart is normal in size. No displaced fractures.Le ft axillary dissection clips. IMPRESSION: COPD.
[2020-06-04] MEDS ORDERED: ACETAMINOPHEN 500 MG TAB PO PRN (08:28)
[2020-06-04] MEDS: IPRATROPIUM BROM 0.5MG/2.5ML NEB SCH ×3 (08:28→19:50)
[2020-06-04] MEDS ORDERED: ALBUTEROL 2.5 MG/3 ML NEB SOL NEB PRN (08:28)
[2020-06-04] MEDS ORDERED: Ringers Lactate 1,000 ML IV ONE (10:42)
[2020-06-04 10:48] VITALS: BMI 3936.8
[2020-06-04] MEDS ORDERED: MIDAZOLAM HCL 2 MG/2 ML INJ ONE (10:52)
[2020-06-04] MEDS ORDERED: FENTANYL CITR 100 MCG/2 ML ONE ×2 (10:52→14:07)
[2020-06-04 10:55] LABS: Urine Appearance CLEAR; Urine Bilirubin NEGATIVE (NEG); Urine Blood NEGATIVE (NEG); Urine Color YELLOW; Urine Glucose NEGATIVE (NEG); Urine Protein NEGATIVE (NEG); Urine Urobilinogen 0.2 mg/dL (0.2-1.0); Urine pH 5.5 (5.0-7.0)
[2020-06-04] MEDS ORDERED: NS 0.9% VIAL 10 ML ONE (10:56)
[2020-06-04] MEDS ORDERED: dexAMETHasone 10 MG/ML VIAL ONE ×2 (10:56→14:02)
[2020-06-04] MEDS ORDERED: LIDOCAINE 1% MPF 5 ML VIAL ONE (10:56)
[2020-06-04] MEDS ORDERED: ROPLVACAINE HCL 20 ML ONE (10:57)
[2020-06-04 11:01] LABS: Urine Microscopic Reflex NO UMIC
[2020-06-04] MEDS ORDERED: LIDOCAINE 2% MPF 5 ML VIAL ONE (11:58)
[2020-06-04] MEDS ORDERED: propofoL 200 MG/20 ML VIAL IV ONE (11:58)
[2020-06-04] MEDS ORDERED: TRANEXAMIC ACID 1,000 MG in NA CHLORIDE 0.9% 50 ML IV SCH (12:00)
[2020-06-04] MEDS ORDERED: BUPIVACA 0.5%/EPI 0.0005%/PF 30 ML VIAL ONE (12:08)
[2020-06-04] MEDS ORDERED: CEFAZOLIN/SWI 1gm 0 GM/0 ML SYR ONE (12:08)
[2020-06-04] MEDS ORDERED: CLINDAMYCIN INJ 600 MG in NA CHLORIDE 0.9% 50 ML IV ONE (12:15)
[2020-06-04] MEDS ORDERED: NA CHLORIDE 0.9% 50 ML ONE (12:23)
[2020-06-04] MEDS ORDERED: EPHEDRINE SULF 50 MG/ML VIAL ONE (12:38)
--- NOTE | 2020-06-04 13:32 | RAD REPORT ---
EXAM DESCRIPTION: RIGHT KNEE, TWO VIEWS, XR. CLINICAL HISTORY: Pain after fall COMPARISON: None. TECHNIQUE: AP and lateral right knee. FINDINGS: There is a curvilinear lucency within the distal right femur diaphysis with extension into the lateral femoral condyle and intercondylar fossa consistent with acute fracture. There is a fat f luid level within the suprapatellar soft tissues compatible with lipohemarthrosis. There is mild hypertrophic bony change along the lateral femoral condyle, lateral tibial plateau, int ercondylar eminence with narrowing of the lateral compartment osteoarthritis. Normal bone mineralizat ion. There is mild bony hypertrophy along the posterior patella. No foreign body. No subcutaneous emp hysema. IMPRESSION: 1. Acute distal right femur diaphyseal fracture with extension to the lateral femoral co ndyle and intercondylar fossa. Associated large lipohemarthrosis. 2. Mild osteoarthritis. Electronically signed by: Sonia Mckeon DO 06/04/2020 3:15 AM CDT Due to temporary technical issues with the PACS/Fluency reporting system, reports are being signed by the in house radiologist without review as a courtesy to ensure prompt reporting. The interpreting r adiologist is fully responsible for the content of the report.
--- NOTE | 2020-06-04 13:34 | RAD REPORT ---
EXAM DESCRIPTION: CT right knee without contrast CLINICAL HISTORY: 74-year-old female with right knee injury, patient tripped and fell onto right kne e with severe pain and swelling. TECHNIQUE: Axial CT imaging of the right knee was performed without intravenous contrast. Sagittal and coronal reconstructed images were then performed. The CT study is performed according to ALARA ( as low as reasonably achievable) or ALARA/IMAGE GENTLY, with automatic adjustment of mA and/or kV acc ording to patient size. Performed on: 06/04/2020 at 2:29 AM COMPARISON: Plain x-rays of the right knee performed on 06/04/2020 at 1:34 AM FINDINGS: Bones: There is a nondisplaced oblique fracture through the distal femoral metadiaphysis. There is also a mildly displaced fracture through the lateral femoral condyle which extends to the ce ntral articular surface. No additional acute fractures are identified. There is mild narrowing of the lateral joint compartment and there is mild hypertrophic spurring of the femoral condyles, tibial pl ateau and posterior patella. There is a small enthesophyte along the anterior superior pole of the pa tella. No pathologic lytic or sclerotic bone lesions are identified. Bone mineralization is grossly w ithin normal limits. Soft tissues: A lipohemarthrosis is present in the suprapatellar bursa. The patellofemoral compartmen t is preserved. There is minimal infiltration of the subcutaneous fat along the anterior aspect of th e right knee. No focal soft tissue mass lesions are identified. No large hematoma is identified withi n the subcutaneous soft tissues. The intramuscular fat planes are preserved. IMPRESSION: 1. Nondisplaced oblique fracture through the right distal femoral metadiaphysis. 2. Mildly displaced fracture through the lateral femoral condyle which extends to the central articul ar surface. 3. Suprapatellar lipohemarthrosis. 4. Mild subcutaneous soft tissue swelling surrounding the anterior aspect of the right knee. 5. Arthritic changes of the right knee particularly involving the lateral joint compartment. Electronically signed by: Candice Duncan DO 06/04/2020 3:13 AM CDT Due to temporary technical issues with the PACS/Fluency reporting system, reports are being signed by the in house radiologist without review as a courtesy to ensure prompt reporting. The interpreting r adiologist is fully responsible for the content of the report.
[2020-06-04] MEDS ORDERED: KETOROLAC 30 MG/ML INJ ONE (14:03)
--- NOTE | 2020-06-04 15:05 | RAD REPORT ---
EXAM DESCRIPTION: RAD - Femur Right - 06/04/2020 2:54 pm CLINICAL HISTORY: Femoral fracture FINDINGS: Seventy-nine fluoroscopic spot images obtained. Fluoroscopy time 1.6 minutes Plates and screws affix a femoral fracture Surgery performed by Dr. Covarrubias
--- NOTE | 2020-06-04 15:08 | P.BOP ---
Preoperative diagnosis: right distal femur fracture Postoperative diagnosis: same Primary procedure: ORIF of right distal femur fracture [place]: NONE,NONE Estimated blood loss: 50 cc Specimen: none Findings: see dictation Anesthesia: General Drain(s): Urinary catheter Implants: 9 hole NCB Belen Distal Femoral locking plate Fluids & blood products: per anesthesia record; TT: 108 mins @ 300 mmHg Transferred to: Recovery Room Condition: Good
[2020-06-04] MEDS ORDERED: LABETALOL 20 MG/4ML SYRINGE IV ONE (15:12)
[2020-06-04] MEDS ORDERED: DOCUSATE NA 100 MG CAP PO PRN (15:16)
[2020-06-04] MEDS ORDERED: ONDANSETRON 4 MG/2 ML VIAL IV PRN (15:16)
--- NOTE | 2020-06-04 15:54 | RAD REPORT ---
EXAM DESCRIPTION: RAD - Femur Right - 06/04/2020 3:35 pm CLINICAL HISTORY: Femoral fracture FINDINGS: Sideplate and screws affix femoral fracture in good alignment
[2020-06-04 16:26] LABS: Hematocrit 36.1 % (36.0-45.0)
[2020-06-04] MEDS: CLINDAMYCIN INJ 600 MG in NA CHLORIDE 0.9% 50 ML IV SCH (16:50)
[2020-06-04] MEDS: NA CHLORIDE 0.9% 1,000 ML IV SCH (16:53)
--- NOTE | 2020-06-04 23:40 | CON ---
Date of Consultation: 06/04/2020 Reason For Consultation: Right thigh pain. History Of Present Illness: Ms. Connell is a 74-year-old female with history of COPD, hypertension, breast cancer, who presented to the ER after sustaining a fall at work. She had a fall onto her right side with subsequent pain to her right thigh and inability to bear weight. X-rays and CAT scan in the emergency room demonstrated an intra-articular right distal femur fracture. The patient was admitted to the floor for further evaluation of the musculoskeletal complaints at this time. She does report right thigh and knee pain at this time. Review of Systems: As above, otherwise negative. Past Medical History: Includes COPD, hypertension, history of breast cancer, history of rectal cancer, status post partial colectomy with colostomy placement. Past Surgical History: Includes mastectomy, appendectomy, partial hysterectomy, tonsillectomy, colostomy placement. Allergies: KEFLEX. Home Medications: Albuterol, fluticasone, Trelegy Ellipta, tramadol, valsartan and hydrochlorothiazide, GlycoLax, Senokot, Robitussin, Deltasone. Family History: Reviewed and noncontributory. Social History: Reports occasional tobacco use. Denies alcohol use. Physical Examination: General: No apparent distress. HEENT: Normocephalic, atraumatic. Neck: Supple. Cardiovascular: Brisk cap refill to all digits. Chest: Nonlabored breathing. Abdomen: Nondistended. Psychiatric: Responds to exam. Musculoskeletal: Bilateral upper extremities, functional range of motion without pain. No gross deformities. No obvious dislocations. Left lower extremity, functional range of motion without pain. No gross deformities. No obvious dislocations. Right lower extremity, tenderness to palpation of the distal femur and knee. Mild swelling. No significant ecchymosis noted. Sensation grossly intact to the dorsal and plantar surface of her foot. Positive firing of EHL, FHL, gastrocsoleus complex, tibialis anterior. Imaging Studies: X-rays and CAT scan demonstrate a right minimally displaced distal femur fracture with intercondylar extension with exit into the metadiaphysis. Assessment And Plan: Ms. Connell is a 74-year-old female with a right distal femur fracture. I discussed with the patient at length risks and benefits associated with operative and nonoperative treatment. She expressed understanding. Given her distal femoral fracture with intercondylar extension, I recommended open reduction and internal fixation with a distal femoral locking plate. Risks and benefits associated with the procedure were discussed with the patient at length. She expressed understanding. We will proceed with operative treatment. We will plan going for surgery later today. She will remain n.p.o. Physical Therapy will be consulted postoperatively. SHAYY/CYNTHIA Voice ID: [id number] Report ID: [id number]
[2020-06-05] MEDS: CLINDAMYCIN INJ 600 MG in NA CHLORIDE 0.9% 50 ML IV SCH ×2 (00:11→07:50)
[2020-06-05] MEDS: NA CHLORIDE 0.9% 1,000 ML IV SCH ×3 (00:22→14:28)
[2020-06-05] MEDS: IPRATROPIUM BROM 0.5MG/2.5ML NEB SCH ×4 (02:00→20:30)
--- NOTE | 2020-06-05 02:26 | OP ---
Date of Procedure: 06/04/2020 Surgeon: Ran Covarrubias MD Preoperative Diagnosis: Right distal femur fracture. Postoperative Diagnosis: Right intra-articular distal femur fracture. Procedure Performed: Open reduction and internal fixation of right distal femur fracture. Anesthesia: General LMA. Fluids: Per Anesthesia record. Estimated Blood Loss: 50 cc. Complications: None. Implants: A 9 hole NCB Belen distal femoral locking plate. Complications: None. Indication For Procedure: Ms. Connell is a 74-year-old female, who presented to the ER last night after sustaining a fall with subsequent pain to her right knee and inability to bear weight. X-rays and CAT scan demonstrated a minimally displaced right distal femoral fracture with intra-articular extension. I discussed with the patient at length risks and benefits associated with operative and nonoperative treatment. Given our intra-articular extension, I recommended open reduction and internal fixation and discussed with the patient risks and benefits associated with the procedure. She expressed understanding and elected to proceed with operative treatment. Description Of Procedure: After informed consent was obtained, the patient was identified in the preoperative holding area. The right lower extremity was marked. The patient then underwent a femoral nerve block performed by Anesthesia in the preoperative holding area. She was then taken to the operating room, transferred to the operating table in a supine fashion, and placed under general LMA anesthesia. The right lower extremity was then prepped and draped in usual sterile fashion. A time-out was initiated. The correct patient and procedure were confirmed and identified. The patient did receive her preoperative prophylactic antibiotics. A sterile tourniquet was placed and the right lower extremity was exsanguinated using an Esmarch and the tourniquet was inflated to 300 mmHg. A lateral approach was taken to the distal femur. Dissection was then taken down to the lateral fascia over the distal femur and was split and divided. Hematoma was then evacuated. The distal femur was then identified. Intraoperative fluoroscopy was used to confirm overall adequate reduction of the fracture. Once adequate reduction of the fracture was achieved, a 9-hole distal femoral locking plate was placed. It was placed under the vastus lateralis and held into position over the distal femur. It was then pinned into position and fluoroscopy was used to ensure proper placement of the plate. Lateral images were then taken again to confirm proper placement of the plate and overall continuity with the femoral shaft proximally. After the proper placement and reduction of the fracture was confirmed, 4 distal femoral screws were placed in lag fashion with reduction of the intercondylar split with compression. After that, 4 shaft screws were placed in bicortical fashion with overall adequate reduction of the fracture and overall good placement of the plate. Final images were then taken to confirm the reduction and plate placement. Wounds were then irrigated thoroughly with normal saline. Fascia was approximated using 0 Vicryl. Subcutaneous tissue was approximated using a 2-0 Vicryl. Skin was approximated using mathew. The knee was ranged. There were no mechanical symptoms and the patient had full range of motion of the knee. The patient was awakened and transferred to PACU in stable condition. Postoperative Plan: She will be touchdown weightbearing to the right lower extremity for 2 to 3 months. We will follow her on the floor and Physical Therapy will be consulted to aid with mobilization with possible placement in the inpatient rehabilitation. SHAYY/CYNTHIA Voice ID: [id number] Report ID: [id number] AYAD
[2020-06-05 04:42] LABS: Potassium 4.1 mmol/L (3.5-5.1)
[2020-06-05 04:54] LABS: Absolute Lymphocytes (CBC) 0.5 K/uL (0.7-4.9); Basophils % 0.1 % (0-1.3); Hematocrit 31.5 % (36.0-45.0); Lymphocytes % 4.3 % (15.3-44.8); MPV 8.7 fL (7.6-11.3); RBC Red Blood Cell Count 3.41 M/uL (3.86-4.86)
[2020-06-05 05:57] LABS: Protime INR 0.94
[2020-06-05 06:03] LABS: Blood Morphology Comment NOTED (NOT SEEN); Hypochromasia 1+; Platelet Estimate ADEQ
[2020-06-05] MEDS: HYDROCODONE/APAP 7.5/325 MG TAB PO PRN ×2 (07:49→14:35)
[2020-06-05] MEDS: ENOXAPARIN 40 MG/0.4 ML SQ SCH (07:50)
[2020-06-05] MEDS ORDERED: POLYETHYL GLY 3350 17 GM/DOSE PO PRN (07:54)
--- NOTE | 2020-06-05 08:20 | P.PN ---
Subjective Date of Service: 06/05/20 Chief Complaint: Fall Status post ORIF yesterday. Patient denies any pain at the moment. Physical Examination - Vital Signs Temperature: 97.7 F Blood Pressure: 128/68 Pulse: 86 Respirations: 18 Pulse Ox (%): 98 - Physical Exam General: Alert, In no apparent distress Respiratory: Clear to auscultation bilaterally, Normal air movement Cardiovascular: No edema, Regular rate/rhythm, Normal S1 S2 Gastrointestinal: Normal bowel sounds, Soft and benign Musculoskeletal: Other (Immobilized right lower extremity) Neurological: Other (Nonfocal.) - Studies Laboratory Data (last 24 hrs) 06/04/20 04:45: WBC 6.5, Hgb 13.7, Hct 39.8, Plt Count 215 Assessment And Plan - Current Problems (Diagnosis) (1) Fall Current Visit: Yes Status: Acute (2) Femur fracture, right Current Visit: Yes Status: Acute (3) COPD (chronic obstructive pulmonary disease) Onset Date: 09/27/16 Current Visit: No Status: Chronic Qualifiers: COPD type: COPD with acute exacerbation (4) History of colostomy Current Visit: No Status: Chronic - Plan Pain management oral and IV opioids as needed Remove Napoles catheter once patient begin to mobilize. Orthopedic surgeon to follow. DVT prophylaxis Bronchodilators p.r.n. for COPD Constipation prophylaxis. Consult to PT for evaluation for acute rehab.
[2020-06-05] MEDS: ALBUTEROL 2.5 MG/3 ML NEB SOL NEB PRN ×2 (08:46→20:30)
[2020-06-05] MEDS: POLYETHYL GLY 3350 17 GM/DOSE PO SCH (11:54)
--- NOTE | 2020-06-05 13:09 | P.PN ---
Subjective Date of Service: 06/05/20 Chief Complaint: Fall Subjective: Improving, Working w/ PT pain controlled; block wearing off this AM Physical Examination - Vital Signs Temperature: 98.2 F Blood Pressure: 137/63 Pulse: 77 Respirations: 20 Pulse Ox (%): 95 - Physical Exam General: Alert, In no apparent distress Musculoskeletal: Other (RLE: dressing c/d/i; +EHL/FHL/GSC/TA; sensation grossly intact distally) Assessment And Plan - Plan Yamileth is a 74 yo female s/p ORIF of her right distal femur fracture POD #1 -acute expected postoperative blood loss anemia; continue to monitor H/H -lovenox for DVT prophylaxis -PT to mobilize; TDWB RLE -pending inpatient rehab placement
[2020-06-05] MEDS: HYDROMORPHONE HCL 0.5 MG/0.5 ML INJ IV PRN (19:39)
[2020-06-05] MEDS: TRAMADOL HCL 50 MG TAB PO PRN (22:36)
[2020-06-06] MEDS: HYDROMORPHONE HCL 0.5 MG/0.5 ML INJ IV PRN ×2 (00:17→05:54)
[2020-06-06] MEDS: NA CHLORIDE 0.9% 1,000 ML IV SCH (00:28)
[2020-06-06] MEDS: IPRATROPIUM BROM 0.5MG/2.5ML NEB SCH ×2 (02:30→08:31)
[2020-06-06 06:25] LABS: Absolute Lymphocytes (CBC) 0.7 K/uL (0.7-4.9); Basophils % 0.2 % (0-1.3); Hematocrit 31.6 % (36.0-45.0); Lymphocytes % 9.2 % (15.3-44.8); MPV 8.8 fL (7.6-11.3); RBC Red Blood Cell Count 3.38 M/uL (3.86-4.86)
[2020-06-06 06:30] VITALS: BP 171/77; TEMP 97.5
[2020-06-06 06:46] LABS: Potassium 3.8 mmol/L (3.5-5.1)
[2020-06-06] MEDS: TRAMADOL HCL 50 MG TAB PO PRN (08:27)
[2020-06-06] MEDS: POLYETHYL GLY 3350 17 GM/DOSE PO SCH (08:27)
[2020-06-06] MEDS: ENOXAPARIN 40 MG/0.4 ML SQ SCH (08:28)
--- NOTE | 2020-06-06 09:00 | P.PN ---
Subjective Date of Service: 06/06/20 Chief Complaint: Fall Patient states she ambulated with physical therapy yesterday. She is waiting for acute rehab placement. He reports increased pain today. Physical Examination - Vital Signs Temperature: 97.5 F Blood Pressure: 171/77 Pulse: 72 Respirations: 18 Pulse Ox (%): 98 - Physical Exam General: Alert, In no apparent distress Respiratory: Clear to auscultation bilaterally, Normal air movement Cardiovascular: No edema, Regular rate/rhythm, Normal S1 S2 Gastrointestinal: Normal bowel sounds, Soft and benign, No tenderness Musculoskeletal: Other (Immobilized right lower extremity) Neurological: Other (Nonfocal) Assessment And Plan - Current Problems (Diagnosis) (1) Fall Current Visit: Yes Status: Acute (2) Femur fracture, right Current Visit: Yes Status: Acute (3) COPD (chronic obstructive pulmonary disease) Onset Date: 09/27/16 Current Visit: No Status: Chronic Qualifiers: COPD type: COPD with acute exacerbation (4) History of colostomy Current Visit: No Status: Chronic - Plan Pain management oral and IV opioids as needed. Orthopedic surgeon to follow. DVT prophylaxis Bronchodilators p.r.n. for COPD Constipation prophylaxis. Disposition to acute rehab pending COVID 19 result.
--- NOTE | 2020-06-06 10:43 | P.DS ---
Admission Date: 06/04/20 Discharge Date: 06/06/20 Disposition: TRANSFER TO INPATIENT REHAB Discharge Condition: GOOD Reason for Admission: Fall Brief History of Present Illness: 74-year-old woman with a history of COPD, hypertension, breast cancer and colon cancer status post colostomy had a fall at work at [employer]. Patient could not get up and walk. Here in the ED, x-ray anc CT of the right leg reports distal femoral fracture involving the supracondyle. Orthopedic surgeon Dr. Covarrubias was contacted by the ED physician who recommended hospitalization for him to evaluate. Patient denies any dizziness or lightheadedness preceding the fall. Hospital Course: The patient was admitted and was monitored closely under telemetry and orthopedics was consulted and she underwent an ORIF of right distal femur fracture by Dr. Covarrubias. Patient tolerated the procedure well. Physical therapy was assessed and has recommended inpatient rehab placement. Awaiting inpatient rehab placement -lovenox for DVT prophylaxis -PT to mobilize; TDWB RLE Vital Signs/Physical Exam: Temp Pulse Resp BP Pulse Ox 97.5 F 72 18 171/77 H 98 06/06/20 09:00 06/06/20 09:00 06/06/20 09:00 06/06/20 09:00 06/06/20 09:00 General: Alert, In no apparent distress HEENT: Atraumatic, Normocephalic Neck: Supple Respiratory: Clear to auscultation bilaterally, Normal air movement Cardiovascular: Normal pulses, Regular rate/rhythm Capillary refill: <2 Seconds Gastrointestinal: Soft and benign, W/out hepatosplenomegaly Musculoskeletal: No clubbing, Other (Pain Controlled well ) Integumentary: No rashes Neurological: Normal speech, Normal strength at 5/5 x4 extr Lymphatics: No axilla or inguinal lymphadenopathy Laboratory Data at Discharge: WBC 7.7 K/uL (4.3-10.9) D 06/06/20 05:40 Hgb 10.9 g/dL (12.0-15.0) L 06/06/20 05:40 Hct 31.6 % (36.0-45.0) L 06/06/20 05:40 Plt Count 148 K/uL (152-406) L 06/06/20 05:40 PT 11.1 SECONDS (9.5-12.5) 06/05/20 05:28 INR 0.94 06/05/20 05:28 APTT 29.3 SECONDS (24.3-36.9) 06/04/20 09:36 Sodium 142 mmol/L (136-145) 06/06/20 05:40 Potassium 3.8 mmol/L (3.5-5.1) 06/06/20 05:40 BUN 19 mg/dL (7-18) H 06/06/20 05:40 Creatinine 0.77 mg/dL (0.55-1.3) 06/06/20 05:40 Glucose 108 mg/dL (74-106) H 06/06/20 05:40 Total Bilirubin 0.6 mg/dL (0.2-1.0) 06/04/20 04:45 AST 16 U/L (15-37) 06/04/20 04:45 ALT 25 U/L (12-78) 06/04/20 04:45 Alkaline Phosphatase 92 U/L (45-117) 06/04/20 04:45 Home Medications: Albuterol Sulfate [Albuterol Sulfate 0.083% Neb Soln] 2.5 mg IH Q6HP PRN 01/23/20 Fluticasone/Umeclidin/Vilanter [Trelegy Ellipta 100-62.5-25] 1 puff IH DAILY 01/23/20 Tramadol HCl [Ultram] 25 mg PO DAILY PRN 01/23/20 Valsartan/Hydrochlorothiazide [Valsartan-Hctz 320-25 mg Tab] 1 each PO DAILY 01/23/20 Senosides [Senokot*] 17.2 mg PO BID #120 tab 01/25/20 guaiFENesin [Robitussin 100MG/5ML*] 5 ml PO Q6H PRN #1 bottle 01/25/20 Polyethyl Gly 3350 [Glycolax*] 17 gm PO DAILY PRN 06/04/20 Followup: Ran Covarrubias MD [ACTIVE - CAN ADMIT] - (call to make an appointment. ) Time spent managing pt's care (in minutes): 40
[2020-06-06 11:58] VITALS: O2SAT 93
== END 2020-06-06 11:50 | DRG 481 ==
LOC: ER 00:51 → ERHOLD 06:43 → 2ND 07:09
PROVIDERS: ADMIT Internal Medicine; ATTEND Internal Medicine
PROC: 0QSB04Z Reposition Right Lower Femur with Internal Fixation Device, Open Approach (ICD-10-PCS; principal; 2020-06-04 12:00)
DX: S72.451A Displaced supracondylar fracture without intracondylar extension of lower end of right femur, initial encounter for closed fracture (principal); J44.1 Chronic obstructive pulmonary disease with (acute) exacerbation; D62 Acute posthemorrhagic anemia; I10 Essential (primary) hypertension; Z85.3 Personal history of malignant neoplasm of breast; Z85.038 Personal history of other malignant neoplasm of large intestine; Z88.1 Allergy status to other antibiotic agents; Z79.52 Long term (current) use of systemic steroids; Z79.899 Other long term (current) drug therapy; Z90.49 Acquired absence of other specified parts of digestive tract; Z90.711 Acquired absence of uterus with remaining cervical stump; Z90.10 Acquired absence of unspecified breast and nipple; W01.0XXA Fall on same level from slipping, tripping and stumbling without subsequent striking against object, initial encounter
CPT/HCPCS: 36415; 51702; 71045; 73700; 80048; 80076; 81003; 85014; 85018; 85025; 85610; 85730; 86850; 86900; 86901; 96361; 96374; 96375; 97116; 97161; 97530; 99285; J0690; J1100; J1170; J1650; J2175; J2250; J2405; J2704; J2795; J3010; J7030; J7120; U0002

== ENCOUNTER 2020-06-06 10:14 | Inpatient (IN) | payer BC ==
--- NOTE | 2020-06-05 15:57 | R.PREADM ---
SCREENING DATE AND TIME 06/05/2020 14:37 (CDT) ANTICIPATED REHAB ADMISSION DATE 06/07/2020 REFERRING FACILITY [facility] REFERRAL DATE AND TIME 06/05/2020 14:37 (CDT) REFERRAL OFFICE PHONE [phone] REFERRAL ROOM# [id number] ACUTE ADMIT DATE 06/04/2020 Previous Rehabilitation(s): No. ACUTE NURSE EXTERN/DC MANAGER OF COMPENSATION Luh ATTENDING PHYSICIAN SHEFALI DANIELLE MD REFERRING PHYSICIAN SHEFALI ROBINS MD PRIMARY CARE PHYSICIAN MAT[facility]W [facility] CLINICAL LIAISON Kathya Guidry PHYSICIAN REVIEWER Dr. Neo Trinidad M.D. MR# [id number] NAME YAMLIETH CONNELL ADDRESS [address] [place] [address] DATE OF 1945 AGE 74 SSN# [id number] GENDER female MARITAL STATUS Single (Never ) RACE white ADMIT FROM 02 - [facility] PRE-HOSPITAL LIVING SETTING 01 - Home (private home/apt. board/care, assisted living, [place] [facility], transitional living) HOME TYPE AND DETAILS Type of home: single family house # of levels in the residence: 1 # of steps within the residence: 2 # of steps to enter the residence: 2 PRE-HOSPITAL LIVING WITH Family/Relatives FAMILY SUPPORT Yes PRIMARY FAMILY CONTACT NAME ZARA PAGAN PRIMARY FAMILY CONTACT PHONE PRIMARY FAMILY CONTACT RELATIONSHIP DAUGHTER PHONE PRIMARY FAMILY CONTACT ON ADM.? no IS PRIMARY FAMILY CONTACT AUTH. REP.? no 1ST EMERGENCY CONTACT ZARA PAGAN 1ST CONTACT PHONE 1ST CONTACT RELATIONSHIP DAUGHTER PHONE 1ST CONTACT ON ADM. no IS 1ST CONTACT AUTH. REP.? no PHONE 2ND CONTACT ON ADM.? no PATIENT EMPLOYMENT STATUS Retired (for age) PATIENT EMPLOYER [employer]ODRIGUEZ PAYOR INFORMATION: 1ST PAYOR NAME Hemant Nunez 1ST PAYOR PHONE 1ST PAYOR INJURY/ILLNESS DUE TO ACCIDENT? No ANOTHER GREEN PARTY RESPONSIBLE? No PRIMARY REHAB/ACUTE DIAGNOSIS: RIGHT FEMUR FRACTURE ONSET DATE 06/04/2020 REHAB IMPAIRMENT CATEGORY (CARSON): 07 Fracture of LE (FracLE) MEETS 60% rule AFFECTED EXTREMITIES: RLE PRIMARY DIAGNOSIS-RELATED SURGERIES: Emergency Unilateral Hip Fracture - performed by SHEFALI ROBINS MD on 06/04/2020 SUMMARY OF ACUTE HOSPITALIZATION: Pt. is a 74 yo Right-handed white female. On 06/04/2020 she was admitted to [facility] and underwent emergency surgery for RIGHT F EMUR FRACTURE (Unilateral Hip Fracture) by SHEFALI ROBINS MD. Pre-morbidly, Pt. was independent/mod-I in Safety Awareness, Balance, Transfers Control, Self-Care, C ommunication, and Locomotion; and she had good Sphincter Control, Social Cognition, and Locomotion. Currently, she has deficits of Balance, Locomotion, Transfers Control, Self-Care, Endurance, and Sphi ncter Control. Pt. is now referred to [facility] for acute in-patient rehabilitation in order to maximize patient's functional independence in activities of daily living, strength, ROM, and mobi lity. Patient has realistic goal of being discharged at assistance level 6-Nany to reside at Home with Fam kali/Relatives. Yamileth Connell is a 74 year old women that lives in a single story home independently. She has two stairs to enter her home and is having a ramp installed. Mrs. Connell is still actively working at [employer] in [facility]. She had a fall at work. Patient could not get up and walk. Here in the ED, x ray,CT of the right leg reports distal femoral fracture involving the supracondyle. Patient underwent surgical correction and is currently TDWB with knee immobilizer. She is now being transferred to [facility] Inpatient rehabilitation and is medically stable with relatively stable labs. He is now medically stable but in need of 24 hour nursing, doctor supervision and oversight while receiving active and ongoing participate in 3 hours of therapy a day/15 hours per week and receive care with intensive interdisciplinary approach. COVID-19 screening performed; spoke with patient via phone. Patient denies new onset of fever, cough, difficulty breathing, sore throat, body aches and non-allergy nasal congestion in the past 24 hours. Patient denies travel outside of [place] in the past 14 days. Patient denies any contact with someone who has a confirmed diagnosis of or is under investigation for COVID-19 in the past 14 days. Patient has been tested negative for COVID- 19. PAST MEDICAL HISTORY COPD HTN BREAST CANCER COLON CANCER PAST SURGICAL HISTORY: LEFT MASTECTOMY APPENDECTOMY PARTIAL HYSTERECTOMY TONSILLECTOMY MEDICATION ALLERGIES: CEPHALEXIN ENVIRONMENTAL ALLERGIES: - Substance Allergies None Known - Other Allergies None Known CODE STATUS: Full code WEIGHT/HEIGHT/BMI: WEIGHT 140 lbs HEIGHT 5' 0" BMI 27.3 DIET: - Diet Type Regular - Diet - Solid Texture Regular - Diet - Liquid Texture Regular - Tube Feed N/A REVIEW OF SYSTEMS: - Gen Alert and awake Lying in bed No apparent distress Oriented to: person, time, and place - Vital Signs Temperature: 97.7 F SBP/DBP: 128/68 Pulse: 86 Resp: 18 Vital signs stable, afebrile - CVS RRR VITAL SIGNS Temperature: 97.7 F SBP/DBP: 128/68 Pulse: 86 Resp: 18 Vital signs stable, afebrile MEDICATIONS/TREATMENT: Other- See attached MAR (Medication Administration Record). CURRENT SPHINCTER CONTROL: Pre-hospital bladder status: continent # of bladder accidents in the last 7 days prior to screenin Pre-hospital bowel status: continent # of bowel accidents in the last 7 days prior to screenin Last Bowel Movement Date: 06/05/2020 CURRENT LOCOMOTION STATUS: distance walked 20 feet WITH ROLLING WALKER DETAILED CURRENT FUNCTIONAL STATUS: - Bladder accident frequency: Ind - No accidents in the past 7 days - Bowel accident frequency: Ind - No accidents in the past 7 days - Walking score based on distance walked: 0(N/A) score based on distance walked: 1(<=50ft) - Wheelchair score based on distance traveled: 0(N/A) QI SCORES: - Self-Care A. Eating 04-Supervision or touching assistance B. Oral hygiene 03-Partial/moderate assistance C. Toileting hygiene 03-Partial/moderate assistance E. Shower/bathe self 03-Partial/moderate assistance F. Upper body dressing 03-Partial/moderate assistance G. Lower body dressing 03-Partial/moderate assistance H. Putting on/taking off footwear 03-Partial/moderate assistance - Mobility A. Roll left and right 03-Partial/moderate assistance B. Sit to lying 03-Partial/moderate assistance C. Lying to sitting on side of bed 03-Partial/moderate assistance D. Sit to stand 03-Partial/moderate assistance E. Chair/xyi-ji-avuci transfer 03-Partial/moderate assistance F. Toilet transfer 03-Partial/moderate assistance G. Car transfer 88-Not attempted due to medical condition or safety concerns I. Walk 10 feet 03-Partial/moderate assistance J. Walk 50 feet with two turns 88-Not attempted due to medical condition or safety concerns K. Walk 150 feet 88-Not attempted due to medical condition or safety concerns L. Walking 10 feet on uneven surfaces 88-Not attempted due to medical condition or safety concerns M. 1 step (curb) 88-Not attempted due to medical condition or safety concerns N. 4 steps 88-Not attempted due to medical condition or safety concerns O. 12 steps 88-Not attempted due to medical condition or safety concerns P. Picking up object 03-Partial/moderate assistance R. Wheel 50 feet with two turns 88-Not attempted due to medical condition or safety concerns S. Wheel 150 feet 88-Not attempted due to medical condition or safety concerns - Bladder and Bowel Bladder continence 0-Always continent Bowel continence 0-Always continent - Endurance Poor - Balance Poor - Safety Awareness Poor CURRENT FUNC. DEFICITS: Endurance, Balance, Mobility, Safety Awareness, and Self-Care CURRENT / PREVIOUS ASSISTIVE DEVICES: 3-in-1 Commode Raised Toilet Rolling Walker HISTORY OF FALLS. HAS THE PATIENT HAD TWO OR MORE FALLS IN THE PAST YEAR OR ANY FALL WITH INJURY IN T HE PAST YEAR?: No PRIOR SURGERY. DID THE PATIENT HAVE MAJOR SURGERY DURING THE 100 DAYS PRIOR TO ADMISSION?: No THERAPY NOTES FROM ACUTE CARE: Attached. SPECIAL NEEDS: - Safety Concerns Skin breakdown precautions needed due to skin breakdown risk PRECAUTIONS: - Anterior Hip Precaution No abduction No active extension No adduction across midline No external rotation No hip flexion >90 degrees No internal rotation - Posterior Hip Precaution No adduction across midline No external rotation No hip flexion >90 degrees No internal rotation No wheel chair propulsion - Weight Bearing Precaution TTWB right LE PATIENT NEEDS ACTIVE AND ONGOING THERAPEUTIC INTERVENTION OF MULTIPLE THERAPY DISCIPLINES, INCLUDING: - Dietary and Nutrition Adequate Nutrition. Nutritional Education. Nutritional Supplements. PATIENT NEEDS CLOSE MEDICAL SUPERVISION BY A REHABILITATION PHYSICIAN FOR: Coordination of Treatment Team Post-Op Complications PATIENT REQUIRES 24X7 REHAB NURSING FOR MEDICAL AND FUNCTIONAL MGT. OF THE FOLLOWING DEFICITS: Disease Management Medication Management Patient/Family Education Providing Safe Environment PATIENT REQUIRES INTENSIVE, COORDINATED INTERDISCIPLINARY APPROACH TO REHAB: Arranging Home Equipment/Services Discharge Planning Family Intervention/Training Forestry Aide/Case Management PATIENT REHAB POTENTIAL: Thong CONNELL is able and expected to receive 3 hours of individualized therapy daily on at least 5 of ev aron 7 days Thong CONNELL's prognosis for significant practical improvement within a reasonable period of time appear s Good Expected level of measurable improvement will be of a practical value to Thong CONNELL's functional capac ity or adaptations to impairments Has a viable Discharge Plan Medically appropriate; condition is sufficiently stable to participate in intensive rehab program DISCHARGE PLAN: - Estimated Length of Stay (days) 14. - Consensus on plan Discharge plan has been discussed with primary caregiver. Patient/Family is in agreement with the kimi n. Primary caregiver is in agreement with the plan. - Patient/Family Goals Return home independently. - Planned Living Setting Upon Discharge Home, to live with Family/Relatives. Transitional Living. RECOMMENDED CARE LEVEL: IRF RECOMMENDATION DETAILS: Recommended Admission to Comprehensive Rehabilitation Program to Increase Functional [place] SCREENER'S COMPLETENESS CONFIRMATION: - Screening Confirmation The patient data collection on this preadmission screening form is finished PHYSICIANS REVIEW AND ADMISSION DETERMINATION Admit - Based on my review of the Pre-Admission Screening results, in my medical judgment and experie nce, I concur with the findings and recommend admission to [facility], as this patient requires an IRF level of care. SIGNATURE PANEL: Scrap Yard Worker - [electronically] signed by Kathya Guidry on 06/05/2020 at 15:36 (CDT) Clinical Liaison - [electronically] signed by Lena Cardenas RN on 06/05/2020 at 15:40 (CDT) Physician Reviewer - [electronically] signed by Dr. Neo Trinidad M.D. on 06/05/2020 at 15:56 (CDT )
--- OUTSIDE RECORDS SUMMARY | 2020-06-06 11:58 | XMS REPORT | Clinical Summary ---
:1945 Author Organization [facility] Address [address] [place] [id number] Care Team Providers Name Role Phone Unavailable [...] Encounters Date Type Specialty Care Team Description 06/05/2020 Lab Requisition Lab after 06/06/2019 Social History Tobacco Use Types Packs/Day Years [...] file Plan of Treatment Not on file Procedures Procedure Name Priority Date/Time Associated Diagnosis Comme nts SARS-COV2/RT-PCR Routine 06/05/2020 2:20 PM Resu lts for this ([facility]) CDT procedure are in the results section. after 06/06/2019 Results SARS-CoV2/RT-PCR ([facility]) (06/05/2020 2:20 PM CDT) SARS-COV2/RT-PCR Negative Not Detected, Negative, [facility] See external report for [facility] linked test SARS-COV-2 PERFORMING LAB [facility] Specimen Other Narrative Performed At Negative result for this test determines that [facility] SARS-CoV-2 RNA was not present in the specimen above the Limit of Detection (LOD).However, Negative results do not preclude SARS-CoV-2 infection and should not be used as the sole basis for treatment or patient management decisions. Negative results must be combined with clinical observations, patient history, and epidemiological information. A false negative result may occur if a specimen is improperly collected, transported or handled.A false negative result should be considered if patient's recent exposures or clinical presentation indicate that COVID-19 (SARS-CoV-2) is likely and diagnostic tests for other causes of illness are negative.Re-testing should be considered in cases of suspected false negatives. The limit of detection for this assay is 800 copies/mL. This SARS CoV-2 test is a real-time RT-PCR test intended for the qualitative detection of nucleic acid from SARS-CoV-2 in a nasopharyngeal swab specimen collected from individuals suspected of COVID-19 by their healthcare provider. This test has not been Food and Drug Administration (FDA) cleared or approved.This is a modified version of an approved Emergency Use Authorization (EUA) and is in the process of review by the FDA. Once authorized by the FDA, the issued EUA will be effective until the declaration that circumstances exist justifying the authorization of the emergency use of in vitro diagnostic tests for detection and/or diagnosis of COVID-19 is terminated under Section 564(b)(2) of the Act or the EUA is revoked under Section 564(g) of the Act. Fact Sheet for Healthcare Providers: https://www.Med Access/sites/default/files/pro duct/documents/Fact_Sheet_HC_Providers_Lyra_SA RS-CoV-2.pdf Fact Sheet for Healthcare Patients: https://www.Med Access/sites/default/files/pro duct/documents/Fact_Sheet_Patients_Lyra_SARS-C oV-2.pdf Performing Laboratory: [address] [address] Performing Organization Address City/State/Zipcode Phone Number [address] [address] CENTER after 06/06/2019 Insurance Payer Benefit Plan / Subscriber ID Type Phone Address Group BLUE CROSS/BLUE BCBS PPO POS EPO xxxxxxxxxxxx PPO [phone] [address] [place] [address] MEDICARE MEDICARE A B xxxxxxxxxx Medicare
--- OUTSIDE RECORDS SUMMARY | 2020-06-06 11:59 | XMS REPORT | Continuity of Care Document ---
:1945 Author Organization [facility] t Address 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 hernia hernia 5-11 Anderso 00:00: n 00 Attention Attention Disease Active MD to to 3-14 Anderso colostomy colostomy 00:00: n 00 Follow up Follow up Disease Active examinatio examinatio -23 An derso n after n after 00:00: [...] Active M D cancer to cancer to - Ganga rso axillary axillary 00:00: n lymph lymph 00 nodes nodes 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 00:00: n cancer cancer [...] Rash [facility] ty [facility] 01[facility]28 [facility] - adverse [facility]: Medical reaction 00 Center s CODEINE DRUG Active Med Other 2015-[address] Anderso 00:00: n 00 CODEINE DRUG Active Med Other 2015-[address] Anderso 00:00: n 00 Family History Family Member Diagnosis Comments Start Date Stop Date Source Natural father Esophageal cancer MD Stallings Maternal aunt Breast cancer MD Carrizales son Social History Social Habit Start Date [...] Carrizales son Current every day 2018-02-13 00:00:00 [facility] Medical smoker Center Medications Ordered Filled Start Stop Current Ordering Indication Dosage Frequency Signature Comments Components Source Medication Medication Date Date Medication? Clinician (SIG) Name Name buPROPion 2019-0 Yes Nicotine 300mg Take 1 M D (WELLBUTRIN 7-15 dependence tablet Anderso XL) 300 mg 00:00: (300 mg) n 24 hr 00 by mouth tablet every morning. NICORETTE 4 0 Yes Nicotine 4mg Chew and MD mg gum -[address] 1 All so cinnamon 00:00: Piece (4 n surge 00 mg) by mouth every 2 (two) hours as needed (smoking). Avoid acidic beverages 5 min before, during & after buPROPion 2019-0 2020- No Nicotine 300mg Take 1 MD [...] 100 mcg-50 mcg/inhalat ion diskus inhaler buPROPion 2019-0 2020- No Nicotine 300mg Take 1 MD (WELLBUTRIN 5-21 - dependence tablet Anderso XL) 300 mg 00:00: 20:21 (300 mg) n 24 hr 00 :27 by mouth tablet every morning. NICORETTE 4 2019-0 2019- No Nicotine 4mg Chew and MD mg gum 5-21 06-[address] 1 Ganga rso cinnamon 00:00: 20:21 Piece (4 n surge 00 :27 mg) by mouth every 2 (two) hours as needed (smoking). Avoid acidic beverages 5 minutes before, during & after buPROPion 2019- No Nicotine 150mg Take 1 MD (WELLBUTRIN 4-30 07-15 dependence tablet Anderso XL) 150 mg 00:00: 00:00 (150 mg) n 24 hr 00 :00 by mouth tablet every morning. buPROPion 2019- No Nicotine 300mg Take 1 MD (WELLBUTRIN 4-30 05-21 dependence tablet Anderso XL) 300 mg 00:00: 21:45 (300 mg) n 24 hr 00 :20 by mouth tablet every morning after finishing the first bottle (150 mg bottle) NICORETTE 4 2019- No Nicotine 4mg Chew and MD mg gum 430 05-[address] 1 Ganga rso cinnamon 00:00: 21:45 piece (4 n surge 00 :20 mg) by mouth every 2 (two) hours as needed for smoking. Avoid acidic beverages 5 minutes before, during and after. nicotine 2018-11- No 4mg Chew and MD polacrilex 2-17 [...] MG tablet 14:06: daily. Medica l 01 Elrama metoprolol Yes 50mg QD Take [address] (TOPROL-XL) 3-24 by mouth Luke s - 50 MG 24 hr 14:06: daily. Medi gian tablet 01 Elrama valsartan-h Yes 1{tbl} QD Take 1 CH [...] Eboni mir Procedures Procedure Date / Time Performing Clinician Source Performed SARS-COV2/RT-PCR ([facility] & 2020-06-05 14:20:00 [facility] PETCT SUBSEQUENT TREATMENT 2020-04-17 18:35:02 Rudi Harrison STRATEGY IR CHEST XRAY 1 VIEW 2020-04-04 14:04:49 Judy Miramontes MD rson IR CHEST XRAY 1 VIEW 2020-04-03 17:44:37 Judy Miramotnes MD rson SURGICAL BIOPSY HISTORIC 2020-04-03 17:00:00 MD Chandrakant Bauer Pathology DEEP FNA HISTORIC 2020-04-03 17:00:00 Conversion, MD Bjorn camilo Pathology IR CHEST XRAY 1 VIEW 2020-04-03 15:32:54 Judy Miramontes MD rson IR CHEST XRAY 1 VIEW 2020-04-03 14:36:48 Judy Miramontes MD rson IR CT GUIDED BIOPSY 2020-04-03 14:18:48 Bettye Truong MD LUNG/MEDIASTINAL [employer]B INTERVENTIONAL 2020-04-03 14:00:00 Ramirez Becerra MD on RADIOLOGY W/ SMEAR HC CULTURE, ANAEROB 2020-04-03 14:00:00 [...] AUTOMATED PCR 2020-04-02 14:10:00 Adelaide Gall[address] MD G CT CHEST ABDOMEN PELVIS W 2020-03-24 15:02:00 Jessie Worrell MD CONTRAST COMPLETE BLOOD COUNT W/ 2020-03-24 13:51:00 Jessie Worrell MD nderson DIFFERENTIAL COMPREHENSIVE METABOLIC 2020-03-24 13:51:00 Jessie Worrell MD nderson PANEL CARCINOEMBRYONIC ANTIGEN 2020-03-24 13:51:00 Jessie Worrell MD Results CBC 2020-03-24 13:51:00 Jessie Worrell MD MANUAL DIFFERENTIAL 2020-03-24 13:51:00 [facility]SE [facility] 2020-03-24 13:51:00 Jessie Worrell MD BLOOD UREA NITROGEN 2020-03-24 13:51:00 [facility] ELECTROLYTE PANEL 2020-03-24 13:51:00 Jessie Worrell MD SERUM CREATININE 2020-03-24 13:51:00 Jessie Worrell MD .GLOMERULAR FILTRATION RATE 2020-03-24 13:51:00 Jessie Worrell MD CALCIUM LEVEL TOTAL 2020-03-24 13:51:00 [facility] ALBUMIN LEV[facility] 2020-03-24 13:51:00 Jessie Worrell MD ALKALINE PHOSPHATASE 2020-03-24 13:51:00 Jessie Worrell MD Ganga rson ALANINE AMINOTRANSFERASE 2020-03-24 13:51:00 Jessie Worrell MD ASPARTATE AMINOTRANSFERASE 2020-03-24 13:51:00 Jessie Worrell TOTAL PROTEIN 2020-03-24 13:51:00 Jessie Worrell MD FRACTIONATED BILIRUBIN 2020-03-24 13:51:00 Jessie Worrell MD derson POC CREATININE 2020-03-24 13:51:00 Provider, Ariel camilo MAMMO DIGITAL DIAGNOSTIC 2020-03-24 13:30:29 Jessie Worrell MD RIGHT W CHAVA CARCINOEMBRYONIC ANTIGEN 2019-10-30 18:45:23 Bhavna Hope MD COMPLETE BLOOD COUNT W/ 2019-10-30 18:45:23 Rudi Harrison MD nderson DIFFERENTIAL COMPREHENSIVE METABOLIC 2019-10-30 18:45:23 Rudi Harrison MD nderson PANEL MAGNESIUM LEVEL 2019-10-30 18:45:23 Rudi Harrison MD Results CBC 2019-10-30 18:45:23 Rudi Harrison MD MANUAL DIFFERENTIAL 2019-10-30 18:45:23 Tu, Rudi RIDER [facility] GLUCOSE LEVEL 2019-10-30 18:45:23 Tu, Rudi Stallings BLOOD UREA NITROGEN 2019-10-30 18:45:23 Tu, Rudi R[facility]ER [facility] ELECTROLYTE PANEL 2019-10-30 18:45:23 Tu, Rudi camilo SERUM CREATININE 2019-10-30 18:45:23 Tu, Rudi Stallings .GLOMERULAR FILTRATION RATE 2019-10-30 18:45:23 Tu, Rudi Stallings CALCIUM LEVEL TOTAL 2019-10-30 18:45:23 Tu, Rudi [facility] ALBUMIN LEVEL 2019-10-30 18:45:23 Tu, Rudi Stallings ALKALINE PHOSPHATASE 2019-10-30 18:45:23 Tu, Rudi medley ALANINE AMINOTRANSFERASE 2019-10-30 18:45:23 Tu, Rudi Stallings ASPARTATE AMINOTRANSFERASE 2019-10-30 18:45:23 Tu, Rudi Stallings TOTAL PROTEIN 2019-10-30 18:45:23 Tu, Rudi Stallings FRACTIONATED BILIRUBIN 2019-10-30 18:45:23 Tu, Rudi frazierson CARCINOEMBRYONIC ANTIGEN 2019-06-12 14:53:00 Bhavna Hope MD Encounters Start End Encounter Admission Attending Care Care Encounter Source Date/Time Date/Time Type Type Clinicians Facility Department ID 2020-05-12 Outpatient DAVID HERNANDEZ [id number] 15:16:18 Anderso leslee 2020-07-31 2020-07-31 Outpatient ERIS ANTUNEZ MDA DAVID [id number] 00:00:00 00:00:00 YAZMIN Schwartzers o leslee 2020-07-31 2020-07-31 Outpatient RUDI DE OLIVEIRA MDA DAVID [id number] 00:00:00 00:00:00 Joe o n 2020-05-23 2020-05-23 Outpatient RUDI DE OLIVEIRA DAVID HERNANDEZ [id number] 00:00:00 00:00:00 Joe o n 2020-05-09 2020-05-09 Outpatient RUDI DE OLIVEIRA MDA DAVID [id number] 15:29:12 15:29:12 Joe o n Results Test Description Test Time Test Comments Results Result Comments Source SARS-CoV2/RT-PCR ([facility]) 2020-06-06 09:46:00 Test Item Value Reference Range Interpretation Comme nts SARS-COV2/RT-PCR (test code = Negative Not Detected, 93524-3) Negative, See external report for linked test SARS-COV-[address] [facility] JOHANA (test code = 33636-6) NIYAH (test code = NIYAH) Negative result for this test determines that SARS-CoV-2 RNA was not present in the specimen above the Limit of Detection (LOD). However, Negative results do not preclude SARS-CoV-2 infection and should not be used as the sole basis for treatment or patient management decisions. Negative results must be combined with clinical observations, patient history, and epidemiological information. A false negative result may occur if a specimen is improperly collected, transported or handled. A false negative result should be considered if patient's recent exposures or clinical presentation indicate that COVID-19 (SARS-CoV-2) is likely and diagnostic tests for other causes of illness are negative. Re-testing should be considered in cases of suspected [...] Food and Drug Administration (FDA) cleared or approved. This is a modified version of an approved [...] of the Act. Fact Sheet for Healthcare Providers:https://www.CodeEval. Simpleview/sites/default/files/produ ct/documents/Fact_Sheet_HC_Pr rwxjdel_Zoiz_HHAU-FhV-9.pdf Fact Sheet for Healthcare Patients:https://www.CodeEval.Mayvenn om/sites/default/files/produc t/documents/Fact_Sheet_Patidesiree ec_Ruyb_JWTR-LqG-1.pdf Performing Laboratory:[facility] [place] [address] [facility])2020-06-06 09:46:00 Test Item Value Reference Range Interpretation Comments SARS-COV2/RT-PCR (test Negative Not Detected, Negative, code = 4660412) See external report for linked test SARS-COV-[address] [facility] JOHANA (test code = 9598647) Negative result for this test determines that SARS-CoV-2 RNA was not present in the specimen above the Limit of Detection (LOD). However, Negative results do not preclude SARS-CoV-2 infection and should not be used as the sole basis for treatment or patient management decisions. Negative results mustbe combined with clinical observations, patient history, and epidemiological information. A false negative result may occur if a specimen is improperly collected, transported or handled. A false negative result should be considered if patient's recent exposures or clinical presentation indicate that COVID-19 (SARS-CoV-2) is likely and diagnostic tests for other causes of illness are negative. Re-testing should be considered in cases of suspected false negatives.The limit of detection for this assay is 800 copies/mL.This SARS CoV-2 test is a real-time RT-PCR test intended for the qualitative detection of nucleic acid from SARS-CoV-2 in a nasopharyngeal swab specimen collected from individuals suspected of COVID-19 by their healthcare provider.This test has not been Food and Drug Administration (FDA) cleared or approved. This is a modified version of an approved [...] is revoked under Section 564(g) of the Act.Fact Sheet for Healthcare Providers:https://www.CodeEval.Simpleview/sites/default/files/product/documents/Fact_Shee c_DQ_Yljgbtynt_Pope_ERBH-YfB-8.pdfFact Sheet for Healthcare Patients:https://www.quidel.com/sites/default/files/product/ documents/Pttj_Hicuw_Zqgztzpq_Hlml_YLBI-LqN-3.pdfPerforming Laboratory:[facility], [place] [address] Culture IR w/Smr 2020-05-31 02:06:18 Test Item Value Reference Range Interpretation Comments Final Report (test No acid fast bacteria code = 8488) isolated at 8 weeks. Path Review - AFB Partial antibiotic (test code = 8477) treatment can render AFB culture negative. AFB culture has sensitivity of 90%.The results have been reviewed and electronically signed by Pathologist:MAME CARVALHO MD #[id number] Acid Fast Stain No Acid Fast Bacilli seen Truant (test code = in direct smear 59209-7) Acid Fast Stain No Acid Fast Bacilli seen Kinyoun (test code in direct smear = 6655-5) NIYAH (test code = on label Lung-R NIYAH) MD StallingsFungus Culture IR w/[id number] 02:09:31 Test Item Value Reference Range Interpretation Comments Final Report (test No fungus isolated at 4 code = 8488) weeks. Path Review - Fungus Culture yield may be (test code = 8479) affected by sample quality, prior treatment, and transportation conditions.The results have been reviewed and electronically signed by Pathologist:MAME CARVALHO MD #[id number] Calcofluor Stain No Fungi seen in direct (test code = 6472-5) smearTest performed by fluorescent stain methodology. NIYAH (test code = NIYAH) on label Lung-RCultures are held for 4 weeks before finalization. MD StallingsPESARAH Subsequent Treatment [id number] 19:11:53There has been a decrease in size [...] There are no radha or distant metastases.MD StallingsAnaerobic Culture Interventional [id number] 00:46:50 Test Item Value Reference Range Interpretation Comments Final Report (test No growth code = 8488) Path Review - The results have been Anaerobe (test code reviewed and = 8478) electronically signed by Pathologist:MAME CARVALHO MD #[id number] NIYAH (test code = on label Lung-R NIYAH) MD StallingsInterventional Radiology Culture w/Gram [id number] 20:16:29 Test Item Value Reference Range Interpretation Comments Final Report (test No growth code = 8488) Path Review (test The results have been code = 8492) reviewed and electronically signed by Pathologist:Ange Thapa MD, PhD #[id number] Gram Stain Report No WBC's seen.No organisms (test code = seen. 6664-7) NIYAH (test code = on label Lung-R NIYAH) MD Henning CHEST XRAY 1 [id number] 19:28:06Date of Procedure: 04/04/20 Attending Physician: Soto Tinajero Cash Crop Farmer: None Pre Procedure Diagnosis: Right lung mass with [...] the written report.MD Henning CT GUIDED BIOPSY LUNG/[id number] 19:08:12Date of Procedure: 04/03/20 Attending Physician: Ramirez Becerra Cash Crop Farmer: Judy Miramontes Pre Procedure Diagnosis: Malignant neoplasm [...] image was obtained and placed into the [facility] record. Samples were obtained for evaluation. Sampling: [...] with the written report.MD StallingsProthrombin Time with [id number] 11:54:54 Test Item Value Reference Range Interpretation Comments PT (test code = 5902-2) 12.1 12.0- 14.3 second(s) INR (test code = 6301-6) 0.92 0.90-1.10 MD StallingsCOVID-19 (SARS-CoV-2) PCR-Asymptomatic [id number] 04:50:11 Test Item Value Reference Range Interpretation Comments COVID19 (SARS Not Detected Not Detected This test is a CoV-2) Result qualitative (test code = reverse-transcr iptase 80460) polymerase mirta n reaction (RT-PC R) developed for t he Vilma KAT 680 0 system and inte nded [...] were verified by the Microbiology Laboratory at [facility]. Results must be interpreted within the context of all relevant clinic al and laboratory find ings and should not form the sole basis for a diagnosis or treatment decision.Quality Coordinator al controls are in cluded to assess [...] testing if clin ically indicated. COVID19 SARS MEMBER OF PARLIAMENT Swab Source (test code = 43879) COVID19 SARS Pre-Out of OR Indication (test Procedure code = 81709) MD StallingsCT Chest Abdomen Pelvis with [id number] 21:17:30 1. New spiculated pulmonary mass in [...] physically present, and agree with the final report.MD StallingsMammography Digital Diagnostic Right with [id number] 13:42:13No evidence of malignancy. Routine follow-up mammogram in 1 year is recommended. 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 MAMMO DIGITAL DIAGNOSTIC RIGHT W TOMODigital Mammogram evaluated with Computer Aided Detection (CAD). COMPARISON:Prior imaging studies performed at [facility] [place] on12/10/2014, 03/09/2016, 03/15/2017, 03/14/2018 and 03/20/2019 were reviewed. FINDINGS:There are scattered areas of fibroglandular density. There is a retro-pectoral saline implant in the right breast. No dominant mass, distortion, or suspicious calcifications are identified. Tomosynthesis performed in CC and MLO projections. IMPRESSION:No evidence of malignancy. Routine follow-up mammogram in 1 year is recommended. BI-RADS Category 1:NegativeMI [id number] 12:19:00 Test Item Value Reference Range Interpretation [...] Hematology (test code = Appears Adequate PCOMMENT) [id number] 12:16:00 Test Item Value Reference Range Interpretation Comments Chemistry (test 2.5 ng/mL 0-6.6 N code = CKMBM-T) Chemistry (test 0.028 ng/mL < 0.028 code = TROPI-T) Reference Ra nge 0.0 0 - 0.028 ng/mL Negative 0.0 29 - 0.29 ng/mL Indeterminate Greater or Equal to 0.3 ng/mL Strongly sugge sts OR Chemistry - BNP, HgbA1c, [id number] 12:14:00 Test Item Value Reference Range Interpretation Comments Chemistry - BNP, HgbA1c, PTHi 88.1 pg/mL 0-100 N (test code = BNP) [id number] 12:11:00 Test Item Value Reference Range Interpretation [...] = CA) ANG, REMOVAL OF TUNNELED CVC W/[id number] 12:06:00Reason for Exam:->ANAL CAFINAL REPORT Procedure: Removal [...] removal of right-sided chest port. Signed: Dmitriy Leach [facility] Verified Date/Time: 02/13/2018 12:06:3 3 Reading Location: [facility] Radiology Reading Room CBC W/PLT COUNT [...] K/ L 0.00-0.20 (test code = 417) PT/[id number] 09:32:00 Test Item Value Reference Range Interpretation [...] is 2.5-3.5 for patients with mechanical heart valves.PT/[id number] 09:59:00 Test Item Value Reference Range Interpretation Comments PROTIME (BEAKER) (test code = 10.0 seconds 9.3-12.0 759) INR (BEAKER) (test code = 370) 0.9 <=5.9 PARTIAL THROMBOPLASTIN TIME 24.5 seconds 23.0-35.0 (COLEMANRANDI) (test code = 760) RECOMMENDED COUMADIN/WARFARIN INR THERAPY RANGESSTANDARD DOSE: 2.0 - 3.0 Includes: PROPHYLAXIS forvenous thrombosis, systemic embolization; TREATMENT for venous thrombosis and/or pulmonary embolus.HIGH RISK: Target INR is 2.5-3.5 for patients with mechanical heart valves.
[2020-06-06] MEDS ORDERED: TRAMADOL HCL 50 MG TAB PO PRN (12:33)
[2020-06-06] MEDS ORDERED: DOCUSATE NA 100 MG CAP PO PRN (12:42)
[2020-06-06] MEDS ORDERED: HYDROCODONE/APAP 7.5/325 MG TAB PO PRN (12:48)
[2020-06-06] MEDS ORDERED: ACETAMINOPHEN 500 MG TAB PO PRN (12:49)
[2020-06-06] MEDS ORDERED: ONDANSETRON 4 MG (ODT) TAB PO PRN (12:53)
[2020-06-06] MEDS ORDERED: ALBUTEROL 2.5 MG/3 ML NEB SOL NEB PRN ×2 (12:57→15:00)
[2020-06-06 13:19] LABS: Urine Appearance CLEAR; Urine Bilirubin NEGATIVE (NEG); Urine Blood NEGATIVE (NEG); Urine Color YELLOW; Urine Glucose NEGATIVE (NEG); Urine Protein NEGATIVE (NEG); Urine Urobilinogen 0.2 mg/dL (0.2-1.0); Urine pH 6.5 (5.0-7.0)
[2020-06-06] MEDS ORDERED: guaiFENesin 100 MG/5 ML UCUP PO PRN (13:36)
[2020-06-06 13:48] LABS: Urine Bacteria <20 /HPF (<20); Urine Culture Reflex Order NOT NEEDED; Urine RBC <5 /HPF (NONE SEEN)
[2020-06-06] MEDS: IPRATROPIUM BROM 0.5MG/2.5ML NEB SCH ×2 (15:23→20:10)
[2020-06-06] MEDS: VALSARTAN 160 MG TAB PO SCH (16:52)
[2020-06-06] MEDS: hydroCHLOROthiazide 25 MG TAB PO SCH (16:53)
--- NOTE | 2020-06-06 17:37 | R.HP ---
FACILITY: [facility] ENCOUNTER DATE AND TIME: 06/06/2020 17:25 (CDT) MR#: [id number] NAME YAMILETH CONNELL ADDRESS: [address] [place] [address]: [place] [address]IP [address] PHONE: DATE OF : 1945 AGE: 74 SSN# [id number] GENDER: Female DEXTERITY Right-handed MARITAL STATUS Single (Never ) RACE White PRE-HOSPITAL LIVING SETTING 01 - Home (private home/apt. board/care, assisted living, usp, transitional living) PRE-HOSPITAL LIVING WITH Family/Relatives ENCOUNTER PHYSICIAN: Dr. Neo Trinidad M.D. REFERRING DOCTOR: SHEFALI ROBINS MD DATE OF ADMISSION: 06/06/2020 09:53 (CDT) REFERRING FACILITY [facility] PRIMARY CARE PHYSICIAN [facility] HOME TYPE AND DETAILS: Type of home: single family house # of levels in the residence: 1 # of steps within the residence: 2 # of steps to enter the residence: 2 ONSET DATE: 06/04/2020 PRIMARY DIAGNOSIS-RELATED SURGERIES: Emergency Unilateral Hip Fracture - performed by SHEFALI ROBINS MD on 06/04/2020 HISTORY OF PRESENT ILLNESS (HPI): Pt. is a 74 yo Right-handed white female. On 06/04/2020 she was admitted to [facility] and underwent emergency surgery for RIGHT F EMUR FRACTURE (Unilateral Hip Fracture) by SHEFALI ROBINS MD. Pre-morbidly, Pt. was independent/mod-I in Safety Awareness, Balance, Transfers Control, Self-Care, C ommunication, and Locomotion; and she had good Sphincter Control, Social Cognition, and Locomotion. Currently, she has deficits of Balance, Locomotion, Transfers Control, Self-Care, Endurance, and Sphi ncter Control. Pt. is now referred to [facility] for acute in-patient rehabilitation in order to maximize patient's functional independence in activities of daily living, strength, ROM, and mobi lity. Patient has realistic goal of being discharged at assistance level 6-Nany to reside at Home with Fam kali/Relatives. Yamileth Connell is a 74 year old women that lives in a single story home independently. She has two stairs to enter her home and is having a ramp installed. Mrs. Connell is still actively working at [employer] in [facility]. She had a fall at work. Patient could not get up and walk. Here in the ED, x ray,CT of the right leg reports distal femoral fracture involving the supracondyle. Patient underwent surgical correction and is currently TDWB with knee immobilizer. She is now being transferred to [facility] Inpatient rehabilitation and is medically stable with relatively stable labs. He is now medically stable but in need of 24 hour nursing, doctor supervision and oversight while receiving active and ongoing participate in 3 hours of therapy a day/15 hours per week and receive care with intensive interdisciplinary approach. COVID-19 screening performed; spoke with patient via phone. Patient denies new onset of fever, cough, difficulty breathing, sore throat, body aches and non-allergy nasal congestion in the past 24 hours. Patient denies travel outside of [place] in the past 14 days. Patient denies any contact with someone who has a confirmed diagnosis of or is under investigation for COVID-19 in the past 14 days. Patient has been tested negative for COVID- 19. MEDICATION ALLERGIES: CEPHALEXIN ENVIRONMENTAL ALLERGIES: - Substance Allergies None Known - Other Allergies None Known PAST MEDICAL HISTORY: COPD HTN BREAST CANCER COLON CANCER PAST SURGICAL HISTORY: LEFT MASTECTOMY APPENDECTOMY PARTIAL HYSTERECTOMY TONSILLECTOMY SOCIAL HISTORY: - Home Living Family/Relatives REVIEW OF SYSTEMS: - Gen No Chills Fatigue No Fever - Eyes No Double Vision No itchiness - ENMT No Difficulty Swallowing - CVS No Chest Discomfort No Chest Pain Fatigue No Weight Gain - Resp No Cough No Shortness of Breath - GI Continent No Abdominal Pain No Constipation No Diarrhea - Continent No Kidney Pain No Painful Urination No Urinary Urgency - MSK No Joint Pain Muscle Cramps Stiffness - Skin No Itching No Rash No Suspicious Lesions - Neuro Coordination Difficulty No Difficulty with Concentration Memory Loss No Seizures No Weakness - Psych No Anxiety No Depression No HIV Exposure No Persistent Infections No Seasonal Allergies - Endo No Cold/Heat Intolerance No Excessive Hunger No Excessive Thirst No Excessive Urination PHYSICAL EXAM - Gen Alert and awake Lying in bed No apparent distress Oriented to: person, time, and place - Skin No skin breakdown. Normacephalic - Eyes No abnormalities - ENMT No abnormalities - Neck No abnormalities - CVS RRR - Chest No abnormalities - Resp Clear to auscultation - Abd Soft - GI + bowel sounds Deferred - No abnormalities - Ext Right hip surgical site has good hemostasis. - MSK 4+/5 weakness in right lower extremity - Neuro 4/5 strength right lower extremity. - Psych No abnormalities VITAL SIGNS Temperature: 97.7 F SBP/DBP: 179/100 Pulse: 81 Resp: 18 Will add clonidine 0.1 mg q 4 hours for SBP > 170. NURSING: - Shower allowing shower - Skin care per protocol PRECAUTIONS: - Anterior Hip Precaution No abduction No active extension No adduction across midline No external rotation No hip flexion >90 degrees No internal rotation - Posterior Hip Precaution No adduction across midline No external rotation No hip flexion >90 degrees No internal rotation No wheel chair propulsion - Weight Bearing Precaution TTWB right LE ACTIVITIES OOB only with supervision QI SCORES: - Self-Care A. Eating 04-Supervision or touching assistance B. Oral hygiene 03-Partial/moderate assistance C. Toileting hygiene 03-Partial/moderate assistance E. Shower/bathe self 03-Partial/moderate assistance F. Upper body dressing 03-Partial/moderate assistance G. Lower body dressing 03-Partial/moderate assistance H. Putting on/taking off footwear 03-Partial/moderate assistance - Mobility A. Roll left and right 03-Partial/moderate assistance B. Sit to lying 03-Partial/moderate assistance C. Lying to sitting on side of bed 03-Partial/moderate assistance D. Sit to stand 03-Partial/moderate assistance E. Chair/[id number] transfer 03-Partial/moderate assistance F. Toilet transfer 03-Partial/moderate assistance G. Car transfer 88-Not attempted due to medical condition or safety concerns I. Walk 10 feet 03-Partial/moderate assistance J. Walk 50 feet with two turns 88-Not attempted due to medical condition or safety concerns K. Walk 150 feet 88-Not attempted due to medical condition or safety concerns L. Walking 10 feet on uneven surfaces 88-Not attempted due to medical condition or safety concerns M. 1 step (curb) 88-Not attempted due to medical condition or safety concerns N. 4 steps 88-Not attempted due to medical condition or safety concerns O. 12 steps 88-Not attempted due to medical condition or safety concerns P. Picking up object 03-Partial/moderate assistance R. Wheel 50 feet with two turns 88-Not attempted due to medical condition or safety concerns S. Wheel 150 feet 88-Not attempted due to medical condition or safety concerns - Bladder and Bowel Bladder continence 0-Always continent Bowel continence 0-Always continent - Endurance Poor - Balance Poor - Safety Awareness Poor CURRENT FUNC. DEFICITS: Endurance, Balance, Mobility, Safety Awareness, and Self-Care MEDICATIONS: - Other See attached MAR (Medication Administration Record) ASSESSMENT: Pt. is a 74 yo Right-handed white female.On 06/04/2020 she was admitted to [facility] an d underwent emergency surgery for RIGHT FEMUR FRACTURE (Unilateral Hip Fracture) by SHEFALI ROBINS MD.P re-morbidly, Pt. was independent/mod-I in Safety Awareness, Balance, Transfers Control, Self-Care, Co mmunication, and Locomotion; and she had good Sphincter Control, Social Cognition, and Locomotion.Cur rently, she has deficits of Balance, Locomotion, Transfers Control, Self-Care, Endurance, and Sphinct er Control.Pt. is now referred to [facility] for acute in-patient rehabilitati on in order to maximize patient's functional independence in activities of daily living, strength, RO M, and mobility.- Rehab Goal Patient has realistic goal of being discharged at assistance level 6-Nany to reside at Home with Fam kali/Relatives. Yamileth Connell is a 74 year old women that lives in a single story home independently. She has two stairs to enter her home and is having a ramp installed. Mrs. Connell is still actively working at [employer] in [facility]. She had a fall at work. Patient could not get up and walk. Here in the ED, x ray,CT of the right leg reports distal femoral fracture involving the supracondyle. Patient underwent surgical correction and is currently TDWB with knee immobilizer. She is now being transferred to [facility] Inpatient rehabilitation and is medically stable with relatively stable labs. He is now medically stable but in need of 24 hour nursing, doctor supervision and oversight while receiving active and ongoing participate in 3 hours of therapy a day/15 hours per week and receive care with intensive interdisciplinary approach. COVID-19 screening performed; spoke with patient via phone. Patient denies new onset of fever, cough, difficulty breathing, sore throat, body aches and non-allergy nasal congestion in the past 24 hours. Patient denies travel outside of [place] in the past 14 days. Patient denies any contact with someone who has a confirmed diagnosis of or is under investigation for COVID-19 in the past 14 days. Patient has been tested negative for COVID- 19.REHAB PLAN: - Physical Therapy Decreased range of motion - to improve, our physical therapists will perform initial evaluation of pt 's status upon admission and devise an individualized program for increasing patient's Range of Motio n. Gait dysfunction - to improve, our physical therapists will perform initial evaluation of pt's status upon admission and devise an individualized program for Gait Training, and Wheel Chair mobility Inability to transfer - to improve, our physical therapists will perform initial evaluation of pt's s tatus upon admission and devise an individualized program for Bed mobility Need for home safety evaluation - to improve, our physical therapists will perform initial evaluation of pt's status upon admission and devise an individualized program for Home Evaluation Need in caregiver upon discharge - to improve, our physical therapists will perform initial evaluatio n of pt's status upon admission and devise an individualized program for Caregiver Training New precaution - to improve, our physical therapists will perform initial evaluation of pt's status u madiha admission and devise an individualized program for Patient precaution education Poor balance - to improve, our physical therapists will perform initial evaluation of pt's status upo n admission and devise an individualized program for Balance Training Poor endurance - to improve, our physical therapists will perform initial evaluation of pt's status u madiha admission and devise an individualized program for Endurance Training Weakness - to improve, our physical therapists will perform initial evaluation of pt's status upon ad mission and devise an individualized program for Aquatic Therapy, Neuromuscular Reeducation, and Stre ngthening Achieving independence - to improve, our physical therapists will perform initial evaluation of pt's status upon admission and devise an individualized program for Community Reintegration Activities - Occupational Therapy ADL deficits - to improve, our occupation therapists will perform initial evaluation of pt's status u madiha admission and devise an individualized program for Bathing, Bed mobility, Community Reintegration , Cooking, Dressing, Eating, Fine Motor Skills, Grooming, Homemaking, Kitchen Mobility, Laundry, Selam ent Education, Safety Awareness, Splinting - Positioning, Transfers(Toilet, Tub, Shower), and Wheel C hair Management Need for palliative care physician - to improve, our occupation therapists will perform initial evaluation of pt's s tatus upon admission and devise an individualized program for Caregiver Training Weakness - to improve, our occupation therapists will perform initial evaluation of pt's status upon admission and devise an individualized program for Aquatic Therapy, Balance, Endurance, UE ROM, and U E strengthening MEDICAL PLAN: - Anterior Hip Precaution No abduction No active extension No adduction across midline No external rotation No hip flexion >90 degrees No internal rotation - Diet - Liquid Texture Start Regular - Tube Feed Start N/A - Diet Type Start Regular - Posterior Hip Precaution No adduction across midline No external rotation No hip flexion >90 degrees No internal rotation No wheel chair propulsion - Weight Bearing Precaution TTWB right LE - Skin care per protocol - Other See attached MAR (Medication Administration Record) - Diet - Solid Texture Regular - Shower shower DISCHARGE PLAN: - Estimated Length of Stay (days) 14. - Consensus on plan Discharge plan has been discussed with primary caregiver. Patient/Family is in agreement with the kimi n. Primary caregiver is in agreement with the plan. - Patient/Family Goals Return home independently. - Planned Living Setting Upon Discharge Home, to live with Family/Relatives. Transitional Living. SIGNATURE PANEL: (CDT)
--- NOTE | 2020-06-06 17:38 | PAPE ---
PATIENT: [facility] [place] MR# [id number] REFERRING DOCTOR SHEFALI ROBINS MD PRIMARY CARE PHYSICIAN [facility] EVALUATION DATE AND TIME 06/06/2020 17:36 (CDT) NAME TRIP LAM DATE OF 1945 AGE 74 PHONE SSN# [id number] GENDER female EVALUATING PHYSICIAN Dr. Neo Trinidad M.D. ADMISSION DIAGNOSIS: RIGHT FEMUR FRACTURE ONSET DATE 06/04/2020 POST-ADMISSION FUNCTIONAL/MEDICAL STATUS: - Bladder Same accident frequency: Ind - No accidents in the past 7 days - Bowel Same accident frequency: Ind - No accidents in the past 7 days - Walking Same score based on distance walked: 0(N/A) Same score based on distance walked: 1(<=50ft) - Wheelchair Same score based on distance traveled: 0(N/A) STATUS CHANGE EVALUATION: No change in Functional or Medical Status is identified compared with Pre-Admission screening. PATIENT NEEDS CLOSE MEDICAL SUPERVISION BY A REHABILITATION PHYSICIAN FOR: Coordination of Treatment Team Post-Op Complications PATIENT REQUIRES 24X7 REHAB NURSING FOR MEDICAL AND FUNCTIONAL MGT. OF THE FOLLOWING DEFICITS: Disease Management Medication Management Patient/Family Education Providing Safe Environment PATIENT REQUIRES INTENSIVE, COORDINATED INTERDISCIPLINARY APPROACH TO REHAB: Arranging Home Equipment/Services Discharge Planning Family Intervention/Training Mid Level Developer/Case Management LIST OF IDENTIFIED AND POTENTIAL PROBLEMS: Alteration in leisure activities Bladder, Incontinence Bowel, Incontinence Infection, Actual or Potential Mobility Impaired Pain, Alteration in Comfort Self Care Deficit Skin Integrity, Actual or Potential Urinary Tract Infection (UTI), Actual or Potential PATIENT COULD BE AT RISK FOR COMPLICATIONS FROM ADVERSE MEDICAL CONDITIONS DUE TO HIS/HER COMORBIDITI ES AND THE RIGORS OF THE INTENSIVE REHABILLITATION PROGRAM. METHODS OR INTERVENTIONS TO AVOID COMPLIC ATIONS INCLUDE: - Infection Clinical staff to assess and manage the signs and symptoms of infection including fever, redness, war mth, etc. - Urinary Tract Infection - Falls Patient will be evaluated for Fall Precautions and will be placed on Fall Precautions as indicated pe r protocol. - Skin Breakdown Nursing will assess skin daily using assessment tool and will place on Skin Breakdown Precautions as indicated per protocol. - Pain Clinical staff may employ non-medication methods such as massage, distraction, decrease stimulus, etc . as needed. Clinical staff will assess patient's pain level every shift per protocol to assess and e nsure pain management effectiveness. Medications will be given and the pain level re-assessed. PRELIMINARY PLAN OF CARE: - Physical Therapy Patient needs Physical Therapy for a daily minimum of 1.5 hours at least 5 out of 7 days, to improve: Mobility, Strengthening, Transfers, Stretching, ROM, Endurance, Ability to manage stairs, Gait, and Balance. - Speech Therapy Patient needs Speech Therapy for a daily minimum of 0.5 hours at least 5 out of 7 days, to improve: S wallowing, Cognition, Language Skills, and Compensatory Strategies. - Rehabilitation Nursing Patient requires 24x7 Rehabilitation Nursing for: Pain Issues, Identifying and preventing risk factor s, Monitoring and reporting current medical conditions, Assisting with ambulation and transfer, Asad ting with all ADL-s, Teaching patients about disease process and medications, Family teaching, Provid ing safe environment, Bowel and Bladder Issues, Skin Integrity, and Medication Management. Patient needs Mid Level Developer and/or Case Management for: Discharge Planning, Arranging Home Equipmen t or Services, and Family Interventions. - Dietary and Nutrition Services Patient needs Dietary and Nutrition Services for: Adequate Nutrition, Nutritional Supplements, and Nu tritional Education. - Occupational Therapy Patient needs Occupational Therapy for a daily minimum of 1.5 hours at least 5 out of 7 days, to impr ove Activities of Daily Living, including: Eating, Grooming, Bathing, Dressing, Toileting, Toilet Tra nsfers, Community Reintegration, Higher functional activities, Adaptive Equipment, Splinting, Househo ld Tasks, and Other activities as determined. QI SCORES: - Self-Care A. Eating 04-Supervision or touching assistance B. Oral hygiene 03-Partial/moderate assistance C. Toileting hygiene 03-Partial/moderate assistance E. Shower/bathe self 03-Partial/moderate assistance F. Upper body dressing 03-Partial/moderate assistance G. Lower body dressing 03-Partial/moderate assistance H. Putting on/taking off footwear 03-Partial/moderate assistance - Mobility A. Roll left and right 03-Partial/moderate assistance B. Sit to lying 03-Partial/moderate assistance C. Lying to sitting on side of bed 03-Partial/moderate assistance D. Sit to stand 03-Partial/moderate assistance E. Chair/fuj-sj-szpww transfer 03-Partial/moderate assistance F. Toilet transfer 03-Partial/moderate assistance G. Car transfer 88-Not attempted due to medical condition or safety concerns I. Walk 10 feet 03-Partial/moderate assistance J. Walk 50 feet with two turns 88-Not attempted due to medical condition or safety concerns K. Walk 150 feet 88-Not attempted due to medical condition or safety concerns L. Walking 10 feet on uneven surfaces 88-Not attempted due to medical condition or safety concerns M. 1 step (curb) 88-Not attempted due to medical condition or safety concerns N. 4 steps 88-Not attempted due to medical condition or safety concerns O. 12 steps 88-Not attempted due to medical condition or safety concerns P. Picking up object 03-Partial/moderate assistance R. Wheel 50 feet with two turns 88-Not attempted due to medical condition or safety concerns S. Wheel 150 feet 88-Not attempted due to medical condition or safety concerns - Bladder and Bowel Bladder continence 0-Always continent Bowel continence 0-Always continent - Endurance Poor - Balance Poor - Safety Awareness Poor POTENTIAL FUNCTIONAL GOALS FOR PATIENT TO ACHIEVE BY DISCHARGE: - Safety Precaution Patient will remain free from falls or injury at time of discharge. - Bed Mobility Patient will perform bed mobility at 4-Thelma level of assistance. - Transfers Patient will complete transfers from bed to chair at 4-Thelma level of assistance. - Mobility Patient will ambulate 150 ft with 4-Thelma level of assistance with RW. PATIENT REHAB POTENTIAL Thong LAM is able and expected to receive 3 hours of individualized therapy daily on at least 5 of ev aron 7 days Thong LAM's prognosis for significant practical improvement within a reasonable period of time appear s Good Expected level of measurable improvement will be of a practical value to Thong LAM's functional capac ity or adaptations to impairments Has a viable Discharge Plan Medically appropriate; condition is sufficiently stable to participate in intensive rehab program DISCHARGE PLAN: - Estimated Length of Stay (days) 14. - Consensus on plan Discharge plan has been discussed with primary caregiver. Patient/Family is in agreement with the kimi n. Primary caregiver is in agreement with the plan. - Patient/Family Goals Return home independently. - Planned Living Setting Upon Discharge Home, to live with Family/Relatives. Transitional Living. CONCLUSION ON REHABILITATION NECESSITY: I have evaluated patient's pre-admission functional status and, comparing it to the patient's post-ad mission functional status now, I conclude that the pre-admission assessment was accurate. Patient's c ondition on admission supports the medical necessity of admission to [facility]. It is safe to proceed with patient's therapy program. SIGNATURE PANEL: (CDT)
[2020-06-06] MEDS: GABAPENTIN 300 MG CAP PO SCH (18:58)
[2020-06-06] MEDS: cloNIDine HCL 0.1 MG TAB PO PRN (18:58)
[2020-06-06] MEDS: SODIUM CHLORIDE 0.9% 10ML INJ IV SCH (18:59)
[2020-06-07] MEDS: IPRATROPIUM BROM 0.5MG/2.5ML NEB SCH ×4 (02:15→19:55)
[2020-06-07] MEDS: TRAMADOL HCL 50 MG TAB PO PRN ×4 (02:30→20:09)
[2020-06-07 05:57] LABS: Absolute Lymphocytes (CBC) 0.9 K/uL (0.7-4.9); Basophils % 0.5 % (0-1.3); Hematocrit 31.8 % (36.0-45.0); Lymphocytes % 12.1 % (15.3-44.8); MPV 8.5 fL (7.6-11.3); RBC Red Blood Cell Count 3.47 M/uL (3.86-4.86)
[2020-06-07 06:21] LABS: Albumin 2.4 g/dL (3.4-5.0); Magnesium 1.8 mg/dL (1.8-2.4); Potassium 3.6 mmol/L (3.5-5.1); Prealbumin 14.7 mg/dL (20-40)
[2020-06-07] MEDS: ENOXAPARIN 40 MG/0.4 ML SQ SCH (06:44)
[2020-06-07] MEDS: SODIUM CHLORIDE 0.9% 10ML INJ IV SCH (07:38)
[2020-06-07] MEDS: hydroCHLOROthiazide 25 MG TAB PO SCH (07:39)
[2020-06-07] MEDS: BUPROPION HCL 300 MG PO SCH (07:39)
[2020-06-07] MEDS: POLYETHYL GLY 3350 17 GM/DOSE PO SCH (07:39)
[2020-06-07] MEDS: GABAPENTIN 300 MG CAP PO SCH ×2 (07:39→20:09)
[2020-06-07] MEDS: VALSARTAN 160 MG TAB PO SCH (07:40)
[2020-06-07] MEDS ORDERED: VALSARTAN HCTZ PO SCH (08:00)
[2020-06-07] MEDS ORDERED: BUPROPION HCL XL 150 MG TAB PO SCH (08:00)
[2020-06-07] MEDS: cloNIDine HCL 0.1 MG TAB PO PRN (20:08)
[2020-06-07] MEDS: MELATONIN 3 MG TABLET PO PRN (20:09)
[2020-06-07] MEDS: PROMOD 30 ML DOSE PO SCH (20:09)
--- NOTE | 2020-06-07 21:24 | R.PN ---
ENCOUNTER DATE AND TIME: 06/07/2020 21:17 (CDT) NAME TRIP LAM DATE OF : 1945 DATE OF ADMISSION: 06/06/2020 09:53 (CDT) RIGHT FEMUR FRACTURECHIEF COMPLAINT: Right femur fracture, uncontrolled blood pressure SUBJECTIVE: Pt denied any Shortness of Breath. Pt denied any depression. Start antonio inhibitor prinivil 2.5 mg daily in the AM for elevated blood pressures. Ambulated 71' with minimum assistance. VITAL SIGNS Temperature: 97.7 F SBP/DBP: 179/100 Pulse: 81 Resp: 18 Will add clonidine 0.1 mg q 4 hours for SBP > 170. MEDICATION ALLERGIES: CEPHALEXIN ENVIRONMENTAL ALLERGIES: - Substance Allergies None Known - Other Allergies None Known NURSING: - Shower allowing shower - Skin care per protocol PRECAUTIONS: - Anterior Hip Precaution No abduction No active extension No adduction across midline No external rotation No hip flexion >90 degrees No internal rotation - Posterior Hip Precaution No adduction across midline No external rotation No hip flexion >90 degrees No internal rotation No wheel chair propulsion - Weight Bearing Precaution TTWB right LE ACTIVITIES OOB only with supervision THERAPIES: - Dietary and Nutrition Adequate Nutrition. Nutritional Education. Nutritional Supplements. PHYSICAL EXAM - Gen Alert and awake Lying in bed No apparent distress Oriented to: person, time, and place - Skin No skin breakdown. Normacephalic - Eyes No abnormalities - ENMT No abnormalities - Neck No abnormalities - CVS RRR - Chest No abnormalities - Resp Clear to auscultation - Abd Soft - GI + bowel sounds Deferred - No abnormalities - Ext Right hip surgical site has good hemostasis. - MSK 4+/5 weakness in right lower extremity - Neuro 4/5 strength right lower extremity. - Psych No abnormalities ASSESSMENT: Pt. is a 74 yo Right-handed white female.On 06/04/2020 she was admitted to [facility] an d underwent emergency surgery for RIGHT FEMUR FRACTURE (Unilateral Hip Fracture) by SHEFALI ROBINS MD.P re-morbidly, Pt. was independent/mod-I in Safety Awareness, Balance, Transfers Control, Self-Care, Co mmunication, and Locomotion; and she had good Sphincter Control, Social Cognition, and Locomotion.Cur rently, she has deficits of Balance, Locomotion, Transfers Control, Self-Care, Endurance, and Sphinct er Control.Pt. is now referred to [facility] for acute in-patient rehabilitati on in order to maximize patient's functional independence in activities of daily living, strength, RO M, and mobility.- Rehab Goal Patient has realistic goal of being discharged at assistance level 6-Nany to reside at Home with Fam kali/Relatives. MDM/PLAN: - Physical Therapy Decreased range of motion - to improve, our physical therapists will perform initial evaluation of p t's status upon admission and devise an individualized program for increasing patient's Range of Sridhar on. Gait dysfunction - to improve, our physical therapists will perform initial evaluation of pt's statu s upon admission and devise an individualized program for Gait Training, and Wheel Chair mobility Inability to transfer - to improve, our physical therapists will perform initial evaluation of pt's status upon admission and devise an individualized program for Bed mobility Need for home safety evaluation - to improve, our physical therapists will perform initial evaluatio n of pt's status upon admission and devise an individualized program for Home Evaluation Need in caregiver upon discharge - to improve, our physical therapists will perform initial evaluati on of pt's status upon admission and devise an individualized program for Caregiver Training New precaution - to improve, our physical therapists will perform initial evaluation of pt's status upon admission and devise an individualized program for Patient precaution education Poor balance - to improve, our physical therapists will perform initial evaluation of pt's status up on admission and devise an individualized program for Balance Training Poor endurance - to improve, our physical therapists will perform initial evaluation of pt's status upon admission and devise an individualized program for Endurance Training Weakness - to improve, our physical therapists will perform initial evaluation of pt's status upon a dmission and devise an individualized program for Aquatic Therapy, Neuromuscular Reeducation, and Str engthening Achieving independence - to improve, our physical therapists will perform initial evaluation of pt's status upon admission and devise an individualized program for Community Reintegration Activities - Occupational Therapy ADL deficits - to improve, our occupation therapists will perform initial evaluation of pt's status upon admission and devise an individualized program for Bathing, Bed mobility, Community Reintegratio n, Cooking, Dressing, Eating, Fine Motor Skills, Grooming, Homemaking, Kitchen Mobility, Laundry, Pat ient Education, Safety Awareness, Splinting - Positioning, Transfers(Toilet, Tub, Shower), and Wheel Chair Management Need for workforce investment act career manager - to improve, our occupation therapists will perform initial evaluation of pt's status upon admission and devise an individualized program for Caregiver Training Weakness - to improve, our occupation therapists will perform initial evaluation of pt's status upon admission and devise an individualized program for Aquatic Therapy, Balance, Endurance, UE ROM, and UE strengthening - Other See attached MAR (Medication Administration Record) - Anterior Hip Precaution No abduction No active extension No adduction across midline No external rotation No hip flexion >90 degrees No internal rotation - Diet - Liquid Texture Continue Regular - Tube Feed Continue N/A - Diet Type Continue Regular - Posterior Hip Precaution No adduction across midline No external rotation No hip flexion >90 degrees No internal rotation No wheel chair propulsion - Weight Bearing Precaution TTWB right LE - Skin care per protocol - Diet - Solid Texture Continue Regular - Shower allowing shower FUNCTIONAL STATUS: UPDATED AT WEEKLY TEAM CONFERENCE - Bladder Same accident frequency: 7-Ind - No accidents in the past 7 days - Bowel Same accident frequency: 7-Ind - No accidents in the past 7 days - Walking Same score based on distance walked: 0(N/A) Same score based on distance walked: 1(<=50ft) - Wheelchair Same score based on distance traveled: 0(N/A) FUNCTIONAL STATUS: - Self-Care A. Eating Nany B. Grooming Nany C. Bathing Thelma D. Dressing - Upper Thelma E. Dressing - Lower modA F. Toileting sup - Sphincter Control G. Bladder control sup H. Bowel control sup - Transfers Control I. Bed/Chair/Wheelchair Thelma J. Toilet Thelma K. Tub/Shower modA - Locomotion L. Walk/Wheelchair (B) Thelma M. Stairs maxA - Communication N. Comprehension (B) Nany O. Expression (B) Nany - Social Cognition P. Social Interaction Nany Q. Problem Solving Nany R. Memory Nany - Endurance Poor - Balance Fair - Safety Awareness Fair QI SCORES: - Self-Care A. Eating 04-Supervision or touching assistance B. Oral hygiene 03-Partial/moderate assistance C. Toileting hygiene 03-Partial/moderate assistance E. Shower/bathe self 03-Partial/moderate assistance F. Upper body dressing 03-Partial/moderate assistance G. Lower body dressing 03-Partial/moderate assistance H. Putting on/taking off footwear 03-Partial/moderate assistance - Mobility A. Roll left and right 03-Partial/moderate assistance B. Sit to lying 03-Partial/moderate assistance C. Lying to sitting on side of bed 03-Partial/moderate assistance D. Sit to stand 03-Partial/moderate assistance E. Chair/cil-ez-[id number] transfer 03-Partial/moderate assistance F. Toilet transfer 03-Partial/moderate assistance G. Car transfer 88-Not attempted due to medical condition or safety concerns I. Walk 10 feet 03-Partial/moderate assistance J. Walk 50 feet with two turns 88-Not attempted due to medical condition or safety concerns K. Walk 150 feet 88-Not attempted due to medical condition or safety concerns L. Walking 10 feet on uneven surfaces 88-Not attempted due to medical condition or safety concerns M. 1 step (curb) 88-Not attempted due to medical condition or safety concerns N. 4 steps 88-Not attempted due to medical condition or safety concerns O. 12 steps 88-Not attempted due to medical condition or safety concerns P. Picking up object 03-Partial/moderate assistance R. Wheel 50 feet with two turns 88-Not attempted due to medical condition or safety concerns S. Wheel 150 feet 88-Not attempted due to medical condition or safety concerns - Bladder and Bowel Bladder continence 0-Always continent Bowel continence 0-Always continent - Endurance Poor - Balance Poor - Safety Awareness Poor CURRENT FUNC. DEFICITS: Endurance, Balance, Mobility, Safety Awareness, and Self-Care SIGNATURE PANEL: (CDT)
[2020-06-08] MEDS: IPRATROPIUM BROM 0.5MG/2.5ML NEB SCH ×3 (01:45→13:36)
[2020-06-08] MEDS: BUPROPION HCL 300 MG PO SCH (09:03)
[2020-06-08] MEDS: POLYETHYL GLY 3350 17 GM/DOSE PO SCH (09:03)
[2020-06-08] MEDS: VALSARTAN 160 MG TAB PO SCH (09:05)
[2020-06-08] MEDS: GABAPENTIN 300 MG CAP PO SCH ×2 (09:06→18:52)
[2020-06-08] MEDS: hydroCHLOROthiazide 25 MG TAB PO SCH (09:06)
[2020-06-08] MEDS: lisinopriL 5 MG TAB PO SCH (09:07)
[2020-06-08] MEDS: ENOXAPARIN 40 MG/0.4 ML SQ SCH (09:08)
[2020-06-08] MEDS: PROMOD 30 ML DOSE PO SCH ×2 (09:09→18:53)
[2020-06-08] MEDS: TRAMADOL HCL 50 MG TAB PO PRN ×2 (09:14→17:05)
[2020-06-08] MEDS ORDERED: IPRATROPIUM BROM 0.5MG/2.5ML NEB PRN (17:09)
[2020-06-08] MEDS: MELATONIN 3 MG TABLET PO PRN (18:52)
[2020-06-09] MEDS: TRAMADOL HCL 50 MG TAB PO PRN ×5 (01:08→16:06)
[2020-06-09] MEDS: ENOXAPARIN 40 MG/0.4 ML SQ SCH (06:50)
[2020-06-09] MEDS: POLYETHYL GLY 3350 17 GM/DOSE PO SCH (07:38)
[2020-06-09] MEDS: VALSARTAN 160 MG TAB PO SCH (07:38)
[2020-06-09] MEDS: BUPROPION HCL 300 MG PO SCH (07:38)
[2020-06-09] MEDS: GABAPENTIN 300 MG CAP PO SCH ×2 (07:39→19:57)
[2020-06-09] MEDS: lisinopriL 5 MG TAB PO SCH (07:39)
[2020-06-09] MEDS: hydroCHLOROthiazide 25 MG TAB PO SCH (07:40)
[2020-06-09] MEDS: PROMOD 30 ML DOSE PO SCH ×2 (07:40→20:00)
[2020-06-09] MEDS: MAGNESIUM OXIDE 400 MG TAB PO SCH (19:58)
--- NOTE | 2020-06-09 21:11 | R.PN ---
ENCOUNTER DATE AND TIME: 06/09/2020 17:29 (CDT) NAME TRIP LAM DATE OF : 1945 DATE OF ADMISSION: 06/06/2020 09:53 (CDT) RIGHT FEMUR FRACTURECHIEF COMPLAINT: Right femur fracture, uncontrolled blood pressure SUBJECTIVE: Pt denied any Shortness of Breath. Pt denied any depression. Start antonio inhibitor prinivil 2.5 mg daily in the AM for elevated blood pressures. Ambulated 247' with contact guard assistance. Mobilized wheelchair 500' with standby assistance. VITAL SIGNS Temperature: 97.7 F SBP/DBP: 166/87 Pulse: 73 Resp: 18 Clonidine 0.1 mg q 4 hours for SBP > 170. MEDICATION ALLERGIES: CEPHALEXIN ENVIRONMENTAL ALLERGIES: - Substance Allergies None Known - Other Allergies None Known NURSING: - Shower allowing shower - Skin care per protocol PRECAUTIONS: - Anterior Hip Precaution No abduction No active extension No adduction across midline No external rotation No hip flexion >90 degrees No internal rotation - Posterior Hip Precaution No adduction across midline No external rotation No hip flexion >90 degrees No internal rotation No wheel chair propulsion - Weight Bearing Precaution TTWB right LE ACTIVITIES OOB only with supervision THERAPIES: - Dietary and Nutrition Adequate Nutrition. Nutritional Education. Nutritional Supplements. PHYSICAL EXAM - Gen Alert and awake Lying in bed No apparent distress Oriented to: person, time, and place - Skin No skin breakdown. Normacephalic - Eyes No abnormalities - ENMT No abnormalities - Neck No abnormalities - CVS RRR - Chest No abnormalities - Resp Clear to auscultation - Abd Soft - GI + bowel sounds Deferred - No abnormalities - Ext Right hip surgical site has good hemostasis. - MSK 4+/5 weakness in right lower extremity - Neuro 4/5 strength right lower extremity. - Psych No abnormalities ASSESSMENT: Pt. is a 74 yo Right-handed white female.On 06/04/2020 she was admitted to [facility]] an d underwent emergency surgery for RIGHT FEMUR FRACTURE (Unilateral Hip Fracture) by SHEFALI ROBINS MD.P re-morbidly, Pt. was independent/mod-I in Safety Awareness, Balance, Transfers Control, Self-Care, Co mmunication, and Locomotion; and she had good Sphincter Control, Social Cognition, and Locomotion.Cur rently, she has deficits of Balance, Locomotion, Transfers Control, Self-Care, Endurance, and Sphinct er Control.Pt. is now referred to [facility] for acute in-patient rehabilitati on in order to maximize patient's functional independence in activities of daily living, strength, RO M, and mobility.- Rehab Goal Patient has realistic goal of being discharged at assistance level 6-Nany to reside at Home with Fam kali/Relatives. MDM/PLAN: - Physical Therapy Decreased range of motion - to improve, our physical therapists will perform initial evaluation of p t's status upon admission and devise an individualized program for increasing patient's Range of Sridhar on. Gait dysfunction - to improve, our physical therapists will perform initial evaluation of pt's statu s upon admission and devise an individualized program for Gait Training, and Wheel Chair mobility Inability to transfer - to improve, our physical therapists will perform initial evaluation of pt's status upon admission and devise an individualized program for Bed mobility Need for home safety evaluation - to improve, our physical therapists will perform initial evaluatio n of pt's status upon admission and devise an individualized program for Home Evaluation Need in caregiver upon discharge - to improve, our physical therapists will perform initial evaluati on of pt's status upon admission and devise an individualized program for Caregiver Training New precaution - to improve, our physical therapists will perform initial evaluation of pt's status upon admission and devise an individualized program for Patient precaution education Poor balance - to improve, our physical therapists will perform initial evaluation of pt's status up on admission and devise an individualized program for Balance Training Poor endurance - to improve, our physical therapists will perform initial evaluation of pt's status upon admission and devise an individualized program for Endurance Training Weakness - to improve, our physical therapists will perform initial evaluation of pt's status upon a dmission and devise an individualized program for Aquatic Therapy, Neuromuscular Reeducation, and Str engthening Achieving independence - to improve, our physical therapists will perform initial evaluation of pt's status upon admission and devise an individualized program for Community Reintegration Activities - Occupational Therapy ADL deficits - to improve, our occupation therapists will perform initial evaluation of pt's status upon admission and devise an individualized program for Bathing, Bed mobility, Community Reintegratio n, Cooking, Dressing, Eating, Fine Motor Skills, Grooming, Homemaking, Kitchen Mobility, Laundry, Pat ient Education, Safety Awareness, Splinting - Positioning, Transfers(Toilet, Tub, Shower), and Wheel Chair Management Need for career placement specialist - to improve, our occupation therapists will perform initial evaluation of pt's status upon admission and devise an individualized program for Caregiver Training Weakness - to improve, our occupation therapists will perform initial evaluation of pt's status upon admission and devise an individualized program for Aquatic Therapy, Balance, Endurance, UE ROM, and UE strengthening - Other See attached MAR (Medication Administration Record) - Anterior Hip Precaution No abduction No active extension No adduction across midline No external rotation No hip flexion >90 degrees No internal rotation - Diet - Liquid Texture Continue Regular - Tube Feed Continue N/A - Diet Type Continue Regular - Posterior Hip Precaution No adduction across midline No external rotation No hip flexion >90 degrees No internal rotation No wheel chair propulsion - Weight Bearing Precaution TTWB right LE - Skin care per protocol - Diet - Solid Texture Continue Regular - Shower allowing shower FUNCTIONAL STATUS: UPDATED AT WEEKLY TEAM CONFERENCE - Bladder Same accident frequency: 7-Ind - No accidents in the past 7 days - Bowel Same accident frequency: 7-Ind - No accidents in the past 7 days - Walking Same score based on distance walked: 0(N/A) Same score based on distance walked: 1(<=50ft) - Wheelchair Same score based on distance traveled: 0(N/A) FUNCTIONAL STATUS: - Self-Care A. Eating Nany B. Grooming Nany C. Bathing Thelma D. Dressing - Upper Thelma E. Dressing - Lower modA F. Toileting sup - Sphincter Control G. Bladder control sup H. Bowel control sup - Transfers Control I. Bed/Chair/Wheelchair Thelma J. Toilet Thelma K. Tub/Shower modA - Locomotion L. Walk/Wheelchair (B) Thelma M. Stairs maxA - Communication N. Comprehension (B) Nany O. Expression (B) Nany - Social Cognition P. Social Interaction Nany Q. Problem Solving Nany R. Memory Nany - Endurance Poor - Balance Fair - Safety Awareness Fair QI SCORES: - Self-Care A. Eating 04-Supervision or touching assistance B. Oral hygiene 03-Partial/moderate assistance C. Toileting hygiene 03-Partial/moderate assistance E. Shower/bathe self 03-Partial/moderate assistance F. Upper body dressing 03-Partial/moderate assistance G. Lower body dressing 03-Partial/moderate assistance H. Putting on/taking off footwear 03-Partial/moderate assistance - Mobility A. Roll left and right 03-Partial/moderate assistance B. Sit to lying 03-Partial/moderate assistance C. Lying to sitting on side of bed 03-Partial/moderate assistance D. Sit to stand 03-Partial/moderate assistance E. Chair/hby-xv-hxpus transfer 03-Partial/moderate assistance F. Toilet transfer 03-Partial/moderate assistance G. Car transfer 88-Not attempted due to medical condition or safety concerns I. Walk 10 feet 03-Partial/moderate assistance J. Walk 50 feet with two turns 88-Not attempted due to medical condition or safety concerns K. Walk 150 feet 88-Not attempted due to medical condition or safety concerns L. Walking 10 feet on uneven surfaces 88-Not attempted due to medical condition or safety concerns M. 1 step (curb) 88-Not attempted due to medical condition or safety concerns N. 4 steps 88-Not attempted due to medical condition or safety concerns O. 12 steps 88-Not attempted due to medical condition or safety concerns P. Picking up object 03-Partial/moderate assistance R. Wheel 50 feet with two turns 88-Not attempted due to medical condition or safety concerns S. Wheel 150 feet 88-Not attempted due to medical condition or safety concerns - Bladder and Bowel Bladder continence 0-Always continent Bowel continence 0-Always continent - Endurance Poor - Balance Poor - Safety Awareness Poor CURRENT FUNC. DEFICITS: Endurance, Balance, Mobility, Safety Awareness, and Self-Care SIGNATURE PANEL: (CDT)
[2020-06-09] MEDS: MELATONIN 3 MG TABLET PO PRN (21:54)
[2020-06-10] MEDS: ENOXAPARIN 40 MG/0.4 ML SQ SCH (07:00)
[2020-06-10] MEDS: BUPROPION HCL 300 MG PO SCH (08:48)
[2020-06-10] MEDS: MAGNESIUM OXIDE 400 MG TAB PO SCH ×2 (08:49→20:07)
[2020-06-10] MEDS: GABAPENTIN 300 MG CAP PO SCH ×2 (08:49→20:07)
[2020-06-10] MEDS: POLYETHYL GLY 3350 17 GM/DOSE PO SCH (08:49)
[2020-06-10] MEDS: hydroCHLOROthiazide 25 MG TAB PO SCH (08:50)
[2020-06-10] MEDS: TRAMADOL HCL 50 MG TAB PO PRN ×3 (08:50→21:43)
[2020-06-10] MEDS: lisinopriL 5 MG TAB PO SCH (08:51)
[2020-06-10] MEDS: VALSARTAN 160 MG TAB PO SCH (08:51)
[2020-06-10] MEDS: PROMOD 30 ML DOSE PO SCH ×2 (08:54→20:07)
[2020-06-11] MEDS: BUPROPION HCL 300 MG PO SCH (07:32)
[2020-06-11] MEDS: ENOXAPARIN 40 MG/0.4 ML SQ SCH (07:32)
[2020-06-11] MEDS: VALSARTAN 160 MG TAB PO SCH (07:33)
[2020-06-11] MEDS: POLYETHYL GLY 3350 17 GM/DOSE PO SCH (07:34)
[2020-06-11] MEDS: hydroCHLOROthiazide 25 MG TAB PO SCH (07:34)
[2020-06-11] MEDS: lisinopriL 5 MG TAB PO SCH (07:35)
[2020-06-11] MEDS: MAGNESIUM OXIDE 400 MG TAB PO SCH ×2 (07:35→19:13)
[2020-06-11] MEDS: GABAPENTIN 300 MG CAP PO SCH ×2 (07:35→19:13)
[2020-06-11] MEDS: TRAMADOL HCL 50 MG TAB PO PRN ×3 (07:41→22:00)
[2020-06-11] MEDS: PROMOD 30 ML DOSE PO SCH ×2 (07:41→19:14)
--- NOTE | 2020-06-11 18:37 | R.PN ---
ENCOUNTER DATE AND TIME: 06/11/2020 18:29 (CDT) NAME TRIP LAM DATE OF : 1945 DATE OF ADMISSION: 06/06/2020 09:53 (CDT) RIGHT FEMUR FRACTURECHIEF COMPLAINT: Right femur fracture, uncontrolled blood pressure SUBJECTIVE: Pt denied any Shortness of Breath. Pt denied any depression. Start antonio inhibitor prinivil 2.5 mg daily in the AM for elevated blood pressures. Ambulated 250' with standby assistance. Mobilized wheelchair 750' with independence. Her pain is well managed and she is sleeping well at night. VITAL SIGNS Temperature: 97.7 F SBP/DBP: 147/70 Pulse: 71 Resp: 16 Clonidine 0.1 mg q 4 hours for SBP > 170. MEDICATION ALLERGIES: CEPHALEXIN ENVIRONMENTAL ALLERGIES: - Substance Allergies None Known - Other Allergies None Known NURSING: - Shower allowing shower - Skin care per protocol PRECAUTIONS: - Anterior Hip Precaution No abduction No active extension No adduction across midline No external rotation No hip flexion >90 degrees No internal rotation - Posterior Hip Precaution No adduction across midline No external rotation No hip flexion >90 degrees No internal rotation No wheel chair propulsion - Weight Bearing Precaution TTWB right LE ACTIVITIES OOB only with supervision THERAPIES: - Dietary and Nutrition Adequate Nutrition. Nutritional Education. Nutritional Supplements. PHYSICAL EXAM - Gen Alert and awake Lying in bed No apparent distress Oriented to: person, time, and place - Skin No skin breakdown. Normacephalic - Eyes No abnormalities - ENMT No abnormalities - Neck No abnormalities - CVS RRR - Chest No abnormalities - Resp Clear to auscultation - Abd Soft - GI + bowel sounds Deferred - No abnormalities - Ext Right hip surgical site has good hemostasis. - MSK 4+/5 weakness in right lower extremity - Neuro 4/5 strength right lower extremity. - Psych No abnormalities ASSESSMENT: Pt. is a 74 yo Right-handed white female.On 06/04/2020 she was admitted to [facility] an d underwent emergency surgery for RIGHT FEMUR FRACTURE (Unilateral Hip Fracture) by SHEFALI ROBINS MD.P re-morbidly, Pt. was independent/mod-I in Safety Awareness, Balance, Transfers Control, Self-Care, Co mmunication, and Locomotion; and she had good Sphincter Control, Social Cognition, and Locomotion.Cur rently, she has deficits of Balance, Locomotion, Transfers Control, Self-Care, Endurance, and Sphinct er Control.Pt. is now referred to [facility] for acute in-patient rehabilitati on in order to maximize patient's functional independence in activities of daily living, strength, RO M, and mobility.- Rehab Goal Patient has realistic goal of being discharged at assistance level 6-Nany to reside at Home with Fam kali/Relatives. MDM/PLAN: - Physical Therapy Decreased range of motion - to improve, our physical therapists will perform initial evaluation of p t's status upon admission and devise an individualized program for increasing patient's Range of Sridhar on. Gait dysfunction - to improve, our physical therapists will perform initial evaluation of pt's statu s upon admission and devise an individualized program for Gait Training, and Wheel Chair mobility Inability to transfer - to improve, our physical therapists will perform initial evaluation of pt's status upon admission and devise an individualized program for Bed mobility Need for home safety evaluation - to improve, our physical therapists will perform initial evaluatio n of pt's status upon admission and devise an individualized program for Home Evaluation Need in caregiver upon discharge - to improve, our physical therapists will perform initial evaluati on of pt's status upon admission and devise an individualized program for Caregiver Training New precaution - to improve, our physical therapists will perform initial evaluation of pt's status upon admission and devise an individualized program for Patient precaution education Poor balance - to improve, our physical therapists will perform initial evaluation of pt's status up on admission and devise an individualized program for Balance Training Poor endurance - to improve, our physical therapists will perform initial evaluation of pt's status upon admission and devise an individualized program for Endurance Training Weakness - to improve, our physical therapists will perform initial evaluation of pt's status upon a dmission and devise an individualized program for Aquatic Therapy, Neuromuscular Reeducation, and Str engthening Achieving independence - to improve, our physical therapists will perform initial evaluation of pt's status upon admission and devise an individualized program for Community Reintegration Activities - Occupational Therapy ADL deficits - to improve, our occupation therapists will perform initial evaluation of pt's status upon admission and devise an individualized program for Bathing, Bed mobility, Community Reintegratio n, Cooking, Dressing, Eating, Fine Motor Skills, Grooming, Homemaking, Kitchen Mobility, Laundry, Pat ient Education, Safety Awareness, Splinting - Positioning, Transfers(Toilet, Tub, Shower), and Wheel Chair Management Need for post acute care nurse - to improve, our occupation therapists will perform initial evaluation of pt's status upon admission and devise an individualized program for Caregiver Training Weakness - to improve, our occupation therapists will perform initial evaluation of pt's status upon admission and devise an individualized program for Aquatic Therapy, Balance, Endurance, UE ROM, and UE strengthening - Other See attached MAR (Medication Administration Record) - Anterior Hip Precaution No abduction No active extension No adduction across midline No external rotation No hip flexion >90 degrees No internal rotation - Diet - Liquid Texture Continue Regular - Tube Feed Continue N/A - Diet Type Continue Regular - Posterior Hip Precaution No adduction across midline No external rotation No hip flexion >90 degrees No internal rotation No wheel chair propulsion - Weight Bearing Precaution TTWB right LE - Skin care per protocol - Diet - Solid Texture Continue Regular - Shower allowing shower FUNCTIONAL STATUS: UPDATED AT WEEKLY TEAM CONFERENCE - Bladder Same accident frequency: 7-Ind - No accidents in the past 7 days - Bowel Same accident frequency: 7-Ind - No accidents in the past 7 days - Walking Same score based on distance walked: 0(N/A) Same score based on distance walked: 1(<=50ft) - Wheelchair Same score based on distance traveled: 0(N/A) FUNCTIONAL STATUS: - Self-Care A. Eating Nany B. Grooming Nany C. Bathing Thelma D. Dressing - Upper Thelma E. Dressing - Lower modA F. Toileting sup - Sphincter Control G. Bladder control sup H. Bowel control sup - Transfers Control I. Bed/Chair/Wheelchair Thelma J. Toilet Thelma K. Tub/Shower modA - Locomotion L. Walk/Wheelchair (B) Thelma M. Stairs maxA - Communication N. Comprehension (B) Nany O. Expression (B) Nany - Social Cognition P. Social Interaction Nany Q. Problem Solving Nany R. Memory Nany - Endurance Poor - Balance Fair - Safety Awareness Fair QI SCORES: - Self-Care A. Eating 04-Supervision or touching assistance B. Oral hygiene 03-Partial/moderate assistance C. Toileting hygiene 03-Partial/moderate assistance E. Shower/bathe self 03-Partial/moderate assistance F. Upper body dressing 03-Partial/moderate assistance G. Lower body dressing 03-Partial/moderate assistance H. Putting on/taking off footwear 03-Partial/moderate assistance - Mobility A. Roll left and right 03-Partial/moderate assistance B. Sit to lying 03-Partial/moderate assistance C. Lying to sitting on side of bed 03-Partial/moderate assistance D. Sit to stand 03-Partial/moderate assistance E. Chair/[id number] transfer 03-Partial/moderate assistance F. Toilet transfer 03-Partial/moderate assistance G. Car transfer 88-Not attempted due to medical condition or safety concerns I. Walk 10 feet 03-Partial/moderate assistance J. Walk 50 feet with two turns 88-Not attempted due to medical condition or safety concerns K. Walk 150 feet 88-Not attempted due to medical condition or safety concerns L. Walking 10 feet on uneven surfaces 88-Not attempted due to medical condition or safety concerns M. 1 step (curb) 88-Not attempted due to medical condition or safety concerns N. 4 steps 88-Not attempted due to medical condition or safety concerns O. 12 steps 88-Not attempted due to medical condition or safety concerns P. Picking up object 03-Partial/moderate assistance R. Wheel 50 feet with two turns 88-Not attempted due to medical condition or safety concerns S. Wheel 150 feet 88-Not attempted due to medical condition or safety concerns - Bladder and Bowel Bladder continence 0-Always continent Bowel continence 0-Always continent - Endurance Poor - Balance Poor - Safety Awareness Poor CURRENT FUNC. DEFICITS: Endurance, Balance, Mobility, Safety Awareness, and Self-Care SIGNATURE PANEL: (CDT)
[2020-06-11] MEDS: MELATONIN 3 MG TABLET PO PRN (19:13)
[2020-06-12] MEDS: TRAMADOL HCL 50 MG TAB PO PRN ×4 (06:16→20:48)
[2020-06-12 06:22] LABS: Absolute Lymphocytes (CBC) 0.9 K/uL (0.7-4.9); Basophils % 0.8 % (0-1.3); Hematocrit 33.2 % (36.0-45.0); Lymphocytes % 15.2 % (15.3-44.8); MPV 8.2 fL (7.6-11.3); RBC Red Blood Cell Count 3.58 M/uL (3.86-4.86)
[2020-06-12] MEDS: ENOXAPARIN 40 MG/0.4 ML SQ SCH (06:37)
[2020-06-12 07:13] LABS: Albumin 2.6 g/dL (3.4-5.0); Prealbumin 21.6 mg/dL (20-40)
[2020-06-12 07:17] LABS: Magnesium 2.3 mg/dL (1.8-2.4); Potassium 4.8 mmol/L (3.5-5.1)
[2020-06-12] MEDS: VALSARTAN 160 MG TAB PO SCH (07:47)
[2020-06-12] MEDS: POLYETHYL GLY 3350 17 GM/DOSE PO SCH (07:47)
[2020-06-12] MEDS: BUPROPION HCL 300 MG PO SCH (07:47)
[2020-06-12] MEDS: PROMOD 30 ML DOSE PO SCH ×2 (07:47→19:18)
[2020-06-12] MEDS: MAGNESIUM OXIDE 400 MG TAB PO SCH ×2 (07:48→19:18)
[2020-06-12] MEDS: hydroCHLOROthiazide 25 MG TAB PO SCH (07:48)
[2020-06-12] MEDS: GABAPENTIN 300 MG CAP PO SCH ×2 (07:48→19:18)
[2020-06-12] MEDS: lisinopriL 5 MG TAB PO SCH (07:49)
[2020-06-12] MEDS: LIDOCAINE 4% PATCH TOP SCH (08:44)
[2020-06-13] MEDS: ENOXAPARIN 40 MG/0.4 ML SQ SCH (06:22)
[2020-06-13] MEDS: BUPROPION HCL 300 MG PO SCH (07:58)
[2020-06-13] MEDS: VALSARTAN 160 MG TAB PO SCH (07:58)
[2020-06-13] MEDS: MAGNESIUM OXIDE 400 MG TAB PO SCH ×2 (07:58→19:40)
[2020-06-13] MEDS: POLYETHYL GLY 3350 17 GM/DOSE PO SCH (07:58)
[2020-06-13] MEDS: lisinopriL 5 MG TAB PO SCH (07:59)
[2020-06-13] MEDS: GABAPENTIN 300 MG CAP PO SCH ×2 (08:00→19:40)
[2020-06-13] MEDS: hydroCHLOROthiazide 25 MG TAB PO SCH (08:00)
[2020-06-13] MEDS: PROMOD 30 ML DOSE PO SCH ×2 (08:01→19:41)
[2020-06-13] MEDS: TRAMADOL HCL 50 MG TAB PO PRN ×3 (08:02→19:57)
[2020-06-13] MEDS: LIDOCAINE 4% PATCH TOP SCH (09:05)
--- NOTE | 2020-06-13 13:39 | P.RH.PN ---
Estimated Length of Stay: 20 Expected Discharge Date: 06/25/20 Discharge Disposition Plan: Home Family Support: Yes Retirement Goal: Mobility, Transfers, Self Care Vital Signs: Last Vital Signs Temp 97.1 F 06/13/20 07:24 Pulse 72 06/13/20 08:00 Resp 16 06/13/20 12:44 BP 160/78 H 06/13/20 08:00 Pulse Ox 95 06/13/20 12:44 Laboratory: Laboratory Last Values WBC 6.1 K/uL (4.3-10.9) D 06/12/20 05:37 RBC 3.58 M/uL (3.86-4.86) L 06/12/20 05:37 Hgb 11.4 g/dL (12.0-15.0) L 06/12/20 05:37 Hct 33.2 % (36.0-45.0) L 06/12/20 05:37 MCV 92.5 fL (80-100) 06/12/20 05:37 MCH 31.7 pg (27.0-35.0) 06/12/20 05:37 MCHC 34.3 g/dL (32.0-36.0) 06/12/20 05:37 RDW 13.3 % (12.1-15.2) 06/12/20 05:37 Plt Count 236 K/uL (152-406) D 06/12/20 05:37 MPV 8.2 fL (7.6-11.3) 06/12/20 05:37 Neutrophils % 71.0 % (41.7-73.7) 06/12/20 05:37 Lymphocytes % 15.2 % (15.3-44.8) L 06/12/20 05:37 Monocytes % 9.8 % (3.3-12.3) 06/12/20 05:37 Eosinophils % 3.2 % (0-4.4) 06/12/20 05:37 Basophils % 0.8 % (0-1.3) 06/12/20 05:37 Absolute Neutrophils 4.3 K/uL (1.8-8.0) 06/12/20 05:37 Absolute Lymphocytes 0.9 K/uL (0.7-4.9) 06/12/20 05:37 Absolute Monocytes 0.6 K/uL (0.1-1.3) 06/12/20 05:37 Absolute Eosinophils 0.2 K/uL (0-0.5) 06/12/20 05:37 Absolute Basophils 0.1 K/uL (0-0.5) 06/12/20 05:37 Sodium 141 mmol/L (136-145) 06/12/20 05:37 Potassium 4.8 mmol/L (3.5-5.1) 06/12/20 05:37 Chloride 107 mmol/L (98-107) 06/12/20 05:37 Carbon Dioxide 30 mmol/L (21-32) 06/12/20 05:37 BUN 38 mg/dL (7-18) H D 06/12/20 05:37 Creatinine 1.09 mg/dL (0.55-1.3) 06/12/20 05:37 Estimated GFR 49 mL/min (=/>90) L 06/12/20 05:37 Glucose 103 mg/dL (74-106) 06/12/20 05:37 Calcium 8.7 mg/dL (8.5-10.1) 06/12/20 05:37 Magnesium 2.3 mg/dL (1.8-2.4) D 06/12/20 05:37 Albumin 2.6 g/dL (3.4-5.0) L 06/12/20 05:37 Prealbumin 21.6 mg/dL (20-40) 06/12/20 05:37 Urine Color Yellow 06/06/20 12:34 Urine Appearance Clear 06/06/20 12:34 Urine pH 6.5 (5.0-7.0) 06/06/20 12:34 Ur Specific Donie 1.010 (1.005-1.030) 06/06/20 12:34 Glucose (UA)(Auto) Negative (NEG) 06/06/20 12:34 Urine Ketones Negative (NEG) 06/06/20 12:34 Urine Blood Negative (NEG) 06/06/20 12:34 Urine Nitrite Negative (NEG) 06/06/20 12:34 Urine Bilirubin Negative (NEG) 06/06/20 12:34 Urine Urobilinogen 0.2 mg/dL (0.2-1.0) 06/06/20 12:34 Ur Leukocyte Esterase Negative (NEG) 06/06/20 12:34 Urine RBC <5 /HPF (NONE SEEN) 06/06/20 12:34 Urine WBC <5 /HPF (<5) 06/06/20 12:34 Ur Squamous Epith Cells <5 /HPF (NONE SEEN) 06/06/20 12:34 Urine Bacteria <20 /HPF (<20) 06/06/20 12:34 Urine Culture Reflexed Not needed 06/06/20 12:34 Urine Total Protein Negative (NEG) 06/06/20 12:34 Weight: 150 lb 1 oz Wound Present: No Closed Surgical Incision Present: Yes Negative Pressure Wound Therapy Present: No Physician Update: Labs reviewed and she is mildly dehydrated. Will push free water. She is doing well with contact guard for dressing upper and lower body. She does well with standing balance. She will likely need more therapy and walks 60' with standby assistance using a walker. Comment: 06/04/20 S/P ORIF of right femur. Summary: Patient's care plan and long term care social worker goals have been reviewed and revised as necessary. Please see the Rehabilitation Signature page for all necessary signatures.
[2020-06-13] MEDS: cloNIDine HCL 0.1 MG TAB PO PRN (19:39)
[2020-06-14] MEDS: ENOXAPARIN 40 MG/0.4 ML SQ SCH (07:18)
[2020-06-14] MEDS: LIDOCAINE 4% PATCH TOP SCH (08:32)
[2020-06-14] MEDS: POLYETHYL GLY 3350 17 GM/DOSE PO SCH (08:33)
[2020-06-14] MEDS: VALSARTAN 160 MG TAB PO SCH (08:34)
[2020-06-14] MEDS: GABAPENTIN 300 MG CAP PO SCH ×2 (08:36→19:45)
[2020-06-14] MEDS: hydroCHLOROthiazide 25 MG TAB PO SCH (08:37)
[2020-06-14] MEDS: TRAMADOL HCL 50 MG TAB PO PRN ×4 (08:37→23:44)
[2020-06-14] MEDS: PROMOD 30 ML DOSE PO SCH ×2 (08:38→19:45)
[2020-06-14] MEDS: MAGNESIUM OXIDE 400 MG TAB PO SCH ×2 (08:41→19:45)
[2020-06-14] MEDS: BUPROPION HCL 300 MG PO SCH (12:03)
[2020-06-14] MEDS: lisinopriL 5 MG TAB PO SCH (12:04)
[2020-06-15] MEDS: TRAMADOL HCL 50 MG TAB PO PRN ×2 (05:50→19:40)
[2020-06-15] MEDS: ENOXAPARIN 40 MG/0.4 ML SQ SCH (07:18)
[2020-06-15] MEDS: LIDOCAINE 4% PATCH TOP SCH (07:18)
[2020-06-15] MEDS: PROMOD 30 ML DOSE PO SCH ×2 (07:31→19:39)
[2020-06-15] MEDS: MAGNESIUM OXIDE 400 MG TAB PO SCH ×2 (07:31→19:39)
[2020-06-15] MEDS: POLYETHYL GLY 3350 17 GM/DOSE PO SCH (07:31)
[2020-06-15] MEDS: lisinopriL 5 MG TAB PO SCH (07:32)
[2020-06-15] MEDS: VALSARTAN 160 MG TAB PO SCH (07:32)
[2020-06-15] MEDS: hydroCHLOROthiazide 25 MG TAB PO SCH (07:32)
[2020-06-15] MEDS: BUPROPION HCL 300 MG PO SCH (07:33)
[2020-06-15] MEDS: GABAPENTIN 300 MG CAP PO SCH ×2 (07:33→19:39)
--- NOTE | 2020-06-16 02:14 | FAST ---
[employer] FORM SHIFT START DATE/TIME: 06/15/2020 19:00 (CDT) SHIFT END DATE/TIME: 06/16/2020 07:00 (CDT) NAME TRIP LAM DATE OF : 1945 DATE OF ADMISSION: 06/06/2020 09:53 (CDT) PHONE: AGE: 74 N# [id number] GENDER: Female ENCOUNTER PHYSICIAN: Dr. Neo Trinidad M.D. ADMISSION DIAGNOSIS: - Orthopaedic Disorders 08 - Unilateral Hip Fracture (08.11) RIGHT FEMUR FRACTURE. EATING: Not assessed/no information CODE: - ORAL HYGIENE: Not assessed/no information CODE: - TOILETING HYGIENE: TOILETING HYGIENE - STEP 1: Does the patient complete the activity by him/herself with no assistance (physical, verbal/nonverbal cueing, setup/clean-up)? No. TOILETING HYGIENE - STEP 2: Does the patient need only setup/clean-up assistance from one helper? No. TOILETING HYGIENE - STEP 3: Does the patient need only verbal/nonverbal cueing or touching/steadying/contact guard assistance fro m one helper? Yes. 1. [id number] ADMISSION PERFORMANCE: Supervision or touching assistance CODE: 04 BATHING: Not assessed/no information CODE: - DRESSING - UPPER BODY: Not assessed/no information CODE: - DRESSING - LOWER BODY: Not assessed/no information CODE: - PUTTING ON/TAKING OFF FOOTWEAR: Not assessed/no information CODE: - ROLL LEFT AND RIGHT: Not assessed/no information CODE: - SIT TO LYING: SIT TO LYING - STEP 1: Does the patient complete the activity by him/herself with no assistance (physical, verbal/nonverbal cueing, setup/clean-up)? No. SIT TO LYING - STEP 2: Does the patient need only setup/clean-up assistance from one helper? No. SIT TO LYING - STEP 3: Does the patient need only verbal/nonverbal cueing or touching/steadying/contact guard assistance fro m one helper? Yes. 1. [id number] ADMISSION PERFORMANCE: Supervision or touching assistance CODE: 04 LYING TO SITTING: LYING TO SITTING ON SIDE OF BED - STEP 1: Does the patient complete the activity by him/herself with no assistance (physical, verbal/nonverbal cueing, setup/clean-up)? No. LYING TO SITTING ON SIDE OF BED - STEP 2: Does the patient need only setup/clean-up assistance from one helper? No. LYING TO SITTING ON SIDE OF BED - STEP 3: Does the patient need only verbal/nonverbal cueing or touching/steadying/contact guard assistance fro m one helper? Yes. 1. [id number] ADMISSION PERFORMANCE: Supervision or touching assistance CODE: 04 SIT TO STAND: SIT TO STAND - STEP 1: Does the patient complete the activity by him/herself with no assistance (physical, verbal/nonverbal cueing, setup/clean-up)? No. SIT TO STAND - STEP 2: Does the patient need only setup/clean-up assistance from one helper? No. SIT TO STAND - STEP 3: Does the patient need only verbal/nonverbal cueing or touching/steadying/contact guard assistance fro m one helper? Yes. 1. [id number] ADMISSION PERFORMANCE: Supervision or touching assistance CODE: 04 TRANSFERS: BED, CHAIR: [id number]/[id number] TRANSFER - STEP 1: Does the patient complete the activity by him/herself with no assistance (physical, verbal/nonverbal cueing, setup/clean-up)? No. CHAIR/[id number] TRANSFER - STEP 2: Does the patient need only setup/clean-up assistance from one helper? No. CHAIR/[id number] TRANSFER - STEP 3: Does the patient need only verbal/nonverbal cueing or touching/steadying/contact guard assistance fro m one helper? Yes. 1. [id number] ADMISSION PERFORMANCE: Supervision or touching assistance CODE: 04 TRANSFER TOILET: TOILET TRANSFER - STEP 1: Does the patient complete the activity by him/herself with no assistance (physical, verbal/nonverbal cueing, setup/clean-up)? No. TOILET TRANSFER - STEP 2: Does the patient need only setup/clean-up assistance from one helper? No. TOILET TRANSFER - STEP 3: Does the patient need only verbal/nonverbal cueing or touching/steadying/contact guard assistance fro m one helper? Yes. 1. [id number] ADMISSION PERFORMANCE: Supervision or touching assistance CODE: 04 TRANSFERS: CAR: Not assessed/no information CODE: - WALK 10 FEET: Not assessed/no information CODE: - 1 STEP (CURB): Not assessed/no information CODE: - PICKING UP OBJECT: Not assessed/no information CODE: - DOES THE PATIENT USE A WHEELCHAIR/SCOOTER? CODE: EXPR WHEEL 50 FEET WITH TWO TURNS: Not assessed/no information CODE: - INDICATE THE TYPE OF WHEELCHAIR/SCOOTER USED: CODE: EXPR WHEEL 150 FEET: Not assessed/no information CODE: - INDICATE THE TYPE OF WHEELCHAIR/SCOOTER USED: CODE: EXPR BLADDER AND BOWEL: H350. BLADDER CONTINENCE (3-DAY ASSESSMENT PERIOD): Always continent (no documented incontinence) CODE: 0 H400. BOWEL CONTINENCE (3-DAY ASSESSMENT PERIOD): Always continent CODE: 0
[2020-06-16] MEDS: TRAMADOL HCL 50 MG TAB PO PRN ×4 (04:13→17:07)
[2020-06-16] MEDS: ENOXAPARIN 40 MG/0.4 ML SQ SCH (07:03)
[2020-06-16] MEDS: LIDOCAINE 4% PATCH TOP SCH ×4 (08:00→11:23)
[2020-06-16] MEDS: POLYETHYL GLY 3350 17 GM/DOSE PO SCH (08:19)
[2020-06-16] MEDS: BUPROPION HCL 300 MG PO SCH (08:20)
[2020-06-16] MEDS: GABAPENTIN 300 MG CAP PO SCH ×2 (08:22→18:52)
[2020-06-16] MEDS: hydroCHLOROthiazide 25 MG TAB PO SCH (08:22)
[2020-06-16] MEDS: VALSARTAN 160 MG TAB PO SCH (08:22)
[2020-06-16] MEDS: lisinopriL 5 MG TAB PO SCH (08:23)
[2020-06-16] MEDS: MAGNESIUM OXIDE 400 MG TAB PO SCH ×2 (08:23→18:52)
[2020-06-16] MEDS: PROMOD 30 ML DOSE PO SCH ×2 (08:25→18:51)
--- NOTE | 2020-06-16 18:56 | R.PN ---
PROGRESS NOTES ENCOUNTER DATE AND TIME: 06/16/2020 18:52 (CDT) NAME TRIP LAM DATE OF : 1945 DATE OF ADMISSION: 06/06/2020 09:53 (CDT) RIGHT FEMUR FRACTURECHIEF COMPLAINT: Right femur fracture, uncontrolled blood pressure SUBJECTIVE: Pt denied any Shortness of Breath. Pt denied any depression. Start antonio inhibitor prinivil 2.5 mg daily in the AM for elevated blood pressures. Ambulated 250' with standby assistance using a rolling walker. Mobilized wheelchair 750' with indepen dence. Her pain is well managed and she is sleeping well at night. WBC 6.1, Hgb 11.4, prealbumin 21.6. VITAL SIGNS Temperature: 98.2 F SBP/DBP: 156/75 Pulse: 77 Resp: 16 Clonidine 0.1 mg q 4 hours for SBP > 170. MEDICATION ALLERGIES: CEPHALEXIN ENVIRONMENTAL ALLERGIES: - Substance Allergies None Known - Other Allergies None Known NURSING: - Shower allowing shower - Skin care per protocol PRECAUTIONS: - Anterior Hip Precaution No abduction No active extension No adduction across midline No external rotation No hip flexion >90 degrees No internal rotation - Posterior Hip Precaution No adduction across midline No external rotation No hip flexion >90 degrees No internal rotation No wheel chair propulsion - Weight Bearing Precaution TTWB right LE ACTIVITIES OOB only with supervision THERAPIES: - Dietary and Nutrition Adequate Nutrition. Nutritional Education. Nutritional Supplements. PHYSICAL EXAM - Gen Alert and awake Lying in bed No apparent distress Oriented to: person, time, and place - Skin No skin breakdown. Normacephalic - Eyes No abnormalities - ENMT No abnormalities - Neck No abnormalities - CVS RRR - Chest No abnormalities - Resp Clear to auscultation - Abd Soft - GI + bowel sounds Deferred - No abnormalities - Ext Right hip surgical site has good hemostasis. - MSK 4+/5 weakness in right lower extremity - Neuro 4/5 strength right lower extremity. - Psych No abnormalities ASSESSMENT: Pt. is a 74 yo Right-handed white female.On 06/04/2020 she was admitted to [facility] an d underwent emergency surgery for RIGHT FEMUR FRACTURE (Unilateral Hip Fracture) by SHEFALI ROBINS MD.P re-morbidly, Pt. was independent/mod-I in Safety Awareness, Balance, Transfers Control, Self-Care, Co mmunication, and Locomotion; and she had good Sphincter Control, Social Cognition, and Locomotion.Cur rently, she has deficits of Balance, Locomotion, Transfers Control, Self-Care, Endurance, and Sphinct er Control.Pt. is now referred to [facility] for acute in-patient rehabilitati on in order to maximize patient's functional independence in activities of daily living, strength, RO M, and mobility.- Rehab Goal Patient has realistic goal of being discharged at assistance level 6-Nany to reside at Home with Fam kali/Relatives. MDM/PLAN: - Physical Therapy Decreased range of motion - to improve, our physical therapists will perform initial evaluation of p t's status upon admission and devise an individualized program for increasing patient's Range of Sridhar on. Gait dysfunction - to improve, our physical therapists will perform initial evaluation of pt's statu s upon admission and devise an individualized program for Gait Training, and Wheel Chair mobility Inability to transfer - to improve, our physical therapists will perform initial evaluation of pt's status upon admission and devise an individualized program for Bed mobility Need for home safety evaluation - to improve, our physical therapists will perform initial evaluatio n of pt's status upon admission and devise an individualized program for Home Evaluation Need in caregiver upon discharge - to improve, our physical therapists will perform initial evaluati on of pt's status upon admission and devise an individualized program for Caregiver Training New precaution - to improve, our physical therapists will perform initial evaluation of pt's status upon admission and devise an individualized program for Patient precaution education Poor balance - to improve, our physical therapists will perform initial evaluation of pt's status up on admission and devise an individualized program for Balance Training Poor endurance - to improve, our physical therapists will perform initial evaluation of pt's status upon admission and devise an individualized program for Endurance Training Weakness - to improve, our physical therapists will perform initial evaluation of pt's status upon a dmission and devise an individualized program for Aquatic Therapy, Neuromuscular Reeducation, and Str engthening Achieving independence - to improve, our physical therapists will perform initial evaluation of pt's status upon admission and devise an individualized program for Community Reintegration Activities - Occupational Therapy ADL deficits - to improve, our occupation therapists will perform initial evaluation of pt's status upon admission and devise an individualized program for Bathing, Bed mobility, Community Reintegratio n, Cooking, Dressing, Eating, Fine Motor Skills, Grooming, Homemaking, Kitchen Mobility, Laundry, Pat ient Education, Safety Awareness, Splinting - Positioning, Transfers(Toilet, Tub, Shower), and Wheel Chair Management Need for client care coordinator - to improve, our occupation therapists will perform initial evaluation of pt's status upon admission and devise an individualized program for Caregiver Training Weakness - to improve, our occupation therapists will perform initial evaluation of pt's status upon admission and devise an individualized program for Aquatic Therapy, Balance, Endurance, UE ROM, and UE strengthening - Other See attached MAR (Medication Administration Record) - Anterior Hip Precaution No abduction No active extension No adduction across midline No external rotation No hip flexion >90 degrees No internal rotation - Diet - Liquid Texture Continue Regular - Tube Feed Continue N/A - Diet Type Continue Regular - Posterior Hip Precaution No adduction across midline No external rotation No hip flexion >90 degrees No internal rotation No wheel chair propulsion - Weight Bearing Precaution TTWB right LE - Skin care per protocol - Diet - Solid Texture Continue Regular - Shower allowing shower FUNCTIONAL STATUS: UPDATED AT WEEKLY TEAM CONFERENCE - Bladder Same accident frequency: 7-Ind - No accidents in the past 7 days - Bowel Same accident frequency: 7-Ind - No accidents in the past 7 days - Walking Same score based on distance walked: 0(N/A) Same score based on distance walked: 1(<=50ft) - Wheelchair Same score based on distance traveled: 0(N/A) FUNCTIONAL STATUS: - Self-Care A. Eating Nany B. Grooming Nany C. Bathing Themla D. Dressing - Upper Thelma E. Dressing - Lower modA F. Toileting sup - Sphincter Control G. Bladder control sup H. Bowel control sup - Transfers Control I. Bed/Chair/Wheelchair Thelma J. Toilet Thelma K. Tub/Shower modA - Locomotion L. Walk/Wheelchair (B) Thelma M. Stairs maxA - Communication N. Comprehension (B) Nany O. Expression (B) Nany - Social Cognition P. Social Interaction Nany Q. Problem Solving Nany R. Memory Nany - Endurance Poor - Balance Fair - Safety Awareness Fair QI SCORES: - Self-Care A. Eating 04-Supervision or touching assistance B. Oral hygiene 03-Partial/moderate assistance C. Toileting hygiene 03-Partial/moderate assistance E. Shower/bathe self 03-Partial/moderate assistance F. Upper body dressing 03-Partial/moderate assistance G. Lower body dressing 03-Partial/moderate assistance H. Putting on/taking off footwear 03-Partial/moderate assistance - Mobility A. Roll left and right 03-Partial/moderate assistance B. Sit to lying 03-Partial/moderate assistance C. Lying to sitting on side of bed 03-Partial/moderate assistance D. Sit to stand 03-Partial/moderate assistance E. Chair/[id number] transfer 03-Partial/moderate assistance F. Toilet transfer 03-Partial/moderate assistance G. Car transfer 88-Not attempted due to medical condition or safety concerns I. Walk 10 feet 03-Partial/moderate assistance J. Walk 50 feet with two turns 88-Not attempted due to medical condition or safety concerns K. Walk 150 feet 88-Not attempted due to medical condition or safety concerns L. Walking 10 feet on uneven surfaces 88-Not attempted due to medical condition or safety concerns M. 1 step (curb) 88-Not attempted due to medical condition or safety concerns N. 4 steps 88-Not attempted due to medical condition or safety concerns O. 12 steps 88-Not attempted due to medical condition or safety concerns P. Picking up object 03-Partial/moderate assistance R. Wheel 50 feet with two turns 88-Not attempted due to medical condition or safety concerns S. Wheel 150 feet 88-Not attempted due to medical condition or safety concerns - Bladder and Bowel Bladder continence 0-Always continent Bowel continence 0-Always continent - Endurance Poor - Balance Poor - Safety Awareness Poor CURRENT FUNC. DEFICITS: Endurance, Balance, Mobility, Safety Awareness, and Self-Care SIGNATURE PANEL: (CDT)
[2020-06-17] MEDS: TRAMADOL HCL 50 MG TAB PO PRN ×4 (03:08→16:22)
[2020-06-17] MEDS: LIDOCAINE 4% PATCH TOP SCH (07:10)
[2020-06-17] MEDS: ENOXAPARIN 40 MG/0.4 ML SQ SCH (07:10)
[2020-06-17] MEDS: BUPROPION HCL 300 MG PO SCH (07:44)
[2020-06-17] MEDS: POLYETHYL GLY 3350 17 GM/DOSE PO SCH (07:45)
[2020-06-17] MEDS: MAGNESIUM OXIDE 400 MG TAB PO SCH ×2 (07:45→19:13)
[2020-06-17] MEDS: PROMOD 30 ML DOSE PO SCH ×2 (07:45→19:13)
[2020-06-17] MEDS: GABAPENTIN 300 MG CAP PO SCH ×2 (07:46→19:13)
[2020-06-17] MEDS: VALSARTAN 160 MG TAB PO SCH (07:46)
[2020-06-17] MEDS: hydroCHLOROthiazide 25 MG TAB PO SCH (07:46)
[2020-06-17] MEDS: lisinopriL 5 MG TAB PO SCH (07:50)
[2020-06-17 11:01] LABS: Basophils % 0.9 % (0-1.3); Hematocrit 36.7 % (36.0-45.0); Lymphocytes % 12.5 % (15.3-44.8); MPV 7.9 fL (7.6-11.3); RBC Red Blood Cell Count 3.97 M/uL (3.86-4.86)
--- NOTE | 2020-06-17 12:38 | RAD REPORT ---
EXAM DESCRIPTION: US - Extremity Venous Uni Ltd - 06/17/2020 12:25 pm CLINICAL HISTORY: swollen redness warm to touch Leg swelling and edema. COMPARISON: No comparisons FINDINGS: Right lower extremity venous system was interrogated with Doppler technique. Normal flow, compressibility and augmentation was noted. There is no DVT present. IMPRESSION: No evidence of right lower extremity deep venous thrombosis.
[2020-06-17] MEDS ORDERED: BACLOFEN 10 MG TAB PO PRN (14:56)
--- NOTE | 2020-06-17 17:12 | R.PN ---
PROGRESS NOTES ENCOUNTER DATE AND TIME: 06/17/2020 16:59 (CDT) NAME TRIP LAM DATE OF : 1945 DATE OF ADMISSION: 06/06/2020 09:53 (CDT) RIGHT FEMUR FRACTURECHIEF COMPLAINT: Right femur fracture, uncontrolled blood pressure SUBJECTIVE: Pt denied any Shortness of Breath. Pt denied any depression. Start antonio inhibitor prinivil 2.5 mg daily in the AM for elevated blood pressures. Ambulated 500' with standby assistance using a rolling walker. Mobilized wheelchair 750' with indepen dence. Her pain is well managed and she is sleeping well at night. WBC 7.8, Hgb 12.6, prealbumin 21.6. VITAL SIGNS Temperature: 98.2 F SBP/DBP: 147/71 Pulse: 69 Resp: 16 Clonidine 0.1 mg q 4 hours for SBP > 170. MEDICATION ALLERGIES: CEPHALEXIN ENVIRONMENTAL ALLERGIES: - Substance Allergies None Known - Other Allergies None Known NURSING: - Shower allowing shower - Skin care per protocol PRECAUTIONS: - Anterior Hip Precaution No abduction No active extension No adduction across midline No external rotation No hip flexion >90 degrees No internal rotation - Posterior Hip Precaution No adduction across midline No external rotation No hip flexion >90 degrees No internal rotation No wheel chair propulsion - Weight Bearing Precaution TTWB right LE ACTIVITIES OOB only with supervision THERAPIES: - Dietary and Nutrition Adequate Nutrition. Nutritional Education. Nutritional Supplements. PHYSICAL EXAM - Gen Alert and awake Lying in bed No apparent distress Oriented to: person, time, and place - Skin No skin breakdown. Normacephalic - Eyes No abnormalities - ENMT No abnormalities - Neck No abnormalities - CVS RRR - Chest No abnormalities - Resp Clear to auscultation - Abd Soft - GI + bowel sounds Deferred - No abnormalities - Ext Right hip surgical site has good hemostasis. - MSK 4+/5 weakness in right lower extremity - Neuro 4/5 strength right lower extremity. - Psych No abnormalities ASSESSMENT: Pt. is a 74 yo Right-handed white female.On 06/04/2020 she was admitted to [facility] an d underwent emergency surgery for RIGHT FEMUR FRACTURE (Unilateral Hip Fracture) by SHEFALI ROBINS MD.P re-morbidly, Pt. was independent/mod-I in Safety Awareness, Balance, Transfers Control, Self-Care, Co mmunication, and Locomotion; and she had good Sphincter Control, Social Cognition, and Locomotion.Cur rently, she has deficits of Balance, Locomotion, Transfers Control, Self-Care, Endurance, and Sphinct er Control.Pt. is now referred to [facility] for acute in-patient rehabilitati on in order to maximize patient's functional independence in activities of daily living, strength, RO M, and mobility.- Rehab Goal Patient has realistic goal of being discharged at assistance level 6-Nany to reside at Home with Fam kail/Relatives. MDM/PLAN: - Physical Therapy Decreased range of motion - to improve, our physical therapists will perform initial evaluation of p t's status upon admission and devise an individualized program for increasing patient's Range of Sridhar on. Gait dysfunction - to improve, our physical therapists will perform initial evaluation of pt's statu s upon admission and devise an individualized program for Gait Training, and Wheel Chair mobility Inability to transfer - to improve, our physical therapists will perform initial evaluation of pt's status upon admission and devise an individualized program for Bed mobility Need for home safety evaluation - to improve, our physical therapists will perform initial evaluatio n of pt's status upon admission and devise an individualized program for Home Evaluation Need in caregiver upon discharge - to improve, our physical therapists will perform initial evaluati on of pt's status upon admission and devise an individualized program for Caregiver Training New precaution - to improve, our physical therapists will perform initial evaluation of pt's status upon admission and devise an individualized program for Patient precaution education Poor balance - to improve, our physical therapists will perform initial evaluation of pt's status up on admission and devise an individualized program for Balance Training Poor endurance - to improve, our physical therapists will perform initial evaluation of pt's status upon admission and devise an individualized program for Endurance Training Weakness - to improve, our physical therapists will perform initial evaluation of pt's status upon a dmission and devise an individualized program for Aquatic Therapy, Neuromuscular Reeducation, and Str engthening Achieving independence - to improve, our physical therapists will perform initial evaluation of pt's status upon admission and devise an individualized program for Community Reintegration Activities - Occupational Therapy ADL deficits - to improve, our occupation therapists will perform initial evaluation of pt's status upon admission and devise an individualized program for Bathing, Bed mobility, Community Reintegratio n, Cooking, Dressing, Eating, Fine Motor Skills, Grooming, Homemaking, Kitchen Mobility, Laundry, Pat ient Education, Safety Awareness, Splinting - Positioning, Transfers(Toilet, Tub, Shower), and Wheel Chair Management Need for critical care cns - to improve, our occupation therapists will perform initial evaluation of pt's status upon admission and devise an individualized program for Caregiver Training Weakness - to improve, our occupation therapists will perform initial evaluation of pt's status upon admission and devise an individualized program for Aquatic Therapy, Balance, Endurance, UE ROM, and UE strengthening - Other See attached MAR (Medication Administration Record) - Anterior Hip Precaution No abduction No active extension No adduction across midline No external rotation No hip flexion >90 degrees No internal rotation - Diet - Liquid Texture Continue Regular - Tube Feed Continue N/A - Diet Type Continue Regular - Posterior Hip Precaution No adduction across midline No external rotation No hip flexion >90 degrees No internal rotation No wheel chair propulsion - Weight Bearing Precaution TTWB right LE - Skin care per protocol - Diet - Solid Texture Continue Regular - Shower allowing shower FUNCTIONAL STATUS: UPDATED AT WEEKLY TEAM CONFERENCE - Bladder Same accident frequency: 7-Ind - No accidents in the past 7 days - Bowel Same accident frequency: 7-Ind - No accidents in the past 7 days - Walking Same score based on distance walked: 0(N/A) Same score based on distance walked: 1(<=50ft) - Wheelchair Same score based on distance traveled: 0(N/A) FUNCTIONAL STATUS: - Self-Care A. Eating Nany B. Grooming Nany C. Bathing Thelma D. Dressing - Upper Thelma E. Dressing - Lower modA F. Toileting sup - Sphincter Control G. Bladder control sup H. Bowel control sup - Transfers Control I. Bed/Chair/Wheelchair Thelma J. Toilet Thelma K. Tub/Shower modA - Locomotion L. Walk/Wheelchair (B) Thelma M. Stairs maxA - Communication N. Comprehension (B) Nany O. Expression (B) Nany - Social Cognition P. Social Interaction Nany Q. Problem Solving Nany R. Memory Nany - Endurance Poor - Balance Fair - Safety Awareness Fair QI SCORES: - Self-Care A. Eating 04-Supervision or touching assistance B. Oral hygiene 03-Partial/moderate assistance C. Toileting hygiene 03-Partial/moderate assistance E. Shower/bathe self 03-Partial/moderate assistance F. Upper body dressing 03-Partial/moderate assistance G. Lower body dressing 03-Partial/moderate assistance H. Putting on/taking off footwear 03-Partial/moderate assistance - Mobility A. Roll left and right 03-Partial/moderate assistance B. Sit to lying 03-Partial/moderate assistance C. Lying to sitting on side of bed 03-Partial/moderate assistance D. Sit to stand 03-Partial/moderate assistance E. Chair/[id number] transfer 03-Partial/moderate assistance F. Toilet transfer 03-Partial/moderate assistance G. Car transfer 88-Not attempted due to medical condition or safety concerns I. Walk 10 feet 03-Partial/moderate assistance J. Walk 50 feet with two turns 88-Not attempted due to medical condition or safety concerns K. Walk 150 feet 88-Not attempted due to medical condition or safety concerns L. Walking 10 feet on uneven surfaces 88-Not attempted due to medical condition or safety concerns M. 1 step (curb) 88-Not attempted due to medical condition or safety concerns N. 4 steps 88-Not attempted due to medical condition or safety concerns O. 12 steps 88-Not attempted due to medical condition or safety concerns P. Picking up object 03-Partial/moderate assistance R. Wheel 50 feet with two turns 88-Not attempted due to medical condition or safety concerns S. Wheel 150 feet 88-Not attempted due to medical condition or safety concerns - Bladder and Bowel Bladder continence 0-Always continent Bowel continence 0-Always continent - Endurance Poor - Balance Poor - Safety Awareness Poor CURRENT FUNC. DEFICITS: Endurance, Balance, Mobility, Safety Awareness, and Self-Care SIGNATURE PANEL: (CDT)
[2020-06-18] MEDS: TRAMADOL HCL 50 MG TAB PO PRN ×4 (06:09→20:51)
[2020-06-18] MEDS: ENOXAPARIN 40 MG/0.4 ML SQ SCH (07:16)
[2020-06-18] MEDS: POLYETHYL GLY 3350 17 GM/DOSE PO SCH (08:00)
[2020-06-18] MEDS: BUPROPION HCL 300 MG PO SCH (08:18)
[2020-06-18] MEDS: VALSARTAN 160 MG TAB PO SCH (08:18)
[2020-06-18] MEDS: GABAPENTIN 300 MG CAP PO SCH ×2 (08:19→20:02)
[2020-06-18] MEDS: MAGNESIUM OXIDE 400 MG TAB PO SCH ×2 (08:19→20:02)
[2020-06-18] MEDS: hydroCHLOROthiazide 25 MG TAB PO SCH (08:19)
[2020-06-18] MEDS: lisinopriL 5 MG TAB PO SCH (08:19)
[2020-06-18] MEDS: LIDOCAINE 4% PATCH TOP SCH (08:22)
[2020-06-18] MEDS: PROMOD 30 ML DOSE PO SCH ×2 (12:26→20:01)
--- NOTE | 2020-06-18 13:54 | FAST ---
[employer] FORM SHIFT START DATE/TIME: 06/17/2020 07:00 (CDT) SHIFT END DATE/TIME: 06/17/2020 19:00 (CDT) NAME TRIP LAM DATE OF : 1945 DATE OF ADMISSION: 06/06/2020 09:53 (CDT) PHONE: AGE: 74 N# [id number] GENDER: Female ENCOUNTER PHYSICIAN: Dr. Neo Trinidad M.D. ADMISSION DIAGNOSIS: - Orthopaedic Disorders 08 - Unilateral Hip Fracture (08.11) RIGHT FEMUR FRACTURE. EATING: EATING - STEP 1: Does the patient complete the activity by him/herself with no assistance (physical, verbal/nonverbal cueing, setup/clean-up)? No. EATING - STEP 2: Does the patient need only setup/clean-up assistance from one helper? Yes. 1. [id number] ADMISSION PERFORMANCE: Setup or clean-up assistance CODE: 05 ORAL HYGIENE: ORAL HYGIENE - STEP 1: Does the patient complete the activity by him/herself with no assistance (physical, verbal/nonverbal cueing, setup/clean-up)? No. ORAL HYGIENE - STEP 2: Does the patient need only setup/clean-up assistance from one helper? Yes. 1. [id number] ADMISSION PERFORMANCE: Setup or clean-up assistance CODE: 05 TOILETING HYGIENE: TOILETING HYGIENE - STEP 1: Does the patient complete the activity by him/herself with no assistance (physical, verbal/nonverbal cueing, setup/clean-up)? No. TOILETING HYGIENE - STEP 2: Does the patient need only setup/clean-up assistance from one helper? Yes. 1. [id number] ADMISSION PERFORMANCE: Setup or clean-up assistance CODE: 05 BATHING: Not assessed/no information CODE: - DRESSING - UPPER BODY: DRESSING - UPPER BODY - STEP 1: Does the patient complete the activity by him/herself with no assistance (physical, verbal/nonverbal cueing, setup/clean-up)? No. DRESSING - UPPER BODY - STEP 2: Does the patient need only setup/clean-up assistance from one helper? Yes. 1. [id number] ADMISSION PERFORMANCE: Setup or clean-up assistance CODE: 05 DRESSING - LOWER BODY: DRESSING - LOWER BODY - STEP 1: Does the patient complete the activity by him/herself with no assistance (physical, verbal/nonverbal cueing, setup/clean-up)? No. DRESSING - LOWER BODY - STEP 2: Does the patient need only setup/clean-up assistance from one helper? Yes. 1. [id number] ADMISSION PERFORMANCE: Setup or clean-up assistance CODE: 05 PUTTING ON/TAKING OFF FOOTWEAR: FOOTWEAR - STEP 1: Does the patient complete the activity by him/herself with no assistance (physical, verbal/nonverbal cueing, setup/clean-up)? No. FOOTWEAR - STEP 2: Does the patient need only setup/clean-up assistance from one helper? Yes. 1. [id number] ADMISSION PERFORMANCE: Setup or clean-up assistance CODE: 05 ROLL LEFT AND RIGHT: ROLL LEFT AND RIGHT - STEP 1: Does the patient complete the activity by him/herself with no assistance (physical, verbal/nonverbal cueing, setup/clean-up)? No. ROLL LEFT AND RIGHT - STEP 2: Does the patient need only setup/clean-up assistance from one helper? Yes. 1. [id number] ADMISSION PERFORMANCE: Setup or clean-up assistance CODE: 05 SIT TO LYING: SIT TO LYING - STEP 1: Does the patient complete the activity by him/herself with no assistance (physical, verbal/nonverbal cueing, setup/clean-up)? No. SIT TO LYING - STEP 2: Does the patient need only setup/clean-up assistance from one helper? Yes. 1. [id number] ADMISSION PERFORMANCE: Setup or clean-up assistance CODE: 05 LYING TO SITTING: LYING TO SITTING ON SIDE OF BED - STEP 1: Does the patient complete the activity by him/herself with no assistance (physical, verbal/nonverbal cueing, setup/clean-up)? No. LYING TO SITTING ON SIDE OF BED - STEP 2: Does the patient need only setup/clean-up assistance from one helper? Yes. 1. [id number] ADMISSION PERFORMANCE: Setup or clean-up assistance CODE: 05 SIT TO STAND: SIT TO STAND - STEP 1: Does the patient complete the activity by him/herself with no assistance (physical, verbal/nonverbal cueing, setup/clean-up)? No. SIT TO STAND - STEP 2: Does the patient need only setup/clean-up assistance from one helper? Yes. 1. [id number] ADMISSION PERFORMANCE: Setup or clean-up assistance CODE: 05 TRANSFERS: BED, CHAIR: CHAIR/[id number] TRANSFER - STEP 1: Does the patient complete the activity by him/herself with no assistance (physical, verbal/nonverbal cueing, setup/clean-up)? No. CHAIR/[id number] TRANSFER - STEP 2: Does the patient need only setup/clean-up assistance from one helper? Yes. 1. [id number] ADMISSION PERFORMANCE: Setup or clean-up assistance CODE: 05 TRANSFER TOILET: TOILET TRANSFER - STEP 1: Does the patient complete the activity by him/herself with no assistance (physical, verbal/nonverbal cueing, setup/clean-up)? No. TOILET TRANSFER - STEP 2: Does the patient need only setup/clean-up assistance from one helper? Yes. 1. [id number] ADMISSION PERFORMANCE: Setup or clean-up assistance CODE: 05 TRANSFERS: CAR: Not assessed/no information CODE: - WALK 10 FEET: Not assessed/no information CODE: - 1 STEP (CURB): Not assessed/no information CODE: - PICKING UP OBJECT: Not assessed/no information CODE: - DOES THE PATIENT USE A WHEELCHAIR/SCOOTER? Q1. DOES THE PATIENT USE A WHEELCHAIR/SCOOTER?: Yes CODE: 1 WHEEL 50 FEET WITH TWO TURNS: WHEEL 50 FEET WITH TWO TURNS - STEP 1: Does the patient complete the activity by him/herself with no assistance (physical, verbal/nonverbal cueing, setup/clean-up)? No. WHEEL 50 FEET WITH TWO TURNS - STEP 2: Does the patient need only setup/clean-up assistance from one helper? Yes. 1. [id number] ADMISSION PERFORMANCE: Setup or clean-up assistance CODE: 05 INDICATE THE TYPE OF WHEELCHAIR/SCOOTER USED: RR1. INDICATE THE TYPE OF WHEELCHAIR/SCOOTER USED.: Manual CODE: 1 WHEEL 150 FEET: WHEEL 150 FEET - STEP 1: Does the patient complete the activity by him/herself with no assistance (physical, verbal/nonverbal cueing, setup/clean-up)? No. WHEEL 150 FEET - STEP 2: Does the patient need only setup/clean-up assistance from one helper? Yes. 1. [id number] ADMISSION PERFORMANCE: Setup or clean-up assistance CODE: 05 INDICATE THE TYPE OF WHEELCHAIR/SCOOTER USED: SS1. INDICATE THE TYPE OF WHEELCHAIR/SCOOTER USED.: Manual CODE: 1 BLADDER AND BOWEL: H350. BLADDER CONTINENCE (3-DAY ASSESSMENT PERIOD): Always continent (no documented incontinence) CODE: 0 H400. BOWEL CONTINENCE (3-DAY ASSESSMENT PERIOD): Not rated, patient had an ostomy or did not have a bowel movement for the entire 3 days CODE: 9 SIGNATURE PANEL: The following modified sections: 1. [id number] Admission Performance, 1. [id number] Admission Performance, 1. [id number] Admission Performance, 1. [id number] Admission Performance, 1. LI4743r Admission Performance, 1. EW8817h Admission Performance, 1. [id number] Admission Performance, 1. [id number] Admission Performance , 1. [id number] Admission Performance, 1. [id number] Admission Performance, 1. [id number] Admission Performanc e, 1. [id number] Admission Performance, Q1. Does the patient use a wheelchair/scooter?, 1. [id number] Admis arianne Performance, RR1. Indicate the type of wheelchair/scooter used., 1. [id number] Admission Performanc e, Code, SS1. Indicate the type of wheelchair/scooter used., H350. Bladder Continence (3-day assessme nt period), H400. Bowel Continence (3-day assessment period) were [electronically] signed by Helder ColonNMary on TueJun 18 2020 13:53:35 T-0500 (Central Daylight Time)
--- NOTE | 2020-06-18 17:07 | R.PN ---
PROGRESS NOTES ENCOUNTER DATE AND TIME: 06/18/2020 17:01 (CDT) NAME TRIP LAM DATE OF : 1945 DATE OF ADMISSION: 06/06/2020 09:53 (CDT) RIGHT FEMUR FRACTURECHIEF COMPLAINT: Right femur fracture, uncontrolled blood pressure SUBJECTIVE: Pt denied any Shortness of Breath. Pt denied any depression. Start antonio inhibitor prinivil 2.5 mg daily in the AM for elevated blood pressures. Ambulated 500' with standby assistance using a rolling walker. Mobilized wheelchair 750' with indepen dence. Her pain is well managed and she is sleeping well at night. WBC 7.8, Hgb 12.6, prealbumin 21.6. VITAL SIGNS Temperature: 97.1 F SBP/DBP: 165/72 Pulse: 65 Resp: 16 Clonidine 0.1 mg q 4 hours for SBP > 170. MEDICATION ALLERGIES: CEPHALEXIN ENVIRONMENTAL ALLERGIES: - Substance Allergies None Known - Other Allergies None Known NURSING: - Shower allowing shower - Skin care per protocol PRECAUTIONS: - Anterior Hip Precaution No abduction No active extension No adduction across midline No external rotation No hip flexion >90 degrees No internal rotation - Posterior Hip Precaution No adduction across midline No external rotation No hip flexion >90 degrees No internal rotation No wheel chair propulsion - Weight Bearing Precaution TTWB right LE ACTIVITIES OOB only with supervision THERAPIES: - Dietary and Nutrition Adequate Nutrition. Nutritional Education. Nutritional Supplements. PHYSICAL EXAM - Gen Alert and awake Lying in bed No apparent distress Oriented to: person, time, and place - Skin No skin breakdown. Normacephalic - Eyes No abnormalities - ENMT No abnormalities - Neck No abnormalities - CVS RRR - Chest No abnormalities - Resp Clear to auscultation - Abd Soft - GI + bowel sounds Deferred - No abnormalities - Ext Right hip surgical site has good hemostasis. - MSK 4+/5 weakness in right lower extremity - Neuro 4/5 strength right lower extremity. - Psych No abnormalities ASSESSMENT: Pt. is a 74 yo Right-handed white female.On 06/04/2020 she was admitted to [facility] an d underwent emergency surgery for RIGHT FEMUR FRACTURE (Unilateral Hip Fracture) by SHEFALI ROBINS MD.P re-morbidly, Pt. was independent/mod-I in Safety Awareness, Balance, Transfers Control, Self-Care, Co mmunication, and Locomotion; and she had good Sphincter Control, Social Cognition, and Locomotion.Cur rently, she has deficits of Balance, Locomotion, Transfers Control, Self-Care, Endurance, and Sphinct er Control.Pt. is now referred to [facility] for acute in-patient rehabilitati on in order to maximize patient's functional independence in activities of daily living, strength, RO M, and mobility.- Rehab Goal Patient has realistic goal of being discharged at assistance level 6-Nany to reside at Home with Fam kali/Relatives. MDM/PLAN: - Physical Therapy Decreased range of motion - to improve, our physical therapists will perform initial evaluation of p t's status upon admission and devise an individualized program for increasing patient's Range of Sridhar on. Gait dysfunction - to improve, our physical therapists will perform initial evaluation of pt's statu s upon admission and devise an individualized program for Gait Training, and Wheel Chair mobility Inability to transfer - to improve, our physical therapists will perform initial evaluation of pt's status upon admission and devise an individualized program for Bed mobility Need for home safety evaluation - to improve, our physical therapists will perform initial evaluatio n of pt's status upon admission and devise an individualized program for Home Evaluation Need in caregiver upon discharge - to improve, our physical therapists will perform initial evaluati on of pt's status upon admission and devise an individualized program for Caregiver Training New precaution - to improve, our physical therapists will perform initial evaluation of pt's status upon admission and devise an individualized program for Patient precaution education Poor balance - to improve, our physical therapists will perform initial evaluation of pt's status up on admission and devise an individualized program for Balance Training Poor endurance - to improve, our physical therapists will perform initial evaluation of pt's status upon admission and devise an individualized program for Endurance Training Weakness - to improve, our physical therapists will perform initial evaluation of pt's status upon a dmission and devise an individualized program for Aquatic Therapy, Neuromuscular Reeducation, and Str engthening Achieving independence - to improve, our physical therapists will perform initial evaluation of pt's status upon admission and devise an individualized program for Community Reintegration Activities - Occupational Therapy ADL deficits - to improve, our occupation therapists will perform initial evaluation of pt's status upon admission and devise an individualized program for Bathing, Bed mobility, Community Reintegratio n, Cooking, Dressing, Eating, Fine Motor Skills, Grooming, Homemaking, Kitchen Mobility, Laundry, Pat ient Education, Safety Awareness, Splinting - Positioning, Transfers(Toilet, Tub, Shower), and Wheel Chair Management Need for health care recruiter - to improve, our occupation therapists will perform initial evaluation of pt's status upon admission and devise an individualized program for Caregiver Training Weakness - to improve, our occupation therapists will perform initial evaluation of pt's status upon admission and devise an individualized program for Aquatic Therapy, Balance, Endurance, UE ROM, and UE strengthening - Other See attached MAR (Medication Administration Record) - Anterior Hip Precaution No abduction No active extension No adduction across midline No external rotation No hip flexion >90 degrees No internal rotation - Diet - Liquid Texture Continue Regular - Tube Feed Continue N/A - Diet Type Continue Regular - Posterior Hip Precaution No adduction across midline No external rotation No hip flexion >90 degrees No internal rotation No wheel chair propulsion - Weight Bearing Precaution TTWB right LE - Skin care per protocol - Diet - Solid Texture Continue Regular - Shower allowing shower FUNCTIONAL STATUS: UPDATED AT WEEKLY TEAM CONFERENCE - Bladder Same accident frequency: 7-Ind - No accidents in the past 7 days - Bowel Same accident frequency: 7-Ind - No accidents in the past 7 days - Walking Same score based on distance walked: 0(N/A) Same score based on distance walked: 1(<=50ft) - Wheelchair Same score based on distance traveled: 0(N/A) FUNCTIONAL STATUS: - Self-Care A. Eating Nany B. Grooming Nany C. Bathing Thelma D. Dressing - Upper Thelma E. Dressing - Lower modA F. Toileting sup - Sphincter Control G. Bladder control sup H. Bowel control sup - Transfers Control I. Bed/Chair/Wheelchair Thelma J. Toilet Thelma K. Tub/Shower modA - Locomotion L. Walk/Wheelchair (B) Thelma M. Stairs maxA - Communication N. Comprehension (B) Nany O. Expression (B) Nany - Social Cognition P. Social Interaction Nany Q. Problem Solving Nany R. Memory Nany - Endurance Poor - Balance Fair - Safety Awareness Fair QI SCORES: - Self-Care A. Eating 04-Supervision or touching assistance B. Oral hygiene 03-Partial/moderate assistance C. Toileting hygiene 03-Partial/moderate assistance E. Shower/bathe self 03-Partial/moderate assistance F. Upper body dressing 03-Partial/moderate assistance G. Lower body dressing 03-Partial/moderate assistance H. Putting on/taking off footwear 03-Partial/moderate assistance - Mobility A. Roll left and right 03-Partial/moderate assistance B. Sit to lying 03-Partial/moderate assistance C. Lying to sitting on side of bed 03-Partial/moderate assistance D. Sit to stand 03-Partial/moderate assistance E. Chair/[id number]-[id number] transfer 03-Partial/moderate assistance F. Toilet transfer 03-Partial/moderate assistance G. Car transfer 88-Not attempted due to medical condition or safety concerns I. Walk 10 feet 03-Partial/moderate assistance J. Walk 50 feet with two turns 88-Not attempted due to medical condition or safety concerns K. Walk 150 feet 88-Not attempted due to medical condition or safety concerns L. Walking 10 feet on uneven surfaces 88-Not attempted due to medical condition or safety concerns M. 1 step (curb) 88-Not attempted due to medical condition or safety concerns N. 4 steps 88-Not attempted due to medical condition or safety concerns O. 12 steps 88-Not attempted due to medical condition or safety concerns P. Picking up object 03-Partial/moderate assistance R. Wheel 50 feet with two turns 88-Not attempted due to medical condition or safety concerns S. Wheel 150 feet 88-Not attempted due to medical condition or safety concerns - Bladder and Bowel Bladder continence 0-Always continent Bowel continence 0-Always continent - Endurance Poor - Balance Poor - Safety Awareness Poor CURRENT FUNC. DEFICITS: Endurance, Balance, Mobility, Safety Awareness, and Self-Care SIGNATURE PANEL: (CDT)
[2020-06-19] MEDS: LIDOCAINE 4% PATCH TOP SCH (07:08)
[2020-06-19] MEDS: ENOXAPARIN 40 MG/0.4 ML SQ SCH (07:08)
[2020-06-19] MEDS: VALSARTAN 160 MG TAB PO SCH (07:51)
[2020-06-19] MEDS: GABAPENTIN 300 MG CAP PO SCH ×2 (07:51→19:26)
[2020-06-19] MEDS: BUPROPION HCL 300 MG PO SCH (07:51)
[2020-06-19] MEDS: MAGNESIUM OXIDE 400 MG TAB PO SCH ×2 (07:52→19:26)
[2020-06-19] MEDS: hydroCHLOROthiazide 25 MG TAB PO SCH (07:52)
[2020-06-19] MEDS: lisinopriL 5 MG TAB PO SCH (07:53)
[2020-06-19] MEDS: POLYETHYL GLY 3350 17 GM/DOSE PO SCH (07:53)
[2020-06-19] MEDS: PROMOD 30 ML DOSE PO SCH ×2 (07:54→19:26)
[2020-06-19] MEDS: TRAMADOL HCL 50 MG TAB PO PRN ×3 (07:55→19:31)
--- NOTE | 2020-06-19 09:28 | P.RH.PN ---
Estimated Length of Stay: 19 Expected Discharge Date: 06/24/20 Discharge Disposition Plan: Home Family Support: Yes Jail Goal: Mobility, Transfers, Self Care Vital Signs: Last Vital Signs Temp 98.4 F 06/19/20 07:08 Pulse 65 06/19/20 07:53 Resp 15 06/19/20 08:52 BP 159/77 H 06/19/20 07:53 Pulse Ox 94 06/19/20 08:52 Laboratory: Laboratory Last Values WBC 7.8 K/uL (4.3-10.9) D 06/17/20 10:52 RBC 3.97 M/uL (3.86-4.86) 06/17/20 10:52 Hgb 12.6 g/dL (12.0-15.0) 06/17/20 10:52 Hct 36.7 % (36.0-45.0) 06/17/20 10:52 MCV 92.5 fL (80-100) 06/17/20 10:52 MCH 31.7 pg (27.0-35.0) 06/17/20 10:52 MCHC 34.3 g/dL (32.0-36.0) 06/17/20 10:52 RDW 13.7 % (12.1-15.2) 06/17/20 10:52 Plt Count 329 K/uL (152-406) D 06/17/20 10:52 MPV 7.9 fL (7.6-11.3) 06/17/20 10:52 Neutrophils % 80.1 % (41.7-73.7) H 06/17/20 10:52 Lymphocytes % 12.5 % (15.3-44.8) L 06/17/20 10:52 Monocytes % 4.6 % (3.3-12.3) 06/17/20 10:52 Eosinophils % 1.9 % (0-4.4) 06/17/20 10:52 Basophils % 0.9 % (0-1.3) 06/17/20 10:52 Absolute Neutrophils 6.2 K/uL (1.8-8.0) 06/17/20 10:52 Absolute Lymphocytes 1.0 K/uL (0.7-4.9) 06/17/20 10:52 Absolute Monocytes 0.4 K/uL (0.1-1.3) 06/17/20 10:52 Absolute Eosinophils 0.1 K/uL (0-0.5) 06/17/20 10:52 Absolute Basophils 0.1 K/uL (0-0.5) 06/17/20 10:52 Sodium 141 mmol/L (136-145) 06/12/20 05:37 Potassium 4.8 mmol/L (3.5-5.1) 06/12/20 05:37 Chloride 107 mmol/L (98-107) 06/12/20 05:37 Carbon Dioxide 30 mmol/L (21-32) 06/12/20 05:37 BUN 38 mg/dL (7-18) H D 06/12/20 05:37 Creatinine 1.09 mg/dL (0.55-1.3) 06/12/20 05:37 Estimated GFR 49 mL/min (=/>90) L 06/12/20 05:37 Glucose 103 mg/dL (74-106) 06/12/20 05:37 Calcium 8.7 mg/dL (8.5-10.1) 06/12/20 05:37 Magnesium 2.3 mg/dL (1.8-2.4) D 06/12/20 05:37 Albumin 2.6 g/dL (3.4-5.0) L 06/12/20 05:37 Prealbumin 21.6 mg/dL (20-40) 06/12/20 05:37 Urine Color Yellow 06/06/20 12:34 Urine Appearance Clear 06/06/20 12:34 Urine pH 6.5 (5.0-7.0) 06/06/20 12:34 Ur Specific [place] 1.010 (1.005-1.030) 06/06/20 12:34 Glucose (UA)(Auto) Negative (NEG) 06/06/20 12:34 Urine Ketones Negative (NEG) 06/06/20 12:34 Urine Blood Negative (NEG) 06/06/20 12:34 Urine Nitrite Negative (NEG) 06/06/20 12:34 Urine Bilirubin Negative (NEG) 06/06/20 12:34 Urine Urobilinogen 0.2 mg/dL (0.2-1.0) 06/06/20 12:34 Ur Leukocyte Esterase Negative (NEG) 06/06/20 12:34 Urine RBC <5 /HPF (NONE SEEN) 06/06/20 12:34 Urine WBC <5 /HPF (<5) 06/06/20 12:34 Ur Squamous Epith Cells <5 /HPF (NONE SEEN) 06/06/20 12:34 Urine Bacteria <20 /HPF (<20) 06/06/20 12:34 Urine Culture Reflexed Not needed 06/06/20 12:34 Urine Total Protein Negative (NEG) 06/06/20 12:34 Weight: 141 lb 1.6 oz Wound Present: No Closed Surgical Incision Present: Yes Negative Pressure Wound Therapy Present: No Physician Update: Blood work reviewed and is stable. Ambulating 250' with standby assitance. She is doing fairly well with occupational therapy. Will request another 5 days up to next Tuesday. She does not have a DVT in the right leg and the right medial thigh hematoma is improving. 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 Please see the Rehabilitation Signature page for all necessary signatures.
[2020-06-20 06:37] LABS: Potassium 4.2 mmol/L (3.5-5.1)
[2020-06-20] MEDS: ENOXAPARIN 40 MG/0.4 ML SQ SCH (07:10)
[2020-06-20] MEDS: POLYETHYL GLY 3350 17 GM/DOSE PO SCH (08:00)
[2020-06-20] MEDS: BUPROPION HCL 300 MG PO SCH (08:37)
[2020-06-20] MEDS: VALSARTAN 160 MG TAB PO SCH (08:38)
[2020-06-20] MEDS: GABAPENTIN 300 MG CAP PO SCH ×2 (08:38→20:09)
[2020-06-20] MEDS: hydroCHLOROthiazide 25 MG TAB PO SCH (08:39)
[2020-06-20] MEDS: lisinopriL 5 MG TAB PO SCH (08:39)
[2020-06-20] MEDS: MAGNESIUM OXIDE 400 MG TAB PO SCH ×2 (08:39→20:09)
[2020-06-20] MEDS: TRAMADOL HCL 50 MG TAB PO PRN ×3 (08:40→20:09)
[2020-06-20] MEDS: PROMOD 30 ML DOSE PO SCH ×2 (08:43→20:09)
[2020-06-20] MEDS: LIDOCAINE 4% PATCH TOP SCH (08:43)
[2020-06-21 05:32] VITALS: BMI 27.2
[2020-06-21] MEDS: MAGNESIUM OXIDE 400 MG TAB PO SCH ×2 (07:27→19:37)
[2020-06-21] MEDS: VALSARTAN 160 MG TAB PO SCH (07:27)
[2020-06-21] MEDS: GABAPENTIN 300 MG CAP PO SCH ×2 (07:27→19:37)
[2020-06-21] MEDS: LIDOCAINE 4% PATCH TOP SCH (07:28)
[2020-06-21] MEDS: ENOXAPARIN 40 MG/0.4 ML SQ SCH (07:28)
[2020-06-21] MEDS: hydroCHLOROthiazide 25 MG TAB PO SCH (07:28)
[2020-06-21] MEDS: POLYETHYL GLY 3350 17 GM/DOSE PO SCH (07:28)
[2020-06-21] MEDS: PROMOD 30 ML DOSE PO SCH ×2 (07:29→19:37)
[2020-06-21] MEDS: lisinopriL 5 MG TAB PO SCH (07:29)
[2020-06-21] MEDS: BUPROPION HCL 300 MG PO SCH (08:00)
[2020-06-21] MEDS: TRAMADOL HCL 50 MG TAB PO PRN ×2 (08:24→20:57)
[2020-06-22] MEDS: ENOXAPARIN 40 MG/0.4 ML SQ SCH (07:39)
[2020-06-22] MEDS: BUPROPION HCL 300 MG PO SCH (08:00)
[2020-06-22] MEDS: TRAMADOL HCL 50 MG TAB PO PRN ×3 (08:23→21:08)
[2020-06-22] MEDS: POLYETHYL GLY 3350 17 GM/DOSE PO SCH (08:24)
[2020-06-22] MEDS: LIDOCAINE 4% PATCH TOP SCH (08:24)
[2020-06-22] MEDS: VALSARTAN 160 MG TAB PO SCH (08:26)
[2020-06-22] MEDS: lisinopriL 5 MG TAB PO SCH (08:27)
[2020-06-22] MEDS: GABAPENTIN 300 MG CAP PO SCH ×2 (08:28→19:34)
[2020-06-22] MEDS: PROMOD 30 ML DOSE PO SCH ×2 (08:28→19:34)
[2020-06-22] MEDS: MAGNESIUM OXIDE 400 MG TAB PO SCH ×2 (08:28→19:34)
[2020-06-22] MEDS: hydroCHLOROthiazide 25 MG TAB PO SCH (08:28)
[2020-06-23] MEDS: ENOXAPARIN 40 MG/0.4 ML SQ SCH (07:20)
[2020-06-23] MEDS: BUPROPION HCL 300 MG PO SCH (08:00)
[2020-06-23] MEDS: TRAMADOL HCL 50 MG TAB PO PRN ×3 (08:08→23:35)
[2020-06-23] MEDS: hydroCHLOROthiazide 25 MG TAB PO SCH (08:10)
[2020-06-23] MEDS: PROMOD 30 ML DOSE PO SCH ×2 (08:10→19:50)
[2020-06-23] MEDS: POLYETHYL GLY 3350 17 GM/DOSE PO SCH (08:10)
[2020-06-23] MEDS: MAGNESIUM OXIDE 400 MG TAB PO SCH ×2 (08:10→19:50)
[2020-06-23] MEDS: VALSARTAN 160 MG TAB PO SCH (08:11)
[2020-06-23] MEDS: GABAPENTIN 300 MG CAP PO SCH ×2 (08:11→19:50)
[2020-06-23] MEDS: lisinopriL 5 MG TAB PO SCH (08:12)
[2020-06-23] MEDS: LIDOCAINE 4% PATCH TOP SCH (09:15)
--- NOTE | 2020-06-23 18:44 | R.PN ---
PROGRESS NOTES ENCOUNTER DATE AND TIME: 06/23/2020 18:42 (CDT) NAME TRIP LAM DATE OF : 1945 DATE OF ADMISSION: 06/06/2020 09:53 (CDT) RIGHT FEMUR FRACTURECHIEF COMPLAINT: Right femur fracture, uncontrolled blood pressure SUBJECTIVE: Pt denied any Shortness of Breath. Pt denied any depression. Start antonio inhibitor prinivil 2.5 mg daily in the AM for elevated blood pressures. Ambulated 500' with independence using a rolling walker. Mobilized wheelchair 250' with independence. Her pain is well managed and she is sleeping well at night. WBC 7.8, Hgb 12.6, prealbumin 21.6. VITAL SIGNS Temperature: 97.1 F SBP/DBP: 145/73 Pulse: 68 Resp: 16 Clonidine 0.1 mg q 4 hours for SBP > 170. MEDICATION ALLERGIES: CEPHALEXIN ENVIRONMENTAL ALLERGIES: - Substance Allergies None Known - Other Allergies None Known NURSING: - Shower allowing shower - Skin care per protocol PRECAUTIONS: - Anterior Hip Precaution No abduction No active extension No adduction across midline No external rotation No hip flexion >90 degrees No internal rotation - Posterior Hip Precaution No adduction across midline No external rotation No hip flexion >90 degrees No internal rotation No wheel chair propulsion - Weight Bearing Precaution TTWB right LE ACTIVITIES OOB only with supervision THERAPIES: - Dietary and Nutrition Adequate Nutrition. Nutritional Education. Nutritional Supplements. PHYSICAL EXAM - Gen Alert and awake Lying in bed No apparent distress Oriented to: person, time, and place - Skin No skin breakdown. Normacephalic - Eyes No abnormalities - ENMT No abnormalities - Neck No abnormalities - CVS RRR - Chest No abnormalities - Resp Clear to auscultation - Abd Soft - GI + bowel sounds Deferred - No abnormalities - Ext Right hip surgical site has good hemostasis. - MSK 4+/5 weakness in right lower extremity - Neuro 4/5 strength right lower extremity. - Psych No abnormalities ASSESSMENT: Pt. is a 74 yo Right-handed white female.On 06/04/[address] [facility] an d underwent emergency surgery for RIGHT FEMUR FRACTURE (Unilateral Hip Fracture) by SHEFALI ROBINS MD.P re-morbidly, Pt. was independent/mod-I in Safety Awareness, Balance, Transfers Control, Self-Care, Co mmunication, and Locomotion; and she had good Sphincter Control, Social Cognition, and Locomotion.Cur elizy, she has deficits of Balance, Locomotion, Transfers Control, Self-Care, Endurance, and Sphinct er Control.Pt. is now referred to [facility] for acute in-patient rehabilitati on in order to maximize patient's functional independence in activities of daily living, strength, RO M, and mobility.- Rehab Goal Patient has realistic goal of being discharged at assistance level 6-Nany to reside at Home with Fam kali/Relatives. MDM/PLAN: - Physical Therapy Decreased range of motion - to improve, our physical therapists will perform initial evaluation of p t's status upon admission and devise an individualized program for increasing patient's Range of Sridhar on. Gait dysfunction - to improve, our physical therapists will perform initial evaluation of pt's statu s upon admission and devise an individualized program for Gait Training, and Wheel Chair mobility Inability to transfer - to improve, our physical therapists will perform initial evaluation of pt's status upon admission and devise an individualized program for Bed mobility Need for home safety evaluation - to improve, our physical therapists will perform initial evaluatio n of pt's status upon admission and devise an individualized program for Home Evaluation Need in caregiver upon discharge - to improve, our physical therapists will perform initial evaluati on of pt's status upon admission and devise an individualized program for Caregiver Training New precaution - to improve, our physical therapists will perform initial evaluation of pt's status upon admission and devise an individualized program for Patient precaution education Poor balance - to improve, our physical therapists will perform initial evaluation of pt's status up on admission and devise an individualized program for Balance Training Poor endurance - to improve, our physical therapists will perform initial evaluation of pt's status upon admission and devise an individualized program for Endurance Training Weakness - to improve, our physical therapists will perform initial evaluation of pt's status upon a dmission and devise an individualized program for Aquatic Therapy, Neuromuscular Reeducation, and Str engthening Achieving independence - to improve, our physical therapists will perform initial evaluation of pt's status upon admission and devise an individualized program for Community Reintegration Activities - Occupational Therapy ADL deficits - to improve, our occupation therapists will perform initial evaluation of pt's status upon admission and devise an individualized program for Bathing, Bed mobility, Community Reintegratio n, Cooking, Dressing, Eating, Fine Motor Skills, Grooming, Homemaking, Kitchen Mobility, Laundry, Pat ient Education, Safety Awareness, Splinting - Positioning, Transfers(Toilet, Tub, Shower), and Wheel Chair Management Need for attending ambulatory care - to improve, our occupation therapists will perform initial evaluation of pt's status upon admission and devise an individualized program for Caregiver Training Weakness - to improve, our occupation therapists will perform initial evaluation of pt's status upon admission and devise an individualized program for Aquatic Therapy, Balance, Endurance, UE ROM, and UE strengthening - Other See attached MAR (Medication Administration Record) - Anterior Hip Precaution No abduction No active extension No adduction across midline No external rotation No hip flexion >90 degrees No internal rotation - Diet - Liquid Texture Continue Regular - Tube Feed Continue N/A - Diet Type Continue Regular - Posterior Hip Precaution No adduction across midline No external rotation No hip flexion >90 degrees No internal rotation No wheel chair propulsion - Weight Bearing Precaution TTWB right LE - Skin care per protocol - Diet - Solid Texture Continue Regular - Shower allowing shower FUNCTIONAL STATUS: UPDATED AT WEEKLY TEAM CONFERENCE - Bladder Same accident frequency: 7-Ind - No accidents in the past 7 days - Bowel Same accident frequency: 7-Ind - No accidents in the past 7 days - Walking Same score based on distance walked: 0(N/A) Same score based on distance walked: 1(<=50ft) - Wheelchair Same score based on distance traveled: 0(N/A) FUNCTIONAL STATUS: - Self-Care A. Eating Nany B. Grooming Nany C. Bathing Thelma D. Dressing - Upper Thelma E. Dressing - Lower modA F. Toileting sup - Sphincter Control G. Bladder control sup H. Bowel control sup - Transfers Control I. Bed/Chair/Wheelchair Thelma J. Toilet Thelma K. Tub/Shower modA - Locomotion L. Walk/Wheelchair (B) Thelma M. Stairs maxA - Communication N. Comprehension (B) Nany O. Expression (B) Nany - Social Cognition P. Social Interaction Nany Q. Problem Solving Nany R. Memory Nany - Endurance Poor - Balance Fair - Safety Awareness Fair QI SCORES: - Self-Care A. Eating 04-Supervision or touching assistance B. Oral hygiene 03-Partial/moderate assistance C. Toileting hygiene 03-Partial/moderate assistance E. Shower/bathe self 03-Partial/moderate assistance F. Upper body dressing 03-Partial/moderate assistance G. Lower body dressing 03-Partial/moderate assistance H. Putting on/taking off footwear 03-Partial/moderate assistance - Mobility A. Roll left and right 03-Partial/moderate assistance B. Sit to lying 03-Partial/moderate assistance C. Lying to sitting on side of bed 03-Partial/moderate assistance D. Sit to stand 03-Partial/moderate assistance E. Chair/[id number] transfer 03-Partial/moderate assistance F. Toilet transfer 03-Partial/moderate assistance G. Car transfer 88-Not attempted due to medical condition or safety concerns I. Walk 10 feet 03-Partial/moderate assistance J. Walk 50 feet with two turns 88-Not attempted due to medical condition or safety concerns K. Walk 150 feet 88-Not attempted due to medical condition or safety concerns L. Walking 10 feet on uneven surfaces 88-Not attempted due to medical condition or safety concerns M. 1 step (curb) 88-Not attempted due to medical condition or safety concerns N. 4 steps 88-Not attempted due to medical condition or safety concerns O. 12 steps 88-Not attempted due to medical condition or safety concerns P. Picking up object 03-Partial/moderate assistance R. Wheel 50 feet with two turns 88-Not attempted due to medical condition or safety concerns S. Wheel 150 feet 88-Not attempted due to medical condition or safety concerns - Bladder and Bowel Bladder continence 0-Always continent Bowel continence 0-Always continent - Endurance Poor - Balance Poor - Safety Awareness Poor CURRENT FUNC. DEFICITS: Endurance, Balance, Mobility, Safety Awareness, and Self-Care SIGNATURE PANEL: (CDT)
[2020-06-24] MEDS: ENOXAPARIN 40 MG/0.4 ML SQ SCH (07:02)
[2020-06-24] MEDS: LIDOCAINE 4% PATCH TOP SCH (07:02)
[2020-06-24] MEDS: BUPROPION HCL 300 MG PO SCH (08:00)
[2020-06-24] MEDS: POLYETHYL GLY 3350 17 GM/DOSE PO SCH (08:30)
[2020-06-24] MEDS: hydroCHLOROthiazide 25 MG TAB PO SCH (08:31)
[2020-06-24] MEDS: VALSARTAN 160 MG TAB PO SCH (08:31)
[2020-06-24] MEDS: MAGNESIUM OXIDE 400 MG TAB PO SCH ×2 (08:31→19:31)
[2020-06-24] MEDS: GABAPENTIN 300 MG CAP PO SCH ×2 (08:31→19:31)
[2020-06-24] MEDS: lisinopriL 5 MG TAB PO SCH (08:32)
[2020-06-24] MEDS: TRAMADOL HCL 50 MG TAB PO PRN ×3 (08:34→19:31)
[2020-06-24] MEDS: PROMOD 30 ML DOSE PO SCH ×2 (12:27→19:32)
[2020-06-24] MEDS ORDERED: GABAPENTIN 300 MG CAP PO ONE (14:35)
--- NOTE | 2020-06-24 14:39 | RAD REPORT ---
EXAM DESCRIPTION: RAD - Knee Right 2 View - 06/24/2020 2:32 pm CLINICAL HISTORY: pain COMPARISON: Knee Right 2 View dated 06/04/2020 FINDINGS: Lateral femoral hardware plate is present with multiple screws. No evidence of hardware co mplication. Fracture lucency in the distal femur persists. A small suprapatellar joint effusion is ev ident.
--- NOTE | 2020-06-24 14:54 | FAST ---
[employer] FORM SHIFT START DATE/TIME: 06/24/2020 07:00 (CDT) SHIFT END DATE/TIME: 06/24/2020 19:00 (CDT) NAME TRIP LAM DATE OF : 1945 DATE OF ADMISSION: 06/06/2020 09:53 (CDT) PHONE: AGE: 74 N# [id number] GENDER: Female ENCOUNTER PHYSICIAN: Dr. Neo Trinidad M.D. ADMISSION DIAGNOSIS: - Orthopaedic Disorders 08 - Unilateral Hip Fracture (08.11) RIGHT FEMUR FRACTURE. EATING: EATING - STEP 1: Does the patient complete the activity by him/herself with no assistance (physical, verbal/nonverbal cueing, setup/clean-up)? Yes. 1. [id number] ADMISSION PERFORMANCE: Independent CODE: 06 ORAL HYGIENE: ORAL HYGIENE - STEP 1: Does the patient complete the activity by him/herself with no assistance (physical, verbal/nonverbal cueing, setup/clean-up)? Yes. 1. [id number] ADMISSION PERFORMANCE: Independent CODE: 06 TOILETING HYGIENE: TOILETING HYGIENE - STEP 1: Does the patient complete the activity by him/herself with no assistance (physical, verbal/nonverbal cueing, setup/clean-up)? Yes. 1. [id number] ADMISSION PERFORMANCE: Independent CODE: 06 BATHING: Not assessed/no information CODE: - DRESSING - UPPER BODY: DRESSING - UPPER BODY - STEP 1: Does the patient complete the activity by him/herself with no assistance (physical, verbal/nonverbal cueing, setup/clean-up)? Yes. 1. [id number] ADMISSION PERFORMANCE: Independent CODE: 06 DRESSING - LOWER BODY: DRESSING - LOWER BODY - STEP 1: Does the patient complete the activity by him/herself with no assistance (physical, verbal/nonverbal cueing, setup/clean-up)? Yes. 1. [id number] ADMISSION PERFORMANCE: Independent CODE: 06 PUTTING ON/TAKING OFF FOOTWEAR: FOOTWEAR - STEP 1: Does the patient complete the activity by him/herself with no assistance (physical, verbal/nonverbal cueing, setup/clean-up)? Yes. 1. [id number] ADMISSION PERFORMANCE: Independent CODE: 06 SIT TO LYING: SIT TO LYING - STEP 1: Does the patient complete the activity by him/herself with no assistance (physical, verbal/nonverbal cueing, setup/clean-up)? Yes. 1. [id number] ADMISSION PERFORMANCE: Independent CODE: 06 LYING TO SITTING: LYING TO SITTING ON SIDE OF BED - STEP 1: Does the patient complete the activity by him/herself with no assistance (physical, verbal/nonverbal cueing, setup/clean-up)? Yes. 1. [id number] ADMISSION PERFORMANCE: Independent CODE: 06 SIT TO STAND: SIT TO STAND - STEP 1: Does the patient complete the activity by him/herself with no assistance (physical, verbal/nonverbal cueing, setup/clean-up)? Yes. 1. [id number] ADMISSION PERFORMANCE: Independent CODE: 06 TRANSFERS: BED, CHAIR: CHAIR/[id number] TRANSFER - STEP 1: Does the patient complete the activity by him/herself with no assistance (physical, verbal/nonverbal cueing, setup/clean-up)? Yes. 1. [id number] ADMISSION PERFORMANCE: Independent CODE: 06 TRANSFER TOILET: TOILET TRANSFER - STEP 1: Does the patient complete the activity by him/herself with no assistance (physical, verbal/nonverbal cueing, setup/clean-up)? Yes. 1. [id number] ADMISSION PERFORMANCE: Independent CODE: 06 TRANSFERS: CAR: Not assessed/no information CODE: - WALK 10 FEET: Not assessed/no information CODE: - 1 STEP (CURB): Not assessed/no information CODE: - PICKING UP OBJECT: Not assessed/no information CODE: - DOES THE PATIENT USE A WHEELCHAIR/SCOOTER? Q1. DOES THE PATIENT USE A WHEELCHAIR/SCOOTER?: Yes CODE: 1 WHEEL 50 FEET WITH TWO TURNS: WHEEL 50 FEET WITH TWO TURNS - STEP 1: Does the patient complete the activity by him/herself with no assistance (physical, verbal/nonverbal cueing, setup/clean-up)? Yes. 1. [id number] ADMISSION PERFORMANCE: Independent CODE: 06 INDICATE THE TYPE OF WHEELCHAIR/SCOOTER USED: RR1. INDICATE THE TYPE OF WHEELCHAIR/SCOOTER USED.: Manual CODE: 1 WHEEL 150 FEET: WHEEL 150 FEET - STEP 1: Does the patient complete the activity by him/herself with no assistance (physical, verbal/nonverbal cueing, setup/clean-up)? Yes. 1. [id number] ADMISSION PERFORMANCE: Independent CODE: 06 INDICATE THE TYPE OF WHEELCHAIR/SCOOTER USED: SS1. INDICATE THE TYPE OF WHEELCHAIR/SCOOTER USED.: Manual CODE: 1 BLADDER AND BOWEL: H350. BLADDER CONTINENCE (3-DAY ASSESSMENT PERIOD): Always continent (no documented incontinence) CODE: 0 H400. BOWEL CONTINENCE (3-DAY ASSESSMENT PERIOD): Not rated, patient had an ostomy or did not have a bowel movement for the entire 3 days CODE: 9 SIGNATURE PANEL: The following modified sections: 1. [id number] Admission Performance, 1. [id number] Admission Performance, 1. [id number] Admission Performance, 1. [id number] Admission Performance, 1. [id number] Admission Performance, 1. [id number] Admission Performance, 1. [id number] Admission Performance, 1. [id number] Admission Performance , 1. [id number] Admission Performance, 1. [id number] Admission Performance, 1. [id number] Admission Performanc e, 1. [id number] Admission Performance, Q1. Does the patient use a wheelchair/scooter?, 1. [id number] Admis arianne Performance, RR1. Indicate the type of wheelchair/scooter used., 1. [id number] Admission Performanc e, Code, SS1. Indicate the type of wheelchair/scooter used., H350. Bladder Continence (3-day assessme nt period), H400. Bowel Continence (3-day assessment period) were [electronically] signed by Ewa Fay [email or web address] on TueJun 24 2020 14:53:14 T-0500 (Central Daylight Time)
--- NOTE | 2020-06-24 19:19 | R.PN ---
PROGRESS NOTES ENCOUNTER DATE AND TIME: 06/24/2020 19:14 (CDT) NAME TRIP LAM DATE OF : 1945 DATE OF ADMISSION: 06/06/2020 09:53 (CDT) RIGHT FEMUR FRACTURECHIEF COMPLAINT: Right femur fracture, uncontrolled blood pressure SUBJECTIVE: Pt denied any Shortness of Breath. Pt denied any depression. Start antonio inhibitor prinivil 2.5 mg daily in the AM for elevated blood pressures. Ambulated 890' with touch down weight bearing and supervision using rolling walker. Mobilized wheelch air 250' with independence. Her pain is well managed and she is sleeping well at night. WBC 7.8, Hgb 12.6, prealbumin 21.6. VITAL SIGNS Temperature: 97.1 F SBP/DBP: 151/75 Pulse: 64 Resp: 16 Clonidine 0.1 mg q 4 hours for SBP > 170. MEDICATION ALLERGIES: CEPHALEXIN ENVIRONMENTAL ALLERGIES: - Substance Allergies None Known - Other Allergies None Known NURSING: - Shower allowing shower - Skin care per protocol PRECAUTIONS: - Anterior Hip Precaution No abduction No active extension No adduction across midline No external rotation No hip flexion >90 degrees No internal rotation - Posterior Hip Precaution No adduction across midline No external rotation No hip flexion >90 degrees No internal rotation No wheel chair propulsion - Weight Bearing Precaution TTWB right LE ACTIVITIES OOB only with supervision THERAPIES: - Dietary and Nutrition Adequate Nutrition. Nutritional Education. Nutritional Supplements. PHYSICAL EXAM - Gen Alert and awake Lying in bed No apparent distress Oriented to: person, time, and place - Skin No skin breakdown. Normacephalic - Eyes No abnormalities - ENMT No abnormalities - Neck No abnormalities - CVS RRR - Chest No abnormalities - Resp Clear to auscultation - Abd Soft - GI + bowel sounds Deferred - No abnormalities - Ext Right hip surgical site has good hemostasis. - MSK 4+/5 weakness in right lower extremity - Neuro 4/5 strength right lower extremity. - Psych No abnormalities ASSESSMENT: Pt. is a 74 yo Right-handed white female.On 06/04/2020 she was admitted to [facility] an d underwent emergency surgery for RIGHT FEMUR FRACTURE (Unilateral Hip Fracture) by SHEFALI ROBINS MD.P re-morbidly, Pt. was independent/mod-I in Safety Awareness, Balance, Transfers Control, Self-Care, Co mmunication, and Locomotion; and she had good Sphincter Control, Social Cognition, and Locomotion.Cur rently, she has deficits of Balance, Locomotion, Transfers Control, Self-Care, Endurance, and Sphinct er Control.Pt. is now referred to [facility] for acute in-patient rehabilitati on in order to maximize patient's functional independence in activities of daily living, strength, RO M, and mobility.- Rehab Goal Patient has realistic goal of being discharged at assistance level 6-Nany to reside at Home with Fam kali/Relatives. MDM/PLAN: - Physical Therapy Decreased range of motion - to improve, our physical therapists will perform initial evaluation of p t's status upon admission and devise an individualized program for increasing patient's Range of Sridhar on. Gait dysfunction - to improve, our physical therapists will perform initial evaluation of pt's statu s upon admission and devise an individualized program for Gait Training, and Wheel Chair mobility Inability to transfer - to improve, our physical therapists will perform initial evaluation of pt's status upon admission and devise an individualized program for Bed mobility Need for home safety evaluation - to improve, our physical therapists will perform initial evaluatio n of pt's status upon admission and devise an individualized program for Home Evaluation Need in caregiver upon discharge - to improve, our physical therapists will perform initial evaluati on of pt's status upon admission and devise an individualized program for Caregiver Training New precaution - to improve, our physical therapists will perform initial evaluation of pt's status upon admission and devise an individualized program for Patient precaution education Poor balance - to improve, our physical therapists will perform initial evaluation of pt's status up on admission and devise an individualized program for Balance Training Poor endurance - to improve, our physical therapists will perform initial evaluation of pt's status upon admission and devise an individualized program for Endurance Training Weakness - to improve, our physical therapists will perform initial evaluation of pt's status upon a dmission and devise an individualized program for Aquatic Therapy, Neuromuscular Reeducation, and Str engthening Achieving independence - to improve, our physical therapists will perform initial evaluation of pt's status upon admission and devise an individualized program for Community Reintegration Activities - Occupational Therapy ADL deficits - to improve, our occupation therapists will perform initial evaluation of pt's status upon admission and devise an individualized program for Bathing, Bed mobility, Community Reintegratio n, Cooking, Dressing, Eating, Fine Motor Skills, Grooming, Homemaking, Kitchen Mobility, Laundry, Pat ient Education, Safety Awareness, Splinting - Positioning, Transfers(Toilet, Tub, Shower), and Wheel Chair Management Need for patient care secretary - to improve, our occupation therapists will perform initial evaluation of pt's status upon admission and devise an individualized program for Caregiver Training Weakness - to improve, our occupation therapists will perform initial evaluation of pt's status upon admission and devise an individualized program for Aquatic Therapy, Balance, Endurance, UE ROM, and UE strengthening - Other See attached MAR (Medication Administration Record) - Anterior Hip Precaution No abduction No active extension No adduction across midline No external rotation No hip flexion >90 degrees No internal rotation - Diet - Liquid Texture Continue Regular - Tube Feed Continue N/A - Diet Type Continue Regular - Posterior Hip Precaution No adduction across midline No external rotation No hip flexion >90 degrees No internal rotation No wheel chair propulsion - Weight Bearing Precaution TTWB right LE - Skin care per protocol - Diet - Solid Texture Continue Regular - Shower allowing shower FUNCTIONAL STATUS: UPDATED AT WEEKLY TEAM CONFERENCE - Bladder Same accident frequency: 7-Ind - No accidents in the past 7 days - Bowel Same accident frequency: 7-Ind - No accidents in the past 7 days - Walking Same score based on distance walked: 0(N/A) Same score based on distance walked: 1(<=50ft) - Wheelchair Same score based on distance traveled: 0(N/A) FUNCTIONAL STATUS: - Self-Care A. Eating Nany B. Grooming Nany C. Bathing Thelma D. Dressing - Upper Thelma E. Dressing - Lower modA F. Toileting sup - Sphincter Control G. Bladder control sup H. Bowel control sup - Transfers Control I. Bed/Chair/Wheelchair Thelma J. Toilet Thelma K. Tub/Shower modA - Locomotion L. Walk/Wheelchair (B) Thelma M. Stairs maxA - Communication N. Comprehension (B) Nany O. Expression (B) Nany - Social Cognition P. Social Interaction Nany Q. Problem Solving Nany R. Memory Nany - Endurance Poor - Balance Fair - Safety Awareness Fair QI SCORES: - Self-Care A. Eating 04-Supervision or touching assistance B. Oral hygiene 03-Partial/moderate assistance C. Toileting hygiene 03-Partial/moderate assistance E. Shower/bathe self 03-Partial/moderate assistance F. Upper body dressing 03-Partial/moderate assistance G. Lower body dressing 03-Partial/moderate assistance H. Putting on/taking off footwear 03-Partial/moderate assistance - Mobility A. Roll left and right 03-Partial/moderate assistance B. Sit to lying 03-Partial/moderate assistance C. Lying to sitting on side of bed 03-Partial/moderate assistance D. Sit to stand 03-Partial/moderate assistance E. Chair/cmr-wc-[id number] transfer 03-Partial/moderate assistance F. Toilet transfer 03-Partial/moderate assistance G. Car transfer 88-Not attempted due to medical condition or safety concerns I. Walk 10 feet 03-Partial/moderate assistance J. Walk 50 feet with two turns 88-Not attempted due to medical condition or safety concerns K. Walk 150 feet 88-Not attempted due to medical condition or safety concerns L. Walking 10 feet on uneven surfaces 88-Not attempted due to medical condition or safety concerns M. 1 step (curb) 88-Not attempted due to medical condition or safety concerns N. 4 steps 88-Not attempted due to medical condition or safety concerns O. 12 steps 88-Not attempted due to medical condition or safety concerns P. Picking up object 03-Partial/moderate assistance R. Wheel 50 feet with two turns 88-Not attempted due to medical condition or safety concerns S. Wheel 150 feet 88-Not attempted due to medical condition or safety concerns - Bladder and Bowel Bladder continence 0-Always continent Bowel continence 0-Always continent - Endurance Poor - Balance Poor - Safety Awareness Poor CURRENT FUNC. DEFICITS: Endurance, Balance, Mobility, Safety Awareness, and Self-Care SIGNATURE PANEL: (CDT)
[2020-06-25] MEDS: LIDOCAINE 4% PATCH TOP SCH (07:58)
[2020-06-25] MEDS: BUPROPION HCL 300 MG PO SCH (08:00)
[2020-06-25] MEDS: lisinopriL 5 MG TAB PO SCH (08:00)
[2020-06-25] MEDS: MAGNESIUM OXIDE 400 MG TAB PO SCH ×2 (08:01→19:39)
[2020-06-25] MEDS: ENOXAPARIN 40 MG/0.4 ML SQ SCH (08:01)
[2020-06-25] MEDS: POLYETHYL GLY 3350 17 GM/DOSE PO SCH (08:01)
[2020-06-25] MEDS: TRAMADOL HCL 50 MG TAB PO PRN (08:01)
[2020-06-25] MEDS: hydroCHLOROthiazide 25 MG TAB PO SCH (08:02)
[2020-06-25] MEDS: PROMOD 30 ML DOSE PO SCH ×2 (08:03→19:39)
[2020-06-25] MEDS: GABAPENTIN 300 MG CAP PO SCH ×2 (08:03→19:39)
[2020-06-25] MEDS: VALSARTAN 160 MG TAB PO SCH (08:03)
--- NOTE | 2020-06-25 18:05 | R.PN ---
PROGRESS NOTES ENCOUNTER DATE AND TIME: 06/25/2020 18:01 (CDT) NAME TRIP LAM DATE OF : 1945 DATE OF ADMISSION: 06/06/2020 09:53 (CDT) RIGHT FEMUR FRACTURECHIEF COMPLAINT: Right femur fracture, uncontrolled blood pressure SUBJECTIVE: Pt denied any Shortness of Breath. Pt denied any depression. Start antonio inhibitor prinivil 2.5 mg daily in the AM for elevated blood pressures. Ambulated 500' with touch down weight bearing and independence using rolling walker. Mobilized wheelc hair 250' with independence. Up and down the curb using a rolling walker and standby assistance. Her pain is well managed and she is sleeping well at night. WBC 7.8, Hgb 12.6, prealbumin 21.6. VITAL SIGNS Temperature: 98.0 F SBP/DBP: 144/70 Pulse: 63 Resp: 16 Clonidine 0.1 mg q 4 hours for SBP > 170. MEDICATION ALLERGIES: CEPHALEXIN ENVIRONMENTAL ALLERGIES: - Substance Allergies None Known - Other Allergies None Known NURSING: - Shower allowing shower - Skin care per protocol PRECAUTIONS: - Anterior Hip Precaution No abduction No active extension No adduction across midline No external rotation No hip flexion >90 degrees No internal rotation - Posterior Hip Precaution No adduction across midline No external rotation No hip flexion >90 degrees No internal rotation No wheel chair propulsion - Weight Bearing Precaution TTWB right LE ACTIVITIES OOB only with supervision THERAPIES: - Dietary and Nutrition Adequate Nutrition. Nutritional Education. Nutritional Supplements. PHYSICAL EXAM - Gen Alert and awake Lying in bed No apparent distress Oriented to: person, time, and place - Skin No skin breakdown. Normacephalic - Eyes No abnormalities - ENMT No abnormalities - Neck No abnormalities - CVS RRR - Chest No abnormalities - Resp Clear to auscultation - Abd Soft - GI + bowel sounds Deferred - No abnormalities - Ext Right hip surgical site has good hemostasis. - MSK 4+/5 weakness in right lower extremity - Neuro 4/5 strength right lower extremity. - Psych No abnormalities ASSESSMENT: Pt. is a 74 yo Right-handed white female.On 06/04/2020 she was admitted to [facility] an d underwent emergency surgery for RIGHT FEMUR FRACTURE (Unilateral Hip Fracture) by SHEFALI ROBINS MD.P re-morbidly, Pt. was independent/mod-I in Safety Awareness, Balance, Transfers Control, Self-Care, Co mmunication, and Locomotion; and she had good Sphincter Control, Social Cognition, and Locomotion.Cur rently, she has deficits of Balance, Locomotion, Transfers Control, Self-Care, Endurance, and Sphinct er Control.Pt. is now referred to [facility] for acute in-patient rehabilitati on in order to maximize patient's functional independence in activities of daily living, strength, RO M, and mobility.- Rehab Goal Patient has realistic goal of being discharged at assistance level 6-Nany to reside at Home with Fam kali/Relatives. MDM/PLAN: - Physical Therapy Decreased range of motion - to improve, our physical therapists will perform initial evaluation of p t's status upon admission and devise an individualized program for increasing patient's Range of Sridhar on. Gait dysfunction - to improve, our physical therapists will perform initial evaluation of pt's statu s upon admission and devise an individualized program for Gait Training, and Wheel Chair mobility Inability to transfer - to improve, our physical therapists will perform initial evaluation of pt's status upon admission and devise an individualized program for Bed mobility Need for home safety evaluation - to improve, our physical therapists will perform initial evaluatio n of pt's status upon admission and devise an individualized program for Home Evaluation Need in caregiver upon discharge - to improve, our physical therapists will perform initial evaluati on of pt's status upon admission and devise an individualized program for Caregiver Training New precaution - to improve, our physical therapists will perform initial evaluation of pt's status upon admission and devise an individualized program for Patient precaution education Poor balance - to improve, our physical therapists will perform initial evaluation of pt's status up on admission and devise an individualized program for Balance Training Poor endurance - to improve, our physical therapists will perform initial evaluation of pt's status upon admission and devise an individualized program for Endurance Training Weakness - to improve, our physical therapists will perform initial evaluation of pt's status upon a dmission and devise an individualized program for Aquatic Therapy, Neuromuscular Reeducation, and Str engthening Achieving independence - to improve, our physical therapists will perform initial evaluation of pt's status upon admission and devise an individualized program for Community Reintegration Activities - Occupational Therapy ADL deficits - to improve, our occupation therapists will perform initial evaluation of pt's status upon admission and devise an individualized program for Bathing, Bed mobility, Community Reintegratio n, Cooking, Dressing, Eating, Fine Motor Skills, Grooming, Homemaking, Kitchen Mobility, Laundry, Pat ient Education, Safety Awareness, Splinting - Positioning, Transfers(Toilet, Tub, Shower), and Wheel Chair Management Need for day care home mother - to improve, our occupation therapists will perform initial evaluation of pt's status upon admission and devise an individualized program for Caregiver Training Weakness - to improve, our occupation therapists will perform initial evaluation of pt's status upon admission and devise an individualized program for Aquatic Therapy, Balance, Endurance, UE ROM, and UE strengthening - Other See attached MAR (Medication Administration Record) - Anterior Hip Precaution No abduction No active extension No adduction across midline No external rotation No hip flexion >90 degrees No internal rotation - Diet - Liquid Texture Continue Regular - Tube Feed Continue N/A - Diet Type Continue Regular - Posterior Hip Precaution No adduction across midline No external rotation No hip flexion >90 degrees No internal rotation No wheel chair propulsion - Weight Bearing Precaution TTWB right LE - Skin care per protocol - Diet - Solid Texture Continue Regular - Shower allowing shower FUNCTIONAL STATUS: UPDATED AT WEEKLY TEAM CONFERENCE - Bladder Same accident frequency: 7-Ind - No accidents in the past 7 days - Bowel Same accident frequency: 7-Ind - No accidents in the past 7 days - Walking Same score based on distance walked: 0(N/A) Same score based on distance walked: 1(<=50ft) - Wheelchair Same score based on distance traveled: 0(N/A) FUNCTIONAL STATUS: - Self-Care A. Eating Nany B. Grooming Nany C. Bathing Thelma D. Dressing - Upper Thelma E. Dressing - Lower modA F. Toileting sup - Sphincter Control G. Bladder control sup H. Bowel control sup - Transfers Control I. Bed/Chair/Wheelchair Thelma J. Toilet Thelma K. Tub/Shower modA - Locomotion L. Walk/Wheelchair (B) Thelma M. Stairs maxA - Communication N. Comprehension (B) Nany O. Expression (B) Nany - Social Cognition P. Social Interaction Nany Q. Problem Solving Nany R. Memory Nany - Endurance Poor - Balance Fair - Safety Awareness Fair QI SCORES: - Self-Care A. Eating 04-Supervision or touching assistance B. Oral hygiene 03-Partial/moderate assistance C. Toileting hygiene 03-Partial/moderate assistance E. Shower/bathe self 03-Partial/moderate assistance F. Upper body dressing 03-Partial/moderate assistance G. Lower body dressing 03-Partial/moderate assistance H. Putting on/taking off footwear 03-Partial/moderate assistance - Mobility A. Roll left and right 03-Partial/moderate assistance B. Sit to lying 03-Partial/moderate assistance C. Lying to sitting on side of bed 03-Partial/moderate assistance D. Sit to stand 03-Partial/moderate assistance E. Chair/rod-ou-ozfgu transfer 03-Partial/moderate assistance F. Toilet transfer 03-Partial/moderate assistance G. Car transfer 88-Not attempted due to medical condition or safety concerns I. Walk 10 feet 03-Partial/moderate assistance J. Walk 50 feet with two turns 88-Not attempted due to medical condition or safety concerns K. Walk 150 feet 88-Not attempted due to medical condition or safety concerns L. Walking 10 feet on uneven surfaces 88-Not attempted due to medical condition or safety concerns M. 1 step (curb) 88-Not attempted due to medical condition or safety concerns N. 4 steps 88-Not attempted due to medical condition or safety concerns O. 12 steps 88-Not attempted due to medical condition or safety concerns P. Picking up object 03-Partial/moderate assistance R. Wheel 50 feet with two turns 88-Not attempted due to medical condition or safety concerns S. Wheel 150 feet 88-Not attempted due to medical condition or safety concerns - Bladder and Bowel Bladder continence 0-Always continent Bowel continence 0-Always continent - Endurance Poor - Balance Poor - Safety Awareness Poor CURRENT FUNC. DEFICITS: Endurance, Balance, Mobility, Safety Awareness, and Self-Care SIGNATURE PANEL: (CDT)
[2020-06-26 06:16] LABS: Absolute Lymphocytes (CBC) 0.9 K/uL (0.7-4.9); Basophils % 0.5 % (0-1.3); Hematocrit 36.2 % (36.0-45.0); Lymphocytes % 20.1 % (15.3-44.8); MPV 8.5 fL (7.6-11.3); RBC Red Blood Cell Count 3.89 M/uL (3.86-4.86)
[2020-06-26 06:40] LABS: Albumin 2.9 g/dL (3.4-5.0); Magnesium 2.3 mg/dL (1.8-2.4); Potassium 4.9 mmol/L (3.5-5.1); Prealbumin 25.4 mg/dL (20-40)
[2020-06-26] MEDS: ENOXAPARIN 40 MG/0.4 ML SQ SCH (06:40)
[2020-06-26] MEDS: LIDOCAINE 4% PATCH TOP SCH (07:30)
[2020-06-26] MEDS: BUPROPION HCL 300 MG PO SCH (08:00)
[2020-06-26] MEDS: TRAMADOL HCL 50 MG TAB PO PRN ×2 (08:07→12:24)
[2020-06-26] MEDS: MAGNESIUM OXIDE 400 MG TAB PO SCH ×2 (08:08→19:04)
[2020-06-26] MEDS: POLYETHYL GLY 3350 17 GM/DOSE PO SCH (08:09)
[2020-06-26] MEDS: lisinopriL 5 MG TAB PO SCH (08:09)
[2020-06-26] MEDS: VALSARTAN 160 MG TAB PO SCH (08:09)
[2020-06-26] MEDS: hydroCHLOROthiazide 25 MG TAB PO SCH (08:10)
[2020-06-26] MEDS: GABAPENTIN 300 MG CAP PO SCH ×2 (08:11→19:03)
[2020-06-26] MEDS: PROMOD 30 ML DOSE PO SCH ×2 (08:12→19:04)
--- NOTE | 2020-06-26 17:11 | R.PN ---
PROGRESS NOTES ENCOUNTER DATE AND TIME: 06/26/2020 17:06 (CDT) NAME TRIP LAM DATE OF : 1945 DATE OF ADMISSION: 06/06/2020 09:53 (CDT) RIGHT FEMUR FRACTURECHIEF COMPLAINT: Right femur fracture, uncontrolled blood pressure SUBJECTIVE: Pt denied any Shortness of Breath. Pt denied any depression. Start antonio inhibitor prinivil 2.5 mg daily in the AM for elevated blood pressures. Ambulated 500' with independence using rolling walker. Mobilized wheelchair 500' with independence. U p and down the curb using a rolling walker and standby assistance. Her pain is well managed and she is sleeping well at night. WBC 7.8, Hgb 12.6, prealbumin 21.6. VITAL SIGNS Temperature: 98.0 F SBP/DBP: 155/76 Pulse: 64 Resp: 16 Clonidine 0.1 mg q 4 hours for SBP > 170. MEDICATION ALLERGIES: CEPHALEXIN ENVIRONMENTAL ALLERGIES: - Substance Allergies None Known - Other Allergies None Known NURSING: - Shower allowing shower - Skin care per protocol PRECAUTIONS: - Anterior Hip Precaution No abduction No active extension No adduction across midline No external rotation No hip flexion >90 degrees No internal rotation - Posterior Hip Precaution No adduction across midline No external rotation No hip flexion >90 degrees No internal rotation No wheel chair propulsion - Weight Bearing Precaution TTWB right LE ACTIVITIES OOB only with supervision THERAPIES: - Dietary and Nutrition Adequate Nutrition. Nutritional Education. Nutritional Supplements. PHYSICAL EXAM - Gen Alert and awake Lying in bed No apparent distress Oriented to: person, time, and place - Skin No skin breakdown. Normacephalic - Eyes No abnormalities - ENMT No abnormalities - Neck No abnormalities - CVS RRR - Chest No abnormalities - Resp Clear to auscultation - Abd Soft - GI + bowel sounds Deferred - No abnormalities - Ext Right hip surgical site has good hemostasis. - MSK 4+/5 weakness in right lower extremity - Neuro 4/5 strength right lower extremity. - Psych No abnormalities ASSESSMENT: Pt. is a 74 yo Right-handed white female.On 06/04/2020 she was admitted to [facility] an d underwent emergency surgery for RIGHT FEMUR FRACTURE (Unilateral Hip Fracture) by SHEFALI ROBINS MD.P re-morbidly, Pt. was independent/mod-I in Safety Awareness, Balance, Transfers Control, Self-Care, Co mmunication, and Locomotion; and she had good Sphincter Control, Social Cognition, and Locomotion.Cur rently, she has deficits of Balance, Locomotion, Transfers Control, Self-Care, Endurance, and Sphinct er Control.Pt. is now referred to [facility] for acute in-patient rehabilitati on in order to maximize patient's functional independence in activities of daily living, strength, RO M, and mobility.- Rehab Goal Patient has realistic goal of being discharged at assistance level 6-Nany to reside at Home with Fam kali/Relatives. MDM/PLAN: - Physical Therapy Decreased range of motion - to improve, our physical therapists will perform initial evaluation of p t's status upon admission and devise an individualized program for increasing patient's Range of Sridhar on. Gait dysfunction - to improve, our physical therapists will perform initial evaluation of pt's statu s upon admission and devise an individualized program for Gait Training, and Wheel Chair mobility Inability to transfer - to improve, our physical therapists will perform initial evaluation of pt's status upon admission and devise an individualized program for Bed mobility Need for home safety evaluation - to improve, our physical therapists will perform initial evaluatio n of pt's status upon admission and devise an individualized program for Home Evaluation Need in caregiver upon discharge - to improve, our physical therapists will perform initial evaluati on of pt's status upon admission and devise an individualized program for Caregiver Training New precaution - to improve, our physical therapists will perform initial evaluation of pt's status upon admission and devise an individualized program for Patient precaution education Poor balance - to improve, our physical therapists will perform initial evaluation of pt's status up on admission and devise an individualized program for Balance Training Poor endurance - to improve, our physical therapists will perform initial evaluation of pt's status upon admission and devise an individualized program for Endurance Training Weakness - to improve, our physical therapists will perform initial evaluation of pt's status upon a dmission and devise an individualized program for Aquatic Therapy, Neuromuscular Reeducation, and Str engthening Achieving independence - to improve, our physical therapists will perform initial evaluation of pt's status upon admission and devise an individualized program for Community Reintegration Activities - Occupational Therapy ADL deficits - to improve, our occupation therapists will perform initial evaluation of pt's status upon admission and devise an individualized program for Bathing, Bed mobility, Community Reintegratio n, Cooking, Dressing, Eating, Fine Motor Skills, Grooming, Homemaking, Kitchen Mobility, Laundry, Pat ient Education, Safety Awareness, Splinting - Positioning, Transfers(Toilet, Tub, Shower), and Wheel Chair Management Need for anesthesiologist and critical care - to improve, our occupation therapists will perform initial evaluation of pt's status upon admission and devise an individualized program for Caregiver Training Weakness - to improve, our occupation therapists will perform initial evaluation of pt's status upon admission and devise an individualized program for Aquatic Therapy, Balance, Endurance, UE ROM, and UE strengthening - Other See attached MAR (Medication Administration Record) - Anterior Hip Precaution No abduction No active extension No adduction across midline No external rotation No hip flexion >90 degrees No internal rotation - Diet - Liquid Texture Continue Regular - Tube Feed Continue N/A - Diet Type Continue Regular - Posterior Hip Precaution No adduction across midline No external rotation No hip flexion >90 degrees No internal rotation No wheel chair propulsion - Weight Bearing Precaution TTWB right LE - Skin care per protocol - Diet - Solid Texture Continue Regular - Shower allowing shower FUNCTIONAL STATUS: UPDATED AT WEEKLY TEAM CONFERENCE - Bladder Same accident frequency: 7-Ind - No accidents in the past 7 days - Bowel Same accident frequency: 7-Ind - No accidents in the past 7 days - Walking Same score based on distance walked: 0(N/A) Same score based on distance walked: 1(<=50ft) - Wheelchair Same score based on distance traveled: 0(N/A) FUNCTIONAL STATUS: - Self-Care A. Eating Nany B. Grooming Nany C. Bathing Thelma D. Dressing - Upper Thelma E. Dressing - Lower modA F. Toileting sup - Sphincter Control G. Bladder control sup H. Bowel control sup - Transfers Control I. Bed/Chair/Wheelchair Thelma J. Toilet Thelma K. Tub/Shower modA - Locomotion L. Walk/Wheelchair (B) Thelma M. Stairs maxA - Communication N. Comprehension (B) Nany O. Expression (B) Nany - Social Cognition P. Social Interaction Nany Q. Problem Solving Nany R. Memory Nany - Endurance Poor - Balance Fair - Safety Awareness Fair QI SCORES: - Self-Care A. Eating 04-Supervision or touching assistance B. Oral hygiene 03-Partial/moderate assistance C. Toileting hygiene 03-Partial/moderate assistance E. Shower/bathe self 03-Partial/moderate assistance F. Upper body dressing 03-Partial/moderate assistance G. Lower body dressing 03-Partial/moderate assistance H. Putting on/taking off footwear 03-Partial/moderate assistance - Mobility A. Roll left and right 03-Partial/moderate assistance B. Sit to lying 03-Partial/moderate assistance C. Lying to sitting on side of bed 03-Partial/moderate assistance D. Sit to stand 03-Partial/moderate assistance E. Chair/sak-cn-bbocv transfer 03-Partial/moderate assistance F. Toilet transfer 03-Partial/moderate assistance G. Car transfer 88-Not attempted due to medical condition or safety concerns I. Walk 10 feet 03-Partial/moderate assistance J. Walk 50 feet with two turns 88-Not attempted due to medical condition or safety concerns K. Walk 150 feet 88-Not attempted due to medical condition or safety concerns L. Walking 10 feet on uneven surfaces 88-Not attempted due to medical condition or safety concerns M. 1 step (curb) 88-Not attempted due to medical condition or safety concerns N. 4 steps 88-Not attempted due to medical condition or safety concerns O. 12 steps 88-Not attempted due to medical condition or safety concerns P. Picking up object 03-Partial/moderate assistance R. Wheel 50 feet with two turns 88-Not attempted due to medical condition or safety concerns S. Wheel 150 feet 88-Not attempted due to medical condition or safety concerns - Bladder and Bowel Bladder continence 0-Always continent Bowel continence 0-Always continent - Endurance Poor - Balance Poor - Safety Awareness Poor CURRENT FUNC. DEFICITS: Endurance, Balance, Mobility, Safety Awareness, and Self-Care SIGNATURE PANEL: (CDT)
[2020-06-27 07:41] VITALS: BP 138/75; TEMP 97.6
[2020-06-27] MEDS: POLYETHYL GLY 3350 17 GM/DOSE PO SCH (08:00)
[2020-06-27] MEDS: BUPROPION HCL 300 MG PO SCH (08:00)
[2020-06-27] MEDS: PROMOD 30 ML DOSE PO SCH (08:00)
[2020-06-27] MEDS: ENOXAPARIN 40 MG/0.4 ML SQ SCH (08:16)
[2020-06-27] MEDS: VALSARTAN 160 MG TAB PO SCH (08:17)
[2020-06-27] MEDS: hydroCHLOROthiazide 25 MG TAB PO SCH (08:18)
[2020-06-27] MEDS: GABAPENTIN 300 MG CAP PO SCH (08:18)
[2020-06-27] MEDS: lisinopriL 5 MG TAB PO SCH (08:19)
[2020-06-27] MEDS: MAGNESIUM OXIDE 400 MG TAB PO SCH (08:20)
[2020-06-27] MEDS: LIDOCAINE 4% PATCH TOP SCH (08:20)
[2020-06-27] MEDS: TRAMADOL HCL 50 MG TAB PO PRN ×2 (08:22→12:49)
--- NOTE | 2020-06-27 09:36 | P.RH.PN ---
Estimated Length of Stay: 22 Expected Discharge Date: 06/27/20 Discharge Disposition Plan: Home Family Support: Yes Shelter Goal: Mobility, Transfers, Self Care Vital Signs: Last Vital Signs Temp 97.6 F 06/27/20 07:15 Pulse 70 06/27/20 08:19 Resp 16 06/27/20 08:22 BP 138/75 06/27/20 08:19 Pulse Ox 95 06/27/20 08:22 Laboratory: Laboratory Last Values WBC 4.7 K/uL (4.3-10.9) D 06/26/20 05:35 RBC 3.89 M/uL (3.86-4.86) 06/26/20 05:35 Hgb 12.3 g/dL (12.0-15.0) 06/26/20 05:35 Hct 36.2 % (36.0-45.0) 06/26/20 05:35 MCV 93.1 fL (80-100) 06/26/20 05:35 MCH 31.7 pg (27.0-35.0) 06/26/20 05:35 MCHC 34.0 g/dL (32.0-36.0) 06/26/20 05:35 RDW 13.4 % (12.1-15.2) 06/26/20 05:35 Plt Count 237 K/uL (152-406) D 06/26/20 05:35 MPV 8.5 fL (7.6-11.3) 06/26/20 05:35 Neutrophils % 66.7 % (41.7-73.7) 06/26/20 05:35 Lymphocytes % 20.1 % (15.3-44.8) 06/26/20 05:35 Monocytes % 9.0 % (3.3-12.3) 06/26/20 05:35 Eosinophils % 3.7 % (0-4.4) 06/26/20 05:35 Basophils % 0.5 % (0-1.3) 06/26/20 05:35 Absolute Neutrophils 3.1 K/uL (1.8-8.0) 06/26/20 05:35 Absolute Lymphocytes 0.9 K/uL (0.7-4.9) 06/26/20 05:35 Absolute Monocytes 0.4 K/uL (0.1-1.3) 06/26/20 05:35 Absolute Eosinophils 0.2 K/uL (0-0.5) 06/26/20 05:35 Absolute Basophils 0.0 K/uL (0-0.5) 06/26/20 05:35 Sodium 144 mmol/L (136-145) 06/26/20 05:35 Potassium 4.9 mmol/L (3.5-5.1) 06/26/20 05:35 Chloride 108 mmol/L (98-107) H 06/26/20 05:35 Carbon Dioxide 32 mmol/L (21-32) 06/26/20 05:35 BUN 34 mg/dL (7-18) H 06/26/20 05:35 Creatinine 0.95 mg/dL (0.55-1.3) 06/26/20 05:35 Estimated GFR 58 mL/min (=/>90) L 06/26/20 05:35 Glucose 96 mg/dL (74-106) 06/26/20 05:35 Calcium 9.1 mg/dL (8.5-10.1) 06/26/20 05:35 Magnesium 2.3 mg/dL (1.8-2.4) 06/26/20 05:35 Albumin 2.9 g/dL (3.4-5.0) L 06/26/20 05:35 Prealbumin 25.4 mg/dL (20-40) 06/26/20 05:35 Urine Color Yellow 06/06/20 12:34 Urine Appearance Clear 06/06/20 12:34 Urine pH 6.5 (5.0-7.0) 06/06/20 12:34 Ur Specific Zoe 1.010 (1.005-1.030) 06/06/20 12:34 Glucose (UA)(Auto) Negative (NEG) 06/06/20 12:34 Urine Ketones Negative (NEG) 06/06/20 12:34 Urine Blood Negative (NEG) 06/06/20 12:34 Urine Nitrite Negative (NEG) 06/06/20 12:34 Urine Bilirubin Negative (NEG) 06/06/20 12:34 Urine Urobilinogen 0.2 mg/dL (0.2-1.0) 06/06/20 12:34 Ur Leukocyte Esterase Negative (NEG) 06/06/20 12:34 Urine RBC <5 /HPF (NONE SEEN) 06/06/20 12:34 Urine WBC <5 /HPF (<5) 06/06/20 12:34 Ur Squamous Epith Cells <5 /HPF (NONE SEEN) 06/06/20 12:34 Urine Bacteria <20 /HPF (<20) 06/06/20 12:34 Urine Culture Reflexed Not needed 06/06/20 12:34 Urine Total Protein Negative (NEG) 06/06/20 12:34 Weight: 139 lb 6 oz Wound Present: No Closed Surgical Incision Present: Yes Negative Pressure Wound Therapy Present: No Physician Update: Labs reviewed and are stable. She is doing very well with all therapy. She is at modified independent with all ADL and mobilization. She will start Eliquis 2.5 mg twice daily. She will followup up with Dr. Covarrubias on 07/01/20. She will have [facility] home health. Comment: 06/04/20 S/P ORIF of right femur Functional Improvement: Patient has met all short-term and long-term goals at this time, w/ the exception of performing a ramp ascension/descension. Patient is currently Independent w/ all tasks and shows good overall safety awareness. Summary: Patient's care plan and usp goals have been reviewed and revised as necessary. Please see the Rehabilitation Signature page for all necessary signatures.
[2020-06-27] MEDS ORDERED: APIXABAN 2.5 MG TABLET PO SCH (20:00)
== END 2020-06-27 14:00 | disposition home health service (06) | DRG 561 ==
LOC: 5TH 11:53
PROVIDERS: ADMIT Psychiatry & Neurology Neurology with Special Qualifications in Child Neurology; ATTEND Psychiatry & Neurology Neurology with Special Qualifications in Child Neurology
DX: S72.91XD Unspecified fracture of right femur, subsequent encounter for closed fracture with routine healing (principal); I10 Essential (primary) hypertension; J44.9 Chronic obstructive pulmonary disease, unspecified; Z85.3 Personal history of malignant neoplasm of breast; Z60.2 Problems related to living alone; Z85.038 Personal history of other malignant neoplasm of large intestine; Z90.12 Acquired absence of left breast and nipple; Z88.1 Allergy status to other antibiotic agents; Z90.711 Acquired absence of uterus with remaining cervical stump; Z90.49 Acquired absence of other specified parts of digestive tract; Z11.59 Encounter for screening for other viral diseases
CPT/HCPCS: 36415; 80048; 81001; 82040; 83735; 84134; 85025; 87086; 87088; 93971; 97110; 97116; 97161; 97530; 97542; J1650; U0002

== ENCOUNTER 2020-12-26 17:45 | Emergency (ER) | payer BC ==
--- NOTE | 2020-12-26 19:53 | RAD REPORT ---
EXAM DESCRIPTION: RAD - Chest Single View - 12/26/2020 7:29 pm CLINICAL HISTORY: Cough;Dyspnea Chest pain. COMPARISON: Chest Single View dated 06/04/2020; Chest Single View dated 01/23/2020; Chest Pa And Lat ( 2 Views) dated 11/30/2018; Chest Single View dated 11/29/2018 FINDINGS: Portable technique limits examination quality. The lungs are mildly emphysematous but grossly clear. The heart is normal in size. No displaced fract ures.Left axillary dissection clips. IMPRESSION: Mild diffuse COPD.
[2020-12-26 22:13] LABS: Basophils % 0.4 % (0-1.3); Hematocrit 40.7 % (36.0-45.0); Lymphocytes % 8.5 % (15.3-44.8); MPV 8.5 fL (7.6-11.3); RBC Red Blood Cell Count 4.45 M/uL (3.86-4.86)
[2020-12-26 22:26] LABS: Protime INR 0.89
[2020-12-26 22:39] LABS: ALT/SGPT 26 U/L (12-78); AST/SGOT 14 U/L (15-37); Albumin 3.7 g/dL (3.4-5.0); Alkaline Phosphatase 112 U/L (45-117); BUN Blood Urea Nitrogen 22 mg/dL (7-18); Bicarbonate 26 mmol/L (21-32); Bilirubin Direct 0.1 mg/dL (0-0.2); Bilirubin Total 0.6 mg/dL (0.2-1.0); Ferritin 112.9 ng/mL (8-388); Glucose Level 96 mg/dL (74-106); Lipase 83 U/L (73-393); Potassium 4.3 mmol/L (3.5-5.1); Protein, Total 7.4 g/dL (6.4-8.2); Sodium Level 141 mmol/L (136-145); Troponin (Emerg Dept Use Only) 0.09 ng/mL (0.0-0.045)
[2020-12-26 22:48] LABS: C-Reactive Protein < 2.90 mg/L (<3.00)
[2020-12-26 23:54] LABS: Urine Blood NEGATIVE (NEG); Urine Glucose NEGATIVE (NEG); Urine Protein NEGATIVE (NEG); Urine Specific Gravity 1.025 (1.005-1.030); Urine pH 5.5 (5.0-7.0)
[2020-12-27 00:02] LABS: Urine Bacteria <20 /HPF (<20); Urine RBC <5 /HPF (NONE SEEN)
[2020-12-27 00:07] LABS: SARS-COV-2 RT PCR NEGATIVE (NEGATIVE)
[2020-12-27] MEDS ORDERED: ALBUTEROL 2.5 MG/3 ML NEB SOL ONE (00:46)
[2020-12-27] MEDS ORDERED: IPRATROPIUM BROM 0.5MG/2.5ML ONE (00:46)
--- NOTE | 2020-12-27 01:07 | EDPHYS ---
Physician Documentation [facility] Name: Yamileth Connell Age: 75 yrs Sex: Female : 1945 Arrival Date: 12/26/2020 Time: 17:51 Bed 5 Private MD: Adilson Boothe E ED Physician Parth Sharp HPI: 12/26 23:56 This 75 yrs old Female presents to ER via Ambulatory with complaints of COPD tw4 Exacerbation, Breathing Difficulty. 23:56 The patient has shortness of breath at rest. Onset: The symptoms/episode began/occurred tw4 1 week(s) ago. Duration: The symptoms are continuous, and are unchanged since they started. The patient's shortness of breath is aggravated by exertion, is alleviated by rest. Associated signs and symptoms: The patient has no apparent associated signs or symptoms. The patient has not experienced similar symptoms in the past. Historical: - Allergies: 18:19 Keflex; ll1 - PMHx: 18:19 Cancer, Breast; Hypertension; rectal cancer; Diverticulitis; COPD; ll1 - PSHx: 18:19 Colostomy; partial colon removal; Knee surgery; Cholecystectomy; femur fx; ll1 - Immunization history:: Flu vaccine is up to date. - Social history:: Smoking status: Patient reports the use of cigarette tobacco products, denies chronic smoking, but will smoke occasionally. ROS: 23:56 Constitutional: Negative for fever, chills, and weight loss, Eyes: Negative for injury, tw4 pain, redness, and discharge, Neck: Negative for injury, pain, and swelling, Cardiovascular: Negative for chest pain, palpitations, and edema, Abdomen/GI: Negative for abdominal pain, nausea, vomiting, diarrhea, and constipation, Back: Negative for injury and pain, MS/Extremity: Negative for injury and deformity, Skin: Negative for injury, rash, and discoloration, Neuro: Negative for headache, weakness, numbness, tingling, and seizure. 23:56 Respiratory: Positive for shortness of breath. Exam: 12/27 01:30 Constitutional: This is a well developed, well nourished patient who is awake, alert, tw4 and in no acute distress. Head/Face: Normocephalic, atraumatic. Chest/axilla: Normal chest wall appearance and motion. Nontender with no deformity. No lesions are appreciated. Cardiovascular: Regular rate and rhythm with a normal S1 and S2. No gallops, murmurs, or rubs. Normal PMI, no JVD. No pulse deficits. Respiratory: Lungs have equal breath sounds bilaterally, clear to auscultation and percussion. No rales, rhonchi or wheezes noted. No increased work of breathing, no retractions or nasal flaring. Abdomen/GI: Soft, non-tender, with normal bowel sounds. No distension or tympany. No guarding or rebound. No evidence of tenderness throughout. Back: No spinal tenderness. No costovertebral tenderness. Full range of motion. MS/ Extremity: Pulses equal, no cyanosis. Neurovascular intact. Full, normal range of motion. Neuro: Awake and alert, GCS 15, oriented to person, place, time, and situation. Cranial nerves II-XII grossly intact. Motor strength 5/5 in all extremities. Sensory grossly intact. Cerebellar exam normal. Normal gait. Vital Signs: 12/26 18:16 BP 155 / 85; Pulse 99; Resp 22; Temp 97.9; Pulse Ox 95% on 4 lpm NC; Weight 68.04 kg; ll1 Height 5 ft. 0 in. (152.40 cm); Pain 1/10; 22:35 BP 150 / 91; Pulse 78; Resp 16; Pulse Ox 99% ; ea 12/27 00:09 BP 147 / 89; Pulse 69; Resp 22; Pulse Ox 98% on 3 lpm NC; mg2 01:24 BP 135 / 95; Pulse 90; Resp 22; Pulse Ox 93% ; ea 12/26 18:16 Body Mass Index 29.29 (68.04 kg, 152.40 cm) ll1 MDM: 12/26 21:25 Patient medically screened. tw4 12/27 01:31 Differential diagnosis: Anemia Bronchitis Chronic Obstructive Pulmonary Disease tw4 reactive airway disease, Sepsis. Antibiotic administration: Data reviewed: vital signs, nurses notes. Data interpreted: Pulse oximetry: Interpretation: normal. Counseling: I had a detailed discussion with the patient and/or guardian regarding: the historical points, exam findings, and any diagnostic results supporting the discharge/admit diagnosis. Special discussion: I discussed with the patient/guardian in detail that at this point there is no indication for admission to the hospital. It is understood, however, that if the symptoms persist or worsen the patient needs to return immediately for re-evaluation. 12/26 19:31 Order name: Ferritin [facility] 12/26 19:31 Order name: Blood Culture Adult (2) 12/26 19:31 Order name: BMP 12/26 19:31 Order name: C-Reactive Protein [facility] 12/26 19:31 Order name: CBC with Diff [facility] 12/26 19:31 Order name: D-Dimer [facility] 12/26 19:31 Order name: Flu 12/26 19:31 Order name: Lactate; Complete Time: 23:49 [facility] 12/26 23:50 Interpretation: Within normal limits: LAC 1.0. 12/26 19:31 Order name: LFT's; Complete Time: 23:49 [facility] 12/26 23:49 Interpretation: Normal except: A/G 1.0; GLOB 3.7; AST 14. [facility] 12/26 19:31 Order name: Lipase; Complete Time: 23:49 [facility] 12/26 23:50 Interpretation: Within normal limits: LIP 83. 12/26 19:31 Order name: Procalcitonin; Complete Time: 23:49 [facility] 12/26 23:50 Interpretation: Within normal limits: Procalcitonin < 0.05. 12/26 19:31 Order name: PT-INR; Complete Time: 23:49 [facility] 12/26 23:51 Interpretation: Within normal limits: PT 10.2. 12/26 19:31 Order name: Ptt, Activated; Complete Time: 23:49 [facility] 12/26 23:51 Interpretation: Within normal limits: PTT 25.1. 12/26 19:31 Order name: Strep; Complete Time: 23:49 [facility] 12/26 23:52 Interpretation: Within normal limits. [facility] 12/26 19:12 Order name: Chest Single View XRAY; Complete Time: 22:16 kb 12/26 19:31 Order name: Troponin (emerg Dept Use Only); Complete Time: 23:49 [facility] 12/26 23:49 Interpretation: Abnormal: TROPED 0.09. [facility] 12/26 19:31 Order name: Urine Microscopic Only [facility] 12/26 19:32 Order name: Ferritin; Complete Time: 23:49 EDMS 12/26 23:52 Interpretation: Within normal limits: BRENDAN 112.9. [facility] 12/26 19:32 Order name: Blood Culture [facility] 12/26 19:32 Order name: Basic Metabolic Panel; Complete Time: 23:49 [facility] 12/26 23:49 Interpretation: Normal except: BUN 22; GFR 54. [facility] 12/26 19:32 Order name: C-Reactive Protein; Complete Time: 23:49 [facility] 12/26 23:52 Interpretation: Within normal limits: C-REACTIVE PROT < 2.90. [facility] 12/26 19:32 Order name: CBC with Automated Diff; Complete Time: 23:49 [facility] 12/26 23:49 Interpretation: Normal except: WBC 12.20; LYM% 8.5; CELIA% 85.6; NEUT A 10.5. [facility] 12/26 19:32 Order name: D-Dimer; Complete Time: 23:49 [facility] 12/26 23:50 Interpretation: Abnormal: D-DIMER 1000. [facility] 12/26 23:32 Order name: Throat Culture [facility] 12/26 23:46 Order name: Urine Dipstick--Ancillary (enter results) [facility] 12/27 00:08 Order name: COVID-19/FLU A+B [facility] 12/26 19:31 Order name: EKG; Complete Time: 19:32 [facility] 12/26 19:31 Order name: Cardiac monitoring; Complete Time: 21:44 [facility] 12/26 19:31 Order name: Droplet/Contact Precautions; Complete Time: 21:44 [facility] 12/26 19:31 Order name: EKG - Nurse/Tech; Complete Time: 21:45 [facility] 12/26 19:31 Order name: [place]; Complete Time: 00:23 [facility] 12/26 19:31 Order name: IV Start; Complete Time: 21:45 [facility] 12/26 19:31 Order name: Labs collected and sent; Complete Time: 21:45 [facility] 12/26 19:31 Order name: O2 Per Protocol; Complete Time: 21:45 [facility] 12/26 19:31 Order name: O2 Sat Monitoring; Complete Time: 21:45 [facility] 12/26 19:31 Order name: Urine Dipstick-Ancillary (obtain specimen); Complete Time: 00:23 tw4 EC:35 Rate is 75 beats/min. Rhythm is regular. QRS [place] is Normal. IA interval is normal. QRS tw4 interval is normal. QT interval is normal. No Q waves. T waves are Peaked in leads V4, V5, V6. No ST changes noted. Clinical impression: Sinus arrythmia. Interpreted by me. Reviewed by me. Administered Medications: 00:35 Drug: DuoNeb (3:1) (2.5 mg - 0.5 mg) 3 ml Route: Nebulizer; mg2 01:51 Follow up: Response: No adverse reaction mg2 01:24 Drug: SOLU-Medrol 125 mg Route: IVP; Site: right antecubital; ea 01:51 Follow up: Response: No adverse reaction mg2 Disposition: 12/27/20 01:07 Discharged to Home. Impression: Chronic obstructive pulmonary disease with (acute) exacerbation. - Condition is Stable. - Discharge Instructions: Chronic Obstructive Pulmonary Disease. - Prescriptions for Albuterol Sulfate 2.5 mg /3 mL (0.083 %) Inhalation Solution for Nebulization - inhale 1 unit by NEBULIZATION route every 8 hours As needed; 1 box. Medrol (Raimundo) 4 mg Oral Tablets, Dose Pack - take 1 tablet by ORAL route as directed - follow package instructions; 1 packet. - Medication Reconciliation Form, Thank You Letter, Antibiotic Education, Prescription Opioid Use form. - Follow up: Private Physician; When: Upon discharge from the Emergency Department; Reason: Recheck today's complaints, Continuance of care, Re-evaluation by your physician. Follow up: Adilson Boothe MD; When: Upon discharge from the Emergency Department; Reason: Recheck today's complaints, Continuance of care, Re-evaluation by your physician. - Problem is new. - Symptoms have improved. Signatures: Dispatcher [employer] [facility] Tara Ro RN Parth Ponce ea, MD MD tw4 Ceasar Baez RN RN mg2 Kathy Cat RN RN ll1 Corrections: (The following items were deleted from the chart) 12/26 22:09 19:32 Influenza Screen (A ordered. [facility] 22:09 21:45 CORONAVIRUS+MR.LAB.BRZ ordered. [facility] 12/27 01:52 01:07 12/27/2020 01:07 Discharged to Home. Impression: Chronic obstructive pulmonary mg2 disease with (acute) exacerbation. Condition is Stable. Forms are Medication Reconciliation Form, Thank You Letter, Antibiotic Education, Prescription Opioid Use. Follow up: Private Physician; When: Upon discharge from the Emergency Department; Reason: Recheck today's complaints, Continuance of care, Re-evaluation by your physician. Follow up: Adilson Boothe; When: Upon discharge from the Emergency Department; Reason: Recheck today's complaints, Continuance of care, Re-evaluation by your physician. Problem is new. Symptoms have improved. tw4
--- NOTE | 2020-12-27 01:07 | ER ---
Nurse's Notes [facility] Name: Yamileth Connell Age: 75 yrs Sex: Female : 1945 Arrival Date: 12/26/2020 Time: 17:51 Bed 5 Private MD: Adilson Boothe E Diagnosis: Chronic obstructive pulmonary disease with (acute) exacerbation Presentation: 12/26 18:16 Chief complaint: Patient states: SOB since [place] off/on. 2 weeks SOB is worse ll1 again. Saw Dr. Rivera in [place]. On oral steroids, he sent her for further eval. and possible steroid shot. Coronavirus screen: Client denies travel out of the [place] in the last 14 days. At this time, the client does not indicate any symptoms associated with coronavirus-19. Ebola Screen: Patient denies travel to an Ebola-affected area in the 21 days before illness onset. Initial Sepsis Screen: Does the patient meet any 2 criteria? RR > 20 per min. HR > 90 bpm. No. Patient's initial sepsis screen is negative. Does the patient have a suspected source of infection? Yes: Productive cough/pneumonia. Risk Assessment: Do you want to hurt yourself or someone else? Patient reports no desire to harm self or others. Onset of symptoms was December 11, 2020. 18:16 Method Of Arrival: Ambulatory ll1 18:16 Acuity: KARLA 3 ll1 Triage Assessment: 22:35 General: Appears comfortable, Behavior is calm, cooperative. Respiratory: Reports mg2 shortness of breath Onset: The symptoms/episode began/occurred gradually, the patient has mild shortness of breath. Historical: - Allergies: 18:19 Keflex; ll1 - PMHx: 18:19 Cancer, Breast; Hypertension; rectal cancer; Diverticulitis; COPD; ll1 - PSHx: 18:19 Colostomy; partial colon removal; Knee surgery; Cholecystectomy; femur fx; ll1 - Immunization history:: Flu vaccine is up to date. - Social history:: Smoking status: Patient reports the use of cigarette tobacco products, denies chronic smoking, but will smoke occasionally. Screenin:34 Abuse screen: Denies threats or abuse. Denies injuries from another. Nutritional mg2 screening: No deficits noted. Tuberculosis screening: No symptoms or risk factors identified. Fall Risk IV access (20 points). Assessment: 21:45 General: Appears comfortable, Behavior is calm, cooperative. Pain: Denies pain. Neuro: mg2 Level of Consciousness is awake, alert, obeys commands, Oriented to person, place, time, situation. Cardiovascular: Rhythm is regular. Respiratory: Airway is patent Respiratory effort is even, Respiratory pattern is regular, tachypnea. GI: No signs and/or symptoms were reported involving the gastrointestinal system. : No signs and/or symptoms were reported regarding the genitourinary system. EENT: No signs and/or symptoms were reported regarding the EENT system. Derm: Skin is intact, is healthy with good turgor, Skin is pink, warm \T\ dry. normal. Musculoskeletal: Circulation, motion, and sensation intact. Capillary refill < 3 seconds. 12/27 00:10 Reassessment: Patient and/or family updated on plan of care and expected duration. Pain mg2 level reassessed. 01:52 Reassessment: Patient appears in no apparent distress at this time. Patient states mg2 feeling better. Vital Signs: 12/26 18:16 BP 155 / 85; Pulse 99; Resp 22; Temp 97.9; Pulse Ox 95% on 4 lpm NC; Weight 68.04 kg; ll1 Height 5 ft. 0 in. (152.40 cm); Pain /10; 22:35 BP 150 / 91; Pulse 78; Resp 16; Pulse Ox 99% ; ea 12/27 00:09 BP 147 / 89; Pulse 69; Resp 22; Pulse Ox 98% on 3 lpm NC; mg2 01:24 BP 135 / 95; Pulse 90; Resp 22; Pulse Ox 93% ; ea 12/26 18:16 Body Mass Index 29.29 (68.04 kg, 152.40 cm) ll1 ED Course: 12/26 17:51 Patient arrived in ED. mr 17:51 Adilson Boothe MD is Private Physician. mr 18:16 Arm band placed on. ll1 18:19 Triage completed. ll1 19:28 Chest Single View XRAY In Process Unspecified. EDMS 19:30 Parth Sharp MD is Attending Physician. tw4 21:23 Ceasar Baez, GEORGE is Primary Nurse. mg2 21:45 EKG done, COVID swab sent to lab. Flu and/or RSV swab sent to lab. Strep swab sent to mg2 lab. Inserted saline lock: 20 gauge in right antecubital area, using aseptic technique. Blood collected. 22:34 No provider procedures requiring assistance completed. mg2 22:35 Patient has correct armband on for positive identification. engine monitor on. Pulse mg2 ox on. NIBP on. Door closed. Warm blanket given. 12/27 01:06 Adilson Boothe MD is Referral Physician. tw4 01:52 IV discontinued, intact, bleeding controlled, No redness/swelling at site. Pressure mg2 dressing applied. Administered Medications: 00:35 Drug: DuoNeb (3:1) (2.5 mg - 0.5 mg) 3 ml Route: Nebulizer; mg2 01:51 Follow up: Response: No adverse reaction mg2 01:24 Drug: SOLU-Medrol 125 mg Route: IVP; Site: right antecubital; ea 01:51 Follow up: Response: No adverse reaction mg2 Outcome: 01:07 Discharge ordered by . tw4 01:52 Discharged to home via wheelchair. mg2 01:52 Condition: stable 01:52 Discharge instructions given to patient, Instructed on discharge instructions, follow up and referral plans. medication usage, Demonstrated understanding of instructions, follow-up care, Prescriptions given X 01:52 Patient left the ED. mg2 Signatures: Dispatcher [employer] [facility] ClaudyRegina RoTara reinoso, RN Parth Ponce ea, MD MD tw4 Ceasar Baez RN RN mg2 Kathy Cat RN RN ll1
[2020-12-27] MEDS ORDERED: METHYLPREDNISOLONE 125 MG INJ ONE (01:38)
[2020-12-27 02:01] VITALS: TEMP 97.9
[2020-12-27 02:03] VITALS: BP 135/95; O2SAT 93
--- NOTE | 2020-12-28 07:54 | EKG ---
Test Date: 2020-12-26 Test Time: 21:29:01 Jigger Machine Operator: MG MEASUREMENT RESULTS: Intervals: Rate: 75 VT: 138 QRSD: 88 QT: 388 QTc: 433 [place]: P: 84 VT: 138 QRS: 77 T: 86 INTERPRETIVE STATEMENTS: Normal sinus rhythm with sinus arrhythmia Normal ECG Compared to ECG 01/23/2020 00:52:12 No significant changes Electronically Signed On 12-28-20 07:53:03 CAMP DISHWASHER by Eliud Bustillos
== END 2020-12-27 01:52 | disposition home or self-care (01) ==
LOC: ER 17:45
DX: J44.1 Chronic obstructive pulmonary disease with (acute) exacerbation (principal); Z20.822 Contact with and (suspected) exposure to COVID-19; I10 Essential (primary) hypertension; F17.210 Nicotine dependence, cigarettes, uncomplicated; Z85.3 Personal history of malignant neoplasm of breast; Z85.048 Personal history of other malignant neoplasm of rectum, rectosigmoid junction, and anus; Z88.1 Allergy status to other antibiotic agents
CPT/HCPCS: 93005; 87040 ×2; 87070; 85025; 80048; 36415; 85610; 85379; 80076; 87081; 83605; 85730; 84484; 82728; 83690; 84145; 0240U; 86140; 71045; 96374; 99285; J2930; 81003; 81015

== ENCOUNTER 2021-08-20 08:51 | Day surgery (SDC) | payer BC, OTHER ==
[2021-08-20] MEDS ORDERED: Ringers Lactate 1,000 ML IV ONE (09:37)
[2021-08-20] MEDS ORDERED: propofoL 200 MG/20 ML VIAL IV ONE (11:23)
[2021-08-20] MEDS ORDERED: LIDOCAINE 1% MPF 2 ML AMPULE ONE (11:23)
--- NOTE | 2021-08-20 11:30 | ENDO RPT ---
[address], [address] COLONOSCOPY PROCEDURE REPORT EXAM DATE: 08/20/2021 PATIENT NAME: Yamileth Connell MR #: [id number] BIRTHDATE: 1945 ATTENDING: Adilson Nicolas Dr STATUS: outpatient GUIDE CHANGER: Emily Viera RN and Joy Cardenas CST INDICATIONS: The patient is a 76 yr old Female here for a colonoscopy due to hematochezia, personal history of colon polyps, and history of colon cancer PROCEDURE PERFORMED: Colonoscopy with snare polypectomy and Colonoscopy with biopsy - cold polypectomy MEDICATIONS: Per Anesthesia. ESTIMATED BLOOD LOSS: None CONSENT: The patient understands the risks and benefits of the procedure and understands that these risks include, but are not limited to: sedation, allergic reaction, infection, perforation and/or bleeding. Alternative means of evaluation and treatment include, among others: physical exam, x-rays, and/or surgical intervention. The patient elects to proceed with this endoscopic procedure. DESCRIPTION OF PROCEDURE: During intra-op preparation period all mechanical medical equipment was checked for proper function. Hand hygiene and appropriate measures for infection prevention was taken. Procedure, possible complications, alternatives including, but not limited to possibility of bleeding, perforation, tear, infection, sepsis, need for surgery, need for blood transfusion, were explained to the patient. After the risks, benefits and alternatives of the procedure were thoroughly explained, Informed consent was verified, confirmed and timeout was successfully executed by the treatment team. The patient was placed in the left lateral position. A digital rectal exam was performed and revealed was not performed. After appropriate level of anesthesia, the scope was passed. The EC-[id number] ([id number]) and [id number] ([id number]) endoscope was introduced through the sigmoid colostomy and advanced to the cecum, which was identified by both the appendix and ileocecal valve. The quality of the prep was fair. The instrument was then slowly withdrawn as the colon was fully examined. Scope withdrawal time was 7 minutes. COLON FINDINGS: A smooth flat polyp measuring 7 mm in size was found in the ascending colon. A polypectomy was performed with a cold snare. A smooth sessile polyp measuring 3 mm in size was found in the descending colon. A polypectomy was performed with cold forceps. There was moderate diverticulosis noted throughout the entire examined colon with associated tortuosity. No bleeding was noted from the diverticulosis. Retroflexion was not performed. The scope was then completely withdrawn from the patient and the procedure terminated. ADVERSE EVENTS: There were no complications. IMPRESSIONS: 1. 7 mm flat polyp in the ascending colon; polypectomy was performed with a cold snare 2. 3 mm sessile polyp in the descending colon; polypectomy was performed with cold forceps 3. Moderate diverticulosis throughout the entire examined colon 4. Intubation to cecum RECOMMENDATIONS: 1. fiber rich diet 2. avoid NSAIDS for 2 weeks RECALL: Return in 3 year(s) for Colonoscopy. Adilson Nicolas Dr eSigned: Adilson Nicolas Dr 08/20/2021 11:30 AM cc: Adilson Boothe CPT CODES: ICD9 CODES: 211.3 Benign neoplasm of colon PATIENT NAME: Yamileth Connell MR#: [id number]
[2021-08-20 13:40] VITALS: BP 140/84; TEMP 98; O2SAT 93
== END 2021-08-20 12:45 | disposition home or self-care (01) ==
LOC: OR 08:51
PROVIDERS: ATTEND Internal Medicine Gastroenterology
PROC: 0DBM8ZX Excision of Descending Colon, Via Natural or Artificial Opening Endoscopic, Diagnostic (ICD-10-PCS; 2021-08-20)
PROC: 0DBK8ZX Excision of Ascending Colon, Via Natural or Artificial Opening Endoscopic, Diagnostic (ICD-10-PCS; principal; 2021-08-20 10:15)
DX: D12.3 Benign neoplasm of transverse colon (principal); K57.30 Diverticulosis of large intestine without perforation or abscess without bleeding; Z86.010 Personal history of colon polyps; Z85.038 Personal history of other malignant neoplasm of large intestine; Z20.822 Contact with and (suspected) exposure to COVID-19; I10 Essential (primary) hypertension; J44.9 Chronic obstructive pulmonary disease, unspecified
CPT/HCPCS: 88305; 45385; 45380; U0003; J2704; J7120

== ENCOUNTER 2025-05-16 12:57 | Inpatient (IN) | payer BC ==
--- NOTE | 2025-05-16 16:17 | RAD REPORT ---
EXAMINATION: ONE VIEW CHEST XR CLINICAL INDICATION: Female, 79 years old.,COUGH TECHNIQUE: Frontal chest projection is submitted. Examination is limited by patient positioning and t echnique. COMPARISON: 12/26/2020 FINDINGS: The lungs are diffusely emphysematous but grossly clear. No pneumothorax or sizable effusion. The he art is normal in size. Mediastinal contours are unchanged with stable prominence of the central vascular markings. IMPRESSION: No acute intrathoracic abnormalities.
[2025-05-16] MEDS ORDERED: FAMOTIDINE 20 MG/2 ML VIAL IV ONE (16:18)
[2025-05-16] MEDS ORDERED: D5 0.45 NS 1,000 ML IV ONE (16:19)
[2025-05-16] MEDS ORDERED: NA CHLORIDE 0.9% 500 ML ONE (16:19)
[2025-05-16 17:02] LABS: PT Prothrombin Time 13.6 SECONDS (10-13.0); Protime INR 1.21
[2025-05-16 17:12] LABS: Absolute Lymphocytes (CBC) 1.2 K/uL (0.7-4.9); Hematocrit 41.6 % (36.0-45.0); Hemoglobin 14.0 g/dL (12.0-15.0); MCH 31.0 pg (27.0-35.0); MCHC 33.6 g/dL (32.0-36.0); MCV 92.4 fL (80-100); MPV 8.8 fL (7.6-11.3); Nucleated RBC Absolute Count 0.0 (0-0); Nucleated Red Blood Cells % 0.1 % (0-0); RBC Red Blood Cell Count 4.50 M/uL (3.86-4.86); White Blood Count 9.40 thou/uL (4.3-10.9)
--- NOTE | 2025-05-16 17:16 | ER ---
Nurse's Notes [facility] Name: Yamileth Connell Age: 79 yrs Sex: Female : 1945 Arrival Date: 05/16/2025 Time: 12:57 Bed IW7 Private MD: Diagnosis: Presence of cardiac and vascular implant and graft, unspecified-PICC;Weakness;Unspecified severe protein-calorie malnutrition;Colostomy status-SHORT GUT SYNDROME;Non ST elevation [place];Hypokalemia;Hypomagnesemia Presentation: 05/16 13:26 Chief complaint: Patient states: Needs PICC line and blood work, sent in by Dr. Hammond ll1 and Dr. Gee. Coronavirus screen: Client denies travel out of the [place] in the last 14 days. At this time, the client does not indicate any symptoms associated with coronavirus-19. Ebola Screen: Patient denies travel to an Ebola-affected area in the 21 days before illness onset. Initial Sepsis Screen: Does the patient meet any 2 criteria? No. Patient's initial sepsis screen is negative. Does the patient have a suspected source of infection? No. Patient's initial sepsis screen is negative. Risk Assessment: Do you want to hurt yourself or someone else? Patient reports no desire to harm self or others. Onset of symptoms was May 16, 2025. 13:26 Method Of Arrival: Ambulatory [facility] 13:26 Acuity: KARLA 3 ll1 Historical: - Allergies: 13:22 Keflex; ll1 - PMHx: 13:22 Cancer; COPD; Hypertension; Diverticulitis; rectal cancer; Cancer; ll1 - Immunization history:: Adult Immunizations up to date. - Infectious Disease History:: Denies. - Social history:: Smoking status: Patient reports the use of cigarette tobacco products, smokes one-half pack cigarettes per day. Screenin:53 [facility] ED Fall Risk Assessment (Adult) History of falling in the last 3 months, kc6 including since admission No falls in past 3 months (0 pts) Confusion or Disorientation No (0 pts) Intoxicated or Sedated No (0 pts) Impaired Gait No (0 pts) Mobility Assist Device Used No (0 pt) Altered Elimination No (0 pt) Score/Fall Risk Level 0 - 2 = Low Risk Oriented to surroundings. Abuse screen: Denies threats or abuse. Denies injuries from another. Nutritional screening: No deficits noted. Tuberculosis screening: No symptoms or risk factors identified. Assessment: 16:56 General: Appears in no apparent distress. comfortable, slender, well groomed, kc6 cachectic, Behavior is calm, cooperative, appropriate for age. Pain: Denies pain. Neuro: Level of Consciousness is awake, alert, obeys commands, Oriented to person, place, time, situation, Appropriate for age. Cardiovascular: Capillary refill < 3 seconds. Respiratory: Airway is patent Trachea midline Respiratory effort is even, unlabored, Respiratory pattern is regular, symmetrical. GI: Abdomen is flat, non-distended, Colostomy site is clean and dry. Ostomy appliance is intact. Last BM was May 16, 2025. Bowel sounds present X 4 quads. Abd is soft and non tender X 4 quads. Reports diarrhea, Patient currently denies abdominal pain, nausea, vomiting. : No signs and/or symptoms were reported regarding the genitourinary system. EENT: No signs and/or symptoms were reported regarding the EENT system. Derm: No signs and/or symptoms reported regarding the dermatologic system. Skin is intact, is fragile, is thin, with poor turgor Skin is pink, warm \T\ dry. Musculoskeletal: No signs and/or symptoms reported regarding the musculoskeletal system. Circulation, motion, and sensation intact. Range of motion: intact in all extremities. 17:56 Reassessment: Patient appears in no apparent distress at this time. No changes from kc6 previously documented assessment. Patient and/or family updated on plan of care and expected duration. Pain level reassessed. Patient is alert, oriented x 3, equal unlabored respirations, skin warm/dry/pink. 18:34 Reassessment: Patient appears in no apparent distress at this time. No changes from kc6 previously documented assessment. Patient and/or family updated on plan of care and expected duration. Pain level reassessed. Patient is alert, oriented x 3, equal unlabored respirations, skin warm/dry/pink. 19:30 Reassessment: Patient appears in no apparent distress at this time. No changes from ss12 previously documented assessment. Patient and/or family updated on plan of care and expected duration. Pain level reassessed. Patient is alert, oriented x 3, equal unlabored respirations, skin warm/dry/pink. 21:00 Reassessment: Patient appears in no apparent distress at this time. No changes from 12 previously documented assessment. Patient and/or family updated on plan of care and expected duration. Pain level reassessed. Patient is alert, oriented x 3, equal unlabored respirations, skin warm/dry/pink. 22:00 Reassessment: Patient appears in no apparent distress at this time. No changes from 12 previously documented assessment. Patient and/or family updated on plan of care and expected duration. Pain level reassessed. Patient is alert, oriented x 3, equal unlabored respirations, skin warm/dry/pink. 05/17 01:39 Reassessment: Report given to dimas from ICU. [facility] Vital Signs: 05/16 13:26 BP 145 / 81; Pulse 65; Resp 18; Temp 97.3; Pulse Ox 92% on 1 lpm NC; Weight 38.56 kg; ll1 Height 4 ft. 11 in. ; Pain 0/10; 16:55 BP 165 / 85; Pulse 69; Resp 20 S; Pulse Ox 99% on 2 lpm NC; kc6 18:34 BP 164 / 80; Pulse 75; Resp 18 S; Pulse Ox 99% on 2 lpm NC; kc6 20:01 BP 153 / 56; Pulse 57; Resp 16; Pulse Ox 98% on 2 lpm NC; ss12 21:00 BP 130 / 68; Pulse 63; Resp 16 S; Pulse Ox 98% on 2 lpm NC; ss12 22:00 BP 122 / 59; Pulse 60; Resp 16 S; Pulse Ox 96% on 2 lpm NC; ss12 13:26 Body Mass Index 17.17 (38.56 kg, 149.86 cm) ll1 13:26 Pain Scale: Adult ll1 [place] Coma Score: 20:01 Eye Response: spontaneous(4). Motor Response: obeys commands(6). Verbal Response: ss12 oriented(5). Total: 15. ED Course: 13:01 Patient arrived in ED. gl 13:19 Florencio Stallings MD is Attending Physician. rupal 13:21 Arm band placed on. ll1 13:27 Triage completed. ll1 13:55 XRAY Chest (1 view) In Process Unspecified. EDMS 16:13 Eladia Locke, GEORGE is Primary Nurse. kc6 16:53 Patient has correct armband on for positive identification. Bed in low position. Call [facility] light in reach. Side rails up X 1. Adult w/ patient. regional sales leader on. Pulse ox on. NIBP on. Door closed. Noise minimized. Lights dimmed. Warm blanket given. Pillow given. Verbal reassurance given. 16:53 Initial lab(s) drawn, by nv, sent to lab. EKG done, by ED staff, reviewed by Florencio Stallings MD. Inserted saline lock: 22 gauge in right antecubital area, using aseptic technique. Blood collected. Flushed with 10 mL NS. Oxygen administration via nasal cannula \T\ 2L/min. 17:08 Cory Billings MD is Hospitalizing Provider. [facility] 18:25 CT Abd/Pelvis - PO and IV Contrast In Process Unspecified. EDMS 05/17 01:40 Provided Education on: plan of care . [facility] 01:40 No provider procedures requiring assistance completed. Patient admitted, IV remains in [address] Administered Medications: 05/16 16:52 Drug: NS 0.9% IV 500 ml 500 ml IV at 1 bolus once; to be given as a bolus over 30 kc6 minutes Volume: 500 ml; Route: IV; Rate: 1 bolus; Site: right antecubital; 18:33 Follow up: Response: No adverse reaction; IV Status: Completed infusion; IV Intake: kc6 500ml 16:52 Drug: D5-1/2 NS IV 1000 ml IV at 125 ml/hr continuous Route: IV; Rate: 125 ml/hr; Site: [facility] right antecubital; 16:53 Drug: Famotidine IVP 20 mg IVP once; dilute with 10 mL 0.9% NaCl; give over 2 minutes [facility] Route: IVP; Site: right antecubital; 18:33 Follow up: Response: No adverse reaction [facility] 19:15 Drug: Aspirin PO Chewable Tablet 81 mg PO once Route: PO; 12 19:54 Follow up: Response: No adverse reaction [facility] 19:30 Drug: Magnesium Sulfate IVPB 1 grams IVPB once over 1 hrs Route: IVPB; Infused Over: 1 ss12 hrs; Site: right antecubital; 05/17 04:04 Follow up: IV Status: Completed infusion; IV Intake: 100ml [facility] 05/16 21:30 Drug: Potassium Chloride IV 20 mEq IV at per protocol once; administer over 1-2 hours ss12 Route: IV; Rate: per protocol; Site: PICC; 05/17 04:03 Follow up: IV Status: Completed infusion; IV Intake: 100ml 12 Medication: 01:40 VIS not applicable for this client. ss12 Intake: 05/16 18:33 IV: 500ml; Total: 500ml. kc6 05/17 04:03 IV: 100ml; Total: 600ml. 12 04:04 IV: 100ml; Total: 700ml. 12 Outcome: 05/16 17:15 Decision to Hospitalize by Provider. rupal 05/17 04:04 Patient left the ED. [facility] Signatures: Dispatcher [employer] EDFlorencio Brito MD MD cha Lewis, Lynsay, RN RN ll1 Eladia Locke RN RN kc6 Mi Hyatt, Reg Reg Abena Marcos, GEORGE RN ss12
--- NOTE | 2025-05-16 17:16 | EDPHYS ---
Physician Documentation [facility] Name: Yamileth Connell Age: 79 yrs Sex: Female : 1945 Arrival Date: 05/16/2025 Time: 12:57 Bed IW7 Private MD: ED Physician Florencio Stallings HPI: 05/16 16:57 This 79 yrs old Female presents to ER via Ambulatory with complaints of PICC ruapl LINE PLACEMENT. Historical: - Allergies: 13:22 Keflex; ll1 - PMHx: 13:22 Cancer; COPD; Hypertension; Diverticulitis; rectal cancer; Cancer; ll1 - Immunization history:: Adult Immunizations up to date. - Infectious Disease History:: Denies. - Social history:: Smoking status: Patient reports the use of cigarette tobacco products, smokes one-half pack cigarettes per day. ROS: 17:01 Constitutional: Negative for fever, chills, and weight loss, Eyes: Negative for injury, rupal pain, redness, and discharge, ENT: Negative for injury, pain, and discharge, Neck: Negative for injury, pain, and swelling, Cardiovascular: Negative for chest pain, palpitations, and edema, Respiratory: Negative for shortness of breath, cough, wheezing, and pleuritic chest pain, Back: Negative for injury and pain, : Negative for injury, bleeding, discharge, and swelling, MS/Extremity: Negative for injury and deformity, Skin: Negative for injury, rash, and discoloration, Neuro: Negative for headache, weakness, numbness, tingling, and seizure, 17:01 Abdomen/GI: Positive for abdominal pain, abdominal cramps, of the right upper quadrant, left upper quadrant, right lower quadrant and left lower quadrant, Exam: 17:01 Constitutional: This is a well developed, well nourished patient who is awake, alert, rupal and in no acute distress. Head/Face: Normocephalic, atraumatic. Eyes: Pupils equal round and reactive to light, extra-ocular motions intact. Lids and lashes normal. Conjunctiva and sclera are non-icteric and not injected. Cornea within normal limits. Periorbital areas with no swelling, redness, or edema. ENT: Nares patent. No nasal discharge, no septal abnormalities noted. Tympanic membranes are normal and external auditory canals are clear. Oropharynx with no redness, swelling, or masses, exudates, or evidence of obstruction, uvula midline. Mucous membranes moist. Neck: Trachea midline, no thyromegaly or masses palpated, and no cervical lymphadenopathy. Supple, full range of motion without nuchal rigidity, or vertebral point tenderness. No Meningismus. Chest/axilla: Normal chest wall appearance and motion. Nontender with no deformity. No lesions are appreciated. Cardiovascular: Regular rate and rhythm with a normal S1 and S2. No gallops, murmurs, or rubs. Normal PMI, no JVD. No pulse deficits. Respiratory: Lungs have equal breath sounds bilaterally, clear to auscultation and percussion. No rales, rhonchi or wheezes noted. No increased work of breathing, no retractions or nasal flaring. Abdomen/GI: Soft, non-tender, with normal bowel sounds. No distension or tympany. No guarding or rebound. No evidence of tenderness throughout. Back: No spinal tenderness. No costovertebral tenderness. Full range of motion. Skin: Warm, dry with normal turgor. Normal color with no rashes, no lesions, and no evidence of cellulitis. MS/ Extremity: Pulses equal, no cyanosis. Neurovascular intact. Full, normal range of motion., bilateral aka Neuro: Awake and alert, GCS 15, oriented to person, place, time, and situation. Cranial nerves II-XII grossly intact. Motor strength 5/5 in all extremities. Sensory grossly intact. Cerebellar exam normal. Normal gait. Psych: Awake, alert, with orientation to person, place and time. Behavior, mood, and affect are within normal limits. 17:01 ECG was reviewed by the Attending Physician. Vital Signs: 13:26 BP 145 / 81; Pulse 65; Resp 18; Temp 97.3; Pulse Ox 92% on 1 lpm NC; Weight 38.56 kg; ll1 Height 4 ft. 11 in. ; Pain 0/10; 16:55 BP 165 / 85; Pulse 69; Resp 20 S; Pulse Ox 99% on 2 lpm NC; kc6 18:34 BP 164 / 80; Pulse 75; Resp 18 S; Pulse Ox 99% on 2 lpm NC; kc6 20:01 BP 153 / 56; Pulse 57; Resp 16; Pulse Ox 98% on 2 lpm NC; ss12 21:00 BP 130 / 68; Pulse 63; Resp 16 S; Pulse Ox 98% on 2 lpm NC; ss12 22:00 BP 122 / 59; Pulse 60; Resp 16 S; Pulse Ox 96% on 2 lpm NC; ss12 13:26 Body Mass Index 17.17 (38.56 kg, 149.86 cm) ll1 13:26 Pain Scale: Adult ll1 [place] Coma Score: 20:01 Eye Response: spontaneous(4). Motor Response: obeys commands(6). Verbal Response: ss12 oriented(5). Total: 15. MDM: 13:20 Medical Screening Exam initiated rupal 17:03 Differential diagnosis: Nonspecific abd pain, pancreatitis, diverticulitis, viral rupal gastroenteritis, gastroenteritis, bowel obstruction, diverticulitis, gastritis, gastroesophageal reflux disease, non-specific abd pain, pancreatitis, urinary tract infection. Data reviewed: vital signs, nurses notes, lab test result(s), EKG, radiologic studies, CT scan, plain films. Consideration of Admission/Observation Patient was admitted/placed on observation. Escalation of care including admission/observation considered. I considered the following discharge prescriptions or medication management in the emergency department Medications were administered in the Emergency Department. See MAR. Independent interpretation of the following test(s) in the Emergency Department EKG: See my EKG interpretation above. Test considered but Not performed: Ultrasound NO ABD USG. Historians other than the Patient: PT WELL INFORMED. Care significantly affected by the following chronic conditions: Hypertension, Cancer, DIVERTICULITIS. Counseling: I had a detailed discussion with the patient and/or guardian regarding the historical points, exam findings, and any diagnostic results supporting the discharge/admit diagnosis, lab results, radiology results, the need for further work-up and treatment in the hospital. 05/16 13:21 Order name: Basic Metabolic Panel; Complete Time: 19: [facility] 05/16 13:21 Order name: CBC with Diff; Complete Time: 19: [facility] 05/16 13:21 Order name: LFT's; Complete Time: 19: [facility] 05/16 13:21 Order name: Magnesium; Complete Time: 19: [facility] 05/16 13:21 Order name: NT PRO-BNP; Complete Time: 19: [facility] 05/16 13:21 Order name: PT-INR; Complete Time: 19: [facility] 05/16 13:21 Order name: Troponin HS; Complete Time: 19:01 rupal 05/16 18:14 Order name: Phosphorus EDMS 05/16 18:14 Order name: Basic Metabolic Panel EDMS 05/16 18:14 Order name: Basic Metabolic Panel EDMS 05/16 18:14 Order name: Basic Metabolic Panel EDMS 05/16 18:14 Order name: Basic Metabolic Panel EDMS 05/16 18:14 Order name: Basic Metabolic Panel EDMS 05/16 18:14 Order name: Basic Metabolic Panel EDMS 05/16 18:14 Order name: Basic Metabolic Panel EDMS 05/16 18:14 Order name: Basic Metabolic Panel EDMS 05/16 18:14 Order name: CBC with Automated Diff EDMS 05/16 18:14 Order name: CBC with Automated Diff EDMS 05/16 18:14 Order name: CBC with Automated Diff EDMS 05/16 18:14 Order name: CBC with Automated Diff EDMS 05/16 18:14 Order name: CBC with Automated Diff EDMS 05/16 18:14 Order name: CBC with Automated Diff EDMS 05/16 18:14 Order name: CBC with Automated Diff EDMS 05/16 18:14 Order name: CBC with Automated Diff EDMS 05/16 18:14 Order name: Magnesium EDMS 05/16 18:14 Order name: Magnesium EDMS 05/16 18:14 Order name: Magnesium EDMS 05/16 18:14 Order name: Magnesium EDMS 05/16 18:14 Order name: Magnesium EDMS 05/16 18:14 Order name: Magnesium EDMS 05/16 18:14 Order name: Magnesium EDMS 05/16 18:14 Order name: Magnesium EDMS 07 18:14 Order name: Magnesium EDMS 05/16 18:14 Order name: Magnesium EDMS 05/16 18:14 Order name: Magnesium EDMS 07 18:14 Order name: Phosphorus EDMS 07 18:14 Order name: Phosphorus EDMS 07 18:14 Order name: Phosphorus EDMS 07 18:14 Order name: Phosphorus EDMS 05/16 18:14 Order name: Phosphorus EDMS 07 18:14 Order name: Phosphorus EDMS 05/16 18:14 Order name: Phosphorus EDMS 07 18:14 Order name: Phosphorus EDMS 07 18:14 Order name: Phosphorus EDMS 07 18:14 Order name: Phosphorus [facility] 05/16 18:14 Order name: Phosphorus [facility] 05/16 18:14 Order name: Troponin High Sensitivity [facility] 05/16 18:14 Order name: Troponin High Sensitivity [facility] 05/16 18:14 Order name: Troponin High Sensitivity [facility] 05/16 19:02 Order name: ABG [facility] 05/16 20:19 Order name: ABG Arterial Blood Gas [facility] 05/17 02:22 Order name: Albumin [facility] 05/17 02:22 Order name: Prealbumin [facility] 05/17 02:31 Order name: Basic Metabolic Panel [facility] 05/16 13:21 Order name: XRAY Chest (1 view); Complete Time: 16:49 [facility] 05/16 17:01 Order name: CT Abd/Pelvis - PO and IV Contrast; Complete Time: 20:58 [facility] 05/16 21:56 Order name: RAD [facility] 05/17 00:58 Order name: RAD [facility] 05/16 18:14 Order name: CONS Physician Consult [facility] 05/16 18:14 Order name: Physical Therapy Consult [facility] 05/16 18:15 Order name: Dietitian Consult [facility] 05/16 13:21 Order name: Cardiac monitoring; Complete Time: 16:52 [facility] 05/16 13:21 Order name: EKG - Nurse/Tech; Complete Time: 16:52 [facility] 05/16 13:21 Order name: IV Saline Lock; Complete Time: 16:52 [facility] 05/16 13:21 Order name: Labs collected and sent; Complete Time: 16:52 [facility] 05/16 13:21 Order name: O2 Per Protocol; Complete Time: 16:52 [facility] 05/16 13:21 Order name: O2 Sat Monitoring; Complete Time: 16:52 [facility] EC:01 Rate is 59 beats/min. Rhythm is regular. QRS [place] is Normal. MD interval is normal. QRS rupal interval is normal. QT interval is normal. No Q waves. T waves are Normal. No ST changes noted. Clinical impression: Sinus bradycardia and No evidence of ischemia. Interpreted by me. Reviewed by me. Administered Medications: 16:52 Drug: NS 0.9% IV 500 ml 500 ml IV at 1 bolus once; to be given as a bolus over 30 kc6 minutes Volume: 500 ml; Route: IV; Rate: 1 bolus; Site: right antecubital; 18:33 Follow up: Response: No adverse reaction; IV Status: Completed infusion; IV Intake: kc6 500ml 16:52 Drug: D5-1/2 NS IV 1000 ml IV at 125 ml/hr continuous Route: IV; Rate: 125 ml/hr; Site: [facility] right antecubital; 16:53 Drug: Famotidine IVP 20 mg IVP once; dilute with 10 mL 0.9% NaCl; give over 2 minutes kc6 Route: IVP; Site: right antecubital; 18:33 Follow up: Response: No adverse reaction kc6 19:15 Drug: Aspirin PO Chewable Tablet 81 mg PO once Route: PO; ss12 19:54 Follow up: Response: No adverse reaction ss12 19:30 Drug: Magnesium Sulfate IVPB 1 grams IVPB once over 1 hrs Route: IVPB; Infused Over: 1 ss12 hrs; Site: right antecubital; 05/17 04:04 Follow up: IV Status: Completed infusion; IV Intake: 100ml ss12 05/16 21:30 Drug: Potassium Chloride IV 20 mEq IV at per protocol once; administer over 1-2 hours ss12 Route: IV; Rate: per protocol; Site: PICC; 05/17 04:03 Follow up: IV Status: Completed infusion; IV Intake: 100ml ss12 Disposition Summary: 05/16/25 17:15 Hospitalization Ordered Notes: Hospitalization Status: Inpatient Admission rupal Provider: Cory Billings cha Condition: Fair rupal Problem: new rupal Symptoms: have improved rupal Bed/Room Type: Standard rupal Location: Intensive Care Unit(05/16/25 20:54) rv1 Room Assignment: 5-(05/17/25 00:56) rv1 Diagnosis - Presence of cardiac and vascular implant and graft, unspecified - PICC rupal - Weakness rupal - Unspecified severe protein-calorie malnutrition rupal - Colostomy status - SHORT GUT SYNDROME rupal - Non ST elevation [place] rupal - Hypokalemia rupal - Hypomagnesemia rupal Discharge Instructions: - Discharge Summary Sheet ss12 - Heart Attack ss12 Forms: - Medication Reconciliation Form rupal - SBAR form rupal - Leadership Thank You Letter rupal Signatures: Dispatcher [employer] Florencio Urrutia MD MD cha Garcia, Cindy, RN RN cg Lewis, Lynsay, RN RN 1 Eladia Locke RN RN kc6 Bonita Mccloud rv1 Abena Kraft, RN RN ss12 Corrections: (The following items were deleted from the chart) 05/16 13:21 13:21 BASIC METABOLIC PANEL+C.LAB.BRZ ordered. EDMS EDMS 13:21 13:21 CBC+H.LAB.BRZ ordered. EDMS EDMS 13:21 13:21 HEPATIC FUNCTION+C.LAB.BRZ ordered. EDMS EDMS 13:21 13:21 MAGNESIUM+C.LAB.BRZ ordered. EDMS EDMS 13:21 13:21 PROBNP+C.LAB.BRZ ordered. EDMS EDMS 13:21 13:21 PROTIME (+INR)+COAG.LAB.BRZ ordered. EDMS EDMS 13:21 13:21 Troponin High Sensitivity+C.LAB.BRZ ordered. EDMS EDMS 13:21 13:21 Chest Single View+RAD.RAD.BRZ ordered. EDMS EDMS 20:54 17:15 Telemetry/MedSurg (Inpatient) rupal rv1 20:54 17:15 rupal rv1 23:03 20:54 8- rv1 05/17 00:56 05/16 23:03 rv1
[2025-05-16 17:27] LABS: ALT/SGPT 33.0 U/L (13-56); AST/SGOT 13.0 U/L (15-37); Albumin 3.4 g/dL (3.4-5.0); Albumin/Globulin Ratio 1.1 (1.1-1.8); Alkaline Phosphatase 90.0 U/L (45-117); Anion Gap 5.4 mEq/L (5.0-15.0); BUN Blood Urea Nitrogen 21.0 mg/dL (7-18); Bilirubin Indirect, Calculated 1.4 mg/dL (0.2-0.8); Globulin 3.2 g/dL (2.3-3.5); Glucose Level 110.0 mg/dL (74-106); Magnesium 1.4 mg/dL (1.6-2.4); NT PRO-BNP 990.0 pg/mL (<450); Potassium 3.4 mEq/L (3.5-5.1)
[2025-05-16 17:32] LABS: Troponin High Sensitivity 60.5 pg/mL (<58.9)
[2025-05-16] MEDS ORDERED: ACETAMINOPHEN 650MG/RECT SUPP PR PRN (17:52)
--- NOTE | 2025-05-16 18:57 | P.HP ---
Certification for Inpatient Patient admitted to: Inpatient With expected LOS: >2 Midnights Practitioner: I am a practitioner with admitting privileges, knowledge of patient current condition, hospital course, and medical plan of care. Services: Services provided to patient in accordance with Admission requirements found in Title 42 Section 412.3 of the Code of Federal Regulations Patient History Date of Service: 05/16/25 Reason for admission: Short gut syndrome History of Present Illness: Yamileth Connell is a 79 year old female with Pmhx COPD, hypertension, diverticulitis, rectal cancer who presents to the ED from Dr. Gee office for evaluation of short gut syndrome. She reports eating and losing her food in food form to her colostomy bag. She reports her surgery was over a year ago and she has been living this way for a long time. On evaluation, she is in no acute distress, ambulating independently, reports how hungry she is, denies abdominal pain. Laboratory evaluation significant for potassium 3.4, bicarb 36, BUN/creatinine 21/1.34, GFR 41, serum glucose 110, magnesium 1.4, T. bili 1.8, direct bili 0.4, indirect bili 1.4, AST 13, troponin 60.5, BNP 990, PT /INR 13.6/1.21. Chest xray reports "No acute intrathoracic abnormalities." Yamileth will be admitted to hospitalist service for further treatment of Short Gut syndrome, Dr. Gee consulted. Allergies cephalexin [From Keflex] Allergy (Intermediate, Verified 08/19/21 14:03) Hives/Rash Home Medications: Valsartan/Hydrochlorothiazide [Valsartan-Hctz 320-25 mg Tab] 1 each PO DAILY 01/23/20 Albuterol Inhaler [Ventolin Inhaler*] 1 puff NEB DAILY 08/19/21 Fluticasone/Umeclidin/Vilanter [Trelegy Ellipta 100-62.5-25] 1 mg NEB DAILY 08/19/21 Tramadol HCl [Ultram] 50 mg PO DAILY 08/19/21 - Past Medical/Surgical History Diabetic: No -: Rectal cancer -: Breast cancer -: COPD -: Hypertension -: L Masectoctomy 06/2015 -: appendectomy -: partial hysteroctomy -: tonsillectomy - Family History Father -: Hypertension, Cancer Mother -: Cancer - Social History Smoking Status: Current every day smoker Alcohol use: No CD- Drugs: Yes Caffeine use: No Review of Systems Other: per HPI Physical Examination - Physical Exam General: Alert, In no apparent distress, Oriented x3 HEENT: Atraumatic, Normocephalic, PERRLA Neck: Supple, 2+ carotid pulse no bruit Respiratory: Clear to auscultation bilaterally, Normal air movement Cardiovascular: Normal pulses, Regular rate/rhythm Capillary refill: <2 Seconds Gastrointestinal: Soft and benign, Other (Colostomy in place) Musculoskeletal: No clubbing Integumentary: No rashes Neurological: Normal speech, Normal tone - Studies Laboratory Data (last 24 hrs) 05/16/25 05/16/25 05/16/25 16:49 16:49 16:49 WBC 9.40 Hgb 14.0 Hct 41.6 Plt Count 190 PT 13.6 H INR 1.21 Sodium 141 Potassium 3.4 L BUN 21 H Creatinine 1.34 H Glucose 110 H Magnesium 1.4 L Total Bilirubin 1.8 H AST 13 L ALT 33 Alkaline Phosphatase 90 Assessment and Plan - Plan Assessment and plan Short gut syndrome Metabolic alkalosis Rectal cancer with colostomy in place Breast cancer -Admit to ICU for TPN -Dr. Gee consulted - PICC line for TPN - CT abdomen/pelvis with oral contrast results pending - BMP, mag, Phos every 6 hour monitoring - Replace electrolytes as needed - Albumin and prealbumin stat - Potassium 3.4, magnesium 1.4 -Continuous telemetry -FLD Elevated liver enzyme -T. bili 1.8, D bili 0.4, indirect bili 1.4, AST 13 LÓPEZ -BUN/creatinine 21/1.34, GFR 41 Elevated troponin -Trend troponin T every 8 hours -Initial troponin 60.5 -Continuous telemetry COPD hypertension diverticulitis - Continue home medications as appropriate DVT ppx SCD Full code LOS >2 days Discharge Plan: Home Plan to discharge in: 72 Hours - Advance Directives Does patient have a Living Will: No Does patient have a Durable POA for Healthcare: Yes Time Spent Managing Pts Care (In Minutes): 65
[2025-05-16] MEDS ORDERED: KCL 20 MEQ/100 mL IVPB 100 ML IV ONE (19:15)
[2025-05-16] MEDS ORDERED: ASPIRIN 81 MG CHEWABLE TABLET ONE (19:15)
[2025-05-16] MEDS ORDERED: MAGNESIUM SULFATE 1 gm IVPB 1 GM/100 ML BAG IV ONE (19:16)
--- OUTSIDE RECORDS SUMMARY | 2025-05-16 19:43 | XMS REPORT | Clinical Summary ---
Author Name Unknown Organization [facility] [place] Address [address] [place] [address] Care Team Providers Care Ecommerce Project Manager Name Role Phone Adilson Boothe MD Unavailable [phone] Adilson Boothe MD Unavailable [phone] Inocente Montelongo MD Unavailable [phone] Ana Sherman MD Unavailable Angela Harrison MD Primary Care Provider Deniz Rivera MD Unavailable [phone] Cyn Luke MD Unavailable Glenn Wiseman MD Unavailable [phone] Lissette Scott MD Unavailable Yovani Lagunas MD Unavailable Joy Leyva MD Unavailable [phone] Elizabeth Salazar MD Unavailable Allergies Active Allergy Reactions Criticality Noted Date Comments Cephalexin Hives,Rash Low 12/19/2015 Codeine Other (See Comments) Medium 08/19/2016 "weird dreams" Has disturbing dreams Dexamethasone Other (See Comments) 03/02/2017 Per Dory Thompson RN: Pt received back in 2014 caused confusion... Pt does not want to receive due to fear of interfering w/ her job and she is concern that she needs her job to keep insurance. Per Patient - reduction of dosage was tolerated just fine. (Coni Alcantar, RN 03/22/17) Medications * This document contains information received from the source organization and may not represent a complete record from that organization. traMADol (ULTRAM) 50 mg tabletIndication s:Cancer of overlapping sites of anus Take 2 tablets (100 mg) by mouth every 6 (six) hours as needed for moderate pain. 40 tablet 7 Active albuterol (ACCUNEB) 0.63 mg/3 mL nebulizer solution not defined Active valsartan-hydroc hlorothiazide (DIOVAN-HCT) 320-25 mg per tablet Take 1 tablet by mouth daily. Active NICORETTE 4 mg gum fruit chillIndications :Nicotine dependence Chew and park one every 2 hours. Avoid acidic beverages 5 min before, during & after 100 Piece 2 Active Additional Information Patient not taking.Reason: No longer taking, Reported on 08/01/2023 doxycycline (Vibramycin) 100 MG capsuleIndicatio ns:Malignant neoplasm of overlapping sites of left female breast,Rectal cancer,Lesion of lung,Cellulitis of left lower limb Take 1 capsule (100 mg) by mouth twice daily. 20 capsule 3 Active Additional Information Patient not taking.Reason: No longer taking, Reported on 07/30/2024 gabapentin (NEURONTIN) 300 mg capsule Take 1 capsule (300 mg) by mouth 3 (three) times a day. 3 Active apixaban (ELIQUIS) 5 mg tablet Take 1 tablet (5 mg) by mouth every 12 (twelve) hours. 3 Active hydrALAZINE (APRESOLINE) 25 mg tablet Take 1 tablet (25 mg) by mouth twice daily. 3 Active furosemide (LASIX) 20 mg tablet Take 1 tablet (20 mg) by mouth daily as needed. 3 Active metoprolol tartrate (LOPRESSOR) 25 mg tablet Take 1 tablet (25 mg) by mouth daily. 3 Active methocarbamol (ROBAXIN) 750 mg tablet Take 1 tablet (750 mg) by mouth every 8 (eight) hours. Active cloNIDine HCl (CATAPRES) 0.1 mg tablet Take 1 tablet (0.1 mg) by mouth daily as needed. Active diphenoxylate-at ropine (LOMOTIL) 2.5 mg-0.025 mg per tablet Take 2 tablets by mouth. 3 Active psyllium (METAMUCIL) 0.52 gram capsule Take 1 capsule (0.52 g) by mouth daily. Active amLODIPine (NORVASC) 10 mg tablet Take 1 tablet (10 mg) by mouth daily. Take 1/2 tablet a day(5 mg) 4 Active Active Problems Problem Noted Date Diagnosed Date Renal insufficiency 03/30/2021 Lesion of lung 03/30/2021 Lymphedema of upper limb 04/07/2018 Diarrhea 05/26/2017 Dehydration 05/26/2017 Parastomal hernia 03/24/2017 Attention to colostomy 01/25/2017 Follow up examination after combined treatment 0 12/06/2016 Personal history of tobacco use 06/01/2016 Diverticular disease of colon 03/09/2016 Nicotine dependence 03/09/2016 Rectal cancer 11/27/2015 Cancer Staging:Pathologic stage from 01/06/2017:Stage IIA(T3, N0, cM0) - Signed by Inocente Montelongo MD on 07/26/2017 Overview (02/24/2016): Excised via transanal excision Malignant neoplasm of overla pping sites of left female breast 10/27/2015 Cancer Staging:Clinical: Unsigned Metastatic cancer to axillary lymph nodes 2014 Triple-negative breast cancer 11/29/2014 Chronic obstructive pulmonary disease Hypertension Encounters Date Type Department Care Team Description 07/30/2024 2:40 PM CDT Follow-Up MD [facility] [place] - Dermatology [address] [place] [address] Elizabeth Salazar MD [place]; Seborrheic keratosis; Melanocytic nevus of trunk; Skin cancer screening 07/30/2024 Travel after 05/16/2024 Surgical History Surgery Date Site/Laterality Comments TONSILLECTOMY RECTAL SURGERY PARTIAL HYSTERECTOMY MASTECTOMY Left AUGMENTATION MAMMAPLASTY W/PROSTHETIC IMPLANT ANKLE SURGERY 11/14/1984 - 11/13/1985 Left KNEE ARTHROPLASTY APPENDECTOMY 11/14/1951 - 11/13/1952 HEMORRHOID SURGERY 11/14/1969 - 11/13/1970 AR PRCTECT CMBN ABDOMINOPRNL PULL-THRU PX 12/30/2016 Abdomen/N/A Procedure: COMPLETE PROCTECTOMY WITH PULL-THROUGH PROCEDURE BY COMBINED ABDOMINOPERINEAL APPROACH ; Surgeon: Inocente Montelongo MD; Location: MAIN OR; Service: SURG ONC - COLORECTAL AR EXPLORATORY LAPAROTOMY CELIOTOMY W/WO BIOPSY SPX 12/30/2016 Abdomen/Midline Procedure: EXPLORATORY CELIOTOMY (LAPAROTOMY); Surgeon: Inocente Montelongo MD; Location: MAIN OR; Service: SURG ONC - COLORECTAL AR ENTEROLSS FRING INTSTINAL ADHESION SPX 12/30/2016 Abdomen/N/A Procedure: FREEING OF INTESTINAL ADHESION; Surgeon: Inocente Montelongo MD; Location: MAIN OR; Service: SURG ONC - COLORECTAL AR MUSC MYOCUTANEOUS/FASCIOCUTANEOU S FLAP TRUNK 12/30/2016 Midline Procedure: Vertical rectus myocutaneous flaps; Surgeon: Jose Real MD; Location: MAIN OR; Service: PLS - PLASTIC SURGERY AR CHOLECYSTECTOMY 12/30/2016 Abdomen/N/A Procedure: CHOLECYSTECTOMY; Surgeon: Inocente Montelongo MD; Location: MAIN OR; Service: SURG ONC - COLORECTAL AR REPAIR INCISIONAL HERNIA,REDUCIBLE 12/30/2016 Abdomen/Midline Procedure: REPAIR OF REDUCIBLE INCISIONAL OR VENTRAL HERNIA; Surgeon: Jose Real MD; Location: MAIN OR; Service: PLS - PLASTIC SURGERY Medical History Medical History Date Comments Breast cancer Chronic obstructive pulmonary disease Hypertension Rectal cancer 11/27/2015 Excised via casey sanal excision Chronic obstructive pulmonary disease Diverticulitis Follow up examination after combined treatment 12/06/2016 Attention to colostomy 01/25/2017 Fall Family History Medical History Relation Name Comments Esophageal cancer Father Teresita Breast cancer Maternal Aunt -March Relation Name Status Comments Father Teresita Maternal Aunt -March Social History Tobacco Use Types Packs/Day Years Used Date Smoking Tobacco: Former Cigarettes 1 61.5 0 12/07/1960 - 05/29/2022 Smokeless Tobacco: Never Tobacco Cessation:Counseling Given: Yes Alcohol Use Standard Drinks/Week Comments Yes 1 (1 standard drink = 0.6 oz pur e alcohol) About 1 drink/month Comments No Sex and Gender Information Value Date Recorded Sex Assigned at Female 03/24/2020 5:33 PM CDT 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 Gender Identity Female 03/24/2020 5:33 PM CDT Sexual Orientation Straight 03/24/2020 5: 33 PM CDT Obstetrics History Para Term AB IAB SAB Ectopic Multiple Livin g Live Births 5 5 Date Outcome GA Total Labor Labor/2nd/3rd Weight Sex Type Anes PTL Sharon A1 A5 Name Clin Para Para Para Para Para Last Filed Vital Signs Vital Sign Reading Time Taken Comments Blood Pressure 120/65 07/30/2024 1:41 PM CDT Pulse 65 07/30/2024 1:41 PM CDT Temperature 36.7 °C (98.1 °F) 07/30/2024 1:41 PM CD T Respiratory Rate 18 07/30/2024 1:41 PM CDT Oxygen Saturation - - Inhaled Oxygen Concentration - - Weight 48.1 kg (106 lb 0.7 oz) 07/30/2024 1:41 P M CDT Height 148 cm (4' 10.27") 07/30/2024 2:07 PM CDT Body Mass Index 21.96 07/30/2024 1:41 PM CDT Plan of Treatment Upcoming Encounters Date Type Department Care Team (Late st Contact Info) Description 08/01/2025 9:40 AM CDT Follow-Up MD [facility] [place] - Dermatology [address] [place] [address] Elizabeth Salazar MD [address] [place] [phone] [email or web address] Health Maintenance Due Date Last Done Comments Pneumococcal Vaccine: 50+ Years (1 of 2 - PCV) 965 COVID-19 Vaccine ( season) 2024 Influenza Vaccine (Season Ended) 2025 08/28/20 20 Medical Devices Implanted Type Area Post Manager Device Identifier Shelf Expiration Date Model / Serial / Lot Breast Implants Insurance [employer] CHOICE MEDICARE PPO [employer] MEDICARE PPO Advance Directives * Full Code (Latest Code Status on File) Date Activated Date Inactivated Comments 01/27/2017 10:36 AM 01/30/2017 3:14 PM * Full Code Date Activated Date Inactivated Comments 12/30/2016 12:26 PM 01/06/2017 2:13 PM * Full Code Date Activated Date Inactivated Comments 09/11/2016 4:13 AM 09/12/2016 6:51 PM Care Teams Ecommerce Project Manager Relationship Specialty Start Date End Date Adilson Boothe MD [address] [place] [phone] strategic [email or web address] PCP - External Referring 12/06/14 Adilson Boothe MD [address] [place] [address] [phone] strategic [email or web address] PCP - External Follow Up A 12/06/14 Angela Harrison MD [address] [place] [phone] [email or web address] PCP - General Medical Oncology 12/07/16 Inocente Montelongo MD [address] [place] [phone] [email or web address] Physician 01/21/16 Ana Sherman MD [address] [place] [phone] [email or web address] Consulting Physician Radiation Oncology 08/31/16 [place] [address] [place] [phone] Pulmonary Medicine 12/22/20 [place] [address] [phone] Cardiology 07/31/21 Glenn Wiseman MD [address] [place] [phone] [email or web address] Consulting Physician Plastic and Reconstructive Surgery 12/21/17 Lissette Scott MD [address] [place] [phone] [email or web address] Consulting Physician Urology 12/02/16 Yovani Lagunas MD [address] [place] [phone] [email or web address] Consulting Physician Radiation Oncology 08/19/16 Joy Leyva MD [address] [place] [phone] [email or web address] Consulting Physician Internal Medicine 11/26/16 Elizabeth Salazar MD [address] [place] [phone] [email or web address] Consulting Physician Dermatology 06/06/17
--- NOTE | 2025-05-16 19:54 | RAD REPORT ---
EXAMINATION: CT Abdomen Pelvis W Contrast CLINICAL INDICATION: Female, 79 years old. ABD PAIN TECHNIQUE: CT abdomen and pelvis was performed, after the administration of IV contrast, as per [facility]. Axial, sagittal and coronal reconstructions were obtained. One or more of the following dose reduction techniques were used: Automated exposure control, adjustment of the mA and k V according to patient size, and iterative reconstruction. Unless otherwise specified, incidental findings do not require dedicated imaging follow-up. COMPARISON: 02/26/2016 and 11/02/2024 FINDINGS: LOWER CHEST: The visualized lung bases are clear. LIVER: Normal in size and contour. Stable cystic lesions throughout the liver, largest is bilobed in the inferior left lobe measuring 2.3 x 3.6 cm. No suspicious focal lesion. BILIARY SYSTEM: No suspicious abnormalities. SPLEEN: Normal size. No focal lesion. PANCREAS: No mass, ductal dilation, or will-pancreatic fluid. Stable foci of calcification along the pancreatic body. ADRENALS: Left adrenal 3.0 x 2.5 cm mass, stable. KIDNEYS: Normal size and contour. 2 mm nonobstructing right lower pole calculus. 3 mm mid to lower po le left sided focus of calcification which could represent a calculus or parenchymal calcification. Stable small cortical cysts including a hemorrhagic left upper pole 1 cm cyst No hydronephrosis. URINARY BLADDER: Unremarkable. GASTROINTESTINAL TRACT: No evidence of free air, significant intra-abdominal free fluid, bowel obstru ction or abscess. Enteric contrast reaches the left flank colostomy. APPENDIX: Appendix not visualized, but no inflammatory changes in region of appendix. LYMPH NODES: No lymphadenopathy. MUSCULOSKELETAL: No acute or suspicious osseous abnormality. Stable small cystic lesion along the rig ht lower thoracic paravertebral soft tissues measuring 2.4 cm. ADDITIONAL FINDINGS: None. IMPRESSION: No acute or concerning abnormalities seen in the abdomen or pelvis. Stable incidental findings as abo ve, including a left adrenal 3 cm mass.
[2025-05-16 20:07] LABS: Arterial Blood Carboxyhemoglob 3.2 % (0.0-1.5); Blood Gas Inspired Oxygen 28.0 %; Blood Gas Oxyhemoglobin 57.2 % (94.0-97.0)
[2025-05-16 20:10] LABS: Blood O2 Saturation 64.3 % (92.0-98.5)
[2025-05-16] MEDS: Mupirocin NASAL 2 APPL/1 GM TUBE NAS SCH (21:00)
--- NOTE | 2025-05-16 21:56 | RAD REPORT ---
EXAMINATION: ONE VIEW CHEST XR CLINICAL INDICATION: Female, 79 years old.,PICC LINE PLCMNT TECHNIQUE: Frontal chest projection is submitted. Examination is limited by patient positioning and t echnique. COMPARISON: 05/16/2025 FINDINGS: Right arm PICC in place with catheter tip at the mid to distal SVC. Patient rotation somewhat limits evaluation. The lungs are diffusely emphysematous. Streaky right more than left perihilar and suprahilar opacities could represent vascular densities versus early airspace disease. No pneumothor ax or sizable effusion. The heart is normal in size. Mediastinal contours are unremarkable. IMPRESSION: Satisfactory right arm PICC placement. Upper lung streaky opacities as above, could represent early airspace disease.
[2025-05-16] MEDS: AA 5%/D20W/ELECTROLYTES-TPN 2,000 ML IV SCH (23:59)
--- NOTE | 2025-05-17 00:58 | RAD REPORT ---
TIME OF STUDY: 05/16/2025 12:00 AM CDT REASON FOR EXAM: PICC PLACEMENT COMPARISON: None. FINDINGS: AP view of the chest was obtained, chest 1 view. Lungs: The lungs are adequately inflated. Diffuse interstitial markings are noted with scattered luce ncies, consistent with emphysematous/fibrotic changes. A right arm PICC is noted with the tip in the mid SVC. Surgical clips are noted in the left axilla.. Pleura: No pneumothorax. There is no pleural effusion. Heart and Mediastinum: Normal cardiomediastinal silhouette and great vessels.. Bones: No acute bony abnormality.. IMPRESSION: 1. Right arm PICC in good position. Electronically signed by: Chilo Johnson MD 05/17/2025 12:08 AM CDT RP Due to temporary technical issues with the PACS/Shopline reporting system, reports are being tiffanie d by the in-house radiologist without review as a courtesy to ensure prompt reporting the interpreting radiologist is fully responsible for the content of the report Transcribed Date/Time: 05/17/2025 12:57 AM
[2025-05-17 02:18] LABS: Anion Gap 4.1 mEq/L (5.0-15.0); BUN Blood Urea Nitrogen 17.0 mg/dL (7-18); Glucose Level 146.0 mg/dL (74-106); Potassium 3.1 mEq/L (3.5-5.1)
[2025-05-17 02:21] LABS: Magnesium 1.7 mg/dL (1.6-2.4); Troponin High Sensitivity 52.7 pg/mL (<58.9)
[2025-05-17 02:22] LABS: Albumin 2.7 g/dL (3.4-5.0); Prealbumin 21.3 mg/dL (20-40)
[2025-05-17] MEDS: NA CHLORIDE 0.9% 1,000 ML IV SCH (03:33)
[2025-05-17] MEDS: Magnesium Sulfate 2gm IVPB 2 G/50 ML BAG IV ONE ×2 (03:56→04:00)
[2025-05-17 04:44] LABS: Absolute Lymphocytes (CBC) 0.9 K/uL (0.7-4.9); Hematocrit 34.3 % (36.0-45.0); Hemoglobin 11.7 g/dL (12.0-15.0); MCH 31.7 pg (27.0-35.0); MCHC 34.1 g/dL (32.0-36.0); MCV 93.0 fL (80-100); MPV 8.8 fL (7.6-11.3); Nucleated RBC Absolute Count 0.0 (0-0); Nucleated Red Blood Cells % 0.0 % (0-0); RBC Red Blood Cell Count 3.69 M/uL (3.86-4.86); White Blood Count 6.50 thou/uL (4.3-10.9)
[2025-05-17 04:52] LABS: Anion Gap 4.3 mEq/L (5.0-15.0); BUN Blood Urea Nitrogen 19.0 mg/dL (7-18); Glucose Level 130.0 mg/dL (74-106); Potassium 3.3 mEq/L (3.5-5.1)
[2025-05-17 04:53] LABS: Magnesium 1.7 mg/dL (1.6-2.4)
[2025-05-17 05:28] LABS: Arterial Blood Carboxyhemoglob 2.5 % (0.0-1.5); Blood Gas Oxyhemoglobin 95.5 % (94.0-97.0); Blood O2 Saturation 97.6 % (92.0-98.5)
[2025-05-17 05:29] LABS: Blood Gas Inspired Oxygen 21.0 %
[2025-05-17] MEDS: KCL 20 MEQ/100 mL IVPB 20 MEQ/100 ML BAG IV SCH (05:57)
--- NOTE | 2025-05-17 06:52 | P.PN ---
Date of Service: 05/17/25 Subjective Complaining of vaginal pain on examination, no evidence of a yeast infection noted UA negative for infectious process Electolytes stable Transfer to the floor ROS 10 point ROS as noted above, otherwise negative Physical Exam General: Alert and Oriented x3, NAD HEENT: Atraumatic, Normocephalic, PERRLA Neck: Supple, 2+ carotid pulse no bruit Respiratory: Clear to auscultation bilaterally, Normal air movement Cardiovascular: Normal pulses, Regular rate/rhythm Capillary refill: <2 Seconds Gastrointestinal: Soft and benign, Other (Colostomy in place) Musculoskeletal: No clubbing Integumentary: No rashes Neurological: Normal speech, Normal tone Vitals Reviewed Problem list Short gut syndrome Metabolic alkalosis Rectal cancer with colostomy in place Breast cancer Elevated liver enzyme LÓPEZ Elevated troponin COPD hypertension diverticulitis Assessment and Plan Short gut syndrome Metabolic alkalosis Rectal cancer with colostomy in place Breast cancer -transferred to the floor - Dr. Gee consulted/following - PICC line for TPN, will continue - CT abdomen/pelvis with oral contrast performed with no acute events noted, Dr. Gee to examine the image for any surgical needs - BMP, mag, Phos every 6 hour for refeeding monitoring - Replace electrolytes PRN - Albumin and prealbumin stat - Electrolytes stable -Continuous telemetry -FLD Elevated liver enzyme -T. bili 1.8, D bili 0.4, indirect bili 1.4, AST 13 LÓPEZ -BUN/creatinine 19/0.84, GFR 71 Elevated troponin -troponin trend 60.5/52.7/51.6 -Continuous telemetry COPD hypertension diverticulitis - Continue home medications as appropriate DVT ppx SCD Full code LOS >2 days Discharge Plan: Home Time Spent Managing Pts Care (In Minutes): 35
[2025-05-17] MEDS: MORPHINE 2 MG/ML SYR IV PRN (09:03)
[2025-05-17] MEDS: HYDRALAZINE HCL 20 MG/ML VIAL IV PRN (09:04)
[2025-05-17 09:07] LABS: Urine Microscopic Reflex YN NO UMIC
[2025-05-17] MEDS: HYDROMORPHONE HCL 1 MG/ML INJ IV PRN (11:21)
[2025-05-17] MEDS ORDERED: PNEUMOCOCCAL VACCINE 0.5 ML IMVAC ONE (12:00)
[2025-05-17 12:44] LABS: Anion Gap 4.1 mEq/L (5.0-15.0); BUN Blood Urea Nitrogen 21.0 mg/dL (7-18); Glucose Level 150.0 mg/dL (74-106); Potassium 4.1 mEq/L (3.5-5.1)
[2025-05-17 12:45] LABS: Magnesium 2.3 mg/dL (1.6-2.4)
[2025-05-17] MEDS: AA 5%/D20W/ELECTROLYTES-TPN 2,000 ML, Lipids 20% 250 ML with MULTIVITAMINS INJ 10 ML IV SCH (17:17)
[2025-05-17 17:58] LABS: Anion Gap 5.0 mEq/L (5.0-15.0); BUN Blood Urea Nitrogen 24.0 mg/dL (7-18); Glucose Level 123.0 mg/dL (74-106); Potassium 4.0 mEq/L (3.5-5.1)
[2025-05-17 18:06] LABS: Magnesium 2.0 mg/dL (1.6-2.4)
[2025-05-17] MEDS: hydrOXYzine HCL 25 MG TAB PO PRN (21:24)
[2025-05-17 22:11] LABS: Anion Gap 5.0 mEq/L (5.0-15.0); BUN Blood Urea Nitrogen 23.0 mg/dL (7-18); Glucose Level 121.0 mg/dL (74-106); Potassium 4.0 mEq/L (3.5-5.1)
[2025-05-17 22:26] LABS: Magnesium 1.9 mg/dL (1.6-2.4)
[2025-05-18 05:31] LABS: Absolute Lymphocytes (CBC) 0.8 K/uL (0.7-4.9); Hematocrit 32.9 % (36.0-45.0); Hemoglobin 11.3 g/dL (12.0-15.0); MCH 32.1 pg (27.0-35.0); MCHC 34.4 g/dL (32.0-36.0); MCV 93.2 fL (80-100); MPV 9.2 fL (7.6-11.3); Nucleated RBC Absolute Count 0.0 (0-0); Nucleated Red Blood Cells % 0.0 % (0-0); RBC Red Blood Cell Count 3.53 M/uL (3.86-4.86); White Blood Count 7.50 thou/uL (4.3-10.9)
[2025-05-18 05:34] LABS: Magnesium 1.8 mg/dL (1.6-2.4)
[2025-05-18] MEDS: MAGNESIUM SULFATE 1 gm IVPB 1 GM/100 ML BAG IV ONE (06:12)
[2025-05-18 07:55] LABS: Anion Gap 5.8 mEq/L (5.0-15.0); BUN Blood Urea Nitrogen 24.0 mg/dL (7-18); Glucose Level 103.0 mg/dL (74-106); Potassium 3.8 mEq/L (3.5-5.1)
[2025-05-18] MEDS: POTASSIUM PHOS IN 0.9 % NACL 15 MMOL/250 ML BAG IV ONE (08:06)
--- NOTE | 2025-05-18 09:37 | P.PN ---
Date of Service: 05/18/25 Subjective Napoles inserted last night d/t urinary retention Urinary symptoms improved Stopped IVF and gave lasix x1 as she experiencing difficulty breathing, swelling noted to bilateral hands Transfer to the floor ROS 10 point ROS as noted above, otherwise negative Physical Exam General: AAOx3, anxiety HEENT: Atraumatic, Normocephalic, PERRLA Neck: Supple, 2+ carotid pulse no bruit Respiratory: Normal air movement, on 3 LNC Cardiovascular: Normal pulses, Sinus tachycardia Capillary refill: <2 Seconds Gastrointestinal: Soft on palpation, Other (Colostomy in place) Musculoskeletal: No clubbing Integumentary: No rashes Neurological: Normal speech, Normal tone Vitals Reviewed Problem list Short gut syndrome Metabolic alkalosis Rectal cancer with colostomy in place Breast cancer Elevated liver enzyme LÓPEZ Elevated troponin COPD exacerbation hypertension diverticulitis Assessment and Plan Short gut syndrome Metabolic alkalosis Rectal cancer with colostomy in place Breast cancer - transferred to the floor - Dr. Gee consulted/following - PICC line for TPN, will continue - CT abdomen/pelvis with oral contrast performed with no acute events noted, Dr. Gee to examine the image for any surgical needs - BMP, mag, Phos BID - Replace electrolytes PRN - Monitor Albumin - Electrolytes stable - Continuous telemetry - FLD Elevated liver enzyme -T. bili 1.8, D bili 0.4, indirect bili 1.4, AST 13 LÓPEZ Urinary retention -BUN/creatinine 24/0.57, GFR 93 -Napoles placed 05/17/25 Elevated troponin -troponin trend 60.5/52.7/51.6 -Continuous telemetry COPD exaerbation -chest xray reports prominent emphysematous changes throughout the lungs -On 2 LNC, some anxiety, bipap OVN -lasix given this morning -duonebs -Solumedrol 125mg and 40 mg BID hypertension diverticulitis - Continue home medications as appropriate DVT ppx Eliquis Full code LOS >2 days Discharge Plan: Home Time Spent Managing Pts Care (In Minutes): 35
[2025-05-18] MEDS: FUROSEMIDE 40 MG/4 ML VIAL IV ONE (09:54)
[2025-05-18] MEDS: ALBUMIN HUMAN 25% 50 ML IV ONE (10:53)
--- NOTE | 2025-05-18 12:10 | RAD REPORT ---
EXAMINATION: ONE VIEW CHEST XR CLINICAL INDICATION: increased WOB TECHNIQUE: Frontal chest projection is submitted. Examination is limited by patient positioning and t echnique. COMPARISON: 05/16/2025 FINDINGS: Prominent emphysematous changes throughout the lungs. Right-sided venous catheter is tip in SVC. The heart is upper limit of normal in size. Mild/moderate upper thoracic levoscoliosis.
[2025-05-18 12:16] LABS: Anion Gap 7.1 mEq/L (5.0-15.0); BUN Blood Urea Nitrogen 22.0 mg/dL (7-18); Glucose Level 112.0 mg/dL (74-106); Potassium 4.1 mEq/L (3.5-5.1)
[2025-05-18 12:37] LABS: Blood O2 Saturation 93.8 % (92.0-98.5)
[2025-05-18] MEDS: ALBUTEROL 2.5 MG/3 ML NEB SOL NEB SCH (12:37)
[2025-05-18] MEDS: IPRATROPIUM BROM 0.5MG/2.5ML NEB SCH (12:37)
[2025-05-18 12:38] LABS: Arterial Blood Carboxyhemoglob 2.2 % (0.0-1.5); Blood Gas Inspired Oxygen 32.0 %; Blood Gas Oxyhemoglobin 92.8 % (94.0-97.0)
[2025-05-18] MEDS: VALSARTAN 160 MG TAB PO SCH (13:47)
[2025-05-18] MEDS: HYDRALAZINE HCL 25 MG TABLET PO SCH (13:48)
[2025-05-18] MEDS: hydroCHLOROthiazide 25 MG TAB PO SCH (13:49)
[2025-05-18] MEDS: METOPROLOL TAR 50 MG TAB PO SCH (13:50)
[2025-05-18] MEDS: AMLODIPINE 5 MG TAB PO SCH (13:50)
[2025-05-18] MEDS: ALPRAZOLAM 1 MG TABLET PO ONE (13:51)
[2025-05-18] MEDS: WATER FOR INJ,STERILE 10 ML ONE (13:53)
[2025-05-18] MEDS: METHYLPREDNISOLONE 125 MG INJ IV ONE (13:55)
[2025-05-18] MEDS: NA CHLORIDE 0.9% 500 ML IV ONE (15:02)
--- NOTE | 2025-05-18 15:32 | RAD REPORT ---
EXAMINATION: US BILATERAL UPPER EXTREMITY VENOUS DOPPLER CLINICAL INDICATION: swelling bilateral arm TECHNIQUE: Complete bilateral duplex sonography of the BILATERAL upper extremity veins was performed. The examination included compression for vein patency, color Doppler imaging and flow augmentation in response to distal compression of the internal jugular, brachiocephalic, subclavian, axillary, bra chial, radial, ulnar, cephalic and basilic veins. COMPARISON: No prior exam. FINDINGS: Duplex sonography testing of the veins of the BILATERAL upper extremity was performed.Small amount th rombus is seen in the right axillary vein in the region of the PICC line. Elsewhere no DVT is evident. IMPRESSION: Small amount of thrombus suspected surrounding the PICC line in the right axillary vein.
[2025-05-18] MEDS ORDERED: PHENAZOPYRIDINE 100MG TAB PO PRN (15:38)
[2025-05-18] MEDS: ALBUMIN HUM 5% 500 ML IV ONE (17:27)
[2025-05-18 19:04] LABS: Albumin 3.2 g/dL (3.4-5.0); Anion Gap 6.5 mEq/L (5.0-15.0); BUN Blood Urea Nitrogen 22.0 mg/dL (7-18); Glucose Level 130.0 mg/dL (74-106); Potassium 3.5 mEq/L (3.5-5.1)
[2025-05-18] MEDS: METHYLPREDNISOLONE 40 MG INJ IV SCH (20:01)
[2025-05-18] MEDS: APIXABAN 5 MG TABLET PO SCH (20:22)
[2025-05-18] MEDS ORDERED: HYDRALAZINE HCL 25 MG TABLET PO SCH (21:00)
[2025-05-18] MEDS ORDERED: HOME MED 1 EA UNK (Hydralazine Hcl [Apresoline] 50 MG Tablet) PO SCH (21:00)
[2025-05-18] MEDS ORDERED: METOPROLOL TAR 50 MG TAB PO SCH (21:00)
[2025-05-18] MEDS: KCL 20 MEQ/100 mL IVPB 20 MEQ/100 ML BAG IV SCH (21:04)
[2025-05-19 07:22] LABS: Albumin 2.0 g/dL (3.4-5.0); Anion Gap 17.0 mEq/L (5.0-15.0); BUN Blood Urea Nitrogen 11.0 mg/dL (7-18); Glucose Level 166.0 mg/dL (74-106); Magnesium 2.3 mg/dL (1.6-2.4); Potassium 4.0 mEq/L (3.5-5.1)
[2025-05-19 08:53] LABS: Hematocrit 31.7 % (36.0-45.0); Hemoglobin 10.5 g/dL (12.0-15.0); RBC Red Blood Cell Count 3.47 M/uL (3.86-4.86); White Blood Count 12.50 thou/uL (4.3-10.9)
[2025-05-19 08:54] LABS: Absolute Lymphocytes (CBC) 0.5 K/uL (0.7-4.9); MCH 30.3 pg (27.0-35.0); MCHC 33.2 g/dL (32.0-36.0); MCV 91.3 fL (80-100); MPV 9.7 fL (7.6-11.3); Nucleated Red Blood Cells % 0.2 % (0-0)
[2025-05-19 08:55] LABS: Nucleated RBC Absolute Count 0.0 (0-0)
[2025-05-19] MEDS ORDERED: FUROSEMIDE 20 MG TABLET PO SCH (09:00)
[2025-05-19] MEDS ORDERED: LOPERAMIDE HCL 2 MG CAPSULE PO PRN (09:00)
[2025-05-19] MEDS: Fluticasone/Umeclidin/Vilanter [Trelegy Ellipta 100-62.5-25] Blst.W.Dev *PT OWN MED IH SCH (09:00)
[2025-05-19] MEDS ORDERED: HOME MED 1 EA UNK (Valsartan/Hydrochlorothiazide [Valsartan-Hctz 320-25 Mg Tab] 1 EACH Tab PO SCH (09:00)
[2025-05-19] MEDS: METOPROLOL TAR 25 MG TAB PO ONE (10:16)
[2025-05-19] MEDS: INSULIN REGULAR (HUMAN) 100 UNIT/ML SQ SCH (11:50)
[2025-05-19 12:14] LABS: White Blood Cell Scan DIFF (OK)
[2025-05-19 12:15] LABS: Blood Morphology Comment NOTED (NOT SEEN); Hypochromasia 1+
[2025-05-19 12:16] LABS: Differential Total Cells Count 100; Segmented Neutrophils 60 % (40-80); Slides for Pathologist Review DONE
[2025-05-19 12:17] LABS: Smudge Cells OCC
[2025-05-19 12:18] LABS: Toxic Granulation 3+
--- NOTE | 2025-05-19 12:39 | P.PN ---
Date of Service: 05/19/25 Subjective Awake, off the bipap, doing well tolerating PO diet and reports she is hungry Episode of COPD exacerbation with fluid overload yesterday 05/18 Lasix and albumin given, Steroid 125 mg x1, TPN stopped til this morning 05/19 Chest xray showing emphysema hypotension treated with NS bolus and additional albumin on Bipap OVN, xanax given for anxiety Stable overnight and on 2 LNC this morning ROS 10 point ROS as noted above, otherwise negative Physical Exam General: AAOx3, anxiety HEENT: Atraumatic, Normocephalic, PERRLA Neck: Supple, 2+ carotid pulse no bruit Respiratory: Wheezing, on 2 LNC, mild tachypnea Cardiovascular: Normal pulses, NSR Capillary refill: <2 Seconds Gastrointestinal: Soft on palpation, Other (Colostomy in place) Musculoskeletal: No clubbing Integumentary: No rashes Neurological: Normal speech, Normal tone Vitals Reviewed Problem list Short gut syndrome Metabolic alkalosis Rectal cancer with colostomy in place Breast cancer DVT Elevated liver enzyme LÓPEZ-resolved Urinary retention Elevated troponin COPD exacerbation Anxiety hypertension diverticulitis Assessment and Plan Short gut syndrome Metabolic alkalosis Rectal cancer with colostomy in place Breast cancer - transferred to the floor - Dr. Gee consulted/following - PICC line for TPN, will continue - CT abdomen/pelvis with oral contrast performed with no acute events noted, Dr. Gee to examine the image for any surgical needs - BMP, mag, Phos BID - Replace electrolytes PRN - Monitor Albumin - Electrolytes stable - Continuous telemetry -Tolerated FLD DVT 2/2 PICC line -Thrombus noted to PICC line in the right axillary vein - Lovenox twice daily - Patient on Eliquis at home but with short gut syndrome may not be absorbing Elevated liver enzyme -T. bili 1.8, D bili 0.4, indirect bili 1.4, AST 13 - Monitoring a.m. labs LÓPEZ-resolved Urinary retention -BUN/creatinine 11/0.46, GFR 98 -Napoles placed 05/17/25 Elevated troponin -troponin trend 60.5/52.7/51.6 -Continuous telemetry COPD exaerbation Anxiety -chest xray reports prominent emphysematous changes throughout the lungs -On 2 LNC, some anxiety, bipap OVN -duonebs -Solumedrol 125mg x1 then 40 mg BID Hypertension Diverticulitis - Continue home medications as appropriate DVT ppx Eliquis Full code LOS >2 days Discharge Plan: Home Time Spent Managing Pts Care (In Minutes): 46
[2025-05-19 12:44] LABS: Albumin 3.0 g/dL (3.4-5.0); Anion Gap 9.2 mEq/L (5.0-15.0); BUN Blood Urea Nitrogen 34.0 mg/dL (7-18); Glucose Level 235.0 mg/dL (74-106); Potassium 3.2 mEq/L (3.5-5.1)
[2025-05-19] MEDS: POTASSIUM PHOS IN 0.9 % NACL 15 MMOL/250 ML BAG IV ONE (13:27)
[2025-05-19] MEDS: KCL 20 MEQ/100 mL IVPB 20 MEQ/100 ML BAG IV SCH (13:27)
[2025-05-19] MEDS: GLUCERNA SHAKE 237 ML CAN PO SCH (13:38)
--- NOTE | 2025-05-19 14:11 | P.CNS ---
Date of Consult: 05/19/25 Chief Complaint: Short gut syndrome History of Present Illness: Patient with PMH of short gut syndrome, AF, presented with generalized weakness, patient also got COPD, denies chest pain, no palpitations, no syncope, cardiology for SVT. Allergies cephalexin [From Keflex] Allergy (Intermediate, Verified 08/19/21 14:03) Hives/Rash Home medications list reviewed: Yes Home Medications: Valsartan/Hydrochlorothiazide [Valsartan-Hctz 320-25 mg Tab] 1 each PO DAILY 01/23/20 Albuterol Inhaler [Ventolin Inhaler*] 1 puff NEB DAILY 08/19/21 Fluticasone/Umeclidin/Vilanter [Trelegy Ellipta 100-62.5-25] 1 mg NEB BID 08/19/21 Tramadol HCl [Ultram] 50 mg PO BID 08/19/21 Amlodipine [Norvasc*] 5 mg PO DAILY 05/17/25 Apixaban [Eliquis] 5 mg PO BID 05/17/25 Furosemide 20 mg PO DAILY 05/17/25 Hydralazine HCl [Apresoline] 50 mg PO BID 05/17/25 Loperamide HCl [Loperamide] 2 mg PO DAILY PRN 05/17/25 Metoprolol Tartrate 50 mg PO BID 05/17/25 Terazosin HCl 1 mg PO DAILY 05/17/25 - Past Medical/Surgical History Diabetic: No -: Rectal cancer -: Breast cancer -: COPD -: Hypertension -: COPD -: L Masectoctomy 06/2015 -: appendectomy -: partial hysteroctomy -: tonsillectomy - Family History Father Medical History: Hypertension, Cancer Mother Medical History: Cancer - Social History Smoking Status: Current every day smoker Alcohol use: No CD- Drugs: No Caffeine use: Yes Place of Residence: [facility] Review of Systems 10-point ROS is otherwise unremarkable Physical Examination Temp Pulse Resp BP Pulse Ox 98.3 F 78 19 116/51 L 98 05/19/25 12:00 05/19/25 13:00 05/19/25 13:00 05/19/25 13:00 05/19/25 13:00 General: Alert, In no apparent distress HEENT: Atraumatic, PERRLA, Mucous membr. moist/pink, EOMI, Sclerae nonicteric Neck: Supple, 2+ carotid pulse no bruit, No LAD, Without JVD or thyroid abnormality Respiratory: Clear to auscultation bilaterally, Normal air movement Cardiovascular: Regular rate/rhythm, Normal S1 S2 Gastrointestinal: Normal bowel sounds, No tenderness Musculoskeletal: No tenderness Integumentary: No rashes Neurological: Normal gait, Normal speech, Normal tone, Normal affect Lymphatics: No axilla or inguinal lymphadenopathy - Problems (1) Atrial fibrillation Current Visit: Yes Status: Acute Plan: Continue Metoprolol 25 mg po BID Eliquis on hold due to chance of needing surgery, lovenox meanwhile then resume Eliquis 5 mg po BID once cleared. continue to monitor on tele please call cardiology if any changes. (2) HTN (hypertension) Onset Date: 12/06/16 Current Visit: No Status: Chronic Plan: patient is hypotensive, stop Norvasc for now. Qualifiers: Hypertension type: essential hypertension
[2025-05-19] MEDS: METOPROLOL TAR 25 MG TAB PO SCH (17:03)
[2025-05-19] MEDS: ENOXAPARIN 60 MG/0.6 ML SQ SCH (20:08)
[2025-05-20 06:03] LABS: Absolute Lymphocytes (CBC) 0.5 K/uL (0.7-4.9); Hematocrit 30.8 % (36.0-45.0); Hemoglobin 10.5 g/dL (12.0-15.0); MCH 32.0 pg (27.0-35.0); MCHC 34.1 g/dL (32.0-36.0); MCV 93.8 fL (80-100); MPV 9.6 fL (7.6-11.3); Nucleated RBC Absolute Count 0.0 (0-0); Nucleated Red Blood Cells % 0.0 % (0-0); RBC Red Blood Cell Count 3.29 M/uL (3.86-4.86); White Blood Count 16.30 thou/uL (4.3-10.9)
[2025-05-20 06:29] LABS: Albumin 2.6 g/dL (3.4-5.0); Anion Gap 4.5 mEq/L (5.0-15.0); BUN Blood Urea Nitrogen 34.0 mg/dL (7-18); Glucose Level 164.0 mg/dL (74-106); Potassium 4.5 mEq/L (3.5-5.1)
[2025-05-20 06:49] LABS: Magnesium 1.9 mg/dL (1.6-2.4)
[2025-05-20] MEDS: TERAZOSIN HCL 1 MG CAP PO SCH (08:39)
[2025-05-20] MEDS ORDERED: FUROSEMIDE 20 MG TABLET PO SCH (09:00)
--- NOTE | 2025-05-20 11:07 | RAD REPORT ---
Procedure: Chest Single View HISTORY: Cough COMPARISON: May 18, 2025 FINDINGS: Mild right lung opacities unchanged Left lung appears clear of acute infiltrate. No significant pleural effusion noted. The heart is mildly enlarged. PICC line in place. Scoliosis. IMPRESSION: Mild right lung opacities without significant change.
[2025-05-20 14:30] VITALS: BMI 18.9
--- NOTE | 2025-05-20 18:43 | P.PN ---
Date of Service: 05/20/25 Subjective Awake, ambulating around the ICU, downgrade when room is available monitor Colostomy output, changes to more formed consistency likely dc in the Am ROS 10 point ROS as noted above, otherwise negative Physical Exam General: Awake and oriented x3 Neck: Supple, 2+ carotid pulse no bruit Respiratory: Wheezing, on 3 LNC, mild tachypnea Cardiovascular: Normal pulses, NSR Gastrointestinal: Soft on palpation, Other (Colostomy in place) Musculoskeletal: No clubbing Integumentary: No rashes Neurological: Normal speech, Normal tone Vitals Reviewed Problem list Short gut syndrome Leukocytosis 2/2 steroid use Metabolic alkalosis Rectal cancer with colostomy in place Breast cancer DVT Elevated liver enzyme LÓPEZ-resolved Urinary retention Elevated troponin COPD exacerbation Anxiety hypertension diverticulitis Assessment and Plan Short gut syndrome Leukocytosis 2/2 steroid use Metabolic alkalosis- resolved Rectal cancer with colostomy in place Breast cancer - transferred to the floor - Dr. Gee consulted/following - PICC line for TPN, will continue - CT abdomen/pelvis with oral contrast performed with no acute events noted, Dr. Gee to examine the image for any surgical needs - BMP, mag, Phos BID - Replace electrolytes PRN - Monitor Albumin - Electrolytes stable - Continuous telemetry -Advanced to consistent carbs, tolerating -stool consistency more formed DVT 2/2 PICC line -Thrombus noted to PICC line in the right axillary vein -PICC line - Lovenox twice daily - Patient on Eliquis at home but with short gut syndrome may not be absorbing Elevated liver enzyme -T. bili 1.8, D bili 0.4, indirect bili 1.4, AST 13 - Monitoring a.m. labs LÓPEZ-resolved Urinary retention -BUN/creatinine 11/0.46, GFR 98 -Napoles placed 05/17/25 Elevated troponin -troponin trend 60.5/52.7/51.6 -Continuous telemetry COPD exaerbation Anxiety -chest xray reports prominent emphysematous changes throughout the lungs -On 2 LNC, some anxiety, bipap OVN -duonebs -Solumedrol 125mg x1 then 40 mg BID Hypertension Diverticulitis - Continue home medications as appropriate DVT ppx Eliquis Full code LOS >2 days Discharge Plan: Home Time Spent Managing Pts Care (In Minutes): 46
[2025-05-20] MEDS: ONDANSETRON 4 MG/2 ML VIAL IV PRN (19:35)
[2025-05-20] MEDS: ONDANSETRON 4 MG/2 ML VIAL ONE (19:42)
[2025-05-20] MEDS: MELATONIN 3 MG TABLET PO PRN (20:42)
[2025-05-20] MEDS: Fluticasone/Umeclidin/Vilanter [Trelegy Ellipta 100-62.5-25] Blst.W.Dev *PT OWN MED IH SCH (21:00)
[2025-05-20] MEDS: METOCLOPRAMIDE 10 MG/2mL INJ IV PRN (22:55)
[2025-05-21 05:35] LABS: Absolute Lymphocytes (CBC) 0.6 K/uL (0.7-4.9); Hematocrit 33.3 % (36.0-45.0); Hemoglobin 11.3 g/dL (12.0-15.0); MCH 31.3 pg (27.0-35.0); MCHC 33.8 g/dL (32.0-36.0); MCV 92.6 fL (80-100); MPV 9.1 fL (7.6-11.3); Nucleated RBC Absolute Count 0.0 (0-0); Nucleated Red Blood Cells % 0.1 % (0-0); RBC Red Blood Cell Count 3.60 M/uL (3.86-4.86); White Blood Count 10.80 thou/uL (4.3-10.9)
[2025-05-21 05:51] LABS: ALT/SGPT < 14 U/L (13-56); AST/SGOT < 10 U/L (15-37); Albumin 2.7 g/dL (3.4-5.0); Albumin/Globulin Ratio 0.9 (1.1-1.8); Alkaline Phosphatase 76 U/L (45-117); Anion Gap 5.7 mEq/L (5.0-15.0); BUN Blood Urea Nitrogen 40 mg/dL (7-18); Bilirubin Indirect, Calculated 0.7 mg/dL (0.2-0.8); Globulin 3.1 g/dL (2.3-3.5); Glucose Level 97 mg/dL (74-106); Magnesium 1.7 mg/dL (1.6-2.4); Potassium 4.7 mEq/L (3.5-5.1)
[2025-05-21] MEDS: MAGNESIUM SULFATE 1 gm IVPB 1 GM/100 ML BAG IV ONE (08:40)
[2025-05-21] MEDS: FAMOTIDINE 20 MG/2 ML VIAL IV SCH (08:41)
[2025-05-21] MEDS: METHYLPREDNISOLONE 40 MG INJ IV SCH (08:41)
[2025-05-21] MEDS: ENOXAPARIN 40 MG/0.4 ML SQ SCH (08:41)
--- NOTE | 2025-05-21 09:28 | P.PN ---
Date of Service: 05/21/25 Subjective Developed N/V overnight in to this morning Trial pepcid, zofran, clear liquids this morning ROS 10 point ROS as noted above, otherwise negative Physical Exam General: Awake and oriented x3 Neck: Supple, 2+ carotid pulse no bruit Respiratory: Wheezing, on 3 LNC, mild tachypnea Cardiovascular: Normal pulses, NSR Gastrointestinal: Soft on palpation, Other (Colostomy in place) Musculoskeletal: No clubbing Integumentary: No rashes Neurological: Normal speech, Normal tone Vitals Reviewed Problem list Short gut syndrome Leukocytosis 2/2 steroid use Metabolic alkalosis Rectal cancer with colostomy in place Breast cancer DVT Elevated liver enzyme LÓPEZ-resolved Urinary retention Elevated troponin COPD exacerbation Anxiety hypertension diverticulitis Assessment and Plan Short gut syndrome Leukocytosis 2/2 steroid use Metabolic alkalosis- resolved Rectal cancer with colostomy in place Breast cancer - Downgraded from ICU - Dr. Gee consulted/following - PICC line for TPN, will continue - CT abdomen/pelvis with oral contrast performed with no acute events noted, Dr. Gee to examine the image for any surgical needs May require outpatient eval for possible surgical options -Continuous telemetry -Developed N/V AM 7, trial pepcid, clear liquids ADAT DVT 2/2 PICC line -Thrombus noted to PICC line in the right axillary vein -PICC line removed -Lovenox twice daily -Patient on Eliquis at home but with short gut syndrome may not be absorbing Resume eliquis at DC Elevated liver enzyme -T. bili 1.8, D bili 0.4, indirect bili 1.4, AST 13 - Monitoring a.m. labs LÓPEZ-resolved Urinary retention -BUN/creatinine 11/0.46, GFR 98 -Napoles placed 05/17/25 DC with voiding trial today Elevated troponin -troponin trended down/flat 60.5/52.7/51.6 -Continuous telemetry -No further intervention at this time COPD exaerbation Anxiety -chest xray reports prominent emphysematous changes throughout the lungs -duonebs -Reduce steroid dose Hypertension Diverticulitis - Continue home medications as appropriate DVT ppx Eliquis Full code Time Spent Managing Pts Care (In Minutes): 46
--- NOTE | 2025-05-21 14:34 | ECHO ---
HEIGHT: 4 ft 11 in WEIGHT: 93 lb 14.4 oz DATE OF STUDY: 05/21/[address]: Lacey Pollard NP 2-DIMENSIONAL: YES M.MODE: YES DOPPLER: YES COLOR FLOW: YES TDS: NO PORTABLE: YES DEFINITY: NO BUBBLE STUDY: NO DIAGNOSIS: FLUID OVERLOAD CARDIAC HISTORY: CATHERIZATION: NO SURGERY: NO PROSTHETIC VALVE: NO PACEMAKER: NO MEASUREMENTS (cm) DIASTOLIC (NORMALS) SYSTOLIC (NORMALS) IVSd 1.1 (0.6-1.2) LA Diam 3.6 (1.9-4.0) LVEF 55-60% LVIDd 4.8 (3.5-5.7) LVIDs 3.2 (2.0-3.5) %FS 33% LVPWd 1.1 (0.6-1.2) Ao Diam 2.7 (2.0-3.7) 2 DIMENSIONAL ASSESSMENT: RIGHT ATRIUM: ENLARGED LEFT ATRIUM: SEVERELY DILATED RIGHT VENTRICLE: NORMAL LEFT VENTRICLE: NORMAL TRICUSPID VALVE: MILD TRICUSPID REGURGITATION MITRAL VALVE: MILD MITRAL REGURGITATION PULMONIC VALVE: NORMAL AORTIC VALVE: NORMAL PERICARDIAL EFFUSION: NONE AORTIC ROOT: NORMAL LEFT VENTRICULAR WALL MOTION: NORMAL. DOPPLER/COLOR FLOW: GRADE II DIASTOLIC DYSFUNCTION. COMMENTS: 1. NORMAL LEFT VENTRICULAR SYSTOLIC FUNCTION. LEFT VENTRICULAR EJECTION FRACTION 55-60%. NORMAL WALL MOTION. 2. GRADE II DIASTOLIC DYSFUNCTION. 3. INFERIOR VENA CAVA NOT VISUALIZED. 4. MILD MILTRAL AND TRICUSPID REGURGITATION. TECHNOLOGIST: OH GRIMALDO
[2025-05-22] MEDS ORDERED: SODIUM CHLORIDE 0.9% 10ML INJ IV PRN (05:00)
[2025-05-22] MEDS: PANTOPRAZOLE 40 MG INJ IVP ONE (05:34)
--- NOTE | 2025-05-22 06:21 | P.PN ---
Date of Service: 05/22/25 Patient had an episode this morning where she complained of chest pain and tightness with no associated shortness of breath. Went and checked on the patient, patient was not in any distress on assessment, order stat EKG, and was sinus rhythm, order troponin, result still pending, order one-time dose of Protonix 40 mg IV since GERD can also mimic chest pain/ discomfort at times. Patient states she have had this episode multiple times while she was in ICU.
[2025-05-22] MEDS: ACETAMINOPHEN 325 MG TABLET PO PRN (06:45)
[2025-05-22 06:49] LABS: Absolute Lymphocytes (CBC) 0.7 K/uL (0.7-4.9); Hematocrit 34.2 % (36.0-45.0); Hemoglobin 12.0 g/dL (12.0-15.0); MCH 32.4 pg (27.0-35.0); MCHC 35.2 g/dL (32.0-36.0); MCV 91.9 fL (80-100); MPV 9.1 fL (7.6-11.3); Nucleated RBC Absolute Count 0.0 (0-0); Nucleated Red Blood Cells % 0.1 % (0-0); RBC Red Blood Cell Count 3.72 M/uL (3.86-4.86); White Blood Count 8.80 thou/uL (4.3-10.9)
[2025-05-22 07:06] LABS: Albumin 2.9 g/dL (3.4-5.0); Anion Gap 6.9 mEq/L (5.0-15.0); BUN Blood Urea Nitrogen 30.0 mg/dL (7-18); Glucose Level 106.0 mg/dL (74-106); Magnesium 1.9 mg/dL (1.6-2.4); Potassium 4.9 mEq/L (3.5-5.1)
[2025-05-22] MEDS: WATER FOR INJ,STERILE 10 ML ONE (09:04)
[2025-05-22] MEDS: SUCRALFATE 1GM/10ML UCUP PO SCH (11:30)
[2025-05-22] MEDS: LORazepam 2 MG/ML VIAL IV ONE (11:49)
--- NOTE | 2025-05-22 12:29 | P.PN ---
Date of Service: 05/22/25 Subjective Tolerating diet overnight C/O chest pain this morning ROS 10 point ROS as noted above, otherwise negative Physical Exam General: Awake and oriented x3 Neck: Supple, 2+ carotid pulse no bruit Respiratory: Wheezing, on 3 LNC, mild tachypnea Cardiovascular: Normal pulses, NSR Gastrointestinal: Soft on palpation, Other (Colostomy in place) Musculoskeletal: No clubbing Integumentary: No rashes Neurological: Normal speech, Normal tone Vitals Reviewed Problem list Short gut syndrome Leukocytosis 2/2 steroid use Metabolic alkalosis Rectal cancer with colostomy in place Breast cancer DVT Elevated liver enzyme LÓPEZ-resolved Urinary retention Elevated troponin COPD exacerbation Anxiety hypertension diverticulitis Assessment and Plan Short gut syndrome Leukocytosis 2/2 steroid use Metabolic alkalosis- resolved Rectal cancer with colostomy in place Breast cancer - Downgraded from ICU - Dr. Gee consulted/following - CT abdomen/pelvis with oral contrast performed with no acute events noted, Dr. Gee to examine the image for any surgical needs May require outpatient eval for possible surgical options -Continuous telemetry-no significant events -Troponin repeated and negative -Developed N/V AM 05/21, trial pepcid, clear liquids ADAT -C/O again of abd pain and nausea this morning, trial diet and re eval DVT 2/2 PICC line -Thrombus noted to PICC line in the right axillary vein -PICC line removed -Lovenox twice daily -Patient on Eliquis at home but with short gut syndrome may not be absorbing Resume eliquis at DC Elevated liver enzyme -T. bili 1.8, D bili 0.4, indirect bili 1.4, AST 13 - Monitoring a.m. labs LÓPEZ-resolved Urinary retention -BUN/creatinine 11/0.46, GFR 98 -Napoles placed 05/17/25 DC'd with voiding trial Elevated troponin -troponin trended down/flat 60.5/52.7/51.6 -Continuous telemetry -No further intervention at this time COPD exaerbation Anxiety -chest xray reports prominent emphysematous changes throughout the lungs -duonebs -Reduce steroid dose Hypertension Diverticulitis - Continue home medications as appropriate DVT ppx Eliquis Full code Time Spent Managing Pts Care (In Minutes): 46 <Ba Tyler - Last Filed: 05/22/25 12:27> Patient seen and examined. Plan of care discussed with Ba Tyler. Patient complaining of persistent nausea and abdominal discomfort. Diagnosis: Short-bowel syndrome Status post bowel resection secondary to colorectal cancer. Colostomy in place COPD exacerbation-exacerbation resolved. Acute on chronic respiratory failure with hypoxia and hypercapnia Right upper extremity DVT. Plan Continue supportive measures. Trial of sucralfate for possible gastritis. COPD stable, continue bronchodilators. Discontinue steroid. Will transition to subcutaneous Lovenox to Xarelto as Xarelto is mostly absorbed from the stomach and the proximal small bowel. <chaitanya blank - Last Filed: 05/22/25 15:11>
[2025-05-22] MEDS: Banana Flakes/T-Galactooligos 1 Dose Packet PO SCH (20:24)
[2025-05-23 05:38] LABS: Absolute Lymphocytes (CBC) 0.8 K/uL (0.7-4.9); Hematocrit 36.1 % (36.0-45.0); Hemoglobin 12.3 g/dL (12.0-15.0); MCH 31.4 pg (27.0-35.0); MCHC 34.1 g/dL (32.0-36.0); MCV 91.8 fL (80-100); MPV 8.4 fL (7.6-11.3); Nucleated RBC Absolute Count 0.0 (0-0); Nucleated Red Blood Cells % 0.0 % (0-0); RBC Red Blood Cell Count 3.93 M/uL (3.86-4.86); White Blood Count 7.00 thou/uL (4.3-10.9)
[2025-05-23 05:54] LABS: Albumin 2.7 g/dL (3.4-5.0); Anion Gap 5.5 mEq/L (5.0-15.0); BUN Blood Urea Nitrogen 28.0 mg/dL (7-18); Glucose Level 98.0 mg/dL (74-106); Magnesium 1.7 mg/dL (1.6-2.4); Potassium 4.5 mEq/L (3.5-5.1)
[2025-05-23 08:14] VITALS: O2SAT 97
[2025-05-23] MEDS: MAGNESIUM SULFATE 1 gm IVPB 1 GM/100 ML BAG IV ONE (09:08)
--- NOTE | 2025-05-23 11:36 | P.DS ---
Admission Date: 05/16/25 Discharge Date: 05/23/25 Disposition: ROUTINE DISCHARGE Discharge Condition: GOOD Reason for Admission: Short gut syndrome Brief History of Present Illness: Yamileth Connell is a 79 year old female with Pmhx COPD, hypertension, diverticulitis, rectal cancer who presents to the ED from Dr. Gee office for evaluation of short gut syndrome. She reports eating and losing her food in food form to her colostomy bag. She reports her surgery was over a year ago and she has been living this way for a long time. On evaluation, she is in no acute distress, ambulating independently, reports how hungry she is, denies abdominal pain. Laboratory evaluation significant for potassium 3.4, bicarb 36, BUN/creatinine 21/1.34, GFR 41, serum glucose 110, magnesium 1.4, T. bili 1.8, direct bili 0.4, indirect bili 1.4, AST 13, troponin 60.5, BNP 990, PT /INR 13.6/1.21. Chest xray reports "No acute intrathoracic abnormalities." Yamileth will be admitted to hospitalist service for further treatment of Short Gut syndrome, Dr. Gee consulted. Hospital Course: Problem list Short gut syndrome Leukocytosis 2/2 steroid use Metabolic alkalosis Rectal cancer with colostomy in place Breast cancer DVT Elevated liver enzyme LÓPEZ-resolved Urinary retention Elevated troponin COPD exacerbation Anxiety hypertension diverticulitis Patient was admitted to the hospital for short gut syndrome, poor p.o. toleration with rapid transit. She initially was treated with TPN and fortunately her diet was able to be gradually advanced. She did have a PICC line and unfortunately developed a DVT with a small amount of thrombus suspected surrounding the PICC line in the right axillary vein. PICC line was subsequently removed. Patient has been tolerating a diet although she did seem to have some significant epigastric discomfort/GERD, she was started on Carafate which has helped with her symptoms. Patient was on Eliquis at home, given her short gut syndrome Xarelto may be absorbed better as it is absorbed more proximally, will switch patient to Xarelto for anticoagulation. Will also prescribe Carafate for GERD Patient will need to follow-up with Dr. Gee in the office for further man agement of her short gut syndrome, they have plans for further testing and surgical evaluation going forward. Eliquis will be switched to Xarelto Carafate will be added Other home medication should remain the same at this time Vital Signs/Physical Exam: Temp Pulse Resp BP Pulse Ox 98.8 F 58 16 189/87 H 98 05/23/25 08:00 05/23/25 09:11 05/23/25 08:00 05/23/25 09:11 05/23/25 08:00 General: Alert, In no apparent distress, Oriented x3 HEENT: Atraumatic, PERRLA Neck: Supple, JVD not distended Respiratory: Clear to auscultation bilaterally, Normal air movement Cardiovascular: Regular rate/rhythm, Normal S1 S2 Gastrointestinal: Normal bowel sounds, Other (Colostomy in place) Musculoskeletal: No tenderness Integumentary: No rashes Neurological: Normal speech, Normal affect Laboratory Data at Discharge: WBC 7.00 thou/uL (4.3-10.9) 05/23/25 05:24 Hgb 12.3 g/dL (12.0-15.0) 05/23/25 05:24 Hct 36.1 % (36.0-45.0) 05/23/25 05:24 Plt Count 181 thou/uL (152-406) 05/23/25 05:24 PT 13.6 SECONDS (10-13.0) H 05/16/25 16:49 INR 1.21 05/16/25 16:49 Sodium 133 mEq/L (136-145) L 05/23/25 05:24 Potassium 4.5 mEq/L (3.5-5.1) 05/23/25 05:24 BUN 28 mg/dL (7-18) H 05/23/25 05:24 Creatinine 0.88 mg/dL (0.55-1.02) 05/23/25 05:24 Glucose 98 mg/dL (74-106) 05/23/25 05:24 Phosphorus 2.5 mg/dL (2.5-4.9) 05/23/25 05:24 Magnesium 1.7 mg/dL (1.6-2.4) 05/23/25 05:24 Total Bilirubin 1.0 mg/dL (0.2-1.0) 05/21/25 05:20 AST < 10 U/L (15-37) L 07/08/25 05:20 ALT < 14 U/L (13-56) 05/21/25 05:20 Alkaline Phosphatase 76 U/L (45-117) 05/21/25 05:20 Home Medications: Valsartan/Hydrochlorothiazide [Valsartan-Hctz 320-25 mg Tab] 1 each PO DAILY 01/23/20 Albuterol Inhaler [Ventolin Inhaler*] 1 puff NEB DAILY 08/19/21 Fluticasone/Umeclidin/Vilanter [Trelegy Ellipta 100-62.5-25] 1 mg NEB BID 08/19/21 Tramadol HCl [Ultram] 50 mg PO BID 08/19/21 Amlodipine [Norvasc*] 5 mg PO DAILY 05/17/25 Furosemide 20 mg PO DAILY 05/17/25 Hydralazine HCl [Apresoline] 50 mg PO BID 05/17/25 Loperamide HCl [Loperamide] 2 mg PO DAILY PRN 05/17/25 Metoprolol Tartrate 50 mg PO BID 05/17/25 Terazosin HCl 1 mg PO DAILY 05/17/25 Famotidine [Pepcid*] 20 mg IV DAILY vial 05/23/25 Rivaroxaban [Xarelto] 20 mg PO DAILY #30 tab 05/23/25 Sucralfate [Carafate*] 10 ml PO ACHS #1200 ml 05/23/25 New Medications: Sucralfate [Carafate*] 10 ml PO ACHS #1200 ml Rivaroxaban [Xarelto] 20 mg PO DAILY #30 tab Physician Discharge Instructions: Patient was admitted to the hospital for short gut syndrome, poor p.o. toleration with rapid transit. She initially was treated with TPN and fortunately her diet was able to be gradually advanced. She did have a PICC line and unfortunately developed a DVT with a small amount of thrombus suspected surrounding the PICC line in the right axillary vein. PICC line was subsequently removed. Patient has been tolerating a diet although she did seem to have some significant epigastric discomfort/GERD, she was started on Carafate which has helped with her symptoms. Patient was on Eliquis at home, given her short gut syndrome Xarelto may be absorbed better as it is absorbed more proximally, will switch patient to Xarelto for anticoagulation. Will also prescribe Carafate for GERD Patient will need to follow-up with Dr. Gee in the office for further management of her short gut syndrome, they have plans for further testing and surgical evaluation going forward. Eliquis will be switched to Xarelto Carafate will be added Other home medication should remain the same at this time Diet: [place] Activity: Ad lola Followup: Harpreet Gee MD [ACTIVE - CAN ADMIT] - 1-2 Weeks Esau Hammond PAC [Primary Care Provider] - 1-2 Weeks Time spent managing pt's care (in minutes): 46
[2025-05-23 12:38] VITALS: BP 167/78; TEMP 98.6
== END 2025-05-23 13:24 | disposition home or self-care (01) | DRG 391 ==
LOC: ER 12:57 → ERHOLD 17:52 → 3RD-ICU 05-17 03:18 → 2ND 05-21 18:13
PROVIDERS: ADMIT Hospitalist; ATTEND Internal Medicine
PROC: 5A09557 Assistance with Respiratory Ventilation, Greater than 96 Consecutive Hours, Continuous Positive Airway Pressure (ICD-10-PCS; 2025-05-16)
PROC: 02HV33Z Insertion of Infusion Device into Superior Vena Cava, Percutaneous Approach (ICD-10-PCS; 2025-05-16)
PROC: 0T9B70Z Drainage of Bladder with Drainage Device, Via Natural or Artificial Opening (ICD-10-PCS; 2025-05-16)
PROC: 3E0436Z Introduction of Nutritional Substance into Central Vein, Percutaneous Approach (ICD-10-PCS; 2025-05-16)
PROC: 4A033R1 Measurement of Arterial Saturation, Peripheral, Percutaneous Approach (ICD-10-PCS; principal; 2025-05-17)
DX: K90.829 Short bowel syndrome, unspecified (principal); J96.21 Acute and chronic respiratory failure with hypoxia; J96.22 Acute and chronic respiratory failure with hypercapnia; E87.3 Alkalosis; N17.9 Acute kidney failure, unspecified; K57.92 Diverticulitis of intestine, part unspecified, without perforation or abscess without bleeding; J44.1 Chronic obstructive pulmonary disease with (acute) exacerbation; I82.621 Acute embolism and thrombosis of deep veins of right upper extremity; E87.6 Hypokalemia; E83.42 Hypomagnesemia; F41.9 Anxiety disorder, unspecified; I10 Essential (primary) hypertension; D72.829 Elevated white blood cell count, unspecified; C50.912 Malignant neoplasm of unspecified site of left female breast; F17.210 Nicotine dependence, cigarettes, uncomplicated; T38.0X5A Adverse effect of glucocorticoids and synthetic analogues, initial encounter; R33.9 Retention of urine, unspecified; R79.89 Other specified abnormal findings of blood chemistry; Z93.3 Colostomy status; Z88.1 Allergy status to other antibiotic agents; Z90.12 Acquired absence of left breast and nipple; Z90.49 Acquired absence of other specified parts of digestive tract; Z79.899 Other long term (current) drug therapy
CPT/HCPCS: 36415; 36569; 36600; 71045; 74177; 80048; 80069; 80076; 81003; 82040; 82306; 82330; 82805; 82947; 83735; 83880; 84100; 84132; 84134; 84484; 85025; 85610; 93005; 93306; 93970; 94640; 94660; 94760; 97116; 97161; 99285; A4216; J0360; J1171; J1650; J1815; J1938; J2270; J2405; J2470; J2765; J2919; J3475; J3480; J7030; J7040; J7613; J7644; J7799; P9045; P9047; Q9967